=== PATIENT | male | born 1940 | race Caucasian/White ===

== ENCOUNTER → 2017-03-09 | Outpatient (CLI) | payer MEDICARE, BC ==
[2017-03-09 10:20] LABS: Blood Urea Nitrogen 19 mg/dL (9-20); Non-African American GFR(MDRD) >60 (>60 ml/min/1.73 sqM)
== END | disposition home or self-care (01) ==
LOC: LABWHC1 09:04
PROVIDERS: ATTEND Psychiatry & Neurology Neurology
DX: C71.9 Malignant neoplasm of brain, unspecified (principal); G25.81 Restless legs syndrome
CPT/HCPCS: 36415; 82565; 84520

== ENCOUNTER → 2017-03-10 | Outpatient (CLI) | payer MEDICARE, BC ==
--- NOTE | 2017-03-10 10:36 | MR ---
EXAMINATION TYPE: MR brain wo/w con DATE OF EXAM: 03/10/2017 COMPARISON: NONE HISTORY: brain tumor, tia TECHNIQUE: Multiplanar, multisequence images of the brain and brainstem is performed without and with IV contras t, utilizing 20 mL intravenous MultiHance . FINDINGS: Diffusion weighted images demonstrate no evidence of a recent infarct or other diffusion ab normality. Periventricular confluent and scattered hyperintensities on inversion recovery and T2-weig hted sequences are present. There is no extra-axial fluid collection. The ventricular system and cis ternal spaces are normal in size and appearance. The brain volume is age appropriate. Midline structures demonstrate normal morphology. The craniocervical junction appears within normal limits. Post contrast images demonstrate no abnormal enhancement. The dural venous sinuses appear pa tent. The visualized sinuses are remarkable for inflammatory change in the ethmoid air cells, there m ay be a mucous retention cyst, mucosal thickening present in the maxillary sinuses, frontal sinus, an d the globes are intact. IMPRESSION: Cortical atrophy and nonspecific white matter demyelination.
== END | disposition home or self-care (01) ==
LOC: RADMRIMAIN 09:30
PROVIDERS: ATTEND Psychiatry & Neurology Neurology
DX: G31.9 Degenerative disease of nervous system, unspecified (principal); G37.9 Demyelinating disease of central nervous system, unspecified; G45.9 Transient cerebral ischemic attack, unspecified
CPT/HCPCS: 70553; A9577

== ENCOUNTER 2017-12-20 12:42 | Observation (INO) | payer MEDICARE, BC ==
[2017-12-20] MEDS ORDERED: ASPIRIN 81 MG PO STA (13:18)
[2017-12-20] MEDS ORDERED: NITROGLYCERIN OINT 1 INCH/GM PACKET TOPICAL STA (13:18)
--- NOTE | 2017-12-20 13:21 | ED ---
General Adult HPI - General Chief complaint: Shortness of Breath Stated complaint: CHEST PAIN, KATELYN Time Seen by Provider: 12/20/17 12:45 Source: patient, RN notes reviewed Mode of arrival: wheelchair Limitations: no limitations - History of Present Illness Initial comments: This is a 77-year-old male who presents emergency part with past medical history significant for high blood pressure and high cholesterol. Patient comes in today stating that he started having chest pressure in the center versus less likely and it hasn't let up today at all. Patient states she also been mildly short of breath. Patient states she's had a cough with some positive sputum production which is unusual. Patient denies any fever chills. Patient denies any palpitation. Patient denies any abdominal pain patient denies nausea vomiting diarrhea. Patient denies any diaphoretic episodes. Patient denies any lightheadedness dizziness or near-syncopal episode. Patient denies any headache patient denies numbness weakness. - Related Data Home Medications Medication Instructions Recorded Confirmed Atorvastatin [Lipitor] 40 mg PO HS 03/09/16 12/20/17 Carbidopa-Levodopa 25-100 mg 1 tab PO QID 03/09/16 12/20/17 [Sinemet 25-100 mg] Citalopram Hydrobromide [CeleXA] 40 mg PO DAILY 03/09/16 12/20/17 Docusate [Colace] 100 mg PO BID 03/09/16 12/20/17 Fluticasone/Salmeterol [Advair 1 puff INHALATION RT-BID 03/09/16 12/20/17 500-50 Diskus] HYDROcodone/APAP 10-325MG [[place] 1 tab PO Q6H PRN 03/09/16 12/20/17 10-325] Losartan [Cozaar] 50 mg PO DAILY 03/09/16 12/20/17 Pramipexole [Mirapex] 0.25 mg PO TID 03/09/16 12/20/17 Rivaroxaban [Xarelto] 20 mg PO DAILY 03/09/16 12/20/17 Solifenacin Succinate [Vesicare] 10 mg PO DAILY 03/09/16 12/20/17 oxyCODONE HCL [OxyCONTIN] 10 mg PO Q12HR PRN 03/09/16 12/20/17 Allergies Allergy/AdvReac Type Severity Reaction Status Date / Time No Known Allergies Allergy Verified 12/20/17 13:08 Review of Systems ROS Statement: Those systems with pertinent positive or pertinent negative responses have been documented in the HPI. ROS Other: All systems not noted in ROS Statement are negative. Past Medical History Past Medical History: COPD, Hypertension Additional Past Medical History / Comment(s): Parkinson's disease, COPD, obstructive sleep apnea, hypertension, chronic atrial fibrillation, restless leg syndrome, depression, osteoarthritis, chronic neck and back pain Last Myocardial Infarction Date:: 2009 History of Any Multi-Drug Resistant Organisms: None Reported Past Surgical History: Tonsillectomy Additional Past Surgical History / Comment(s): Cervical spine neck fusion, low back surgery, tonsillectomy, adenoidectomy Past Anesthesia/Blood Transfusion Reactions: No Reported Reaction Past Psychological History: No Psychological Hx Reported Smoking Status: Former smoker Past Alcohol Use History: Rare Past Drug Use History: None Reported - Past Family History Father Family Medical History: COPD Mother Family Medical History: Dementia General Exam - General Exam Comments Initial Comments: GENERAL: Patient is well-developed and well-nourished. Patient is nontoxic and well- hydrated and is in mild distress. ENT: Neck is soft and supple. No significant lymphadenopathy is noted. Oropharynx is clear. Moist mucous membranes. Neck has full range of motion without eliciting any pain. EYES: The sclera were anicteric and conjunctiva were pink and moist. Extraocular movements were intact and pupils were equal round and reactive to light. Eyelids were unremarkable. PULMONARY: Diminished breath sounds with an occasional expiratory wheeze CARDIOVASCULAR: There is a regular rate and rhythm without any murmurs gallops or rubs. ABDOMEN: Soft and nontender with normal bowel sounds. No palpable organomegaly was noted. There is no palpable pulsatile mass. SKIN: Skin is clear with no lesions or rashes and otherwise unremarkable. NEUROLOGIC: Patient is alert and oriented x3. Cranial nerves II through XII are grossly intact. Motor and sensory are also intact. Normal speech, volume and content. Symmetrical smile. MUSCULOSKELETAL: Normal extremities with adequate strength and full range of motion. 1+ edema bilaterally LYMPHATICS: No significant lymphadenopathy is noted PSYCHIATRIC: Normal psychiatric evaluation. Normal interpersonal interactions appears functionally intact in deals appropriately with others. No signs of depression. No signs of anxiety. Limitations: no limitations Course Vital Signs 12/20/17 12/20/17 12/20/17 12:45 13:36 13:46 Temperature 98.0 F Pulse Rate 91 84 Respiratory 20 20 20 Rate Blood Pressure 138/60 104/56 O2 Sat by Pulse 92 L 96 Oximetry Medical Decision Making - Medical Decision Making EKG shows atrial fibrillation at a rate of 70 bpm QRS is under 40 QT interval 426 QTC is 485. Patient's EKG shows no ST segment elevation or depression or T wave abnormalities are noted. Patient has a right bundle olivier block. Chest x-ray shows no acute abnormality. Patient's chest pain was indicative of unstable angina/started the patient heparin. I spoke with Dr. Richardson he agreed to admit the patient I admitted the patient I wrote admitting orders I continue the heparin on the floor I continued Nitropaste and aspirin on the floor as well. I consult to cardiology. - Lab Data Result diagrams: 12/20/17 13:30 12/20/17 13:30 Lab Results 12/20/17 12/20/17 12/20/17 Range/Units 13:30 13:30 13:30 WBC 6.6 (3.8-10.6) k/uL RBC 4.40 (4.30-5.90) m/uL Hgb 13.9 (13.0-17.5) gm/dL Hct 41.2 (39.0-53.0) % MCV 93.6 (80.0-100.0) fL MCH 31.6 (25.0-35.0) pg MCHC 33.8 (31.0-37.0) g/dL RDW 13.8 (11.5-15.5) % Plt Count 211 (150-450) k/uL Neutrophils % 63 % Lymphocytes % 24 % Monocytes % 7 % Eosinophils % 4 % Basophils % 0 % Neutrophils # 4.1 (1.3-7.7) k/uL Lymphocytes # 1.6 (1.0-4.8) k/uL Monocytes # 0.5 (0-1.0) k/uL Eosinophils # 0.2 (0-0.7) k/uL Basophils # 0.0 (0-0.2) k/uL PT (9.0-12.0) sec INR (<1.2) APTT (22.0-30.0) sec Sodium 140 (137-145) mmol/L Potassium 4.1 (3.5-5.1) mmol/L Chloride 105 (98-107) mmol/L Carbon Dioxide 23 (22-30) mmol/L Anion Gap 12 mmol/L BUN 24 H (9-20) mg/dL Creatinine 1.02 (0.66-1.25) mg/dL Est GFR (CKD-EPI)AfAm 81 (>60 ml/min/1.73 sqM) Est GFR (CKD-EPI)NonAf 70 (>60 ml/min/1.73 sqM) Glucose 107 H (74-99) mg/dL Calcium 9.2 (8.4-10.2) mg/dL Magnesium 1.8 (1.6-2.3) mg/dL Total Bilirubin 0.4 (0.2-1.3) mg/dL AST 24 (17-59) U/L ALT 12 L (21-72) U/L Alkaline Phosphatase 52 (38-126) U/L Total Creatine Kinase 348 H (55-170) U/L CK-MB (CK-2) 1.9 (0.0-2.4) ng/mL CK-MB (CK-2) Rel Index 0.5 Troponin I <0.012 (0.000-0.034) ng/mL Total Protein 6.1 L (6.3-8.2) g/dL Albumin 3.7 (3.5-5.0) g/dL 12/20/17 Range/Units 13:30 WBC (3.8-10.6) k/uL RBC (4.30-5.90) m/uL Hgb (13.0-17.5) gm/dL Hct (39.0-53.0) % MCV (80.0-100.0) fL MCH (25.0-35.0) pg MCHC (31.0-37.0) g/dL RDW (11.5-15.5) % Plt Count (150-450) k/uL Neutrophils % % Lymphocytes % % Monocytes % % Eosinophils % % Basophils % % Neutrophils # (1.3-7.7) k/uL Lymphocytes # (1.0-4.8) k/uL Monocytes # (0-1.0) k/uL Eosinophils # (0-0.7) k/uL Basophils # (0-0.2) k/uL PT 11.1 (9.0-12.0) sec INR 1.1 (<1.2) APTT 27.0 (22.0-30.0) sec Sodium (137-145) mmol/L Potassium (3.5-5.1) mmol/L Chloride (98-107) mmol/L Carbon Dioxide (22-30) mmol/L Anion Gap mmol/L BUN (9-20) mg/dL Creatinine (0.66-1.25) mg/dL Est GFR (CKD-EPI)AfAm (>60 ml/min/1.73 sqM) Est GFR (CKD-EPI)NonAf (>60 ml/min/1.73 sqM) Glucose (74-99) mg/dL Calcium (8.4-10.2) mg/dL Magnesium (1.6-2.3) mg/dL Total Bilirubin (0.2-1.3) mg/dL AST (17-59) U/L ALT (21-72) U/L Alkaline Phosphatase (38-126) U/L Total Creatine Kinase (55-170) U/L CK-MB (CK-2) (0.0-2.4) ng/mL CK-MB (CK-2) Rel Index Troponin I (0.000-0.034) ng/mL Total Protein (6.3-8.2) g/dL Albumin (3.5-5.0) g/dL Critical Care Time Critical Care Time: Yes Total Critical Care Time: 35 Disposition Clinical Impression: Unstable angina Disposition: ADMITTED IP TO THIS [facility] Referrals: Elda Saenz MD [Primary Care Provider] - 1-2 days Time of Disposition: 14:36
[2017-12-20 13:46] LABS: Basophils % (A) 0 %; Eosinophils # (A) 0.2 k/uL (0-0.7); Eosinophils % (A) 4 %; HCT 41.2 % (39.0-53.0); HGB 13.9 gm/dL (13.0-17.5); Lymphocytes # (A) 1.6 k/uL (1.0-4.8); Lymphocytes % (A) 24 %; MCH 31.6 pg (25.0-35.0); MCHC 33.8 g/dL (31.0-37.0); MCV 93.6 fL (80.0-100.0); Mean Platelet Volume 7.1; Monocytes # (A) 0.5 k/uL (0-1.0); Monocytes % (A) 7 %; Neutrophils # (A) 4.1 k/uL (1.3-7.7); Neutrophils % (A) 63 %; Platelet Count 211 k/uL (150-450); RDW 13.8 % (11.5-15.5); WBC 6.6 k/uL (3.8-10.6)
--- NOTE | 2017-12-20 13:54 | XR ---
EXAMINATION TYPE: XR chest 2V DATE OF EXAM: 12/20/2017 COMPARISON: 04/07/2016 HISTORY: Chest pain with history of COPD, atrial fibrillation and Parkinson's disease. TECHNIQUE: Frontal and lateral views of the chest are obtained. FINDINGS: There is redemonstration of cardiomegaly and diffuse interstitial prominence unchanged fro m the exam of 04/07/2016, chronic. No new focal consolidation, pleural effusion or pneumothorax is gema ntified. There is diffuse osseous demineralization and degenerative changes of the acromioclavicular joints with cervical fusion device. Findings suggestive of chronic right rotator cuff tear are seen a s a high riding right humeral head. IMPRESSION: Chronic changes with no acute cardiopulmonary process.
[2017-12-20 13:55] LABS: INR 1.1 (<1.2); Prothrombin Time 11.1 sec (9.0-12.0)
[2017-12-20 13:58] LABS: Albumin 3.7 g/dL (3.5-5.0); Calcium 9.2 mg/dL (8.4-10.2); Magnesium 1.8 mg/dL (1.6-2.3); Potassium 4.1 mmol/L (3.5-5.1); Total Bilirubin 0.4 mg/dL (0.2-1.3); Total Protein 6.1 g/dL (6.3-8.2)
[2017-12-20 14:10] LABS: Creatine Kinase 348 U/L (55-170)
[2017-12-20 14:24] LABS: Creatine Kinase MB 1.9 ng/mL (0.0-2.4); Troponin I <0.012 ng/mL (0.000-0.034)
[2017-12-20] MEDS ORDERED: HEPARIN SODIUM,PORCINE 5,000 UNIT/ML 1 ML VIAL IV ONE (14:37)
[2017-12-20] MEDS ORDERED: NITROGLYCERIN SL TABS 0.4 MG TAB SUBLINGUAL PRN (14:38)
[2017-12-20] MEDS ORDERED: HEPARIN SODIUM,PORCINE/D5W PMX 25,000 UNIT in DEXTROSE/WATER 1 500ML.BAG IV SCH (15:00)
[2017-12-20] MEDS ORDERED: oxyCODONE ER 10 MG TAB.ER.12H PO PRN (15:07)
[2017-12-20] MEDS ORDERED: HYDROcodone/APAP 10-325MG 1 EACH TAB PO PRN (15:07)
[2017-12-20] MEDS: PRAMIPEXOLE 0.25 MG TAB PO SCH ×2 (16:20→20:06)
[2017-12-20] MEDS: CARBIDOPA-LEVODOPA 25-100 MG 1 EACH TAB PO SCH ×2 (16:20→20:06)
[2017-12-20] MEDS: NITROGLYCERIN OINT 1 INCH/GM PACKET TOPICAL SCH (18:17)
[2017-12-20] MEDS: DOCUSATE 100 MG CAP PO SCH (20:06)
[2017-12-20] MEDS: ATORVASTATIN 40 MG TAB PO SCH (20:06)
[2017-12-20] MEDS: SYMBICORT 160-4.5 MCG INHALER INHALATION SCH (20:57)
[2017-12-20 21:25] LABS: Creatine Kinase 318 U/L (55-170)
[2017-12-20 21:39] LABS: Creatine Kinase MB 1.8 ng/mL (0.0-2.4); Troponin I <0.012 ng/mL (0.000-0.034)
[2017-12-21 01:35] LABS: Creatine Kinase 302 U/L (55-170)
[2017-12-21 01:49] LABS: Creatine Kinase MB 1.6 ng/mL (0.0-2.4); Troponin I <0.012 ng/mL (0.000-0.034)
[2017-12-21] MEDS: NITROGLYCERIN OINT 1 INCH/GM PACKET TOPICAL SCH ×2 (03:45→06:00)
[2017-12-21 05:44] LABS: Cholesterol 84 mg/dL (<200); HDL Cholesterol 43 mg/dL (40-60); LDL Cholesterol,Calculated 26 mg/dL (0-99); Triglycerides 73 mg/dL (<150)
--- NOTE | 2017-12-21 06:17 | HP ---
HISTORY AND PHYSICAL DATE OF SERVICE: 12/20/2017 CHIEF COMPLAINT: Chest pain. HISTORY OF PRESENT ILLNESS: This 77-year-old gentleman with a past medical history of multiple medical problems including atrial fibrillation, COPD, hypertension, hyperlipidemia, history of sleep apnea, Parkinson's, adenoidectomy, tonsillectomy, being followed by Dr. Saenz in the outpatient setting, was complaining of chest pain. The patient had chest pressure in the lower part of the chest and upper part of the abdomen without much radiation. This all day and the patient came to [facility] and admitted for further evaluation and treatment. According to the daughter, speech was also slightly altered. The patient has significant Parkinson's with tremors also mostly affecting the right hand also. There is no history of any fever, rigors. No history of headache, loss of consciousness or seizures at this time. PAST MEDICAL HISTORY: History of atrial ablation, COPD, hypertension, hyperlipidemia, history of Parkinson's, history of COPD. MEDICATIONS: Medications prior to admission include: 1. OxyContin 10 mg b.i.d. p.r.n. 2. VESIcare 10 mg p.o. daily. 3. Xarelto 20 mg p.o. daily. 4. Mirapex 0.25 t.i.d. 5. Cozaar 50 mg p.o. daily. 6. Hydrocodone 1 tablet q.6 p.r.n. 7. Advair 500/50 one puff b.i.d. 8. Colace 100 mg b.i.d. 9. Celexa 40 mg p.o. daily. 10.Sinemet 25/100 one p.o. q.i.d. 11.Lipitor 40 mg at bedtime. ALLERGIES: Allergies are none. FAMILY HISTORY: History of COPD in the family. SOCIAL HISTORY: Occasional alcohol. Previous history of smoking. REVIEW OF SYSTEMS: ENT: Diminished hearing and diminished vision. CARDIOVASCULAR SYSTEM: As mentioned earlier. RESPIRATORY SYSTEM: As mentioned earlier. GI: No nausea, vomiting. : No dysuria. NERVOUS SYSTEM: No numbness, weakness. ALLERGY/IMMUNOLOGY: No asthma or hayfever. MUSCULOSKELETAL: As mentioned earlier. HEMATOLOGY/ONCOLOGY: No history of anemia. ENDOCRINE: No history of diabetes or hypothyroidism. CONSTITUTIONAL: As mentioned earlier. DERMATOLOGY: Negative. RHEUMATOLOGY: Negative. PSYCHIATRY: As mentioned earlier. PHYSICAL EXAM: The patient is alert and oriented x3. Pulse is 70, blood pressure is 115/67, respiration 18, temperature 98.1, pulse ox 94% on room air. HEENT: Conjunctivae normal. Oral mucosa moist. Neck is no jugular venous distention, no carotid bruit. No lymph node enlargement. CARDIOVASCULAR: S1 and S2 muffled. No S3 or S4. RESPIRATORY: Breath sounds diminished at the bases. A few rhonchi, no crackles. ABDOMEN: Soft, obese, nontender. No mass palpable. LEGS: No edema, no swelling. NERVOUS SYSTEM: Higher functions as mentioned earlier otherwise diffuse weakness and increased tones and tremors also present, right more than left otherwise. LYMPHATICS: No lymphadenopathy of the neck, axillae or groin. SKIN: No ulcer, rash or bleeding. JOINTS: No active deforming arthropathy. LABS: Labs are at this time show CBC within normal limits. APTT 27. Glucose 107. Creatine kinase is 348. ASSESSMENT: 1. Chest pain possible unstable angina. 2. Possible dysarthria, rule out transient ischemic attack. 3. Parkinson disease. 4. History atrial fibrillation. 5. Chronic obstructive pulmonary disease. 6. Hypertension. 7. Hyperlipidemia. 8. History of pneumonia. 9. History of sleep apnea. 10.History of depression. 11.History of degenerative joint disease. 12.Gait dysfunction. 13.Remote history of nicotine dependence. RECOMMENDATIONS AND DISCUSSION: This 77-year-old gentleman who presented with multiple complex medical issues, will monitor the patient closely. Continue the current medication and symptomatic treatment. Otherwise at this time I recommend continue the rest of medications, unstable angina protocol. Cardiology and neurology consultation. I would also recommend a CT scan of the head and as well as neurology evaluation. Neuro checks also. We will follow the patient closely. Prognosis guarded because of multiple complex medical issues. Further recommendations to follow. A copy of dictation forwarded to Dr. Saenz who is the primary physician. MMBEBOL / VICTORINON: [id number] / [id number]
[2017-12-21] MEDS: CARBIDOPA-LEVODOPA 25-100 MG 1 EACH TAB PO SCH ×4 (08:51→21:03)
[2017-12-21] MEDS: ASPIRIN 81 MG PO SCH (08:51)
[2017-12-21] MEDS: CITALOPRAM HYDROBROMIDE 20 MG TAB PO SCH (08:51)
[2017-12-21] MEDS: LOSARTAN 50 MG TAB PO SCH (08:53)
[2017-12-21] MEDS: OXYBUTYNIN XL 5 MG TAB.ER.24 PO SCH (08:53)
[2017-12-21] MEDS: PRAMIPEXOLE 0.25 MG TAB PO SCH ×2 (08:54→16:59)
[2017-12-21] MEDS ORDERED: ASPIRIN 325 MG TAB PO SCH (09:00)
--- NOTE | 2017-12-21 09:12 | CT ---
EXAMINATION TYPE: CT brain wo con DATE OF EXAM: 12/21/2017 COMPARISON: NONE INDICATION: Delayed speech DLP: 1060.3 mGycm, Automated exposure control for dose reduction was used. CONTRAST: None CT of the brain is performed utilizing 3 mm thick sections through the posterior fossa and 3 mm thick sections through the remaining calvarium. Study is performed within 24 hours of arrival to the hosp [place]. No abnormal hyperdensity is present to suggest an acute intracranial hemorrhage. No mass lesion is evident. There is some mild increased density in the left thalamus may be some calc ification. No mass effect is evident suggest hemorrhage. Series 9 image 23 No acute infarcts are evident. Periventricular white matter hypodensity is present, likely on the bas is of chronic white matter ischemic changes. Ventricles and sulci are appropriate for the patient age. Paranasal sinuses and mastoid air cells within the [id number] are clear. IMPRESSIONS: 1. Periventricular white matter ischemic changes and atrophy. 2. Suspected small amount of calcification in the left thalamus. Consider follow-up MRI to further ev aluate this area.
[2017-12-21] MEDS: SYMBICORT 160-4.5 MCG INHALER INHALATION SCH ×2 (09:14→19:38)
--- NOTE | 2017-12-21 10:15 | P.CRDCN ---
History of Present Illness Consult date: 12/21/17 History of present illness: Mr. Batista is a pleasant 77-year-old male past medical history significant for atrial fibrillation on mcfp anticoagulation, right bundle branch block, COPD, dyslipidemia, hypertension, obstructive sleep apnea and Parkinson's disease. He denies coronary artery disease. He has followed with a platform supervisor in [place]. He has relocated to [place] and hasn't established with a platform supervisor in [facility]. We have been asked to see the patient in consultation for chest pain. He denies history of coronary artery disease. He states he woke up on Monday night with burning, heavy sensation in the epigastric region. This was associated with shortness of breath, dizziness and nausea. The pain was described as a burning sensation. He took 2 Tums and the pain subsided within about 20 minutes. He has had no further symptoms of chest pain since admission. Telemetry tracings reveal atrial fibrillation with controlled ventricular response and spontaneous transition to sinus last night around midnight. He has been maintaining sinus mechanism since. EKG on admission is atrial fibrillation with controlled ventricular response with right bundle branch block pattern. Repeat this morning is sinus mechanism with right bundle branch block. Chest xray no acute cardiopulmonary process with chronic changes. Laboratory data reviewed, hemoglobin 13.9, platelets 211, potassium 4.1, sodium 140, creatinine 1.02, magnesium 1.8, cardiac enzymes negative 3, LDL 26, HDL 43. Current cardiac medications include Xarelto 20 mg daily, losartan 50 mg daily and atorvastatin 40 mg daily. Review of Systems At the time of exam: CONSTITUTIONAL: Denies fever. Denies chills. EYES: Denies blurred vision. Denies vision changes. Denies eye pain. EARS, NOSE, MOUTH & THROAT: Denies headache. Denies sore throat. Denies ear pain. CARDIOVASCULAR: Denies chest pain. Denies shortness of breath. Denies orthopnea. Denies PND. Denies palpitations. RESPIRATORY: Denies cough. GASTROINTESTINAL: Denies abdominal pain. Denies diarrhea. Denies constipation. Denies nausea. Denies vomiting. MUSCULOSKELETAL: Denies myalgias. INTEGUMENTARY: Denies pruitis. Denies rash. NEUROLOGIC: Denies numbness. Denies tingling. Denies weakness. PSYCHIATRIC: Denies anxiety. Denies depression. ENDOCRINE: Denies fatigue. Denies weight change. Denies polydipsia. Denies polyurina. GENITOURINARY: Denies burning, hematuria or urgency with micturation. HEMATOLOGIC: Denies history of anemia. Denies bleeding. Past Medical History Past Medical History: Atrial Fibrillation, COPD, Hyperlipidemia, Hypertension, Pneumonia, Sleep Apnea/CPAP/BIPAP Additional Past Medical History / Comment(s): Parkinson's disease, COPD, bronchitis obstructive sleep apnea, hypertension, chronic atrial fibrillation, restless leg syndrome, depression, osteoarthritis, chronic neck and back pain, previous charted stated past mi 2009 but pt unaware of this.rt eye cataract, over active bladder Last Myocardial Infarction Date:: 2009 History of Any Multi-Drug Resistant Organisms: None Reported Past Surgical History: Adenoidectomy, Tonsillectomy Additional Past Surgical History / Comment(s): Cervical spine neck fusion, low back surgery, tonsillectomy, adenoidectomy , colonoscopy, nasal sx, blepheroplasty Past Anesthesia/Blood Transfusion Reactions: No Reported Reaction Smoking Status: Former smoker - Past Family History Father Family Medical History: COPD Mother Family Medical History: Dementia Medications and Allergies Home Medications Medication Instructions Recorded Confirmed Type Atorvastatin [Lipitor] 40 mg PO HS 03/09/16 12/20/17 History Carbidopa-Levodopa 25-100 mg 1 tab PO QID 03/09/16 12/20/17 History [Sinemet 25-100 mg] Citalopram Hydrobromide [CeleXA] 40 mg PO DAILY 03/09/16 12/20/17 History Docusate [Colace] 100 mg PO BID 03/09/16 12/20/17 History Fluticasone/Salmeterol [Advair 1 puff INHALATION RT-BID 03/09/16 12/20/17 History 500-50 Diskus] HYDROcodone/APAP 10-325MG [Nardin 1 tab PO Q6H PRN 03/09/16 12/20/17 History 10-325] Losartan [Cozaar] 50 mg PO DAILY 03/09/16 12/20/17 History Pramipexole [Mirapex] 0.25 mg PO TID 03/09/16 12/20/17 History Rivaroxaban [Xarelto] 20 mg PO DAILY 03/09/16 12/20/17 History Solifenacin Succinate [Vesicare] 10 mg PO DAILY 03/09/16 12/20/17 History oxyCODONE HCL [OxyCONTIN] 10 mg PO Q12HR PRN 03/09/16 12/20/17 History Allergies Allergy/AdvReac Type Severity Reaction Status Date / Time No Known Allergies Allergy Verified 12/20/17 13:08 Physical Exam Vitals: Vital Signs Temp Pulse Pulse Resp BP BP Pulse Ox 12/21/17 07:46 98.3 F 57 L 16 136/67 93 L 12/21/17 03:42 97.7 F 62 18 133/68 94 L 12/20/17 23:38 98.4 F 64 18 118/73 95 12/20/17 19:59 98.1 F 70 18 115/67 95 12/20/17 16:00 97.7 F 84 18 100/51 94 L 12/20/17 15:01 67 20 102/64 97 12/20/17 13:46 84 20 104/56 96 12/20/17 13:36 20 12/20/17 12:45 98.0 F 91 20 138/60 92 L Intake and Output 12/20/17 12/21/17 12/21/17 22:59 06:59 14:59 Intake Total 394.333 Output Total 300 Balance 394.333 -300 Intake: Intake, IV Titration 154.333 Amount Heparin Sodium,Porcine/ 154.333 D5w Pmx 25,000 unit In Dextrose/Water 1 500ml. bag @ 9.843 UNITS/KG/HR 20 mls/hr IV .Q24H [facility] Rx #:[id number] Oral 240 Output: Urine 300 Other: Voiding Method Toilet Weight 114.6 kg 109.5 kg Blood pressure 136/67 heart rate 57 afebrile maintaining oxygen saturation on room air GENERAL: This is a 77-year-old male in no apparent distress at the time of my examination. HEENT: Head is atraumatic, normocephalic. Pupils are equal, round. Sclerae anicteric. Conjunctivae are clear. Mucous membranes of the mouth are moist. Neck is supple. There is no jugular venous distention. No carotid bruit is heard. LUNGS: Clear to auscultation no wheezes, rales or rhonchi. No chest wall tenderness is noted on palpation or with deep breathing. HEART: Irregular rate and rhythm without murmurs, rubs or gallops. S1 and S2 heard. ABDOMEN: Soft, nontender. Bowel sounds are heard. No organomegaly noted. EXTREMITIES: No evidence of peripheral edema and no calf tenderness noted. VASCULAR: Radial and dorsalis pedis pulses palpated, no evidence of clubbing. NEUROLOGIC: Patient is awake, alert and oriented x3. Results 12/20/17 13:30 12/20/17 13:30 Cardiac Enzymes 12/20/17 12/20/17 12/20/17 Range/Units 13:30 13:30 20:18 AST 24 (17-59) U/L CK-MB (CK-2) 1.9 1.8 (0.0-2.4) ng/mL Troponin I <0.012 <0.012 (0.000-0.034) ng/mL 12/21/17 Range/Units 00:40 AST (17-59) U/L CK-MB (CK-2) 1.6 (0.0-2.4) ng/mL Troponin I <0.012 (0.000-0.034) ng/mL Coagulation 12/20/17 12/20/17 12/21/17 Range/Units 13:30 20:18 04:50 PT 11.1 (9.0-12.0) sec APTT 27.0 41.5 H 45.9 H (22.0-30.0) sec Lipids 12/21/17 Range/Units 04:50 Triglycerides 73 (<150) mg/dL Cholesterol 84 (<200) mg/dL HDL Cholesterol 43 (40-60) mg/dL CBC 12/20/17 Range/Units 13:30 WBC 6.6 (3.8-10.6) k/uL RBC 4.40 (4.30-5.90) m/uL Hgb 13.9 (13.0-17.5) gm/dL Hct 41.2 (39.0-53.0) % Plt Count 211 (150-450) k/uL Comprehensive Metabolic Panel 12/20/17 Range/Units 13:30 Sodium 140 (137-145) mmol/L Potassium 4.1 (3.5-5.1) mmol/L Chloride 105 (98-107) mmol/L Carbon Dioxide 23 (22-30) mmol/L BUN 24 H (9-20) mg/dL Creatinine 1.02 (0.66-1.25) mg/dL Glucose 107 H (74-99) mg/dL Calcium 9.2 (8.4-10.2) mg/dL AST 24 (17-59) U/L ALT 12 L (21-72) U/L Alkaline Phosphatase 52 (38-126) U/L Total Protein 6.1 L (6.3-8.2) g/dL Albumin 3.7 (3.5-5.0) g/dL Current Medications Generic Name Dose Route Start Last Admin Trade Name Freq PRN Reason Stop Dose Admin Hydrocodone Bitart/Acetaminophen 1 each 12/20/17 15:07 Nardin 10 PO Q6H PRN Moderate Pain Aspirin 325 mg 12/21/17 09:00 Aspirin PO DAILY [facility] Atorvastatin Calcium 40 mg 12/20/17 21:00 12/20/17 20:06 Lipitor PO 40 mg HS [facility] Administration Budesonide/Formoterol Fumarate 2 puff 12/20/17 20:00 12/20/17 20:57 Symbicort 160-4.5 Mcg Inhaler INHALATION 2 puff RT-BID [facility] Administration Carbidopa/Levodopa 1 each 12/20/17 18:00 12/20/17 20:06 Sinemet 25-100 PO 1 each QID [facility] Administration Citalopram Hydrobromide 40 mg 12/21/17 09:00 Celexa PO DAILY [facility] Docusate Sodium 100 mg 12/20/17 21:00 12/20/17 20:06 Colace PO 100 mg BID [facility] Administration Heparin Sodium/Dextrose 25,000 500 mls @ 20 mls/hr 12/20/17 15:00 12/20/17 22 :42 unit/ IV Solution IV 11.84 units/kg/hr .Q24H [facility] 24.06 mls/hr Protocol Titration 9.843 UNITS/KG/HR Losartan Potassium 50 mg 12/21/17 09:00 Cozaar PO DAILY [facility] Nitroglycerin 1 inch 12/20/17 18:00 12/21/17 06:00 Nitro-Bid Oint TOPICAL Not Given Q6HR [facility] Nitroglycerin 0.4 mg 12/20/17 14:38 Nitrostat SUBLINGUAL Q5M PRN Chest Pain Oxybutynin Chloride 10 mg 12/21/17 09:00 Ditropan Xl PO DAILY [facility] Oxycodone HCl 10 mg 12/20/17 15:07 Oxycontin 10mg E.R. PO Q12HR PRN [facility] Pramipexole Dihydrochloride 0.25 mg 12/20/17 16:00 12/20/17 20:06 Mirapex PO 0.25 mg TID [facility] Administration Intake and Output 12/20/17 12/21/17 12/21/17 22:59 06:59 14:59 Intake Total 394.333 Output Total 300 Balance 394.333 -300 Intake: Intake, IV Titration 154.333 Amount Heparin Sodium,Porcine/ 154.333 D5w Pmx 25,000 unit In Dextrose/Water 1 500ml. bag @ 9.843 UNITS/KG/HR 20 mls/hr IV .Q24H [facility] Rx #:[id number] Oral 240 Output: Urine 300 Other: Voiding Method Toilet Weight 114.6 kg 109.5 kg 12/20/17 13:30 12/20/17 13:30 Assessment and Plan Assessment: ASSESSMENT 1. Chest pain, atypical. Relieved by Tums. An acute coronary event has been ruled out. 2. History of atrial fibrillation on mcfp anticoagulation 3. Hypertension 4. Dyslipidemia 5. Obstructive sleep apnea 6. COPD 7. Parkinson's disease PLAN An acute coronary event has been ruled out. Obtain 2D echocardiogram and doppler study to assess cardiac structure and function. We will treat him medically. Continue with aspirin 81 mg daily, atorvastatin 40 mg daily, losartan 50 mg daily and xarelto 20 mg daily. Thank you kindly for this consultation. Follow up with Dr. Serrato in 2-3 weeks. Nurse Practitioner note has been reviewed, I agree with a documented findings and plan of care. Patient was seen and examined.
[2017-12-21] MEDS: DOCUSATE 100 MG CAP PO SCH (11:01)
--- NOTE | 2017-12-21 11:13 | ECHOF ---
Referral Reason:cp MEASUREMENTS -------- HEIGHT: 175.3 cm WEIGHT: 109.3 kg BP: IVSd: 1.2 cm (0.6 - 1.1) LVIDd: 4.1 cm (3.9 - 5.3) LVPWd: 1.5 cm (0.6 - 1.1) IVSs: 1.7 cm LVIDs: 2.2 cm LVPWs: 1.8 cm Ao Diam: 3.7 cm (2.0 - 3.7) AV Cusp: 1.8 cm (1.5 - 2.6) LA Diam: 3.1 cm (2.7 - 3.8) MV EXCURSION: 15.119 mm (> 18.000) MV EF SLOPE: 61 mm/s (70 - 150) EPSS: 1.5 cm MV E Don: 0.64 m/s MV DecT: 217 ms MV A Don: 0.41 m/s MV E/A Ratio: 1.56 RAP: 5.00 mmHg RVSP: 12.99 mmHg FINDINGS -------- Sinus rhythm. This was a technically difficult study with suboptimal views. The left ventricular size is normal. There is mild concentric left ventricular hypertrophy. Overa ll left ventricular systolic function is normal with, an EF between 55 - 60 %. The right ventricle is normal in size and function. The left atrium is normal in size. The right atrium is normal in size. 5.0mg of Lumason was utilized for enhancement of images The aortic valve is trileaflet, and appears structurally normal. No aortic stenosis or regurgitation. There is trace mitral regurgitation. Trace tricuspid regurgitation present. The right ventricular systolic pressure, as measured by Dopp ler, is 12.99mmHg. The pulmonic valve was not well visualized. The pericardium is normal. CONCLUSIONS -------- 1. Sinus rhythm. 2. This was a technically difficult study with suboptimal views. 3. The left ventricular size is normal. 4. There is mild concentric left ventricular hypertrophy. 5. Overall left ventricular systolic function is normal with, an EF between 55 - 60 %. 6. The right ventricle is normal in size and function. 7. The left atrium is normal in size. 8. The right atrium is normal in size. 9. 5.0mg of Lumason was utilized for enhancement of images 10. The aortic valve is trileaflet, and appears structurally normal. No aortic stenosis or regurgitat ion. 11. There is trace mitral regurgitation. 12. Trace tricuspid regurgitation present. 13. The right ventricular systolic pressure, as measured by Doppler, is 12.99mmHg. 14. The pulmonic valve was not well visualized. 15. The pericardium is normal. RESIDENTIAL SALES REP: Danya Mcnamara RDCS
[2017-12-21] MEDS: ATORVASTATIN 40 MG TAB PO SCH (21:03)
[2017-12-21] MEDS: PRAMIPEXOLE 0.5 MG TAB PO SCH (21:03)
--- NOTE | 2017-12-21 22:23 | PN ---
PROGRESS NOTE DATE OF SERVICE: 12/21/2017. INTERVAL HISTORY: This 77-year-old gentleman who was admitted with chest pain also had complaints of dysarthria. Neurology is planning an MRI tomorrow. The 2D echo with Doppler was done by Cardiology. Patient did not have any chest pain anymore. The 2D echo did not show any acute abnormality. No fever and no cough. PHYSICAL EXAM: Alert and oriented times three. Pulse 65, blood pressure 142/67, respirations 16, temperature 97.2, pulse ox 94% on room air. HEENT is conjunctivae. NECK: No jugular venous distention. Cardiovascular: S1, S2 muffled. Respiratory: Breath sounds diminished in the bases. A few scattered rhonchi. No crackles. ABDOMEN: Soft. Legs: No edema. No swelling. Central nervous system: Diffusely weak and increased tone also present. LABS: Noted. ASSESSMENT: 1. Chest pain possible unstable angina possibly musculoskeletal. 2. Possible dysarthria, rule out transient ischemic attack. 3. Parkinson disease. 4. History of atrial fibrillation. 5. Chronic obstructive pulmonary disease. 6. Hypertension. 7. Hyperlipidemia. 8. History of pneumonia. 9. Sleep apnea. 10.History of depression. 11.History of degenerative joint disease. 12.History of gait dysfunction. 13.Remote history of nicotine dependence. RECOMMENDATIONS AND DISCUSSION: Recommend to continue current management. Continue with monitoring, symptomatic treatment. Closely follow with neurology, cardiology, MRI. Further recommendations to follow. MMODL / IJN: [id number] /
[2017-12-22] MEDS: DOCUSATE 100 MG CAP PO SCH ×2 (04:41→08:26)
[2017-12-22] MEDS: SYMBICORT 160-4.5 MCG INHALER INHALATION SCH (07:35)
[2017-12-22 07:55] VITALS: RESP 18
--- NOTE | 2017-12-22 08:06 | CONS ---
CONSULTATION DATE OF CONSULTATION: 12/21/2017. CHIEF COMPLAINT: Parkinson disease. HISTORY OF PRESENT ILLNESS: Mr. Batista is a pleasant 77-year-old male, who is being evaluated today on 12/21/17 by the neurology service per the request of Dr. Richardson for Parkinson disease. The patient was brought into [facility] Emergency Room with the complaints of atypical chest pain. He is being worked up by Cardiology for this. He has been complaining of worsening tremors in his upper extremities. He does have history of Parkinson disease and is currently on Sinemet 25/100 mg 4 times daily and Mirapex 0.25 mg [address] scan of the brain was done, which showed generalized atrophy and small vessel ischemic changes, along with calcifications seen in the left thalamus. His CBC, cardiac enzymes, fasting lipid panel and INR were normal. His comprehensive metabolic profile was normal except for slightly elevated BUN at 24. PAST MEDICAL HISTORY: Parkinson disease, atrial fibrillation, chronic obstructive pulmonary disease, hypertension, dyslipidemia. SOCIAL HISTORY: He occasionally drinks alcohol. He denies any drug use. He is a former smoker. FAMILY HISTORY: Positive for chronic obstructive pulmonary disease. HOME MEDICATIONS: Reviewed in the chart. ALLERGIES: No known drug allergies. REVIEW OF SYSTEM: CONSTITUTIONAL: Negative. EYES: Negative. ENT: Negative. CARDIOVASCULAR: As mentioned above. RESPIRATORY: Positive for occasional shortness of breath. GASTROINTESTINAL: Negative. GENITOURINARY: Negative. ENDOCRINE: Negative. DERMATOLOGICAL: Negative. PSYCHIATRIC: Negative. PHYSICAL EXAM: Vital signs show a temperature of 97.9, pulse 65, respirations 16, blood pressure 142/67. GENERAL APPEARANCE: The patient is a obese elderly male who appears to be in no acute distress. HEENT: Normocephalic, atraumatic. No facial asymmetry is seen. NECK: Supple with no masses felt. CARDIOVASCULAR: Regular rate and rhythm. ABDOMEN: Nontender, nondistended. Extremities show trace edema with no clubbing seen. NEUROLOGICAL EXAM: The patient is awake and oriented x3. Speech is mildly dysarthric. Language testing is normal. Strength is full in all 4 extremities. Sensory exam was normal to light touch in all 4 extremities. Resting tremor is seen in the right upper extremity. Cogwheel rigidity is noticed in the right upper extremity. No facial asymmetry is seen on cranial nerve testing. IMPRESSION: 1. Dysarthria. 2. Parkinson disease. 3. Tremors. 4. Abnormal CT scan of the brain. RECOMMENDATIONS: The patient's speech continues to be slightly dysarthric and this is new for the patient. This could be related to his advanced Parkinson disease. He denied any swallowing difficulties at this time. I will increase his Mirapex to 0.5 mg 3 times daily. Continue Sinemet at his home dose. As for his abnormal CT scan of the brain, I will order an MRI of the brain for further evaluation. Continue with neuro checks. I will continue to follow with you. Further recommendations to follow. Thank you for allowing me to participate in the care of your patient. If you have any questions, please feel free to contact me. CAMMY / REUBEN: [id number] /
[2017-12-22] MEDS: LOSARTAN 50 MG TAB PO SCH (08:25)
[2017-12-22] MEDS: PRAMIPEXOLE 0.5 MG TAB PO SCH (08:25)
[2017-12-22] MEDS: ASPIRIN 81 MG PO SCH (08:27)
[2017-12-22] MEDS: CITALOPRAM HYDROBROMIDE 20 MG TAB PO SCH (08:27)
[2017-12-22] MEDS: CARBIDOPA-LEVODOPA 25-100 MG 1 EACH TAB PO SCH ×2 (08:27→12:53)
[2017-12-22] MEDS: OXYBUTYNIN XL 5 MG TAB.ER.24 PO SCH (08:28)
[2017-12-22] MEDS ORDERED: RIVAROXABAN 20 MG TAB PO SCH (09:15)
--- NOTE | 2017-12-22 11:29 | MR ---
EXAMINATION TYPE: MR brain wo con DATE OF EXAM: 12/22/2017 COMPARISON: CT 12/21/2017 HISTORY: Abnormal CT scan T1-weighted sagittal, T2, FLAIR, and diffusion axial, and T2 coronal coronal views of the brain are s ubmitted. There is no evidence of acute ischemia. There is generalized degenerative change with diffuse and foc al areas of abnormal signal within the white matter most typical remote microvascular ischemia.. The re is no mass effect. Craniocervical junction maintained. Sella turcica has a normal appearance. No cerebellopontine angle mass. Low signal on T2 and FLAIR within the left thalamus likely in the bas is of calcification. Changes of chronic sinusitis and mastoiditis noted. IMPRESSION: 1. No acute intracranial process. Degenerative and nonspecific white matter changes most typical rem ote microvascular ischemia.
[2017-12-22 12:32] VITALS: BP 179/86; PULSE 59; TEMP 97.5
--- NOTE | 2017-12-22 13:23 | P.PN ---
Subjective Progress Note Date: 12/22/17 Principal diagnosis: Parkinson's disease This is a pleasant 77-year-old male continuing be evaluated by the neurology service for Parkinson's disease. For complaints of chest pain. Cardiology has assessed him for this. His been having worsening tremors of his upper extremities. His Sinemet was increased to 4 times daily. And we did increase his Mirapex to 0.5 mg 3 times daily. He is tolerating this well. Recall he did have an abnormal CT of the brain that showed some possible calcification. An MRI was ordered. It showed no acute intracranial abnormalities. There was remote microvascular ischemia. Otherwise, no abnormalities were found on MRI. At the time of my exam He is up and walking around his room just getting back from the bathroom. He is in no acute distress. Objective - Vital Signs Vital signs: Vital Signs Temp 97.5 F L 12/22/17 11:30 Pulse 59 L 12/22/17 11:30 Resp 18 12/22/17 11:30 BP 179/86 12/22/17 11:30 Pulse Ox 94 L 12/22/17 11:30 Intake & Output 12/21/17 12/22/17 12/22/17 18:59 06:59 18:59 Intake Total 472 240 Output Total 300 Balance 472 -300 240 Weight 109.5 kg Intake: Oral 472 240 Output: Urine 300 Other: Voiding Method Toilet Toilet Toilet - Constitutional General appearance: Present: cooperative, no acute distress - EENT Eyes: Present: PERRLA. Absent: abnormal pupil, ptosis ENT: Present: hearing grossly normal - Neck Neck: Present: normal ROM. Absent: rigidity - Respiratory Respiratory: negative: prolonged expiration, prolonged inspiration - Cardiovascular Rhythm: regular - Gastrointestinal General gastrointestinal: Absent: distended, tenderness - Neurologic Neurologic Comment(s): The patient is alert awake and oriented 3. Speech and language are normal. There is no facial asymmetry. Strength is 5 out of 5 in bilateral upper and lower extremities. There is no sensory deficit. Resting tremors are seen but no seizures are seen. Cranial nerves II through XII are intact globally. - Labs CBC & Chem 7: 12/20/17 13:30 12/20/17 13:30 Assessment and Plan (1) Parkinsons disease Current Visit: Yes Status: Chronic Code(s): G20 - PARKINSON'S DISEASE SNOMED Code(s): 51922261 (2) Tremors of nervous system Current Visit: Yes Status: Chronic Code(s): R25.1 - TREMOR, UNSPECIFIED SNOMED Code(s): 94072461 (3) Dysarthria Current Visit: Yes Status: Acute Code(s): R47.1 - DYSARTHRIA AND ANARTHRIA SNOMED Code(s): 7917889 (4) Unstable angina Current Visit: Yes Status: Suspected Code(s): I20.0 - UNSTABLE ANGINA SNOMED Code(s): 4336615 Plan: We did do an MRI to determine if his relatively new finding of mild dysarthria was related to a cerebrovascular event or worsening Parkinson's. His MRI of the brain showed no acute ischemia. He is tolerating his medication adjustment well. No further neurological inpatient testing is needed. He is cleared from a neurological standpoint. I have performed a history and physical on the above patient. I have reviewed the above note, and agree.
--- NOTE | 2017-12-22 19:21 | DS ---
DISCHARGE SUMMARY DATE OF SERVICE: 12/22/2017 FINAL DIAGNOSES: 1. Chest pain, possibly musculoskeletal pain, possible unstable angina. 2. Dysarthria; possible transient ischemic attack. 3. Parkinson's disease. 4. History of atrial fibrillation. 5. Chronic obstructive pulmonary disease. 6. Hypertension. 7. Hyperlipidemia. 8. History of pneumonia. 9. Sleep apnea. 10.History of depression. DISCHARGE DISPOSITION: The patient will be discharged in stable condition with guarded prognosis. HISTORY OF PRESENT ILLNESS: This 77-year-old gentleman admitted with a past medical history of multiple medical problems, as mentioned earlier, being followed by Dr. Saenz in the outpatient setting, was admitted with multiple symptomatology, including chest pain as well as some dysarthria, but myocardial infarction was ruled out. Cardiology recommended medical treatment. Neurology saw the patient and an MRI did not show any acute abnormality. Patient improved significantly. Patient will be discharged home in stable condition with guarded prognosis. DISCHARGE ADVICE AND MEDICATIONS: 1. Diet is cardiac. 2. Activity limited until followup. 3. Follow up with Dr. Seanz in 2 to 3 days. 4. Follow up with Dr. Serrato as advised. 5. Follow up with Dr. Boucher as advised. 6. Ecotrin 81 mg p.o. daily. 7. Lipitor 40 mg at bedtime. 8. Carbidopa/levodopa 25/100 one p.o. q.i.d. 9. Celexa 40 mg p.o. daily. 10.Colace 100 mg p.o. b.i.d. 11.Advair 1 puff b.i.d. 12.Hydrocodone 10 mg q.6 p.r.n. 13.Cozaar 50 mg p.o. daily. 14.Oxycodone 10 mg p.o. b.i.d. 15.Mirapex 0.25 mg p.o. t.i.d. 16.Xarelto 20 mg p.o. daily. 17.VESIcare 10 mg p.o. daily. Once again, the patient will be discharged in stable condition with guarded prognosis. MMODL / IJN: [id number] /
== END 2017-12-22 15:25 | disposition home or self-care (01) ==
LOC: EC 12:42 → 3OBS 14:38
PROVIDERS: ADMIT Hospitalist; ATTEND Hospitalist
DX: R07.89 Other chest pain (principal); R47.1 Dysarthria and anarthria; G20 Parkinson's disease; J44.9 Chronic obstructive pulmonary disease, unspecified; I10 Essential (primary) hypertension; I48.2 Chronic atrial fibrillation; G47.33 Obstructive sleep apnea (adult) (pediatric); Z99.89 Dependence on other enabling machines and devices; G25.81 Restless legs syndrome; G89.29 Other chronic pain; M54.2 Cervicalgia; M54.9 Dorsalgia, unspecified; F32.9 Major depressive disorder, single episode, unspecified; M19.90 Unspecified osteoarthritis, unspecified site; E78.5 Hyperlipidemia, unspecified; R26.9 Unspecified abnormalities of gait and mobility; I45.10 Unspecified right bundle-branch block; N32.81 Overactive bladder; E66.9 Obesity, unspecified; R94.02 Abnormal brain scan; Z79.01 Long term (current) use of anticoagulants; Z79.51 Long term (current) use of inhaled steroids; Z79.899 Other long term (current) drug therapy; Z68.35 Body mass index [BMI] 35.0-35.9, adult; I25.2 Old myocardial infarction; Z98.1 Arthrodesis status; Z87.01 Personal history of pneumonia (recurrent); Z87.891 Personal history of nicotine dependence; Z82.5 Family history of asthma and other chronic lower respiratory diseases; Z81.8 Family history of other mental and behavioral disorders
CPT/HCPCS: 99291 ×2; 96365 ×2; 96376 ×2; 96366 ×2; 36415; 94640 ×4; 94760; 80061; 80053; 82550 ×2; 82553 ×2; 83735; 84484 ×2; 85025; 85610; 85730 ×2; 71046; 70450; 70551; G0378 ×3; C8929; J1644 ×2; Q9950; 93306

== ENCOUNTER 2018-03-22 16:57 | Inpatient (IN) | payer MEDICARE, BC ==
[2018-03-22] MEDS ORDERED: SODIUM CHLORIDE 0.9% 1,000 ML IV STA (17:20)
[2018-03-22 17:27] LABS: Glucose,Whole Blood 88 mg/dL (75-99)
[2018-03-22 17:42] LABS: Basophils % (A) 0 %; Eosinophils # (A) 0.1 k/uL (0-0.7); Eosinophils % (A) 1 %; HCT 42.1 % (39.0-53.0); Lymphocytes # (A) 1.3 k/uL (1.0-4.8); Lymphocytes % (A) 18 %; MCH 31.2 pg (25.0-35.0); MCHC 33.2 g/dL (31.0-37.0); Mean Platelet Volume 7.2; Monocytes # (A) 0.4 k/uL (0-1.0); Monocytes % (A) 6 %; Neutrophils # (A) 5.3 k/uL (1.3-7.7); Neutrophils % (A) 74 %; Platelet Count 227 k/uL (150-450); RBC 4.48 m/uL (4.30-5.90); RDW 13.8 % (11.5-15.5); WBC 7.3 k/uL (3.8-10.6)
[2018-03-22 17:51] LABS: Albumin 4.3 g/dL (3.5-5.0); Calcium 9.5 mg/dL (8.4-10.2); Potassium 4.1 mmol/L (3.5-5.1); Total Bilirubin 1.2 mg/dL (0.2-1.3); Total Protein 7.1 g/dL (6.3-8.2)
--- NOTE | 2018-03-22 17:54 | CT ---
EXAMINATION TYPE: CT brain wo con DATE OF EXAM: 03/22/2018 COMPARISON: 12/21/2017 HISTORY: Left arm tingling and slurred speech. CT DLP: 1155.3 mGycm Automated exposure control for dose reduction was used. FINDINGS: There is cerebral cortical atrophy. There is no mass effect nor midline shift. There is no sign of in tracranial hemorrhage. There is stable left posterior thalamic calcification. There is mild hypodensi ty in the periventricular white matter. There is a 1.7 cm oval-shaped mucus retention cyst in the rig ht side ethmoid sinus. IMPRESSION: CEREBRAL ATROPHY AND CHRONIC SMALL VESSEL ISCHEMIA. NO ACUTE INTRACRANIAL ABNORMALITY. NO CHANGE.
[2018-03-22 17:58] LABS: INR 1.1 (<1.2); Partial Thromboplastin Time 24.5 sec (22.0-30.0); Prothrombin Time 10.5 sec (9.0-12.0)
--- NOTE | 2018-03-22 17:58 | XR ---
EXAMINATION TYPE: XR chest 2V DATE OF EXAM: 03/22/2018 COMPARISON: 12/20/2017 HISTORY: Left arm tingling TECHNIQUE: Frontal and lateral views of the chest are obtained. FINDINGS: There is some coarsening of the interstitial markings at the lung bases. There is no heart failure. There is no pleural effusion. Bony thorax is intact. IMPRESSION: Interstitial fibrotic changes in the lower lobes. No change compared to old exam. No hea rt failure.
[2018-03-22 18:10] LABS: Troponin I 0.012 ng/mL (0.000-0.034)
[2018-03-22 18:22] LABS: Creatine Kinase MB 2.5 ng/mL (0.0-2.4)
[2018-03-22] MEDS ORDERED: ONDANSETRON 4 MG/2 ML VIAL IVP STA (18:52)
--- NOTE | 2018-03-22 19:16 | ED ---
Neuro HPI - General Chief Complaint: Neuro Symptoms/Deficit Stated Complaint: POSS CVA Time Seen by Provider: 03/22/18 17:20 Source: patient Mode of arrival: ambulatory Limitations: no limitations - History of Present Illness Is the patient presenting with stroke symptoms?: No Initial Comments: 77 years old male had a stroke was seen and now [place] in [place] he was discharged from the hospital yesterday and now family noticed that his speech was slow 8 PM yesterday and now this morning they noticed that he could not talk but speech was not fluent also complaining about some tingliness on the left side of his body though there was no weakness chest tingling feelings on the left upper and left lower extremity. Denies any headaches no blurred vision speech is slow no chest pain or shortness of breath no abdominal pain no frequency urgency dysuria - Related Data Home Medications: Home Medications Medication Instructions Recorded Confirmed Atorvastatin [Lipitor] 40 mg PO HS 03/09/16 03/22/18 Carbidopa-Levodopa 25-100 mg 1 tab PO QID 03/09/16 03/22/18 [Sinemet 25-100 mg] Citalopram Hydrobromide [CeleXA] 40 mg PO DAILY 03/09/16 03/22/18 Docusate [Colace] 100 mg PO BID 03/09/16 03/22/18 HYDROcodone/APAP 10-325MG [[place] 1 tab PO Q6H PRN 03/09/16 03/22/18 10-325] Losartan [Cozaar] 50 mg PO DAILY 03/09/16 03/22/18 Rivaroxaban [Xarelto] 20 mg PO DAILY 03/09/16 03/22/18 Solifenacin Succinate [Vesicare] 10 mg PO DAILY 03/09/16 03/22/18 oxyCODONE HCL [OxyCONTIN] 10 mg PO Q12HR PRN 03/09/16 03/22/18 Carbidopa-Levodopa ER 50-200Mg 1 tab PO HS 03/22/18 03/22/18 [Sinemet ER 50-200] Citalopram Hydrobromide [CeleXA] 20 mg PO DAILY 03/22/18 03/22/18 Fluticasone/Salmeterol [Advair 1 inhalation PO RT-BID 03/22/18 03/22/18 500-50 Diskus] Metoclopramide HCl [Reglan] 10 mg PO BID 03/22/18 03/22/18 Omeprazole 20 mg PO DAILY 03/22/18 03/22/18 Pramipexole [Mirapex] 0.25 mg PO TID 03/22/18 03/22/18 Propafenone [Rythmol] 150 mg PO DAILY 03/22/18 03/22/18 Tamsulosin HCl [Flomax] 0.4 mg PO DAILY 03/22/18 03/22/18 guaiFENesin 400 mg PO BID 03/22/18 03/22/18 Allergies/Adverse Reactions: Allergies Allergy/AdvReac Type Severity Reaction Status Date / Time No Known Allergies Allergy Verified 03/22/18 17:34 Review of Systems ROS Statement: Those systems with pertinent positive or pertinent negative responses have been documented in the HPI. ROS Other: All systems not noted in ROS Statement are negative. General Exam - General Exam Comments Initial Comments: General: The patient is awake and alert, in no distress, and does not appear acutely ill. GCS is 15 he talks was slow Skin: Skin is warm and dry and no rashes or lesions are noted. Eye: Pupils are equal, round and reactive to light, extra-ocular movements are intact; there is normal conjunctiva bilaterally. Ears, nose, mouth and throat: There are moist mucous membranes and no oral lesions. Neck: The neck is supple, there is no tenderness or JVD. Cardiovascular: There is a regular rate and rhythm. No murmur, rub or gallop is appreciated. Respiratory: To auscultation bilateral, no wheezing no rhonchi no distress respiratory will noticed Gastrointestinal: Soft, non-distended, non-tender abdomen without masses or organomegaly noted. There is no rebound or guarding present. Bowel sounds are unremarkable. Back: There is no tenderness to palpation in the midline. There is no obvious deformity. Musculoskeletal: Normal ROM, no tenderness, There is no pedal edema. There is no calf tenderness or swelling. No cords were appreciated. Neurological: CN II-XII intact, Cranial nerves III through XII are intact. There are no obvious motor or sensory deficits. Coordination appears grossly intact. Speech is normal. No neuro deficits were noted Psychiatric: Cooperative, appropriate mood & affect, normal judgment. Limitations: no limitations Stroke MDM - Lab Data Result diagrams: 03/22/18 17:25 03/22/18 17:25 Lab Results 03/22/18 03/22/18 03/22/18 Range/Units 17:20 17:25 17:25 WBC 7.3 (3.8-10.6) k/uL RBC 4.48 (4.30-5.90) m/uL Hgb 14.0 (13.0-17.5) gm/dL Hct 42.1 (39.0-53.0) % MCV 94.0 (80.0-100.0) fL MCH 31.2 (25.0-35.0) pg MCHC 33.2 (31.0-37.0) g/dL RDW 13.8 (11.5-15.5) % Plt Count 227 (150-450) k/uL Neutrophils % 74 % Lymphocytes % 18 % Monocytes % 6 % Eosinophils % 1 % Basophils % 0 % Neutrophils # 5.3 (1.3-7.7) k/uL Lymphocytes # 1.3 (1.0-4.8) k/uL Monocytes # 0.4 (0-1.0) k/uL Eosinophils # 0.1 (0-0.7) k/uL Basophils # 0.0 (0-0.2) k/uL PT (9.0-12.0) sec INR (<1.2) APTT (22.0-30.0) sec Sodium (137-145) mmol/L Potassium (3.5-5.1) mmol/L Chloride (98-107) mmol/L Carbon Dioxide (22-30) mmol/L Anion Gap mmol/L BUN (9-20) mg/dL Creatinine (0.66-1.25) mg/dL Est GFR (CKD-EPI)AfAm (>60 ml/min/1.73 sqM) Est GFR (CKD-EPI)NonAf (>60 ml/min/1.73 sqM) Glucose (74-99) mg/dL POC Glucose (mg/dL) 88 (75-99) mg/dL POC Glu Gastroenterology Nurse Practitioner ID Joey Sheets Calcium (8.4-10.2) mg/dL Total Bilirubin (0.2-1.3) mg/dL AST (17-59) U/L ALT (21-72) U/L Alkaline Phosphatase (38-126) U/L Total Creatine Kinase 663 H (55-170) U/L CK-MB (CK-2) 2.5 H* (0.0-2.4) ng/mL CK-MB (CK-2) Rel Index 0.4 Troponin I 0.012 (0.000-0.034) ng/mL Total Protein (6.3-8.2) g/dL Albumin (3.5-5.0) g/dL 03/22/18 03/22/18 Range/Units 17:25 17:25 WBC (3.8-10.6) k/uL RBC (4.30-5.90) m/uL Hgb (13.0-17.5) gm/dL Hct (39.0-53.0) % MCV (80.0-100.0) fL MCH (25.0-35.0) pg MCHC (31.0-37.0) g/dL RDW (11.5-15.5) % Plt Count (150-450) k/uL Neutrophils % % Lymphocytes % % Monocytes % % Eosinophils % % Basophils % % Neutrophils # (1.3-7.7) k/uL Lymphocytes # (1.0-4.8) k/uL Monocytes # (0-1.0) k/uL Eosinophils # (0-0.7) k/uL Basophils # (0-0.2) k/uL PT 10.5 (9.0-12.0) sec INR 1.1 (<1.2) APTT 24.5 (22.0-30.0) sec Sodium 140 (137-145) mmol/L Potassium 4.1 (3.5-5.1) mmol/L Chloride 109 H (98-107) mmol/L Carbon Dioxide 23 (22-30) mmol/L Anion Gap 8 mmol/L BUN 14 (9-20) mg/dL Creatinine 1.10 (0.66-1.25) mg/dL Est GFR (CKD-EPI)AfAm 74 (>60 ml/min/1.73 sqM) Est GFR (CKD-EPI)NonAf 64 (>60 ml/min/1.73 sqM) Glucose 87 (74-99) mg/dL POC Glucose (mg/dL) (75-99) mg/dL POC Glu Gastroenterology Nurse Practitioner ID Calcium 9.5 (8.4-10.2) mg/dL Total Bilirubin 1.2 (0.2-1.3) mg/dL AST 40 (17-59) U/L ALT 33 (21-72) U/L Alkaline Phosphatase 81 (38-126) U/L Total Creatine Kinase (55-170) U/L CK-MB (CK-2) (0.0-2.4) ng/mL CK-MB (CK-2) Rel Index Troponin I (0.000-0.034) ng/mL Total Protein 7.1 (6.3-8.2) g/dL Albumin 4.3 (3.5-5.0) g/dL Past Medical History Past Medical History: Atrial Fibrillation, COPD, Hyperlipidemia, Hypertension, Pneumonia, Sleep Apnea/CPAP/BIPAP Additional Past Medical History / Comment(s): Parkinson's disease, COPD, bronchitis obstructive sleep apnea, hypertension, chronic atrial fibrillation, restless leg syndrome, depression, osteoarthritis, chronic neck and back pain, previous charted stated past mi 2009 but pt unaware of this.rt eye cataract, over active bladder Last Myocardial Infarction Date:: 2009 History of Any Multi-Drug Resistant Organisms: None Reported Past Surgical History: Adenoidectomy, Tonsillectomy Additional Past Surgical History / Comment(s): Cervical spine neck fusion, low back surgery, tonsillectomy, adenoidectomy , colonoscopy, nasal sx, blepheroplasty Past Anesthesia/Blood Transfusion Reactions: No Reported Reaction Past Psychological History: No Psychological Hx Reported Smoking Status: Former smoker - Past Family History Father Family Medical History: COPD Mother Family Medical History: Dementia Course Vital Signs 03/22/18 03/22/18 17:01 18:50 Temperature 97.2 F L Pulse Rate 70 70 Respiratory 20 16 Rate Blood Pressure 177/78 151/87 O2 Sat by Pulse 98 97 Oximetry EKG is normal sinus ventricular rate is 62 AK interval is 166 QRS duration is 128 QT/QTc is 452/458 review of this EKG shows left sec axis deviation right bundle branch block no ST elevation noticed noticed some T-wave flattening in V3 V4 V5 and V6 Family stated he had a brain bleed we did the head CT here but didn't see any brain bleed Exam was unremarkable considering patient has a recent URI event and he has a tingling of the left arm and leg want to put him in the hospital neurology be consulted and patient be admitted to Dr. Richardson's Disposition Clinical Impression: Slurred speech, CVA (cerebral vascular accident) Disposition: ADMITTED IP TO THIS HOSP Condition: Good Is patient prescribed a controlled substance at d/c from ED?: No Referrals: Elda Saenz MD [Primary Care Provider] - 1-2 days
[2018-03-22] MEDS ORDERED: ACETAMINOPHEN TAB 325 MG TAB PO PRN (20:00)
[2018-03-22] MEDS ORDERED: NALOXONE 0.4 MG/ML 1 ML VIAL IV PRN (20:00)
[2018-03-22] MEDS ORDERED: HYDROcodone/APAP 10-325MG 1 EACH TAB PO PRN (20:06)
[2018-03-22] MEDS ORDERED: oxyCODONE ER 10 MG TAB.ER.12H PO PRN (20:06)
--- NOTE | 2018-03-22 21:30 | MR ---
EXAMINATION TYPE: MR brain wo con DATE OF EXAM: 03/22/2018 COMPARISON: 12/22/2017 HISTORY: Left arm tingling and slurred speech Standard multiplanar, multisequence MRI departmental protocol Multiplanar, multisequence images of the brain were acquired. Diffusion weighted imaging was performe d. FINDINGS: There is cerebral cortical atrophy. There is no mass effect nor midline shift. There is no sign of intracranial hemorrhage. There is patchy increased signal in the periventricular white matter . There are numerous foci at the frias-white matter junction that measure up to 1 cm. Total number is approximately 20. There is small mucus retention cyst right maxillary sinus. The calvarium is intact. Brainstem appears intact. Corpus callosum appears normal. Sella turcica is normal. There is 15 x 10 mm mucus retention cyst in the right ethmoid sinus. There is no evidence of cortical infarct. IMPRESSION: Cerebral atrophy. Numerous white matter foci are mostly at the frias-white matter junction of both cer ebral hemispheres and consistent with chronic small vessel ischemia. There is overall no significant change compared to old exam.
[2018-03-22] MEDS: ATORVASTATIN 40 MG TAB PO SCH (21:42)
[2018-03-22] MEDS: CARBIDOPA-LEVODOPA ER 50-200MG 1 EACH TABLET.ER PO SCH (21:42)
[2018-03-22 23:43] VITALS: BMI 34.2
--- NOTE | 2018-03-22 23:48 | P.CNNES ---
History of Present Illness Consult date: 03/22/18 Reason for Consult: Patient admitted with slurred speech and recent ICH. History of Present Illness: This patient is a 77-year-old right-handed white male who is admitted today to the hospital with symptoms of worsening slurred speech and left-sided numbness and weakness. According to the patient on Monday he was in [place] and apparently developed symptoms of hypotension. He was taken to a hospital in [facility] which according to the patient was [facility]. He states he was admitted to the hospital and underwent extensive evaluation for hypotension and stroke. Patient states his blood pressure was very low on initial admission to Hospital. He underwent multiple evaluations and testing including MRI of the brain and computed tomography scan of the brain for suspicion of stroke. Patient also states he underwent echocardiogram and carotid Doppler ultrasound all of which were completed within 2 days. The patient was told that he had developed a small intracerebral hemorrhage in the brain. He has a history of chronic atrial fibrillation for which she had been taking Xarelto on a daily basis. Upon the findings of acute ICH he was taken off of Xarelto by the outside hospital and was discharged home yesterday. Apparently in route back to [place] where he resides in [facility] he develop recurrent symptoms of slurred speech and difficulty with his speech and language. He also complained of numbness on his left side. He was brought back to the emergency room today and was seen in the ER at [facility] by Dr. Rodriguez. The patient was sent for a computed tomography scan of the brain this evening which revealed cerebral atrophy and chronic small vessel ischemia. No acute intracranial abnormality was noted. Patient was recommended to undergo follow-up MRI of the brain due to the recent history of intracerebral hemorrhage. MRI of the brain was completed this evening and revealed cerebral atrophy and numerous white matter ischemic changes. No evidence of acute stroke or hemorrhage. No evidence of acute cortical infarct. MRI was compared to previous study done on 12/22/2017 and it was no significant change. It is unclear at this point as to his initial evaluation at [facility] in [place] and they're finding of acute intracerebral hemorrhage. We have requested all of his recent hospital records to be sent to [place] tomorrow for immediate review. We are recommending a consultation with cardiology to further evaluate the need to restart his Xarelto. The green feed attendant on-call Dr. Theodore will be informed this evening of the impending consultation. We will await further recommendations from cardiology regarding reinitiation of his Xarelto given his history of chronic atrial fibrillation. The patient apparently underwent a extensive stroke evaluation and we will need to obtain all of these recent records from [facility] in [place]. Case was discussed today at length with the patient's daughter Ms. Josy Palomo in case was discussed over the phone with her this evening. She was able to provide some more information of his recent hospitalization in [place]. Apparently the family notices a recurrence of symptoms today including his slow speech and hesitation in his speech. For this reason they decided to bring him back directly to the hospital soon after returning from [place] today. The patient does have history of underlying Parkinson's disease. He is currently on treatment and is been taking Sinemet and Mirapex. He also has a history of obstructive sleep apnea. Patient denies any previous history of stroke. Patient was admitted to selective care floor today. His supervisor graphite does reveal him to have evidence of atrial fibrillation this evening. Once again we are consulted cardiology for their opinion in regards to restarting his Xarelto for further management. He is now been admitted and neurology has been consulted for further evaluation and recommendations. His overall prognosis at this time remains very guarded. We will continue close neurological follow-up with the patient during this admission. Review of Systems Constitutional: Denies chills, Denies fever Eyes: denies blurred vision, denies pain Ears, nose, mouth and throat: Denies headache, Denies sore throat Cardiovascular: Denies chest pain, Denies shortness of breath Respiratory: Denies cough Gastrointestinal: Denies abdominal pain, Denies diarrhea, Denies nausea, Denies vomiting Musculoskeletal: Denies myalgias Integumentary: Denies pruritus, Denies rash Neurological: Reports confusion, Reports memory loss, Reports motor disturbance , Reports paresthesias, Reports tingling, Reports tremors, Denies numbness, Denies weakness Psychiatric: Denies anxiety, Denies depression Endocrine: Denies fatigue, Denies weight change Past Medical History Past Medical History: Atrial Fibrillation, COPD, Hyperlipidemia, Hypertension, Pneumonia, Sleep Apnea/CPAP/BIPAP Additional Past Medical History / Comment(s): Parkinson's disease, COPD, bronchitis obstructive sleep apnea, hypertension, chronic atrial fibrillation, restless leg syndrome, depression, osteoarthritis, chronic neck and back pain, previous charted stated past mi 2009 but pt unaware of this.rt eye cataract, over active bladder Last Myocardial Infarction Date:: 2009 History of Any Multi-Drug Resistant Organisms: None Reported Past Surgical History: Adenoidectomy, Tonsillectomy Additional Past Surgical History / Comment(s): Cervical spine neck fusion, low back surgery, tonsillectomy, adenoidectomy , colonoscopy, nasal sx, blepheroplasty Past Anesthesia/Blood Transfusion Reactions: No Reported Reaction Past Psychological History: No Psychological Hx Reported Smoking Status: Former smoker - Past Family History Father Family Medical History: COPD Mother Family Medical History: Dementia Medications and Allergies Home Medications Medication Instructions Recorded Confirmed Type Atorvastatin [Lipitor] 40 mg PO HS 03/09/16 03/22/18 History Carbidopa-Levodopa 25-100 mg 1 tab PO QID 03/09/16 03/22/18 History [Sinemet 25-100 mg] Citalopram Hydrobromide [CeleXA] 40 mg PO DAILY 03/09/16 03/22/18 History Docusate [Colace] 100 mg PO BID 03/09/16 03/22/18 History HYDROcodone/APAP 10-325MG [[place] 1 tab PO Q6H PRN 03/09/16 03/22/18 History 10-325] Losartan [Cozaar] 50 mg PO DAILY 03/09/16 03/22/18 History Rivaroxaban [Xarelto] 20 mg PO DAILY 03/09/16 03/22/18 History Solifenacin Succinate [Vesicare] 10 mg PO DAILY 03/09/16 03/22/18 History oxyCODONE HCL [OxyCONTIN] 10 mg PO Q12HR PRN 03/09/16 03/22/18 History Carbidopa-Levodopa ER 50-200Mg 1 tab PO HS 03/22/18 03/22/18 History [Sinemet ER 50-200] Fluticasone/Salmeterol [Advair 1 inhalation PO RT-BID 03/22/18 03/22/18 History 500-50 Diskus] Metoclopramide HCl [Reglan] 10 mg PO BID 03/22/18 03/22/18 History Omeprazole 20 mg PO DAILY 03/22/18 03/22/18 History Pramipexole [Mirapex] 0.25 mg PO TID 03/22/18 03/22/18 History Propafenone [Rythmol] 150 mg PO DAILY 03/22/18 03/22/18 History Tamsulosin HCl [Flomax] 0.4 mg PO DAILY 03/22/18 03/22/18 History guaiFENesin 400 mg PO BID 03/22/18 03/22/18 History Allergies Allergy/AdvReac Type Severity Reaction Status Date / Time No Known Allergies Allergy Verified 03/22/18 17:34 Physical Examination - Vital Signs Vital Signs: Vital Signs Temp Pulse Pulse Resp BP BP Pulse Ox 03/22/18 22:14 63 18 162/98 94 L 03/22/18 21:48 97.9 F 68 18 150/76 97 03/22/18 21:11 97.7 F 77 18 107/74 95 03/22/18 18:50 70 16 151/87 97 03/22/18 17:01 97.2 F L 70 20 177/78 98 Intake and Output 03/22/18 03/22/18 03/23/18 14:59 22:59 06:59 Other: Weight 105.233 kg - Constitutional General appearance: average body habitus, cooperative - EENT EENT: PERRL, mucous membranes moist - Respiratory Respiratory: lungs clear, normal breath sounds - Cardiovascular Cardiovascular: regular rate, normal S1, normal S2 Extremities: no peripheral edema bilaterally - Gastrointestinal Gastrointestinal: normoactive bowel sounds - Integumentary Integumentary: normal - Neurologic Cranial nerve examination: PERRL, EOMI, VFF, V1/V2/V3 grossly intact, face symmetric, tongue midline, intact gag reflex, intact corneal reflex, normal palatal elevation Speech examination: intact Sensorimotor examination: intact Detailed motor examination: grossly full strength in all extremities (Patient has no significant cogwheel rigidity in the upper or lower extremities. Patient is noted to have rest tremor involving the right upper extremity.) Motor examination - right side: 4/5: biceps, triceps, wrist flexion, wrist extension, periodontal assistant, hip flexors, knee extensors, dorsiflexion, toe extension (EHL) , plantarflexion Motor examination - left side: 4/5: biceps, triceps, wrist flexion, wrist extension, periodontal assistant, hip flexors, knee extensors, dorsiflexion, toe extension (EHL) , plantarflexion Detailed sensory examination: intact Reflex and gait examination: intact Reflexes: 1+: ankle, bicep, knee, tricep - Musculoskeletal Musculoskeletal: no pain - Psychiatric Psychiatric: mood/affect appropriate, cooperative Results - Laboratory Findings CBC and BMP: 03/22/18 17:25 03/22/18 17:25 Abnormal Lab Findings: Abnormal Labs 03/22/18 03/22/18 17:25 17:25 Chloride 109 H Total Creatine Kinase 663 H CK-MB (CK-2) 2.5 H* Assessment and Plan (1) Transient ischemic attack, acute Current Visit: Yes Status: Acute Code(s): G45.9 - TRANSIENT CEREBRAL ISCHEMIC ATTACK, UNSPECIFIED SNOMED Code(s): 567439335 (2) Intracerebral hemorrhage Current Visit: Yes Status: Acute Code(s): I61.9 - NONTRAUMATIC INTRACEREBRAL HEMORRHAGE, UNSPECIFIED SNOMED Code(s): 081223471 (3) Slurred speech Current Visit: Yes Status: Acute Code(s): R47.81 - SLURRED SPEECH SNOMED Code(s): 973779392 (4) Dysarthria Current Visit: No Status: Acute Code(s): R47.1 - DYSARTHRIA AND ANARTHRIA SNOMED Code(s): 1868452 (5) Parkinsons disease Current Visit: No Status: Chronic Code(s): G20 - PARKINSON'S DISEASE SNOMED Code(s): 01901144 Plan: This patient is a 77-year-old male who apparently was in [place] last week and developed sudden onset of severe hypotension and was taken to [facility] in [facility]. Patient apparently was admitted there on to say of this past week and was told that he had suffered a intracerebral hemorrhage. More details were not available today but records from [facility] have been requested. Patient apparently underwent an extensive stroke evaluation including computed tomography scan and MRI of the brain. Apparently was told that there was a small intracerebral hemorrhage in the brain. He was taken off his Xarelto by the physicians at [facility] in [place]. He does have history of chronic atrial fibrillation. Patient was brought into the emergency room today as he had recurrent clinical findings of slurred speech and left-sided numbness. He underwent his initial computed tomography scan of the brain in the emergency room and was evaluated there by Dr. Rodriguez. His findings appear to be minimal on his examination in the ER. We' ve recommended the patient have a stat MRI of the brain to rule out acute intracerebral hemorrhage or extension of recent ICH. The patient completed MRI of the brain this evening. MRI of the brain revealed cerebral atrophy and numerous white matter ischemic changes. No evidence of acute stroke or hemorrhage. Results of the MRI were discussed today with the patient as well as his daughter Ms. Josy Palomo over the phone. She was updated on the MRI results. We have requested all medical records from his recent hospitalization in [facility] to [facility]. Apparently MRI done there did reveal an area of intracerebral hemorrhage. He remains off of Xarelto at this time due to this bleed. We have requested a cardiology consultation to determine if he should be restarted on his Xarelto today. In the meantime the patient seems to be making some progress. His speech does seem to be slightly dysarthric at times. His Parkinson's appears to be moderate in degree. He should be maintained on his current dose of Sinemet and Mirapex. We will obtain a speech therapy consultation for the patient tomorrow. His overall prognosis at this time remains very guarded. Case was discussed at length with the patient as well as his daughter over the phone Ms. Palomo. All of their questions were answered. His overall prognosis at this time remains very guarded. We will continue close neurological follow-up for this patient during this admission. Time with Patient: Greater than 30
[2018-03-23] MEDS ORDERED: ALPRAZolam 0.25 MG TAB PO PRN (00:31)
[2018-03-23] MEDS: guaiFENesin SYRUP 100MG/5ML 200 MG/10 ML CUP PO SCH ×3 (01:35→20:45)
[2018-03-23] MEDS: SODIUM CHLORIDE 0.9% 1,000 ML IV SCH ×2 (01:36→20:38)
[2018-03-23] MEDS: DOCUSATE 100 MG CAP PO SCH ×3 (01:36→20:43)
[2018-03-23] MEDS: METOCLOPRAMIDE 10 MG TAB PO SCH ×3 (02:47→20:43)
[2018-03-23] MEDS: PRAMIPEXOLE 0.25 MG TAB PO SCH ×4 (02:47→20:42)
--- NOTE | 2018-03-23 06:33 | HP ---
HISTORY AND PHYSICAL DATE OF SERVICE: 03/22/2018 CHIEF COMPLAINTS: Numbness of the left arm and as well as slurring of speech and slow speech. HISTORY OF PRESENT ILLNESS: This 77-year-old gentleman with the past medical history of atrial ablation, COPD, hypertension, hyperlipidemia, pneumonia, history of sleep apnea, history of Parkinson disease being followed by Dr. Saenz in the outpatient setting who was sitting with friends [place]. The patient was admitted in a local hospital and was supposed to have intracranial hemorrhage and Xarelto was stopped. On going back to admission, the patient checked in the ER with complaints of similar symptoms of slow speech and as well as some numbness of the left side. A CT scan and MRI showed multiple findings including sites for chronic small-vessel ischemia; no acute stroke or hemorrhage was noted. Dr. Robel Allan's evaluation in progress at this time. There is no history of any fever, rigors. No history of headache, loss of consciousness, or seizures. PAST MEDICAL HISTORY: Atrial ablation, COPD, hypertension, hyperlipidemia, history of pneumonia, history of Parkinson disease, adenoidectomy. MEDICATIONS: Medications prior to admission include home medications are: 1. Guaifenesin 400 mg p.o. b.i.d. 2. Omeprazole 20 mg daily. 3. Advair 500/50 one puff b.i.d. 4. Mirapex 0.25 mg t.i.d. 5. Sinemet ER 50/200 p.o. at bedtime. 6. Rythmol 150 mg p.o. daily. 7. Reglan 10 mg p.o. b.i.d. 8. Flomax 0.4 daily. 9. VESIcare 10 mg p.o. daily. 10.Xarelto 20 mg p.o. daily. 11.Colace 100 mg p.o. b.i.d. 12.OxyContin 10 mg p.o. b.i.d. p.r.n. 13.Losartan 50 mg p.o. daily. 14.[place] 10 mg q.6 p.r.n. 15.Celexa 40 mg p.o. daily. 16.Sinemet 25/100 one p.o. q.i.d. 17.Lipitor 40 mg at bedtime. ALLERGIES: Allergies are none. FAMILY HISTORY: History of COPD in the family. SOCIAL HISTORY: Previous history of smoking. Occasional alcohol intake. REVIEW OF SYSTEMS: ENT: Diminished hearing and diminished vision. CARDIOVASCULAR SYSTEM: No angina. RESPIRATORY SYSTEM: No cough. GI: No nausea. : No dysuria. NERVOUS SYSTEM: As mentioned earlier. ALLERGY/IMMUNOLOGICAL: No asthma. MUSCULOSKELETAL: As mentioned earlier. HEMATOLOGY/ONCOLOGY: No history of anemia. ENDOCRINE: As mentioned earlier. CONSTITUTIONAL: As mentioned earlier. DERMATOLOGY: Negative. RHEUMATOLOGY: Negative. PSYCHIATRY: As mentioned earlier. PHYSICAL EXAMINATION: The patient is alert and oriented x3. Pulse 68, blood pressure 150/76, respiration 18, temperature 97.9, pulse ox 97% room air. HEENT: Conjunctivae normal. Oral mucosa moist. Neck is no jugular venous distention. No carotid bruit. No lymph node enlargement. CARDIOVASCULAR: S1 and S2 muffled. No S3, no S4. RESPIRATORY: Breath sounds diminished at the bases. A few scattered rhonchi. No crackles. ABDOMEN: Soft, nontender. No mass palpable. LEGS: No edema, no swelling. NERVOUS SYSTEM: Higher functions as mentioned earlier. Moves all 4 limbs. Diffuse tremors and increased tone suggestive of Parkinsonism present. SKIN: No ulcer, rash or bleeding. LYMPHATICS: No lymphadenopathy of the neck, axillae or groin. JOINTS: No active deforming arthropathy. LABS: CBC within normal limits. CK 663. ASSESSMENT: 1. Numbness and slurring of speech, possible acute transient ischemic attack. 2. Parkinson's. 3. No evidence of intracranial bleed on the recent CT scan or MRI. 4. Increased creatine kinase with mild rhabdomyolysis. 5. Atrial fibrillation. 6. Chronic obstructive pulmonary disease. 7. Hypertension. 8. Hyperlipidemia. 9. History of pneumonia. 10.History of sleep apnea. 11.History of chronic obstructive pulmonary disease. 12.History of chronic atrial fibrillation. 13.History of depression. 14.Degenerative joint disease. 15.Adenoidectomy. 16.Tonsillectomy. 17.Gait dysfunction. 18.Remote history of nicotine dependence. RECOMMENDATIONS AND DISCUSSION: This 77-year-old gentleman presented with multiple complex medical issues. Will monitor the patient closely. Continue the current medications and symptomatic treatment. Otherwise at this time I recommend continue with antiplatelet agents. Cardiology is consulted. There is no evidence of any intracranial hemorrhage from the records from [place]. The patient will be restarted on Xarelto. Prognosis guarded because of multiple complex medical issues. Further recommendations to follow. MMODL / IJN: [id number] / JANEEN
[2018-03-23] MEDS: CARBIDOPA-LEVODOPA 25-100 MG 1 EACH TAB PO SCH ×4 (06:47→20:44)
[2018-03-23] MEDS: PANTOPRAZOLE 40 MG TABLET PO SCH (06:49)
[2018-03-23] MEDS: SYMBICORT 160-4.5 MCG INHALER INHALATION SCH ×2 (08:33→20:13)
[2018-03-23] MEDS: TAMSULOSIN 0.4 MG CAP.ER.24H PO SCH (08:39)
[2018-03-23] MEDS: LOSARTAN 50 MG TAB PO SCH (08:39)
[2018-03-23] MEDS: TROSPIUM CHLORIDE 20 MG TABLET PO SCH ×2 (08:39→20:44)
[2018-03-23] MEDS: CITALOPRAM HYDROBROMIDE 20 MG TAB PO SCH (08:39)
[2018-03-23] MEDS ORDERED: PANTOPRAZOLE 40 MG/10 ML VIAL IV SCH (09:00)
[2018-03-23] MEDS ORDERED: CITALOPRAM HYDROBROMIDE 20 MG PO SCH (09:00)
[2018-03-23] MEDS: PROPAFENONE 150 MG TAB PO SCH (11:09)
--- NOTE | 2018-03-23 12:10 | P.CRDCN ---
History of Present Illness Consult date: 03/23/18 Requesting physician: Ronni Richardson Reason for Consult (text): CVA Chief complaint: Slurred speech and left-sided weakness History of present illness: This is a pleasant 77-year-old gentleman with past medical history significant for persistent atrial fibrillation, had been on Xarelto for anticoagulation, COPD, hyperlipidemia, hypertension, obstructive sleep apnea, Parkinson's, was recently in [facility] with a stroke we are still waiting for all of the information to come from there. Apparently the patient had an acute stroke, and was also told to have a deep brain bleed for this reason his Xarelto there was discontinued. Apparently has 2 grandchildren went to pick him up to drive him back to [place], on the drive back to [place] patient started to experience slurring of speech and weakness on the left side of his body. From the information we have collected so far, it does appear that the patient had a left thalamic hemorrhage. The patient's home medications included Lipitor 40 mg daily, carbidopa levodopa, citalopram, Advair , losartan 50 mg daily, omeprazole, Rythmol 225 daily, Flomax 0.4 mg daily, and the Xarelto 20 mg daily which was taken prior to his recent admission at [place]. Chest x-ray performed on arrival here showed interstitial fibrotic changes in the lower lobes, no change as compared with prior. MRI revealed cerebral atrophy, numerous white matter foci mostly at the frias white matter junction of both cerebral hemispheres and consistent with chronic small vessel ischemia. There is overall no significant change as compared with prior exam. Blood pressure 176/78 with a heart rate in the 70s, 98% on room air. Blood pressure this morning 198/80 with a heart rate in the 60s, 93% on room air. Temperature 97.1. Hemoglobin 14.0, white blood cell count 7.3, sodium 140, potassium 4.1, BUN 14, creatinine 1.1. Troponins negative 3. At the time of my examination this morning, patient states that the weakness in the left side of the body has improved, he still has some difficulty with speaking however according to the family at significantly improved from his admission here. Past Medical History Past Medical History: Atrial Fibrillation, COPD, Hyperlipidemia, Hypertension, Pneumonia, Sleep Apnea/CPAP/BIPAP Additional Past Medical History / Comment(s): Parkinson's disease, COPD, bronchitis obstructive sleep apnea, hypertension, chronic atrial fibrillation, restless leg syndrome, depression, osteoarthritis, chronic neck and back pain, previous charted stated past mi 2009 but pt unaware of this.rt eye cataract, over active bladder Last Myocardial Infarction Date:: 2009 History of Any Multi-Drug Resistant Organisms: None Reported Past Surgical History: Adenoidectomy, Tonsillectomy Additional Past Surgical History / Comment(s): Cervical spine neck fusion, low back surgery, tonsillectomy, adenoidectomy , colonoscopy, nasal sx, blepheroplasty Past Anesthesia/Blood Transfusion Reactions: No Reported Reaction Past Psychological History: No Psychological Hx Reported Smoking Status: Former smoker - Past Family History Father Family Medical History: COPD Mother Family Medical History: Dementia Medications and Allergies Home Medications Medication Instructions Recorded Confirmed Type Atorvastatin [Lipitor] 40 mg PO HS 03/09/16 03/22/18 History Carbidopa-Levodopa 25-100 mg 1 tab PO QID 03/09/16 03/22/18 History [Sinemet 25-100 mg] Citalopram Hydrobromide [CeleXA] 40 mg PO DAILY 03/09/16 03/22/18 History Docusate [Colace] 100 mg PO BID 03/09/16 03/22/18 History HYDROcodone/APAP 10-325MG [[place] 1 tab PO Q6H PRN 03/09/16 03/22/18 History 10-325] Losartan [Cozaar] 50 mg PO DAILY 03/09/16 03/22/18 History Rivaroxaban [Xarelto] 20 mg PO DAILY 03/09/16 03/22/18 History Solifenacin Succinate [Vesicare] 10 mg PO DAILY 03/09/16 03/22/18 History oxyCODONE HCL [OxyCONTIN] 10 mg PO Q12HR PRN 03/09/16 03/22/18 History Carbidopa-Levodopa ER 50-200Mg 1 tab PO HS 03/22/18 03/22/18 History [Sinemet ER 50-200] Fluticasone/Salmeterol [Advair 1 inhalation PO RT-BID 03/22/18 03/22/18 History 500-50 Diskus] Metoclopramide HCl [Reglan] 10 mg PO BID 03/22/18 03/22/18 History Omeprazole 20 mg PO DAILY 03/22/18 03/22/18 History Pramipexole [Mirapex] 0.25 mg PO TID 03/22/18 03/22/18 History Propafenone [Rythmol] 150 mg PO DAILY 03/22/18 03/22/18 History Tamsulosin HCl [Flomax] 0.4 mg PO DAILY 03/22/18 03/22/18 History guaiFENesin 400 mg PO BID 03/22/18 03/22/18 History Allergies Allergy/AdvReac Type Severity Reaction Status Date / Time No Known Allergies Allergy Verified 03/22/18 17:34 Physical Exam Vitals: Vital Signs Temp Pulse Pulse Resp BP BP Pulse Ox 03/23/18 08:00 97.1 F L 63 16 198/83 93 L 03/23/18 05:27 150/78 03/23/18 04:00 96.3 F L 67 18 186/82 95 03/23/18 00:00 96.6 F L 68 22 159/72 96 03/22/18 22:14 63 18 162/98 94 L 03/22/18 21:48 97.9 F 68 18 150/76 97 03/22/18 21:11 97.7 F 77 18 107/74 95 03/22/18 18:50 70 16 151/87 97 03/22/18 17:01 97.2 F L 70 20 177/78 98 Intake and Output 03/22/18 03/23/18 03/23/18 22:59 06:59 14:59 Output Total 200 Balance -200 Output: Urine 200 Other: Weight 105.233 kg 102 kg PHYSICAL EXAMINATION: GENERAL: 77-year-old gentleman in no acute distress at the time of my examination HEENT: Head is atraumatic, normocephalic. Pupils equal, round. Sclera anicteric. Conjunctiva are clear. Mucous membranes of the mouth are moist. Neck is supple. There is no elevated jugular venous pressure. No carotid bruit is heard. HEART EXAMINATION: Heart S1 and S2 irregularly irregular a systolic murmur is heard. CHEST EXAMINATION: Lungs are clear to auscultation and precussion. No chest wall tenderness is noted on palpation or with deep breathing. ABDOMEN: Soft, nontender. Bowel sounds are heard. No organomegaly noted. EXTREMITIES: 2+ peripheral pulses with no evidence of peripheral edema and no calf tenderness noted. NEUROLOGIC patient is awake, alert and orientedX3. Good bilateral arm and leg strength, mild expressive aphasia. . Results 03/22/18 17:25 03/22/18 17:25 Cardiac Enzymes 03/22/18 03/22/18 Range/Units 17:25 17:25 AST 40 (17-59) U/L CK-MB (CK-2) 2.5 H* (0.0-2.4) ng/mL Troponin I 0.012 (0.000-0.034) ng/mL Coagulation 03/22/18 Range/Units 17:25 PT 10.5 (9.0-12.0) sec APTT 24.5 (22.0-30.0) sec CBC 03/22/18 Range/Units 17:25 WBC 7.3 (3.8-10.6) k/uL RBC 4.48 (4.30-5.90) m/uL Hgb 14.0 (13.0-17.5) gm/dL Hct 42.1 (39.0-53.0) % Plt Count 227 (150-450) k/uL Comprehensive Metabolic Panel 03/22/18 Range/Units 17:25 Sodium 140 (137-145) mmol/L Potassium 4.1 (3.5-5.1) mmol/L Chloride 109 H (98-107) mmol/L Carbon Dioxide 23 (22-30) mmol/L BUN 14 (9-20) mg/dL Creatinine 1.10 (0.66-1.25) mg/dL Glucose 87 (74-99) mg/dL Calcium 9.5 (8.4-10.2) mg/dL AST 40 (17-59) U/L ALT 33 (21-72) U/L Alkaline Phosphatase 81 (38-126) U/L Total Protein 7.1 (6.3-8.2) g/dL Albumin 4.3 (3.5-5.0) g/dL Current Medications Generic Name Dose Route Start Last Admin Trade Name Freq PRN Reason Stop Dose Admin Acetaminophen 650 mg 03/22/18 20:00 Tylenol Tab PO Q6HR PRN Mild Pain or Fever > 100.5 Hydrocodone Bitart/Acetaminophen 1 each 08/09/18 20:06 [place] 10 PO Q6H PRN Pain Alprazolam 0.25 mg 03/23/18 00:31 Xanax PO TID PRN Anxiety Atorvastatin Calcium 40 mg 03/22/18 21:00 03/22/18 21:42 Lipitor PO Not Given HS DENICE Budesonide/Formoterol Fumarate 2 puff 03/23/18 08:00 03/23/18 08:33 Symbicort 160-4.5 Mcg Inhaler INHALATION 2 puff RT-BID DENICE Administration Carbidopa/Levodopa 1 each 03/23/18 07:30 03/23/18 06:47 Sinemet 25-100 PO 1 each 0730,1230,1730,1930 DENICE Administration Carbidopa/Levodopa 1 each 03/22/18 21:00 03/22/18 21:42 Sinemet Er 50-200 PO Not Given HS DENICE Citalopram Hydrobromide 40 mg 03/23/18 09:00 03/23/18 08:39 Celexa PO 40 mg DAILY DENICE Administration Docusate Sodium 100 mg 03/22/18 21:00 03/23/18 08:39 Colace PO 100 mg BID DENICE Administration Guaifenesin 400 mg 03/22/18 21:00 03/23/18 08:39 Robitussin PO 400 mg BID DENICE Administration Sodium Chloride 1,000 mls @ 50 mls/hr 03/22/18 17:20 03/22/18 18:59 Saline 0.9% IV 03/23/18 13:19 50 mls/hr .Q20H STA Administration Sodium Chloride 1,000 mls @ 20 mls/hr 03/22/18 20:00 03/23/18 01:36 Saline 0.9% IV 20 mls/hr .Q24H DENICE Administration Losartan Potassium 50 mg 03/23/18 09:00 03/23/18 08:39 Cozaar PO 50 mg DAILY DENICE Administration Melatonin 3 mg 03/23/18 21:00 Melatonin PO HS DENICE Metoclopramide HCl 10 mg 03/22/18 21:00 03/23/18 08:39 Reglan PO 10 mg BID DENICE Administration Naloxone HCl 0.2 mg 03/22/18 20:00 Narcan IV Q2M PRN Opioid Reversal Ondansetron HCl 4 mg 03/22/18 20:00 Zofran IVP Q8HR PRN Nausea And Vomiting Oxycodone HCl 10 mg 03/22/18 20:06 Oxycontin 10mg E.R. PO Q12HR PRN Pain Pantoprazole Sodium 40 mg 03/23/18 07:30 03/23/18 06:49 Protonix PO 40 mg [id number] DENICE Administration Pramipexole Dihydrochloride 0.25 mg 03/22/18 22:00 03/23/18 08:39 Mirapex PO 0.25 mg TID DENICE Administration Propafenone HCl 150 mg 03/23/18 09:00 03/23/18 11:09 Rythmol PO 150 mg DAILY DENICE Administration Tamsulosin HCl 0.4 mg 03/23/18 09:00 03/23/18 08:39 Flomax PO 0.4 mg DAILY DENICE Administration Trospium 20 mg 03/23/18 09:00 03/23/18 08:39 [place] PO 20 mg BID DENICE Administration Intake and Output 03/22/18 03/23/18 03/23/18 22:59 06:59 14:59 Output Total 200 Balance -200 Output: Urine 200 Other: Weight 105.233 kg 102 kg 03/22/18 17:25 03/22/18 17:25 EKG Interpretations (text) EKG shows normal sinus rhythm with right bundle branch block pattern. Subsequent EKG shows atrial fibrillation with controlled ventricular response. Assessment and Plan Plan: Assessment and plan #1 symptoms of slurring of speech and left-sided weakness which seemed to have resolved, suggesting possible TIA. No evidence of stroke on current MRI. #2 recent admission to [facility] in [place] with a left thalamic hemorrhage #3 hypertension #4 hyperlipidemia #5 Parkinson's #6 paroxysmal atrial fibrillation, Xarelto recently discontinued because of breathing. #7 interstitial lung disease Plan Patients recent MRI does not show any evidence of new stroke. There is no definite evidence of intracranial hemorrhage at present. We need to review the previous MRI and computed tomography scan to confirm the diagnosis of hemorrhage. Patient is at increased risk to restart anticoagulants if there is possibility of some type of hemorrhage .If patient is considered at high risk for intracranial hemorrhage then we will consider the patient to have a left atrial appendage occlusion device.(Watchman). We will also start the patient on 5 mg of Norvasc daily for more optimal blood pressure control. DNP note has been reviewed, I agree with a documented findings and plan of care. Patient was seen and examined.
[2018-03-23] MEDS: ONDANSETRON 4 MG/2 ML VIAL IVP PRN (12:15)
[2018-03-23] MEDS: amLODIPine 5 MG TAB PO SCH (15:43)
[2018-03-23 16:09] LABS: Cholesterol 89 mg/dL (<200); HDL Cholesterol 36 mg/dL (40-60); LDL Cholesterol,Calculated 35 mg/dL (0-99); Triglycerides 88 mg/dL (<150)
--- NOTE | 2018-03-23 16:45 | P.PN ---
Subjective Progress Note Date: 03/23/18 This patient is a 77 year old male seen yesterday for Neurology consultation in regards to recent intracerebral hemorrhage at [facility] in [facility]. The patient was admitted there on Monday of this week and was discharged home to [place]. Apparently on his return to [place] the patient develop recurrent symptoms of left-sided numbness as well as some slurring of his speech. He was brought back to the emergency room at [facility] yesterday for further evaluation. He was seen in the emergency room by Dr. Rodriguez. He was sent for a computed tomography scan of the brain which was reported negative for any acute changes. Given his history of just recently having suffered an acute intracerebral hemorrhage we did recommend patient undergo an MRI of the brain. MRI of the brain was completed yesterday results of which are been noted previously. Today the actual MRI films and CAT scan films were reviewed with the radiologist Dr. Padilla. Careful review of the CAT scan of the brain done yesterday does reveal evidence of a acute left thalamic intracerebral hemorrhage. Review of the MRI films also reveals a intermediate area of hemorrhage involving the left thalamus. These results were once again reviewed with the radiologist in detail today. We did discuss further treatment options for this patient given the fact that he has history of chronic atrial fibrillation and was taken off his Xarelto. Given the findings today after review of his MRI and CAT scan films of the brain that were performed yesterday we would recommend the patient needs to remain off of Xarelto indefinitely. We will discuss these findings with Dr. VC Sanchez. Once some effacement the side but be there by that time showed Today and inform him of the findings on his MRI and CAT scan from yesterday. The patient clinically continues to do fairly well. He denies any headache or new symptoms of numbness or weakness. The cardiologists are considering whether this patient may be a candidate for the watchman system. This should be discussed between cardiology and the patient. Neurologically he remained stable. His Parkinson' s disease is unchanged from yesterday. We will continue close neurological follow-up for the patient during this admission. His overall prognosis at this time remains extremely guarded given his recent evidence of left thalamic intracerebral hemorrhage. Once again he will need to remain off of Xarelto indefinitely until it is felt safe for him to consider restarting. Case will be discussed with Dr. Mejia who is covering for the cardiology veterinary practitioner. We will leave it up to cardiology to make final decision on further treatment of this patient's history of chronic atrial fibrillation. His overall prognosis at this time remains very guarded. Objective - Vital Signs Vital signs: Vital Signs Temp 97.1 F L 03/23/18 08:00 Pulse 63 03/23/18 08:00 Resp 16 03/23/18 08:00 BP 198/83 03/23/18 08:00 Pulse Ox 93 L 03/23/18 08:00 Intake & Output 03/22/18 03/23/18 03/23/18 18:59 06:59 18:59 Output Total 200 Balance -200 Weight 105.233 kg 102 kg Output: Urine 200 - Exam Physical Examination: PHYSICAL EXAMINATION: Patient is resting comfortably in bed. VITAL SIGNS: Blood pressure is [170/71]. Heart rate is [67]. Respiration is [18] . Temperature is [97.4]. HEENT: Head is atraumatic, neck is supple, there were no carotid bruits. CHEST: Lungs are clear to auscultation and percussion. CARDIAC: S1, S2 normal rate and rhythm. There is no murmur. ABDOMEN: Soft and nontender. Bowel sounds are present. EXTREMITIES: There is no pedal edema. Peripheral pulses are present. Neurological examination: Patient is resting comfortably in bed today. He continues to have mild findings of Parkinson's disease. He denies any headache or focal weakness. He is noted to have slight tremor in the right upper extremity. Muscle tone reveals no significant cogwheel rigidity. Deep tendon reflexes are 1+ and symmetric. Plantar response is flexor bilaterally. - Labs CBC & Chem 7: 03/22/18 17:25 03/22/18 17:25 Labs: Abnormal Lab Results - Last 24 Hours (Table) 03/22/18 03/22/18 03/23/18 Range/Units 17:25 17:25 05:37 Chloride 109 H (98-107) mmol/L Creatine Kinase 623 H (55-170) U/L Total Creatine Kinase 663 H (55-170) U/L CK-MB (CK-2) 2.5 H* (0.0-2.4) ng/mL Assessment and Plan (1) Transient ischemic attack, acute Current Visit: Yes Status: Acute Code(s): G45.9 - TRANSIENT CEREBRAL ISCHEMIC ATTACK, UNSPECIFIED SNOMED Code(s): 634780734 (2) Intracerebral hemorrhage Current Visit: Yes Status: Acute Code(s): I61.9 - NONTRAUMATIC INTRACEREBRAL HEMORRHAGE, UNSPECIFIED SNOMED Code(s): 004660895 (3) Slurred speech Current Visit: Yes Status: Acute Code(s): R47.81 - SLURRED SPEECH SNOMED Code(s): 729623422 (4) Dysarthria Current Visit: No Status: Acute Code(s): R47.1 - DYSARTHRIA AND ANARTHRIA SNOMED Code(s): 5014197 (5) Parkinsons disease Current Visit: No Status: Chronic Code(s): G20 - PARKINSON'S DISEASE SNOMED Code(s): 45045843 Plan: This patient is a 77-year-old right-handed white male who recently was evaluated and treated at [facility] in [facility]. Patient was found during his hospitalization to have suffered an acute left thalamic intracerebral hemorrhage. He was taken off his Xarelto and was discharged home 2 days ago. Patient develops symptoms of recurrent slurred speech and some left-sided numbness. He was brought back to the emergency room yesterday at [facility] for further evaluation. He was just discharged 2 days prior from the hospital in [place]. Patient underwent initially computed tomography scan of the brain at [facility] on 03/22/2018. This CAT scan was interpreted by Dr. Dionte Sow and was reported to show cerebral atrophy and chronic small vessel ischemia. No acute intracranial abnormality was noted. No change. Review the actual CAT scan films today with the radiologist Dr. Padilla does reveal evidence of a subacute versus acute left thalamic intracerebral hemorrhage. The area of intracerebral hemorrhage appears to be intermediate in nature. This would coincide with his chronological history of having suffered this event earlier this week. Review of the MRI of the brain was also done with the radiologist and there is evidence of a intermediate area of intracerebral hemorrhage involving the left thalamus. We have discussed these MRI and CAT scan findings today in detail with Dr. VC Sanchez and he was updated on these results of neuroimaging. The patient is to remain off of Xarelto at this time even his recent intracerebral hemorrhage. Dr. VC Sanchez is going to discuss this case with his colleague at [facility] in [place] in terms of consideration of the watchman device to be used for this patient given his history and current cardiac status. He will be in touch with the specialist that [facility] tomorrow and we will await their further recommendations. In the meantime due to the evidence of intracerebral hemorrhage and patient is not a candidate to restart his Xarelto at this time. Patient neurologically remains intact. As noted his Parkinson's condition has remained relatively stable. We will await further recommendations from cardiology in regards to further management of his condition given the finding of the left thalamic intracerebral hemorrhage at this time. His overall prognosis at this time remains very guarded. We will continue close neurological follow-up for the patient during this admission.
--- NOTE | 2018-03-23 18:28 | P.PN ---
Subjective Progress Note Date: 03/23/18 Progress note being dictated for Dr. Richardson. Interval history: This a 77-year-old gentleman admitted with numbness, slurring of speech, possible acute TIA, Parkinson's disease, atrial fibrillation, mild rhabdomyolysis and multiple other medical issues. Patient had recently been in a [facility], informed radiology studies had reported intracranial bleed and his anticoagulation had been discontinued. [facility] reports being obtained. Evaluated by both neurology and cardiology with recommendations noted. Today, upon further review of CT and MRI films between neurology and radiologist- both reveal evidence of a acute left thalamic intercerebral hemorrhage. Anticoagulation therefore to remain off as per neurology. Patient's daughter at bedside, states slurred speech has nearly subsided, slow speech is nearly at baseline as is his Parkinson's tremors. Patient denies any new numbness. Diet intake fair. Positive nausea. Denies chest pain, palpitations or increasing shortness of breath. Denies any focal deficits lightheadedness or dizziness. Denies headache. Objective - Vital Signs Vital signs: Vital Signs Temp 97.4 F L 03/23/18 12:00 Pulse 66 03/23/18 12:00 Resp 18 03/23/18 12:00 BP 170/71 03/23/18 12:00 Pulse Ox 94 L 03/23/18 12:00 Intake & Output 03/22/18 03/23/18 03/23/18 18:59 06:59 18:59 Intake Total 600 Output Total 200 325 Balance -200 275 Weight 105.233 kg 102 kg Intake: Oral 600 Output: Urine 200 325 Other: # Voids 1 - Exam PHYSICAL EXAM: VITAL SIGNS: As above GENERAL: Sitting up in bed, no acute distress HEENT: Conjunctivae normal. eyes normal. Oral mucosa moist NECK: No JVD. No thyroid enlargement. No LNs CARDIOVASCULAR: S1, S2 muffled. Irregular, Positive systolic murmur RESPIRATION: Breath sounds diminished in the bases. Occasional scattered rhonchi, no crackles. ABDOMEN: Soft, nontender . No guarding. no masses palpable. Bowel sounds heard. LEGS: No edema. no swelling PSYCHIATRY: Alert and oriented -3, mood and affect normal. NERVOUS SYSTEM: Higher functions as mentioned previously. Moves all 4 limbs. Diffuse tremors of right upper extremity, No focal deficits. Skin: no ulcer no rash Joints: No active swelling. No inflammation. Lymphatic system. No LN neck axilla or groin. - Labs CBC & Chem 7: 03/22/18 17:25 03/22/18 17:25 Labs: Abnormal Lab Results - Last 24 Hours (Table) 03/22/18 03/22/18 03/23/18 Range/Units 17:25 17:25 05:37 Chloride 109 H (98-107) mmol/L Creatine Kinase 623 H (55-170) U/L Total Creatine Kinase 663 H (55-170) U/L CK-MB (CK-2) 2.5 H* (0.0-2.4) ng/mL HDL Cholesterol (40-60) mg/dL 03/23/18 Range/Units 05:37 Chloride (98-107) mmol/L Creatine Kinase (55-170) U/L Total Creatine Kinase (55-170) U/L CK-MB (CK-2) (0.0-2.4) ng/mL HDL Cholesterol 36 L (40-60) mg/dL Assessment and Plan Assessment: 1. Numbness, slurring of speech, acute TIA. 2. Left Thalamic intracerebral hemorrhage per CT, MRI film review today 3. Parkinson's disease 4. Mild rhabdomyolysis 5. Chronic Atrial fibrillation, currently off of anticoagulation awaiting [facility] records 6. COPD 7. Hyperlipidemia 8. Gait dysfunction 9. Dysarthria Plan: Continue on current medication regime ,monitoring and symptomatic treatment. Remains off of anticoagulation at this time. Further anticoagulation recommendations pending as per cardiology-discussing potential watchman device with [facility] Specialist. Recent echo reports being obtained. Carotid ultrasound ordered. PT/OT. Prognosis guarded given multiple complex medical issues. Plan a care discussed at bedside with both patient and family. Further recommendations to follow. The impression and plan of care has been dictated as directed. : I performed a history and examination of this patient, discussed the same with the dictator. I agree with the dictator's note ,documented as a scribe. Any additional findings or plans will be noted.
--- NOTE | 2018-03-23 19:33 | EEG ---
ELECTROENCEPHALOGRAM REPORT DATE OF EE03/23/2018 ELECTROENCEPHALOGRAPHIC EXAMINATION REPORT: INDICATION FOR EXAMINATION: This patient is a 77-year-old male who recently suffered an acute left thalamic intracerebral hemorrhage. Patient admitted with worsening strokelike symptoms and history of Parkinson's disease. A[age]: [age]. EEG FINDINGS: A routine 21-channel awake digital EEG recording was accomplished utilizing the 10-20 international system with bipolar and referential montages. The background activity in the most alert resting state consists of a low to medium amplitude, fairly well developed and well sustained 6 Hz activity over the posterior head regions. This posterior rhythm attenuates to eye opening. There is a small amount of low amplitude 18-20 Hz beta activity seen maximally over the anterior head regions. Muscle and movement artifact was observed on several occasions during the tracing. Hyperventilation was not performed. Photic stimulation at flash frequencies of 2-30 Hz produced a minimal occipital driving response. No epileptiform discharges were seen. IMPRESSION: This EEG is moderately abnormal in a diffuse fashion due to slowing of the EEG background. The EEG failed to reveal any focal, lateralized, or epileptiform abnormalities. Clinical correlation is recommended. MMODL / IJN: [id number] /
[2018-03-23] MEDS: MELATONIN 3 MG TABLET PO SCH (20:43)
[2018-03-23] MEDS: CARBIDOPA-LEVODOPA ER 50-200MG 1 EACH TABLET.ER PO SCH (20:43)
[2018-03-23] MEDS: ATORVASTATIN 40 MG TAB PO SCH (20:43)
--- NOTE | 2018-03-23 21:19 | US ---
EXAMINATION TYPE: US carotid duplex BILAT DATE OF EXAM: 03/23/2018 COMPARISON: CT Brain CLINICAL HISTORY: TIA. Patient has slurred speech and left arm weakness EXAM MEASUREMENTS: RIGHT: Peak Systolic Velocity (PSV) cm/sec ----- Right CCA: 40.5 ----- Right ICA: 61.9 ----- Right ECA: 39.1 ICA/CCA ratio: 1.5 RIGHT: End Diastole cm/sec ----- Right CCA: 9.2 ----- Right ICA: 20.6 ----- Right ECA: 7.8 LEFT: Peak Systolic Velocity (PSV) cm/sec ----- Left CCA: 48.3 ----- Left ICA: 65.9 ----- Left ECA: 67.3 ICA/CCA ratio: 1.4 LEFT: End Diastole cm/sec ----- Left CCA: 15.3 ----- Left ICA: 19.7 ----- Left ECA: 7.8 VERTEBRALS (direction of flow): Right Vertebral: Antegrade Left Vertebral: Antegrade Rhythm: Normal Moderate mixed wall changes are noted at bilateral carotid bifurcation, but PSV is wnl bilaterally. IMPRESSION: There is shadowing plaque formation. The images and measurements suggest close to 50% st enosis in both internal carotid arteries. There is antegrade flow in the vertebral arteries. Criteria for Assigning % of Stenosis / Diameter reduction (Estimation based on the indirect measurements of the internal carotid artery velocities (ICA PSV). 1. Normal (no stenosis)=ICA PSV < 125 cm/s: ratio < 2.0: ICA EDV<40 cm/s. 2. Less than 50% stenosis=ICA PSV < 125 cm/s: ratio < 2.0: ICA EDV<40 cm/s. 3. 50 to 69% stenosis=ICA PSV of 125 to 230 cm/s: ration 2.0 ? 4.0: ICA EDV 40-100 cm/s. 4. Greater than 70% stenosis to near occlusion= ICA PSV > 230 cm/s: ratio > 4.0: ICA EDV > 100 cm/s. 5. Near occlusion= ICA PSV velocities may be low or undetectable: variable ratio and ICA EDV. 6. Total occlusion=unable to detect flow.
[2018-03-24 06:10] LABS: Basophils % (A) 0 %; Eosinophils # (A) 0.2 k/uL (0-0.7); Eosinophils % (A) 4 %; HCT 37.9 % (39.0-53.0); HGB 12.4 gm/dL (13.0-17.5); Lymphocytes # (A) 1.4 k/uL (1.0-4.8); Lymphocytes % (A) 21 %; MCHC 32.7 g/dL (31.0-37.0); MCV 94.8 fL (80.0-100.0); Mean Platelet Volume 6.9; Monocytes # (A) 0.5 k/uL (0-1.0); Monocytes % (A) 8 %; Neutrophils # (A) 4.4 k/uL (1.3-7.7); Neutrophils % (A) 66 %; Platelet Count 210 k/uL (150-450); RBC 3.99 m/uL (4.30-5.90); RDW 13.8 % (11.5-15.5); WBC 6.7 k/uL (3.8-10.6)
[2018-03-24 06:20] LABS: Potassium 4.2 mmol/L (3.5-5.1)
[2018-03-24 06:28] LABS: Appearance,Urine Clear (Clear); Bilirubin,Urine Negative (Negative); Blood,Urine Negative (Negative); Color,Urine Yellow; Glucose,Urine (UA) Negative (Negative); Ketones,Urine Negative (Negative); Leukocyte Esterase,Urine Negative (Negative); Nitrite,Urine Negative (Negative); Protein,Urine Negative (Negative); Specific Gravity,Urine 1.015 (1.001-1.035); Urobilinogen,Urine <2.0 mg/dL (<2.0)
[2018-03-24] MEDS: PANTOPRAZOLE 40 MG TABLET PO SCH (06:33)
[2018-03-24] MEDS: CARBIDOPA-LEVODOPA 25-100 MG 1 EACH TAB PO SCH ×4 (06:33→21:22)
[2018-03-24] MEDS: LOSARTAN 50 MG TAB PO SCH (07:59)
[2018-03-24] MEDS: PRAMIPEXOLE 0.25 MG TAB PO SCH ×3 (07:59→21:21)
[2018-03-24] MEDS: CITALOPRAM HYDROBROMIDE 20 MG TAB PO SCH (07:59)
[2018-03-24] MEDS: TAMSULOSIN 0.4 MG CAP.ER.24H PO SCH (07:59)
[2018-03-24] MEDS: ONDANSETRON 4 MG/2 ML VIAL IVP PRN (07:59)
[2018-03-24] MEDS: TROSPIUM CHLORIDE 20 MG TABLET PO SCH ×2 (07:59→21:21)
[2018-03-24] MEDS: METOCLOPRAMIDE 10 MG TAB PO SCH ×2 (07:59→21:21)
[2018-03-24] MEDS: PROPAFENONE 150 MG TAB PO SCH (07:59)
[2018-03-24] MEDS: DOCUSATE 100 MG CAP PO SCH ×2 (08:00→21:20)
[2018-03-24] MEDS: guaiFENesin SYRUP 100MG/5ML 200 MG/10 ML CUP PO SCH ×2 (08:00→21:20)
[2018-03-24] MEDS: SYMBICORT 160-4.5 MCG INHALER INHALATION SCH ×2 (08:53→19:38)
--- NOTE | 2018-03-24 12:06 | P.PN ---
Subjective Progress Note Date: 03/24/18 This patient is a 77 year old male seen yesterday for Neurology consultation in regards to recent intracerebral hemorrhage at [facility] in [facility]. The patient was admitted there on Monday of this week and was discharged home to [place]. Apparently on his return to [place] the patient develop recurrent symptoms of left-sided numbness as well as some slurring of his speech. He was brought back to the emergency room at [facility] yesterday for further evaluation. He was seen in the emergency room by Dr. Rodriguez. He was sent for a computed tomography scan of the brain which was reported negative for any acute changes. Given his history of just recently having suffered an acute intracerebral hemorrhage we did recommend patient undergo an MRI of the brain. MRI of the brain was completed yesterday results of which are been noted previously. Today the actual MRI films and CAT scan films were reviewed with the radiologist Dr. Padilla. Careful review of the CAT scan of the brain done yesterday does reveal evidence of a acute left thalamic intracerebral hemorrhage. Review of the MRI films also reveals a intermediate area of hemorrhage involving the left thalamus. These results were once again reviewed with the radiologist in detail today. We did discuss further treatment options for this patient given the fact that he has history of chronic atrial fibrillation and was taken off his Xarelto. Given the findings today after review of his MRI and CAT scan films of the brain that were performed yesterday we would recommend the patient needs to remain off of Xarelto indefinitely. We will discuss these findings with Dr. VC Sanchez. Once some effacement the side but be there by that time showed Today and inform him of the findings on his MRI and CAT scan from yesterday. The patient clinically continues to do fairly well. He denies any headache or new symptoms of numbness or weakness. The cardiologists are considering whether this patient may be a candidate for the watchman system. This should be discussed between cardiology and the patient. Neurologically he remained stable. His Parkinson' s disease is unchanged from yesterday. We will continue close neurological follow-up for the patient during this admission. His overall prognosis at this time remains extremely guarded given his recent evidence of left thalamic intracerebral hemorrhage. Once again he will need to remain off of Xarelto indefinitely until it is felt safe for him to consider restarting. Case will be discussed with Dr. VC Sanchez who is covering for the cardiology and his case was discussed at length with cardiology yesterday. Cardiology will speak to the patient as well as his daughter in terms of further management of his condition which may require a transferred to [facility] for special procedure to be considered. Dr. VC Sanchez will speak with the daughter tomorrow in detail as to possible treatment options for this patient. Given the finding of the acute left thalamic hemorrhage she is not a candidate to restart Xarelto at this time. The patient continues to do well today. He denies any headache. His speech is about the same with no worsening symptoms. According to the daughter he is noticing more tremors in his right arm and may require adjustment of his Parkinson's medication. We will continue him on his current dose and observe his overall condition. We will continue to follow with cardiology and will await their further recommendations and treatment plans. His overall prognosis at this time remains very guarded. Objective - Vital Signs Vital signs: Vital Signs Temp 97.6 F 03/24/18 07:56 Pulse 67 03/24/18 07:56 Resp 16 03/24/18 07:56 BP 116/68 03/24/18 07:56 Pulse Ox 94 L 03/24/18 07:56 Intake & Output 03/23/18 03/24/18 03/24/18 18:59 06:59 18:59 Intake Total 960 Output Total 325 650 Balance 635 -650 Weight 102.5 kg Intake: Oral 960 Output: Urine 325 650 Other: # Voids 1 1 - Exam Physical Examination: PHYSICAL EXAMINATION: Patient is resting comfortably in bed. VITAL SIGNS: Blood pressure is [116/68]. Heart rate is [67]. Respiration is [16] . Temperature is [97.7]. HEENT: Head is atraumatic, neck is supple, there were no carotid bruits. CHEST: Lungs are clear to auscultation and percussion. CARDIAC: S1, S2 normal rate and rhythm. There is no murmur. ABDOMEN: Soft and nontender. Bowel sounds are present. EXTREMITIES: There is no pedal edema. Peripheral pulses are present. Neurological examination: Patient is resting comfortably in bed today. He continues to have mild findings of Parkinson's disease. He denies any headache or focal weakness. He is noted to have slight tremor in the right upper extremity. Muscle tone reveals no significant cogwheel rigidity. Deep tendon reflexes are 1+ and symmetric. Plantar response is flexor bilaterally. - Labs CBC & Chem 7: 03/24/18 05:36 03/24/18 05:36 Labs: Abnormal Lab Results - Last 24 Hours (Table) 03/23/18 03/24/18 03/24/18 Range/Units 05:37 05:36 05:36 RBC 3.99 L (4.30-5.90) m/uL Hgb 12.4 L (13.0-17.5) gm/dL Hct 37.9 L (39.0-53.0) % Creatine Kinase 752 H (55-170) U/L HDL Cholesterol 36 L (40-60) mg/dL Assessment and Plan (1) Transient ischemic attack, acute Current Visit: Yes Status: Acute Code(s): G45.9 - TRANSIENT CEREBRAL ISCHEMIC ATTACK, UNSPECIFIED SNOMED Code(s): 267655508 (2) Intracerebral hemorrhage Current Visit: Yes Status: Acute Code(s): I61.9 - NONTRAUMATIC INTRACEREBRAL HEMORRHAGE, UNSPECIFIED SNOMED Code(s): 012905409 (3) Slurred speech Current Visit: Yes Status: Acute Code(s): R47.81 - SLURRED SPEECH SNOMED Code(s): 766280071 (4) Dysarthria Current Visit: No Status: Acute Code(s): R47.1 - DYSARTHRIA AND ANARTHRIA SNOMED Code(s): 7913130 (5) Parkinsons disease Current Visit: No Status: Chronic Code(s): G20 - PARKINSON'S DISEASE SNOMED Code(s): 70746992 Plan: This patient is a 77-year-old male who recently suffered an acute left thalamic intracerebral hemorrhage while he was in [place], [place]. Patient was discharged after undergoing evaluation at [facility] in [place]. He was taken off his Xarelto at that time due to the acute bleed. He was discharged from that hospital in 3 days and unfortunately developed worsening symptoms of weakness and slurred speech. He was admitted to [facility] for further evaluation. He underwent an initial computed tomography scan of the brain and subsequently MRI of the brain. There was evidence on his CAT scan of a left thalamic hemorrhage and for this reason he was not to be restarted on Xarelto for treatment of his chronic atrial fibrillation. Case was discussed yesterday at length with cardiology and Dr. VC Sanchez in detail. Cardiology will contact specialists at [facility] for possible watchman device for treatment of his condition. Neurologically the patient continues to have symptoms of his underlying Parkinson's disease. He is continuing to show slight tremor in his right upper extremity which may require adjustment of his Sinemet. At this time we are waiting further recommendations from cardiology in terms of long-term management of his chronic atrial fibrillation since he cannot be restarted on anticoagulation given his recent intracerebral hemorrhage. Case was discussed today at length with the patient's daughter over the phone Ms. Palomo. All of her questions were answered. She is aware of her father's guarded condition. She will be discussing further treatment plans with cardiology later this afternoon. We will continue close neurological follow-up for this patient during this admission. His overall prognosis at this time remains very guarded.
[2018-03-24] MEDS: THIAMINE 100 MG TAB PO SCH (12:13)
[2018-03-24] MEDS: FOLIC ACID 1 MG TAB PO SCH (12:13)
[2018-03-24] MEDS: MULTIVITAMINS, THERA 1 EACH TAB PO SCH (12:13)
[2018-03-24] MEDS: amLODIPine 5 MG TAB PO SCH (12:17)
--- NOTE | 2018-03-24 18:40 | PN ---
PROGRESS NOTE DATE OF SERVICE: 03/24/2018 This 77-year-old gentleman admitted with numbness and tingling, also had left thalamic intestinal hemorrhage. The patient also is not a candidate for anticoagulation at this time. Cardiology has seen the patient and considering the possibility of an occluder placement. Norvasc has been initiated. No chest pain or palpitations. PAST MEDICAL HISTORY: Reviewed. REVIEW OF SYSTEMS: CARDIOVASCULAR: No angina. RESPIRATORY: As mentioned earlier. GI: As mentioned earlier. : No dysuria. NERVOUS: As mentioned earlier. CURRENT MEDICATIONS: Reviewed, include: 1. Tylenol 650 every 6 hours. 2. [place] 10 mg. 3. Xanax. 4. Norvasc 5 mg. 5. Lipitor 40 mg. 6. Symbicort 160/4.5 two puffs b.i.d. 7. Carbidopa/levodopa 50/100 p.o. q.h.s. 8. Celexa 240 mg daily. 9. Colace 100 mg daily. 10.Folic acid 1 mg daily. 11.Cozaar 50 mg daily. 12.Melatonin. 13.Reglan. 14.Zofran. 15.Oxycodone. 16.Protonix. 17.Mirapex. 18.Rythmol. 19.Flomax. 20.Sanctura. PHYSICAL EXAM: Patient is alert, oriented x3. Pulse is 62, blood pressure 139/64, respirations 18, temperature 96.9, pulse ox 93% on room air. HEENT: Conjunctivae normal. Oral mucosa moist. NECK: No jugular venous distention. No carotid bruits. No lymph node enlargement. CARDIOVASCULAR: S1, S2 muffled. RESPIRATORY: Breath sounds diminished in the bases. A few scattered rhonchi. No crackles. ABDOMEN: Soft, nontender. LEGS: No edema. NERVOUS SYSTEM: Diffusely weak. Tremors, increased tone. Gait dysfunction. LABS: Hemoglobin 12.4. Creatine kinase is 752. ASSESSMENT: 1. Numbness and slurring of speech, possible acute transient ischemic attack. 2. Left thalamic intestinal hemorrhage, pelvic CT, MRI from elsewhere. 3. Parkinson disease. 4. Gait dysfunction. 5. Mild rhabdomyolysis. 6. Chronic atrial fibrillation, currently off anticoagulation because of the hemorrhage. 7. Chronic obstructive pulmonary disease. 8. Hyperlipidemia. 9. Gait dysfunction. 10.Dysarthria. 11.Acute mild rhabdomyolysis. 12.FULL CODE. RECOMMENDATIONS AND DISCUSSION: In this 77-year-old gentleman who presented with multiple complex medical issues, will monitor the patient closely. Continue with medications. Hold off antiplatelets and anticoagulants. Otherwise, repeat labs. Cardiology following the patient for possible occluder placement at the [facility]. Prognosis guarded because of multiple complex medical issues. Continue the rest of the medications. Further recommendations to follow. MMODL / IJN: [id number] /
[2018-03-24] MEDS: SODIUM CHLORIDE 0.9% 1,000 ML IV SCH (20:03)
[2018-03-24] MEDS: MELATONIN 3 MG TABLET PO SCH (21:21)
[2018-03-24] MEDS: ATORVASTATIN 40 MG TAB PO SCH (21:21)
[2018-03-24] MEDS: CARBIDOPA-LEVODOPA ER 50-200MG 1 EACH TABLET.ER PO SCH (21:21)
--- NOTE | 2018-03-25 03:54 | PN ---
PROGRESS NOTE This patient and was admitted with symptoms and history of TIA. The patient's CT scan and MRI was reviewed again by Dr. Allan with the radiologist and there is a definite evidence of persistent hemorrhage in the thalamic area. In view of that, at present, we cannot restart the patient on Xarelto. I discussed the patient's condition with the daughter. The patient would benefit from further evaluation for possible placement of Watchman device. However we may have to wait for 4-6 weeks. In view of that, the patient needs to be on anticoagulant for Watchman device placement. We will discuss this condition with Cardiology either at [facility] or [facility]. until Monday morning here. MMODL / IJN: [id number] /
[2018-03-25 06:25] LABS: Basophils % (A) 0 %; Eosinophils # (A) 0.2 k/uL (0-0.7); Eosinophils % (A) 3 %; HCT 38.3 % (39.0-53.0); HGB 12.5 gm/dL (13.0-17.5); Lymphocytes # (A) 1.2 k/uL (1.0-4.8); Lymphocytes % (A) 17 %; MCH 30.9 pg (25.0-35.0); MCHC 32.7 g/dL (31.0-37.0); MCV 94.5 fL (80.0-100.0); Mean Platelet Volume 6.9; Monocytes # (A) 0.5 k/uL (0-1.0); Monocytes % (A) 7 %; Neutrophils % (A) 71 %; Platelet Count 200 k/uL (150-450); RBC 4.06 m/uL (4.30-5.90); RDW 13.9 % (11.5-15.5)
[2018-03-25] MEDS: CARBIDOPA-LEVODOPA 25-100 MG 1 EACH TAB PO SCH ×4 (06:44→19:08)
[2018-03-25] MEDS: PANTOPRAZOLE 40 MG TABLET PO SCH (06:44)
[2018-03-25 06:45] LABS: Calcium 8.9 mg/dL (8.4-10.2); Potassium 4.1 mmol/L (3.5-5.1)
[2018-03-25] MEDS: SYMBICORT 160-4.5 MCG INHALER INHALATION SCH ×2 (08:27→20:29)
[2018-03-25] MEDS: PROPAFENONE 150 MG TAB PO SCH (08:56)
[2018-03-25] MEDS: TROSPIUM CHLORIDE 20 MG TABLET PO SCH ×2 (08:56→22:19)
[2018-03-25] MEDS: TAMSULOSIN 0.4 MG CAP.ER.24H PO SCH (08:56)
[2018-03-25] MEDS: PRAMIPEXOLE 0.25 MG TAB PO SCH ×3 (08:56→22:20)
[2018-03-25] MEDS: amLODIPine 5 MG TAB PO SCH (08:56)
[2018-03-25] MEDS: METOCLOPRAMIDE 10 MG TAB PO SCH ×2 (08:56→22:19)
[2018-03-25] MEDS: CITALOPRAM HYDROBROMIDE 20 MG TAB PO SCH (08:56)
[2018-03-25] MEDS: LOSARTAN 50 MG TAB PO SCH (08:56)
[2018-03-25] MEDS: DOCUSATE 100 MG CAP PO SCH ×2 (08:57→22:19)
[2018-03-25] MEDS: guaiFENesin SYRUP 100MG/5ML 200 MG/10 ML CUP PO SCH ×2 (08:57→22:22)
--- NOTE | 2018-03-25 11:04 | P.PN ---
Subjective Progress Note Date: 03/25/18 This patient is a 77 year old male seen yesterday for Neurology consultation in regards to recent intracerebral hemorrhage at [facility] in [facility]. The patient was admitted there on Monday of this week and was discharged home to [place]. Apparently on his return to [place] the patient develop recurrent symptoms of left-sided numbness as well as some slurring of his speech. He was brought back to the emergency room at [facility] yesterday for further evaluation. He was seen in the emergency room by Dr. Rodriguez. He was sent for a computed tomography scan of the brain which was reported negative for any acute changes. Given his history of just recently having suffered an acute intracerebral hemorrhage we did recommend patient undergo an MRI of the brain. MRI of the brain was completed yesterday results of which are been noted previously. Today the actual MRI films and CAT scan films were reviewed with the radiologist Dr. Padilla. Careful review of the CAT scan of the brain done yesterday does reveal evidence of a acute left thalamic intracerebral hemorrhage. Review of the MRI films also reveals a intermediate area of hemorrhage involving the left thalamus. These results were once again reviewed with the radiologist in detail today. We did discuss further treatment options for this patient given the fact that he has history of chronic atrial fibrillation and was taken off his Xarelto. Given the findings today after review of his MRI and CAT scan films of the brain that were performed yesterday we would recommend the patient needs to remain off of Xarelto indefinitely. We will discuss these findings with Dr. VC Sanchez. Once some effacement the side but be there by that time showed Today and inform him of the findings on his MRI and CAT scan from yesterday. The patient clinically continues to do fairly well. He denies any headache or new symptoms of numbness or weakness. The cardiologists are considering whether this patient may be a candidate for the watchman system. This should be discussed between cardiology and the patient. Neurologically he remained stable. His Parkinson' s disease is unchanged from yesterday. We will continue close neurological follow-up for the patient during this admission. His overall prognosis at this time remains extremely guarded given his recent evidence of left thalamic intracerebral hemorrhage. Once again he will need to remain off of Xarelto indefinitely until it is felt safe for him to consider restarting. Case will be discussed with Dr. VC Sanchez who is covering for the cardiology and his case was discussed at length with cardiology yesterday. Cardiology will speak to the patient as well as his daughter in terms of further management of his condition which may require a transferred to [facility] for special procedure to be considered. Dr. VC Sanchez will speak with the daughter tomorrow in detail as to possible treatment options for this patient. Given the finding of the acute left thalamic hemorrhage she is not a candidate to restart Xarelto at this time. The patient continues to do well today. He denies any headache. His speech is about the same with no worsening symptoms. According to the daughter he is noticing more tremors in his right arm and may require adjustment of his Parkinson's medication. He is to follow up with this regular neurologist Dr. Bustos, after discharge for possible adjustment of his Parkinson medications. We will continue him on his current dose and observe his overall condition. We will continue to follow with cardiology and will await their further recommendations and treatment plans. According to the patient cardiology did discuss all of his findings in detail with his daughter Ms. Palomo yesterday. Plans are for the patient to wait for 4-6 weeks to let the current intracerebral hemorrhage involving the left thalamus slowly resolved before being considered for watchman device. We will continue close neurological monitoring of the patient. His overall prognosis at this time remains very guarded. Objective - Vital Signs Vital signs: Vital Signs Temp 97.2 F L 03/25/18 07:38 Pulse 65 03/25/18 07:38 Resp 16 03/25/18 07:38 BP 135/66 03/25/18 07:38 Pulse Ox 94 L 03/25/18 07:38 Intake & Output 03/24/18 03/25/18 03/25/18 18:59 06:59 18:59 Intake Total 840 180 Output Total 475 350 Balance 365 -350 180 Weight 104.3 kg Intake: Oral 840 180 Output: Urine 475 350 Other: # Voids 1 - Exam Physical Examination: PHYSICAL EXAMINATION: Patient is resting comfortably in bed. VITAL SIGNS: Blood pressure is [135/67]. Heart rate is [65]. Respiration is [16] . Temperature is [97.2]. HEENT: Head is atraumatic, neck is supple, there were no carotid bruits. CHEST: Lungs are clear to auscultation and percussion. CARDIAC: S1, S2 normal rate and rhythm. There is no murmur. ABDOMEN: Soft and nontender. Bowel sounds are present. EXTREMITIES: There is no pedal edema. Peripheral pulses are present. Neurological examination: Patient is resting comfortably in bed today. He continues to have mild findings of Parkinson's disease. He has intention tremor involving his right upper extremity He denies any headache or focal weakness. He is noted to have slight tremor in the right upper extremity. Muscle tone reveals no significant cogwheel rigidity. Deep tendon reflexes are 1+ and symmetric. Plantar response is flexor bilaterally. - Labs CBC & Chem 7: 03/25/18 05:32 03/25/18 05:32 Labs: Abnormal Lab Results - Last 24 Hours (Table) 03/25/18 03/25/18 Range/Units 05:32 05:32 RBC 4.06 L (4.30-5.90) m/uL Hgb 12.5 L (13.0-17.5) gm/dL Hct 38.3 L (39.0-53.0) % Creatine Kinase 712 H (55-170) U/L Assessment and Plan (1) Transient ischemic attack, acute Current Visit: Yes Status: Acute Code(s): G45.9 - TRANSIENT CEREBRAL ISCHEMIC ATTACK, UNSPECIFIED SNOMED Code(s): 579360719 (2) Intracerebral hemorrhage Current Visit: Yes Status: Acute Code(s): I61.9 - NONTRAUMATIC INTRACEREBRAL HEMORRHAGE, UNSPECIFIED SNOMED Code(s): 062520620 (3) Slurred speech Current Visit: Yes Status: Acute Code(s): R47.81 - SLURRED SPEECH SNOMED Code(s): 443526121 (4) Dysarthria Current Visit: No Status: Acute Code(s): R47.1 - DYSARTHRIA AND ANARTHRIA SNOMED Code(s): 2377360 (5) Parkinsons disease Current Visit: No Status: Chronic Code(s): G20 - PARKINSON'S DISEASE SNOMED Code(s): 45801288 Plan: This patient is a 77-year-old male who recently suffered an acute left thalamic intracerebral hemorrhage last week when he was visiting family in [place]. He was seen at the [facility] in [facility] for this acute episode of left thalamic bleed. He was taken off of his Xarelto and was advised to follow up locally with his regular physicians. Patient was readmitted as he had increasing symptoms of speech impairment and weakness. He underwent a repeat computed tomography scan of the brain as well as an MRI which continue to reveal evidence of left thalamic intracerebral hemorrhage. He was not a candidate to restart on any anticoagulation. Patient has been seen by cardiology and they are recommending for him to be evaluated at [facility] for possible watchman device. They're recommending 4-6 weeks of no anticoagulant before he is evaluated and seen at [facility] for further evaluation and treatment. Neurologically his Parkinson's condition remains relatively stable. He does have intention tremor involving the right hand. He should follow-up with his primary neurologist Dr. Bustos soon after discharge. 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 She was updated on their plans and recommendations for him to be evaluated at [facility]. We will continue close neurological follow-up the patient during this admission. His overall prognosis at this time remains very guarded.
[2018-03-25] MEDS: MULTIVITAMINS, THERA 1 EACH TAB PO SCH (11:13)
[2018-03-25] MEDS: THIAMINE 100 MG TAB PO SCH (11:13)
[2018-03-25] MEDS: FOLIC ACID 1 MG TAB PO SCH (11:13)
--- NOTE | 2018-03-25 18:20 | PN ---
PROGRESS NOTE DATE OF SERVICE: 03/25/2018. This 77-year-old gentleman who was admitted with numbness and slurring of speech, also had a left thalamic hemorrhage also. The patient is not a candidate for anticoagulation currently. Cardiology is recommending occluded device insertion in the [facility] as an outpatient, possibly. The carotid ultrasound showed only 50% stenosis on both internal carotid arteries. No chest pain. No palpitations. PAST MEDICAL HISTORY: Reviewed. PHYSICAL EXAM: Patient is alert, oriented x3. Pulse 64, blood pressure 161/70, respiration 16, temperature 98 degrees. HEENT: Conjunctivae normal. Oral mucosa moist. NECK: No jugular venous distention. No carotid bruit. No lymph node enlargement. CARDIOVASCULAR: S1, S2. RESPIRATORY: Breath sounds diminished in the bases. A few scattered rhonchi. ABDOMEN: Soft, nontender. NERVOUS SYSTEM: Diffuse weakness. Diffuse tremors also present. LABS: WBC 7, hemoglobin 12.5. ASSESSMENT: 1. Numbness and slurring of speech, possible acute transient ischemic attack. 2. Left thalamic hemorrhage recently. 3. Parkinson disease. 4. Gait dysfunction. 5. Mild rhabdomyolysis. 6. Chronic atrial fibrillation, currently off anticoagulation because of the hemorrhage. 7. History of chronic obstructive pulmonary disease. 8. Hyperlipidemia. 9. Gait dysfunction. 10.Dysarthria. 11.Increased creatine kinase, possibly secondary to medications. 12.FULL CODE. RECOMMENDATIONS AND DISCUSSION: I recommend to continue current medications, continue symptomatic treatment. Otherwise at this time, I recommend continue the rest of the medications. Otherwise continue to monitor. Prognosis guarded. Further recommendations to follow. MMODL / IJN: [id number] /
[2018-03-25] MEDS: CARBIDOPA-LEVODOPA ER 50-200MG 1 EACH TABLET.ER PO SCH (22:20)
[2018-03-25] MEDS: ATORVASTATIN 40 MG TAB PO SCH (22:20)
[2018-03-25] MEDS: MELATONIN 3 MG TABLET PO SCH (22:20)
[2018-03-26] MEDS: SODIUM CHLORIDE 0.9% 1,000 ML IV SCH (01:58)
--- NOTE | 2018-03-26 04:17 | PN ---
PROGRESS NOTE This patient is in room 678-2. This patient's history is noted in the previous notes. Patient has a history of a recent intracranial hemorrhage and paroxysmal atrial fibrillation. I had discussed in length with the patient's daughter. We will contact either [facility] or [facility] to be evaluated for Watchman device. However we need to wait for another 4-6 weeks before the appropriate device can be placed. The blood pressure is 155/69 mmHg. First and second heart sounds are normal. Lungs are clinically clear to auscultation and percussion. Patient's hemoglobin is 12.5. Electrolytes are normal. Creatinine is 1.13. We will continue the current medications. MMODL / IJN: [id number] /
[2018-03-26] MEDS: CARBIDOPA-LEVODOPA 25-100 MG 1 EACH TAB PO SCH ×2 (06:31→12:02)
[2018-03-26] MEDS: PANTOPRAZOLE 40 MG TABLET PO SCH (06:31)
[2018-03-26 07:08] LABS: Basophils % (A) 0 %; Eosinophils # (A) 0.3 k/uL (0-0.7); Eosinophils % (A) 4 %; HCT 36.9 % (39.0-53.0); HGB 12.2 gm/dL (13.0-17.5); Lymphocytes # (A) 1.3 k/uL (1.0-4.8); Lymphocytes % (A) 20 %; MCH 31.4 pg (25.0-35.0); MCHC 33.1 g/dL (31.0-37.0); MCV 94.6 fL (80.0-100.0); Mean Platelet Volume 7.1; Monocytes # (A) 0.5 k/uL (0-1.0); Monocytes % (A) 8 %; Neutrophils # (A) 4.2 k/uL (1.3-7.7); Neutrophils % (A) 66 %; Platelet Count 189 k/uL (150-450); RDW 13.8 % (11.5-15.5); WBC 6.4 k/uL (3.8-10.6)
[2018-03-26 07:19] LABS: Calcium 8.9 mg/dL (8.4-10.2); Potassium 4.1 mmol/L (3.5-5.1)
[2018-03-26] MEDS: SYMBICORT 160-4.5 MCG INHALER INHALATION SCH (08:05)
[2018-03-26] MEDS: amLODIPine 5 MG TAB PO SCH (08:26)
[2018-03-26] MEDS: LOSARTAN 50 MG TAB PO SCH (08:26)
[2018-03-26] MEDS: PROPAFENONE 150 MG TAB PO SCH (08:26)
[2018-03-26] MEDS: PRAMIPEXOLE 0.25 MG TAB PO SCH (08:26)
[2018-03-26] MEDS: guaiFENesin SYRUP 100MG/5ML 200 MG/10 ML CUP PO SCH (08:26)
[2018-03-26] MEDS: TAMSULOSIN 0.4 MG CAP.ER.24H PO SCH (08:26)
[2018-03-26] MEDS: CITALOPRAM HYDROBROMIDE 20 MG TAB PO SCH (08:26)
[2018-03-26] MEDS: METOCLOPRAMIDE 10 MG TAB PO SCH (08:26)
[2018-03-26] MEDS: DOCUSATE 100 MG CAP PO SCH (08:26)
[2018-03-26] MEDS: TROSPIUM CHLORIDE 20 MG TABLET PO SCH (09:34)
[2018-03-26 11:53] VITALS: BP 148/64; PULSE 63; RESP 16; TEMP 97.5
[2018-03-26] MEDS: THIAMINE 100 MG TAB PO SCH (12:02)
[2018-03-26] MEDS: MULTIVITAMINS, THERA 1 EACH TAB PO SCH (12:02)
[2018-03-26] MEDS: FOLIC ACID 1 MG TAB PO SCH (12:02)
--- NOTE | 2018-03-26 12:34 | P.PN ---
Subjective Progress Note Date: 03/26/18 This is a pleasant 77-year-old gentleman with past medical history significant for persistent atrial fibrillation, he had been on xarelto in the past, this was discontinued because recently patient was diagnosed with a brain bleed. He also has history of COPD, hyperlipidemia, hypertension, sleep apnea, and Parkinson's. Patient today, feels well overall, no complaints. The plan is for the patient to be discharged home today, we will make him a follow-up appointment to see Dr. VC Patel in the office post discharge. Dr. Ragsdale we'll also speak with one of the business objects consultant in the [place] area, to schedule the patient for implantation of a watchman device. This has been explained to the patient and his family in detail, at this time he will be discharged home not on anticoagulation because of the brain bleed. Objective - Vital Signs Vital signs: Vital Signs Temp 97.5 F L 03/26/18 11:51 Pulse 63 03/26/18 11:51 Resp 16 03/26/18 11:51 BP 148/64 03/26/18 11:51 Pulse Ox 94 L 03/26/18 11:51 Intake & Output 03/25/18 03/26/18 03/26/18 18:59 06:59 18:59 Intake Total 900 480 Output Total 550 450 Balance 350 -450 480 Weight 104.3 kg Intake: Oral 900 480 Output: Urine 550 450 Other: # Voids 2 1 - Exam PHYSICAL EXAMINATION: GENERAL: This is a 77-year-old gentleman in no acute distress at the time of my examination HEENT: Head is atraumatic, normocephalic. Pupils equal, round. Sclera anicteric. Conjunctiva are clear. Mucous membranes of the mouth are moist. Neck is supple. There is no elevated jugular venous pressure.] bruit is heard. HEART EXAMINATION: Heart S1, S2 normal. No murmur or gallop heard. CHEST EXAMINATION: Lungs are clear to auscultation and precussion. No chest wall tenderness is noted on palpation or with deep breathing. ABDOMEN: Soft, nontender. Bowel sounds are heard. No organomegaly noted. EXTREMITIES: 2+ peripheral pulses with no evidence of peripheral edema and no calf tenderness noted. NEUROLOGIC patient is awake, alert and oriented ?-3. . - Labs CBC & Chem 7: 03/26/18 06:48 03/26/18 06:48 Labs: Abnormal Lab Results - Last 24 Hours (Table) 03/26/18 03/26/18 Range/Units 06:48 06:48 RBC 3.90 L (4.30-5.90) m/uL Hgb 12.2 L (13.0-17.5) gm/dL Hct 36.9 L (39.0-53.0) % Chloride 108 H (98-107) mmol/L Creatine Kinase 610 H (55-170) U/L Assessment and Plan Plan: Assessment and plan #1 symptoms of slurring of speech and left-sided weakness which seemed to have resolved, suggesting possible TIA. No evidence of stroke on current MRI. Evidence of small bleed. #2 recent admission to [facility] in [place] with a left thalamic hemorrhage #3 hypertension #4 hyperlipidemia #5 Parkinson's #6 paroxysmal atrial fibrillation, Xarelto recently discontinued because of breathing. #7 interstitial lung disease Plan From cardiology's perspective, patient may be able to be discharged home today. Follow-up appointment with Dr. Mejia post discharge. Patient will be scheduled to have a watchman device placed as an outpatient. DNP note has been reviewed, I agree with a documented findings and plan of care. Patient was seen and examined.
--- NOTE | 2018-03-26 14:27 | CONS ---
CONSULTATION This is a 77-year-old gentleman who has been admitted to [facility] with some history of left-sided numbness and slurring of the speech and he has been admitted. The patient was discharged from [place] about intracerebral hemorrhage. The patient had a CT of the brain which showed no evidence of intracranial bleed or mass effect. The patient also has MRI of the brain which showed some small-vessel chronic disease. Ultrasound of the carotid shows the patient has a 50% stenosis bilateral. The patient has history of atrial fibrillation and the patient was on Xarelto which has been stopped. The patient was also found to have a thalamic hemorrhage and not a candidate for Xarelto. PHYSICAL EXAMINATION: Patient was seen in his room. Patient has tremors mostly on the right side. Motor functions are normal for upper and lower extremities. His speech is normal. Vascular examination: Brachial radial and femoral pulses are present. PLAN: The patient has history of atrial fibrillation and Xarelto has been held. He has tremors and also his ultrasound of carotids showed 50% stenosis. At this point, patient is not a candidate for vascular intervention. The patient has 50% stenosis bilateral and CT and MRI is negative. The patient has been seen by Cardiology and we will follow with you. MMODL / IJN: [id number] /
--- NOTE | 2018-03-26 19:33 | DS ---
DISCHARGE SUMMARY DATE OF SERVICE: 03/26/2018 FINAL DIAGNOSES: 1. Numbness and slurring of speech, possible acute transient ischemic attack. 2. Left thalamic hemorrhage recently. 3. Parkinson's disease. 4. Gait dysfunction. 5. Mild rhabdomyolysis. 6. Chronic atrial fibrillation, currently off anticoagulation because of the hemorrhage. 7. History of chronic obstructive pulmonary disease. 8. Hyperlipidemia. 9. Gait dysfunction. 10.Dysarthria. 11.History of creatine kinase possibly secondary to medications. 12.FULL CODE. DISCHARGE DISPOSITION: The patient will be discharged in stable condition with guarded prognosis. Total time taken 35 minutes. HISTORY OF PRESENT ILLNESS: This 77-year-old gentleman with a past medical history of multiple medical problems was admitted with multiple neurological symptoms including slurring of speech, left- sided numbness and weakness. The patient was noted to have left thalamic hemorrhage. The patient was anticoagulation is on hold at this time. The patient be considered for a Watchman device as an outpatient. On exam, vitals are stable. CARDIOVASCULAR: S1, S2. ABDOMEN: Soft. NERVOUS: As mentioned earlier. DISCHARGE ADVICE AND MEDICATIONS: Diet is cardiac. Activity limited until followup. Follow up with Dr. Saenz in 2 to 3 days. Follow up neurologist as advised. Follow up with Dr. Patel as advised. MEDICATIONS: 1. Lipitor 40 mg q.h.s. 2. Carbidopa/levodopa. 3. Sinemet 1 p.o. q.i.d. 4. Carbidopa/levodopa ER 1 tab q.h.s. 5. Celexa 40 mg p.o. daily. 6. Colace 100 mg p.o. b.i.d. 7. Advair 1 puff b.i.d. 8. Guaifenesin 400 mg p.o. b.i.d. 9. Glenwood 10 mg q.6h p.r.n. 10.Cozaar 50 mg p.o. daily. 11.Reglan 10 mg p.o. b.i.d. 12.Omeprazole 20 mg p.o. daily. 13.OxyContin 10 mg p.o. b.i.d. 14.Mirapex 0.25 mg t.i.d. 15.Rythmol 150 mg p.o. daily. 16.VESIcare 10 mg p.o. daily. 17.Flomax 0.4 daily. 18.Norvasc 5 mg p.o. daily. 19.Folic acid 1 mg p.o. daily. 20.Multivitamins 1 p.o. daily. 21.Thiamine 100 mg p.o. daily. Once again, the patient will be discharged in a stable condition with guarded prognosis. MMBEBOL / VICTORINON: [id number] / MTDD
== END 2018-03-26 13:50 | disposition home health service (06) | DRG 69 ==
LOC: EC 16:57 → 6SEL 19:51
PROVIDERS: ADMIT Hospitalist; ATTEND Hospitalist
DX: G45.9 Transient cerebral ischemic attack, unspecified (principal); I61.8 Other nontraumatic intracerebral hemorrhage; M62.82 Rhabdomyolysis; J84.9 Interstitial pulmonary disease, unspecified; J44.9 Chronic obstructive pulmonary disease, unspecified; G20 Parkinson's disease; I48.2 Chronic atrial fibrillation; I65.23 Occlusion and stenosis of bilateral carotid arteries; E78.5 Hyperlipidemia, unspecified; G25.81 Restless legs syndrome; I45.10 Unspecified right bundle-branch block; I10 Essential (primary) hypertension; I25.2 Old myocardial infarction; F41.9 Anxiety disorder, unspecified; G47.33 Obstructive sleep apnea (adult) (pediatric); M19.91 Primary osteoarthritis, unspecified site; R26.9 Unspecified abnormalities of gait and mobility; M54.9 Dorsalgia, unspecified; M54.2 Cervicalgia; G89.29 Other chronic pain; H26.9 Unspecified cataract; Z79.51 Long term (current) use of inhaled steroids; Z79.01 Long term (current) use of anticoagulants; Z79.899 Other long term (current) drug therapy; Z87.891 Personal history of nicotine dependence; Z87.01 Personal history of pneumonia (recurrent); Z98.1 Arthrodesis status; Z86.59 Personal history of other mental and behavioral disorders; Z82.5 Family history of asthma and other chronic lower respiratory diseases; Z81.8 Family history of other mental and behavioral disorders
CPT/HCPCS: 36415; 70450; 70551; 71046; 80048; 80053; 80061; 81003; 82550; 82553; 84484; 85025; 85610; 85730; 93005; 93880; 94640; 95816; 96374; 99285

== ENCOUNTER 2018-10-25 20:47 | Emergency (ER) | payer MEDICARE, BC ==
--- NOTE | 2018-10-25 20:54 | ED ---
General Adult HPI - General Stated complaint: Fall Time Seen by Provider: 10/25/18 20:50 - History of Present Illness Initial comments: Dictation was produced using [employer] dictation software. please excuse any grammatical, word or spelling errors. Chief Complaint: 77-year-old male past medical history of H or febrile age, COPD, this evening, hypertension, pneumonia presents with fall. History of Present Illness: Patient is accompanied by his son. They were at a restaurant. He was allegedly walking on the stairs when he lost his balance causing her to fall backwards. Patient states he struck the back of his head on a step. No loss of consciousness. Patient states that he did not syncopized prior to falling. Patient was brought in by EMS. He has no complete at this time. The ROS documented in this emergency department record has been reviewed and confirmed by me. Those systems with pertinent positive or negative responses have been documented in the HPI. All other systems are other negative and/or noncontributory. PHYSICAL EXAM: General Impression: Alert and oriented x3, not in acute distress HEENT: 2 x 2 centimeter hematoma over the posterior occiput, extra-ocular movements intact, pupils equal and reactive to light bilaterally, mucous membranes moist. Cardiovascular: Heart regular rate and rhythm, S1&S2 audible, no murmurs, rubs or gallops Chest: Lungs clear to auscultation bilaterally, no rhonchi, no wheeze, no rales Abdomen: Bowel sounds present, abdomen soft, non-tender, non-distended, no organomegaly Musculoskeletal: Pulses present and equal in all extremities, no peripheral edema, bilateral elbow wraps that he reports are from chronic elbow symptoms. Motor: no focal deficits noted Neurological: CN II-XII grossly intact, no focal motor or sensory deficits noted Skin: Intact with no visualized rashes Psych: Normal affect and mood ED course: 77yo male presents with mechanical fall. medication is reviewed. Patient is allegedly on Plavix and aspirin.Lab data evaluation obtained. CBC, coag panel, white count is unremarkable. Computed tomography scan of the head shows no acute intracranial processes. Chest x-ray and pelvis x-ray unremarkable. Patient observed in emergency department for couple hours. Patient feels well. No laceration amenable to suture repair at this time. Patient tetanus was updated. Mentations were reviewed. Patient is not on any anticoagulation medications. He does take Plavix. Patient clear for discharge. Patient advised to return to the emergency department if he develops worsening headache, mental status changes or strokelike symptoms. Patient otherwise appears well at this time. Patient has no pain. Patient clear for discharge. - Related Data Home Medications Medication Instructions Recorded Confirmed Atorvastatin [Lipitor] 40 mg PO HS 03/09/16 10/25/18 Carbidopa-Levodopa 25-100 mg 1 tab PO QID 03/09/16 10/25/18 [Sinemet 25-100 mg] Citalopram Hydrobromide [CeleXA] 40 mg PO DAILY 03/09/16 10/25/18 Docusate [Colace] 100 mg PO BID 03/09/16 10/25/18 HYDROcodone/APAP 10-325MG [[place] 1 tab PO Q6H PRN 03/09/16 10/25/18 10-325] Losartan [Cozaar] 50 mg PO DAILY 03/09/16 10/25/18 Solifenacin Succinate [Vesicare] 10 mg PO DAILY 03/09/16 10/25/18 oxyCODONE HCL [OxyCONTIN] 10 mg PO Q12HR PRN 03/09/16 10/25/18 Carbidopa-Levodopa ER 50-200Mg 1 tab PO HS 03/22/18 10/25/18 [Sinemet CR 50-200 mg] Fluticasone/Salmeterol [Advair 1 puff INHALATION RT-BID 03/22/18 10/25/18 500-50 Diskus] Metoclopramide HCl [Reglan] 10 mg PO BID 03/22/18 10/25/18 Omeprazole 20 mg PO DAILY 03/22/18 10/25/18 Propafenone [Rythmol] 150 mg PO DAILY 03/22/18 10/25/18 Tamsulosin HCl [Flomax] 0.4 mg PO DAILY 03/22/18 10/25/18 guaiFENesin 400 mg PO BID 03/22/18 10/25/18 Aspirin EC [Ecotrin Low Dose] 81 mg PO DAILY 10/25/18 10/25/18 Clopidogrel [Plavix] 75 mg PO DAILY 10/25/18 10/25/18 Allergies Allergy/AdvReac Type Severity Reaction Status Date / Time No Known Allergies Allergy Verified 10/25/18 22:01 Review of Systems ROS Statement: Those systems with pertinent positive or pertinent negative responses have been documented in the HPI. ROS Other: All systems not noted in ROS Statement are negative. Past Medical History Past Medical History: Atrial Fibrillation, COPD, Hyperlipidemia, Hypertension, Pneumonia, Sleep Apnea/CPAP/BIPAP Additional Past Medical History / Comment(s): Parkinson's disease, COPD,bronchitis obstructive sleep apnea, hypertension, chronic atrial fibrill ation, restless leg syndrome, depression, osteoarthritis, chronic neck and back pain, previous charted stated past mi 2009 but pt unaware of this.rt eye cataract, over active bladder Last Myocardial Infarction Date:: 2009 History of Any Multi-Drug Resistant Organisms: None Reported Past Surgical History: Adenoidectomy, Tonsillectomy Additional Past Surgical History / Comment(s): Cervical spine neck fusion, low back surgery, tonsillectomy, adenoidectomy , colonoscopy, nasal sx, blepheroplasty Past Anesthesia/Blood Transfusion Reactions: No Reported Reaction Past Psychological History: No Psychological Hx Reported Smoking Status: Former smoker - Past Family History Father Family Medical History: COPD Mother Family Medical History: Dementia Course Vital Signs 10/25/18 20:47 Temperature 98.5 F Pulse Rate 67 Respiratory 18 Rate Blood Pressure 121/51 O2 Sat by Pulse 97 Oximetry Medical Decision Making - Lab Data Result diagrams: 10/25/18 21:02 10/25/18 21:02 Lab Results 10/25/18 10/25/18 10/25/18 Range/Units 21:02 21:02 21:02 WBC 7.3 (3.8-10.6) k/uL RBC 3.81 L (4.30-5.90) m/uL Hgb 12.1 L (13.0-17.5) gm/dL Hct 36.3 L (39.0-53.0) % MCV 95.2 (80.0-100.0) fL MCH 31.7 (25.0-35.0) pg MCHC 33.3 (31.0-37.0) g/dL RDW 14.0 (11.5-15.5) % Plt Count 255 (150-450) k/uL Neutrophils % 72 % Lymphocytes % 16 % Monocytes % 6 % Eosinophils % 4 % Basophils % 0 % Neutrophils # 5.3 (1.3-7.7) k/uL Lymphocytes # 1.2 (1.0-4.8) k/uL Monocytes # 0.5 (0-1.0) k/uL Eosinophils # 0.3 (0-0.7) k/uL Basophils # 0.0 (0-0.2) k/uL PT (9.0-12.0) sec INR (<1.2) APTT (22.0-30.0) sec Sodium 138 (137-145) mmol/L Potassium 4.3 (3.5-5.1) mmol/L Chloride 105 (98-107) mmol/L Carbon Dioxide 24 (22-30) mmol/L Anion Gap 9 mmol/L BUN 22 H (9-20) mg/dL Creatinine 1.00 (0.66-1.25) mg/dL Est GFR (CKD-EPI)AfAm 82 (>60 ml/min/1.73 sqM) Est GFR (CKD-EPI)NonAf 71 (>60 ml/min/1.73 sqM) Glucose 96 (74-99) mg/dL POC Glucose (mg/dL) (75-99) mg/dL POC Glu Agricultural Service Technician ID Plasma Lactic Acid Marc (0.7-2.0) mmol/L Calcium 9.1 (8.4-10.2) mg/dL Total Bilirubin 0.5 (0.2-1.3) mg/dL AST 19 (17-59) U/L ALT 12 L (21-72) U/L Alkaline Phosphatase 75 (38-126) U/L Total Creatine Kinase 199 H (55-170) U/L CK-MB (CK-2) 1.8 (0.0-2.4) ng/mL CK-MB (CK-2) Rel Index 0.9 Troponin I <0.012 (0.000-0.034) ng/mL Total Protein 6.4 (6.3-8.2) g/dL Albumin 3.6 (3.5-5.0) g/dL Amylase 38 (30-110) U/L Lipase 38 (23-300) U/L Serum Alcohol <10 mg/dL Blood Type Blood Type Recheck Antibody Screen Spec Expiration Date 10/25/18 10/25/18 10/25/18 Range/Units 21:02 21:02 21:02 WBC (3.8-10.6) k/uL RBC (4.30-5.90) m/uL Hgb (13.0-17.5) gm/dL Hct (39.0-53.0) % MCV (80.0-100.0) fL MCH (25.0-35.0) pg MCHC (31.0-37.0) g/dL RDW (11.5-15.5) % Plt Count (150-450) k/uL Neutrophils % % Lymphocytes % % Monocytes % % Eosinophils % % Basophils % % Neutrophils # (1.3-7.7) k/uL Lymphocytes # (1.0-4.8) k/uL Monocytes # (0-1.0) k/uL Eosinophils # (0-0.7) k/uL Basophils # (0-0.2) k/uL PT 10.2 (9.0-12.0) sec INR 0.9 (<1.2) APTT 23.3 (22.0-30.0) sec Sodium (137-145) mmol/L Potassium (3.5-5.1) mmol/L Chloride (98-107) mmol/L Carbon Dioxide (22-30) mmol/L Anion Gap mmol/L BUN (9-20) mg/dL Creatinine (0.66-1.25) mg/dL Est GFR (CKD-EPI)AfAm (>60 ml/min/1.73 sqM) Est GFR (CKD-EPI)NonAf (>60 ml/min/1.73 sqM) Glucose (74-99) mg/dL POC Glucose (mg/dL) (75-99) mg/dL POC Glu Agricultural Service Technician ID Plasma Lactic Acid Marc 1.7 (0.7-2.0) mmol/L Calcium (8.4-10.2) mg/dL Total Bilirubin (0.2-1.3) mg/dL AST (17-59) U/L ALT (21-72) U/L Alkaline Phosphatase (38-126) U/L Total Creatine Kinase (55-170) U/L CK-MB (CK-2) (0.0-2.4) ng/mL CK-MB (CK-2) Rel Index Troponin I (0.000-0.034) ng/mL Total Protein (6.3-8.2) g/dL Albumin (3.5-5.0) g/dL Amylase (30-110) U/L Lipase (23-300) U/L Serum Alcohol mg/dL Blood Type A Positive Blood Type Recheck CABO Indicated Antibody Screen NEGATIVE Spec Expiration Date 10/28/2018 - 230110/25/18 Range/Units 21:18 WBC (3.8-10.6) k/uL RBC (4.30-5.90) m/uL Hgb (13.0-17.5) gm/dL Hct (39.0-53.0) % MCV (80.0-100.0) fL MCH (25.0-35.0) pg MCHC (31.0-37.0) g/dL RDW (11.5-15.5) % Plt Count (150-450) k/uL Neutrophils % % Lymphocytes % % Monocytes % % Eosinophils % % Basophils % % Neutrophils # (1.3-7.7) k/uL Lymphocytes # (1.0-4.8) k/uL Monocytes # (0-1.0) k/uL Eosinophils # (0-0.7) k/uL Basophils # (0-0.2) k/uL PT (9.0-12.0) sec INR (<1.2) APTT (22.0-30.0) sec Sodium (137-145) mmol/L Potassium (3.5-5.1) mmol/L Chloride (98-107) mmol/L Carbon Dioxide (22-30) mmol/L Anion Gap mmol/L BUN (9-20) mg/dL Creatinine (0.66-1.25) mg/dL Est GFR (CKD-EPI)AfAm (>60 ml/min/1.73 sqM) Est GFR (CKD-EPI)NonAf (>60 ml/min/1.73 sqM) Glucose (74-99) mg/dL POC Glucose (mg/dL) 98 (75-99) mg/dL POC Glu Agricultural Service Technician ID Joey Sheets Plasma Lactic Acid Marc (0.7-2.0) mmol/L Calcium (8.4-10.2) mg/dL Total Bilirubin (0.2-1.3) mg/dL AST (17-59) U/L ALT (21-72) U/L Alkaline Phosphatase (38-126) U/L Total Creatine Kinase (55-170) U/L CK-MB (CK-2) (0.0-2.4) ng/mL CK-MB (CK-2) Rel Index Troponin I (0.000-0.034) ng/mL Total Protein (6.3-8.2) g/dL Albumin (3.5-5.0) g/dL Amylase (30-110) U/L Lipase (23-300) U/L Serum Alcohol mg/dL Blood Type Blood Type Recheck Antibody Screen Spec Expiration Date Disposition Clinical Impression: Fall, Head contusion Disposition: HOME SELF-CARE Condition: Good Instructions (If sedation given, give patient instructions): Fall Prevention for Older Adults (ED) Is patient prescribed a controlled substance at d/c from ED?: No Referrals: Elda Saenz MD [Primary Care Provider] - 1-2 days Time of Disposition: 22:09
[2018-10-25 21:08] LABS: Basophils % (A) 0 %; Eosinophils # (A) 0.3 k/uL (0-0.7); Eosinophils % (A) 4 %; HCT 36.3 % (39.0-53.0); HGB 12.1 gm/dL (13.0-17.5); Lymphocytes # (A) 1.2 k/uL (1.0-4.8); Lymphocytes % (A) 16 %; MCH 31.7 pg (25.0-35.0); MCHC 33.3 g/dL (31.0-37.0); MCV 95.2 fL (80.0-100.0); Mean Platelet Volume 6.2; Monocytes # (A) 0.5 k/uL (0-1.0); Monocytes % (A) 6 %; Neutrophils # (A) 5.3 k/uL (1.3-7.7); Neutrophils % (A) 72 %; Platelet Count 255 k/uL (150-450); RBC 3.81 m/uL (4.30-5.90); WBC 7.3 k/uL (3.8-10.6)
--- NOTE | 2018-10-25 21:15 | XR ---
EXAMINATION TYPE: XR pelvis AP view DATE OF EXAM: 10/25/2018 COMPARISON: NONE HISTORY: Pain after falling TECHNIQUE: 2 views FINDINGS: Pelvic ring appears intact. Proximal femurs and hip joints are intact. Sacroiliac joints ap pear normal. IMPRESSION: Negative pelvis x-ray exam.
[2018-10-25 21:16] LABS: INR 0.9 (<1.2); Partial Thromboplastin Time 23.3 sec (22.0-30.0); Prothrombin Time 10.2 sec (9.0-12.0)
[2018-10-25 21:18] LABS: Creatine Kinase 199 U/L (55-170)
[2018-10-25 21:19] LABS: Glucose,Whole Blood 98 mg/dL (75-99)
--- NOTE | 2018-10-25 21:20 | XR ---
EXAMINATION TYPE: XR chest 1V DATE OF EXAM: 10/25/2018 COMPARISON: 03/22/2018 HISTORY: Pain TECHNIQUE: Single frontal view of the chest is obtained. FINDINGS: There is coarse interstitial density. Heart size is normal. There is no heart failure. Cos tophrenic angles are clear. IMPRESSION: Pulmonary fibrosis. No acute lung disease. No change.
[2018-10-25 21:21] LABS: ALT 12 U/L (21-72); AST 19 U/L (17-59); Albumin 3.6 g/dL (3.5-5.0); Alcohol <10 mg/dL; Alkaline Phosphatase 75 U/L (38-126); Amylase 38 U/L (30-110); Anion Gap 9 mmol/L; Blood Urea Nitrogen 22 mg/dL (9-20); Calcium 9.1 mg/dL (8.4-10.2); Carbon Dioxide 24 mmol/L (22-30); Chloride 105 mmol/L (98-107); Glucose 96 mg/dL (74-99); Lipase 38 U/L (23-300); Potassium 4.3 mmol/L (3.5-5.1); Sodium 138 mmol/L (137-145); Total Bilirubin 0.5 mg/dL (0.2-1.3); Total Protein 6.4 g/dL (6.3-8.2)
--- NOTE | 2018-10-25 21:28 | CT ---
EXAMINATION TYPE: CT brain ke oswald con DATE OF EXAM: 10/25/2018 COMPARISON: CT scan of the brain 03/22/2018 HISTORY: Fall. Headache. Neck pain. CT DLP: 1479.9 mGycm Automated exposure control for dose reduction was used. TECHNIQUE: CT scan of the head and cervical spine are performed without contrast. FINDINGS: There is cerebral cortical atrophy. There is no mass effect nor midline shift. There is n o sign of intracranial hemorrhage. Calvarium is intact. There is some hypodensity in the periventricu lar white matter. There is some straightening of the cervical spine. There is anterior fusion surgery at C7-T1. Posteri or elements are intact. Facet joints are intact. The skull base is intact. There is mild spurring of the endplates in the lower cervical spine. IMPRESSION: Cerebral atrophy. No acute intracranial abnormality. No change compared to old exam. Chronic small vessel ischemia. Mild spondylotic changes in the cervical spine. No fracture seen.
[2018-10-25 21:32] LABS: Creatine Kinase MB 1.8 ng/mL (0.0-2.4); Troponin I <0.012 ng/mL (0.000-0.034)
[2018-10-25] MEDS ORDERED: DIPH,PERTUS(ACELL)TETVAC-LF 0.5 ML VIAL IM ONE (21:43)
[2018-10-25 22:05] VITALS: BP 121/51; PULSE 67; RESP 18; TEMP 98.5
== END 2018-10-25 22:26 | disposition home or self-care (01) ==
LOC: EC 20:47
DX: S00.03XA Contusion of scalp, initial encounter (principal); I48.2 Chronic atrial fibrillation; J44.9 Chronic obstructive pulmonary disease, unspecified; E78.5 Hyperlipidemia, unspecified; I10 Essential (primary) hypertension; G47.33 Obstructive sleep apnea (adult) (pediatric); Z99.89 Dependence on other enabling machines and devices; G20 Parkinson's disease; F32.9 Major depressive disorder, single episode, unspecified; Z87.891 Personal history of nicotine dependence; Z79.51 Long term (current) use of inhaled steroids; Z79.82 Long term (current) use of aspirin; Z79.02 Long term (current) use of antithrombotics/antiplatelets; Z79.899 Other long term (current) drug therapy; Z53.8 Procedure and treatment not carried out for other reasons; W10.9XXA Fall (on) (from) unspecified stairs and steps, initial encounter; Y93.01 Activity, walking, marching and hiking; Y92.511 Restaurant or cafe as the place of occurrence of the external cause
CPT/HCPCS: 36415; 93005; 86900; 86901; 80053; 82150; 82550; 82553; 83605; 83690; 84484; 85025; 85610; 85730; 86850; 72170; 71045; 72125; 70450; 99284; G0480; 80320

== ENCOUNTER → 2018-10-31 | Outpatient (CLI) | payer MEDICARE, BC ==
--- NOTE | 2018-10-31 22:35 | MR ---
EXAMINATION TYPE: MR brain wo con DATE OF EXAM: 10/31/2018 COMPARISON: MRI brain April 01, 2018. HISTORY: Parkinson's disease/Gait instability/fall injury 5 days ago. TECHNIQUE: Multiplanar, multisequence imaging of the brain and brainstem is performed without IV cont rast. Trauma protocol. FINDINGS: Diffusion weighted images demonstrate no evidence of a recent infarct or other diffusion abnormality. There is no worrisome extra-axial fluid collection. There is ventricular and sulcal prominence redemo nstrated. There are scattered foci of T2 hyperintensity throughout the superficial, deep, and periven tricular white matter. Lesions are nonspecific in appearance and distribution. Midline structures demonstrate normal morphology. The craniocervical junction appears within normal limits. Normal vascular flow voids are present. There is 1.3 cm mucous retention cyst or polyp right ethmoid sinus axial image 10 redemonstrated. Some dependent fluid right maxillary sinus is now presen t. Mild mucosal thickening bilateral ethmoid sinuses is redemonstrated. Left lens is present suggesti ng underlying cataract surgery. IMPRESSION: 1. Redemonstration of moderate diffuse cerebral atrophy and chronic small vessel ischemic change. No significant change from prior MRI. 2. Possible new mild acute right maxillary sinus disease, correlate clinically.
--- NOTE | 2018-10-31 22:55 | MR ---
MRI CERVICAL SPINE: CLINICAL HISTORY: Gait instability per order. Fall injury 5 days ago. TECHNIQUE: Multiplanar, multisequence imaging of the cervical spine is performed without IV contrast. COMPARISON: CT cervical spine 6 days ago. FINDINGS: Sagittal images of the cervical spine show the craniocervical junction to remain within nor mal limits. The cervical and upper thoracic spinal cord is normal in course, caliber, and signal. V ertebral alignment is stable and straightened. There is artifact from anterior fusion plate and disc material C7-T1 level redemonstrated. The vertebral body and intravertebral disk heights are normal ab ove and below surgical levels. Posterior disc herniations are seen effaces the anterior thecal sac a t C5-C6 and to a greater degree C6-C7 level on sagittal images. The bone marrow signal intensity is w ithin normal limits. Mild to moderate anterior spurring superior C6 level is redemonstrated. Axial images show the C2-C3 level to appear within normal limits. Axial images at the C3-C4 level show uncovertebral facet degenerative changes and spurring with centr al disc protrusion, there is some effacement of the anterior thecal sac and mild to moderate right gr eater than left bilateral neural foraminal narrowing. Axial images at the C4-C5 level show right greater than left uncovertebral facet degenerative changes with broad-based posterior disc protrusion effaces the anterior thecal sac, there is moderate to adv anced right greater than left bilateral neural foraminal narrowing. Axial images at the C5-C6 level broad-based posterior disc protrusion effaces the anterior thecal sac nearly up to the ventral surface of spinal cord with some uncovertebral facet spurring causing moder ate to advanced left and moderate right-sided neural foraminal narrowing. Axial images at the C6-C7 level showed broad based posterior disc protrusion with lobulation effacing the anterolateral thecal sac and causing fairly advanced bilateral neural foraminal narrowing as the re is some marginal spurring also present. Axial images at C7-T1 level show artifact from surgical hardware, there is advanced left greater than right bilateral neural foraminal narrowing due to marginal bony projection or spurring. IMPRESSION: Postsurgical change C7-T1 level with straightened alignment. Multilevel degenerative aly ges in cervical spine are seen most prominent mid to lower cervical levels as detailed above.
== END ==
LOC: RADMRIMAIN 19:07
PROVIDERS: ATTEND Neurological Surgery
DX: G31.9 Degenerative disease of nervous system, unspecified (principal); I67.82 Cerebral ischemia; M48.02 Spinal stenosis, cervical region; M50.21 Other cervical disc displacement, high cervical region; M47.812 Spondylosis without myelopathy or radiculopathy, cervical region; Z98.1 Arthrodesis status
CPT/HCPCS: 70551; 72141

== ENCOUNTER 2019-04-27 21:48 | Emergency (ER) | payer MEDICARE, BC ==
[2019-04-27 21:54] VITALS: RESP 18; TEMP 98.1
--- NOTE | 2019-04-27 21:59 | ED ---
Fall HPI - General Chief Complaint: Fall Stated Complaint: Fall Time Seen by Provider: 04/27/19 21:57 Source: patient, family Mode of arrival: ambulatory - History of Present Illness Initial Comments: Benja is a pleasant 78yo male who presents to the ER today for evaluation of left shoulder and right middle finger pain after a mechanical trip and fall at home. Patient reports that he is just old, clumsy and fat and lost his footing causing him to fall forward onto his right hand and left shoulder. Patient reports he noticed his hand was bleeding so he washed it up and put a bandaid on it, he states since that time he has been experiencing worsening pain in his left upper arm and shoulder which prompted him to come to the ER for valuation. Patient did not strike his head, he did not have any loss of consciousness. Patient denies any preceding lightheadedness palpitations or shortness of breath, he describes the fall is completely mechanical in nature. MD Complaint: fall -: hour(s) Fall From: standing When Fall Occurred: 4-[address] Fall Occurred: home Loss of Consciousness: none Prolonged Down Time?: no Symptoms Prior to Fall: none - Related Data Home Medications Medication Instructions Recorded Confirmed Atorvastatin [Lipitor] 40 mg PO HS 03/09/16 04/27/19 Citalopram Hydrobromide [CeleXA] 40 mg PO DAILY 03/09/16 04/27/19 Docusate [Colace] 200 mg PO BID 03/09/16 04/27/19 Losartan [Cozaar] 50 mg PO DAILY 03/09/16 04/27/19 Solifenacin Succinate [Vesicare] 10 mg PO DAILY 03/09/16 04/27/19 Carbidopa-Levodopa ER 50-200Mg 1 tab PO BID 03/22/18 04/27/19 [Sinemet CR 50-200 mg] Fluticasone/Salmeterol [Advair 1 puff INHALATION RT-BID 03/22/18 04/27/19 500-50 Diskus] Omeprazole 20 mg PO DAILY 03/22/18 04/27/19 Propafenone [Rythmol] 150 mg PO DAILY 03/22/18 04/27/19 Tamsulosin HCl [Flomax] 0.4 mg PO DAILY 03/22/18 04/27/19 ALPRAZolam [Xanax] 0.25 mg PO DAILY PRN 04/27/19 04/27/19 Folic Acid 1 mg PO DAILY 04/27/19 04/27/19 Pramipexole [Mirapex] 1 mg PO HS 04/27/19 04/27/19 amLODIPine [Norvasc] 5 mg PO DAILY 04/27/19 04/27/19 Allergies Allergy/AdvReac Type Severity Reaction Status Date / Time No Known Allergies Allergy Verified 04/27/19 22:42 Review of Systems ROS Statement: Those systems with pertinent positive or pertinent negative responses have been documented in the HPI. ROS Other: All systems not noted in ROS Statement are negative. Past Medical History Past Medical History: Atrial Fibrillation, COPD, Hyperlipidemia, Hypertension, Pneumonia, Sleep Apnea/CPAP/BIPAP Additional Past Medical History / Comment(s): Parkinson's disease, COPD,bronchitis obstructive sleep apnea, hypertension, chronic atrial fibrillation, restless leg syndrome, depression, osteoarthritis, chronic neck and back pain, previous charted stated past mi 2009 but pt unaware of this.rt eye cataract, over active bladder Last Myocardial Infarction Date:: 2009 History of Any Multi-Drug Resistant Organisms: None Reported Past Surgical History: Adenoidectomy, Tonsillectomy Additional Past Surgical History / Comment(s): Cervical spine neck fusion, low back surgery, tonsillectomy, adenoidectomy , colonoscopy, nasal sx, blepheroplasty Past Anesthesia/Blood Transfusion Reactions: No Reported Reaction Past Psychological History: No Psychological Hx Reported Smoking Status: Former smoker Past Alcohol Use History: None Reported Past Drug Use History: None Reported - Past Family History Father Family Medical History: COPD Mother Family Medical History: Dementia General Exam - General Exam Comments Initial Comments: Physical Exam GENERAL: Patient is well-developed and well-nourished. Patient is nontoxic and well-hydrated and is in no distress. HENT: Normocephalic, Atraumatic. EYES: PERRL, EOMI PULMONARY: Unlabored respirations. CARDIOVASCULAR: RRR ABDOMEN: Obese, soft and nontender with normal bowel sounds. SKIN: Laceration to right middle finger on the anterior surface over the PIP joint Skin tear to left elbow measuring approximately 3 cm Superficial skin tear to measuring approximately 2 cm, surrounding bruising with no active bleeding Abrasion to the left knee : Deferred NEUROLOGIC: Patient is alert and oriented x3 MUSCULOSKELETAL: Decreased range of motion left upper extremity secondary to pain PSYCHIATRIC: Normal psychiatric evaluation. Limitations: no limitations Course Vital Signs 04/27/19 04/28/19 21:48 01:08 Temperature 98.1 F 98.1 F Pulse Rate 67 69 Respiratory 18 18 Rate Blood Pressure 144/73 138/74 O2 Sat by Pulse 96 95 Oximetry Procedures - Laceration Laceration #1 Consent Obtained: verbal consent Indication: laceration Site: upper extremity Description: flap Depth: simple, single layer Pre-repair: wound explored, irrigated extensively Type of Sutures: other (Steri-Strip) Patient Tolerated Procedure: well, no complications Medical Decision Making - Medical Decision Making Patient was seen and evaluated, history is obtained from the patient and friend at bedside History and physical exam reveal bruising on the anterior right senior with a small skin tear, abrasion to the left knee, abrasion left elbow, pain with range of motion of the left shoulder, abrasion to the right middle finger on the flexor surface X-rays were obtained and revealed no acute bony pathology as were cleansed with Betadine and sterile water and dressed Skin tear on the left elbow was repaired with 3 Steri-Strips She was given a stable dose of intramuscular morphine for pain management in the emergency department. I discussed the dangers of narcotics and fall risk with the patient and advised that he should take Tylenol Motrin and rest due to discomfort from his fall. He is agreeable to this. All questions pertaining care were answered return parameters were discussed patient was discharged home in stable condition. Disposition Clinical Impression: Fall Disposition: HOME SELF-CARE Condition: Stable Instructions (If sedation given, give patient instructions): Fall Prevention for Older Adults (ED) Is patient prescribed a controlled substance at d/c from ED?: No Referrals: Elda Saenz MD [Primary Care Provider] - 1-2 days
[2019-04-27] MEDS ORDERED: DIPH,PERTUS(ACELL)TETVAC-LF 0.5 ML VIAL IM ONE (22:07)
[2019-04-27] MEDS ORDERED: WATER FOR IRRIG, STERILE 1,000 ML BTL IRRIGATION ONE (22:07)
--- NOTE | 2019-04-27 22:57 | XR ---
EXAM: XR Left Shoulder Complete, 2 or More Views CLINICAL HISTORY: ITS.REASON XR Reason: fall TECHNIQUE: Two or more views of the left shoulder. COMPARISON: No relevant prior studies available. FINDINGS: Bones/joints: No acute fracture. No dislocation. Moderate acromioclavicular joint osteoarthrosis. Soft tissues: Unremarkable. IMPRESSION: No acute osseous abnormalities.
--- NOTE | 2019-04-27 23:32 | XR ---
EXAM: XR Left Humerus, 2 or More Views CLINICAL HISTORY: ITS.REASON XR Reason: fall TECHNIQUE: Frontal and lateral views of the left humerus. COMPARISON: No relevant prior studies available. FINDINGS: Bones/joints: No acute fracture. No dislocation. Soft tissues: Unremarkable. IMPRESSION: No acute osseous abnormalities.
--- NOTE | 2019-04-27 23:46 | XR ---
EXAM: XR Right Hand Complete, 3 or More Views CLINICAL HISTORY: ITS.REASON XR Reason: fall TECHNIQUE: Frontal, lateral and oblique views of the right hand. COMPARISON: No relevant prior studies available. FINDINGS: Bones/joints: No acute fracture. No dislocation. Moderate osteoarthrosis of the first carpometacarpal joint. Soft tissues: Unremarkable. No radiopaque foreign body. IMPRESSION: No acute osseous abnormalities.
[2019-04-28] MEDS ORDERED: MORPHINE SULFATE 4 MG/ML SYRINGE IM STA (00:15)
[2019-04-28 01:11] VITALS: BP 138/74; PULSE 69
== END 2019-04-28 01:10 | disposition home or self-care (01) ==
LOC: EC 21:48
DX: S51.012A Laceration without foreign body of left elbow, initial encounter (principal); S61.212A Laceration without foreign body of right middle finger without damage to nail, initial encounter; S50.312A Abrasion of left elbow, initial encounter; S80.811A Abrasion, right lower leg, initial encounter; S80.212A Abrasion, left knee, initial encounter; S60.412A Abrasion of right middle finger, initial encounter; F32.9 Major depressive disorder, single episode, unspecified; E78.5 Hyperlipidemia, unspecified; I10 Essential (primary) hypertension; N32.81 Overactive bladder; G20 Parkinson's disease; J44.9 Chronic obstructive pulmonary disease, unspecified; I48.2 Chronic atrial fibrillation; G47.33 Obstructive sleep apnea (adult) (pediatric); Z79.899 Other long term (current) drug therapy; Z79.51 Long term (current) use of inhaled steroids; Z87.891 Personal history of nicotine dependence; Z23 Encounter for immunization; Z99.89 Dependence on other enabling machines and devices; W01.0XXA Fall on same level from slipping, tripping and stumbling without subsequent striking against object, initial encounter; Y93.89 Activity, other specified; Y92.009 Unspecified place in unspecified non-institutional (private) residence as the place of occurrence of the external cause
CPT/HCPCS: 73020; 73060; 73130; 90715; 99283; 96372; 90471; J2270

== ENCOUNTER 2019-05-24 17:32 | Observation (INO) | payer BC, MEDICARE ==
[2019-05-24 18:22] LABS: Basophils # (A) 0.1 k/uL (0-0.2); Basophils % (A) 1 %; Eosinophils # (A) 0.2 k/uL (0-0.7); Eosinophils % (A) 2 %; HGB 13.4 gm/dL (13.0-17.5); Lymphocytes # (A) 1.3 k/uL (1.0-4.8); Lymphocytes % (A) 13 %; MCH 31.5 pg (25.0-35.0); MCHC 31.8 g/dL (31.0-37.0); MCV 98.8 fL (80.0-100.0); Monocytes # (A) 0.6 k/uL (0-1.0); Monocytes % (A) 6 %; Neutrophils # (A) 7.9 k/uL (1.3-7.7); Neutrophils % (A) 77 %; Platelet Count 236 k/uL (150-450); RBC 4.25 m/uL (4.30-5.90); RDW 14.2 % (11.5-15.5); WBC 10.3 k/uL (3.8-10.6)
--- NOTE | 2019-05-24 18:29 | XR ---
EXAMINATION TYPE: XR chest 2V DATE OF EXAM: 05/24/2019 COMPARISON: 10/25/2018 TECHNIQUE: PA and lateral views submitted. HISTORY: Dizziness FINDINGS: Cardiac device is seen there is cardiomegaly with subsegmental changes at both lung bases. Arthropath y shoulders and degenerative change of the spine. No sizable pneumothorax. Postsurgical change overly ing the cervical spine. IMPRESSION: 1. Limited exam with reduced inspiration. Basilar subsegmental consolidation most likely on the basis of atelectasis secondary to poor inspiration, correlate clinically.
[2019-05-24 18:31] LABS: Albumin 3.8 g/dL (3.5-5.0); Calcium 9.2 mg/dL (8.4-10.2); Potassium 4.8 mmol/L (3.5-5.1); Prothrombin Time 10.3 sec (9.0-12.0); Total Bilirubin 0.7 mg/dL (0.2-1.3); Total Protein 6.8 g/dL (6.3-8.2)
--- NOTE | 2019-05-24 20:31 | ED ---
Dizziness HPI - General Chief Complaint: Dizziness Stated Complaint: Weakness Source: patient Mode of arrival: ambulatory Limitations: no limitations - History of Present Illness Initial Comments: The patient is an 78-year-old male with past medical history of Parkinson's who presents to the emergency department with reported syncopal sensation at home. The patient was at home when he reported that he was having any visual disturbance. States that he lost his peripheral vision. He began getting weak in the knees and ended up slumping down. His family caught him and lowered him into a chair. He was only out for several seconds. Family took his blood pressure and it was noted to be in the 60s systolic. They called EMS who had a difficult time obtaining a blood pressure the patient. They did obtain an IV and gave the patient approximately 700 mL of fluid. He does arrive to us and states that he is symptom-free at this time. Blood pressure has markedly improved into the 110s. There is no seizure-like activity. The patient did not injure himself with the episode. The patient has had good oral intake. Denied any chest pain or shortness of breath prior to the episode. No recent medication changes. Denies any abdominal pain. No changes in his bowel or bladder habits. The patient is at his baseline mentation at this time. There are no other alleviating, precipitating or modifying factors - Related Data Home Medications Medication Instructions Recorded Confirmed Atorvastatin [Lipitor] 40 mg PO HS 03/09/16 05/24/19 Citalopram Hydrobromide [CeleXA] 40 mg PO DAILY 03/09/16 05/24/19 Docusate [Colace] 100 mg PO BID 03/09/16 05/24/19 Solifenacin Succinate [Vesicare] 10 mg PO DAILY 03/09/16 05/24/19 Carbidopa-Levodopa ER 50-200Mg 1 tab PO BID 03/22/18 05/24/19 [Sinemet CR 50-200 mg] Fluticasone/Salmeterol [Advair 1 puff INHALATION RT-BID 03/22/18 05/24/19 500-50 Diskus] Omeprazole 20 mg PO DAILY 03/22/18 05/24/19 Propafenone [Rythmol] 150 mg PO DAILY 03/22/18 05/24/19 Tamsulosin HCl [Flomax] 0.4 mg PO DAILY 03/22/18 05/24/19 Folic Acid 1 mg PO DAILY 04/27/19 05/24/19 Pramipexole [Mirapex] 1 mg PO HS 04/27/19 05/24/19 Aspirin EC [Ecotrin Low Dose] 81 mg PO DAILY 05/24/19 05/24/19 Previous Rx's Medication Instructions Recorded Losartan [Cozaar] 25 mg PO DAILY #0 05/26/19 Allergies Allergy/AdvReac Type Severity Reaction Status Date / Time No Known Allergies Allergy Verified 05/24/19 17:45 Review of Systems ROS Statement: Those systems with pertinent positive or pertinent negative responses have been documented in the HPI. ROS Other: All systems not noted in ROS Statement are negative. Past Medical History Past Medical History: Atrial Fibrillation, COPD, Hyperlipidemia, Hypertension, Pneumonia, Sleep Apnea/CPAP/BIPAP Additional Past Medical History / Comment(s): Parkinson's disease, COPD,bronchitis obstructive sleep apnea, hypertension, chronic atrial fibril lation, restless leg syndrome, depression, osteoarthritis, chronic neck and back pain, previous charted stated past mi 2009 but pt unaware of this.rt eye cataract, over active bladder Last Myocardial Infarction Date:: 2009 History of Any Multi-Drug Resistant Organisms: None Reported Past Surgical History: Adenoidectomy, Tonsillectomy Additional Past Surgical History / Comment(s): Cervical spine neck fusion, low back surgery, tonsillectomy, adenoidectomy , colonoscopy, nasal sx, blepheroplasty Past Anesthesia/Blood Transfusion Reactions: No Reported Reaction Past Psychological History: No Psychological Hx Reported Smoking Status: Former smoker Past Alcohol Use History: None Reported Past Drug Use History: None Reported - Past Family History Father Family Medical History: COPD Mother Family Medical History: Dementia General Exam Limitations: no limitations General appearance: alert, in no apparent distress, other (slow speech - patient's baseline) Head exam: Present: atraumatic, normocephalic, normal inspection Eye exam: Present: normal appearance, PERRL, EOMI. Absent: scleral icterus, conjunctival injection, periorbital swelling ENT exam: Present: normal exam, mucous membranes moist Neck exam: Present: normal inspection. Absent: tenderness, meningismus, lymphadenopathy Respiratory exam: Present: normal lung sounds bilaterally. Absent: respiratory distress, wheezes, rales, rhonchi, stridor Cardiovascular Exam: Present: regular rate, normal rhythm, normal heart sounds. Absent: systolic murmur, diastolic murmur, rubs, gallop, clicks GI/Abdominal exam: Present: soft, normal bowel sounds. Absent: distended, tenderness, guarding, rebound, rigid Extremities exam: Present: normal inspection, full ROM, normal capillary refill. Absent: tenderness, pedal edema, joint swelling, calf tenderness Back exam: Present: normal inspection Neurological exam: Present: alert, oriented X3, CN II-XII intact Psychiatric exam: Present: normal affect, normal mood Skin exam: Present: warm, dry, intact, normal color. Absent: rash Course Vital Signs 05/24/19 05/24/19 05/24/19 17:38 19:00 19:30 Temperature 98 F Pulse Rate 61 64 62 Pulse Rate [ Left Sitting Deputy Chief Sheriff ] Respiratory 18 18 18 Rate Blood Pressure 122/73 129/83 143/69 Blood Pressure [Left Arm Sitting] O2 Sat by Pulse 96 96 96 Oximetry 05/24/19 05/24/19 05/24/19 20:00 20:30 22:14 Temperature 98 F Pulse Rate 61 62 Pulse Rate [ 65 Left Sitting Deputy Chief Sheriff ] Respiratory 18 17 16 Rate Blood Pressure 136/88 128/71 Blood Pressure 129/59 [Left Arm Sitting] O2 Sat by Pulse 95 96 100 Oximetry EKG Findings - EKG Comments: EKG Findings:: EKG demonstrates a sinus bradycardia with a ventricular rate of 58. AR interval 162. QRS of 46. QTC 467. There is a right bundle branch block. EKG is compared to previous and appears similar Medical Decision Making - Medical Decision Making Upon arrival the patient is placed into room 6. A thorough history and physical exam was obtained. Return studies were performed. CBC is unremarkable. CMP shows a creatinine of 1.8. Patient's previous baseline was 1.0. First troponin is negative urine. A lead EKG was performed which demonstrates a sinus bradycardia. Chest x-ray demonstrates bibasilar subsegmental consolidation. I reevaluated the patient he remained at his normal baseline status. Blood pressures have been stable. Because of the patient's syncopal episode I did recommend hospital admission. I called and discussed the case with Claire who accepted admission for the patient. I did order an echo. The patient remained in stable condition was transported to the floor - Lab Data Result diagrams: 05/26/19 05:58 05/26/19 05:58 Lab Results 05/24/19 05/24/19 05/24/19 Range/Units 17:00 17:00 17:00 WBC 10.3 (3.8-10.6) k/uL RBC 4.25 L (4.30-5.90) m/uL Hgb 13.4 (13.0-17.5) gm/dL Hct 42.0 (39.0-53.0) % MCV 98.8 (80.0-100.0) fL MCH 31.5 (25.0-35.0) pg MCHC 31.8 (31.0-37.0) g/dL RDW 14.2 (11.5-15.5) % Plt Count 236 (150-450) k/uL Neutrophils % 77 % Lymphocytes % 13 % Monocytes % 6 % Eosinophils % 2 % Basophils % 1 % Neutrophils # 7.9 H (1.3-7.7) k/uL Lymphocytes # 1.3 (1.0-4.8) k/uL Monocytes # 0.6 (0-1.0) k/uL Eosinophils # 0.2 (0-0.7) k/uL Basophils # 0.1 (0-0.2) k/uL PT 10.3 (9.0-12.0) sec INR 1.0 (<1.2) Sodium 137 (137-145) mmol/L Potassium 4.8 (3.5-5.1) mmol/L Chloride 105 (98-107) mmol/L Carbon Dioxide 20 L (22-30) mmol/L Anion Gap 12 mmol/L BUN 35 H (9-20) mg/dL Creatinine 1.84 H (0.66-1.25) mg/dL Est GFR (CKD-EPI)AfAm 39 (>60 ml/min/1.73 sqM) Est GFR (CKD-EPI)NonAf 34 (>60 ml/min/1.73 sqM) Glucose 96 (74-99) mg/dL Calcium 9.2 (8.4-10.2) mg/dL Total Bilirubin 0.7 (0.2-1.3) mg/dL AST 21 (17-59) U/L ALT 13 L (21-72) U/L Alkaline Phosphatase 63 (38-126) U/L Troponin I (0.000-0.034) ng/mL Total Protein 6.8 (6.3-8.2) g/dL Albumin 3.8 (3.5-5.0) g/dL 05/24/19 Range/Units 17:00 WBC (3.8-10.6) k/uL RBC (4.30-5.90) m/uL Hgb (13.0-17.5) gm/dL Hct (39.0-53.0) % MCV (80.0-100.0) fL MCH (25.0-35.0) pg MCHC (31.0-37.0) g/dL RDW (11.5-15.5) % Plt Count (150-450) k/uL Neutrophils % % Lymphocytes % % Monocytes % % Eosinophils % % Basophils % % Neutrophils # (1.3-7.7) k/uL Lymphocytes # (1.0-4.8) k/uL Monocytes # (0-1.0) k/uL Eosinophils # (0-0.7) k/uL Basophils # (0-0.2) k/uL PT (9.0-12.0) sec INR (<1.2) Sodium (137-145) mmol/L Potassium (3.5-5.1) mmol/L Chloride (98-107) mmol/L Carbon Dioxide (22-30) mmol/L Anion Gap mmol/L BUN (9-20) mg/dL Creatinine (0.66-1.25) mg/dL Est GFR (CKD-EPI)AfAm (>60 ml/min/1.73 sqM) Est GFR (CKD-EPI)NonAf (>60 ml/min/1.73 sqM) Glucose (74-99) mg/dL Calcium (8.4-10.2) mg/dL Total Bilirubin (0.2-1.3) mg/dL AST (17-59) U/L ALT (21-72) U/L Alkaline Phosphatase (38-126) U/L Troponin I <0.012 (0.000-0.034) ng/mL Total Protein (6.3-8.2) g/dL Albumin (3.5-5.0) g/dL Disposition Clinical Impression: Syncope, Hypotension Disposition: ADMITTED IP TO THIS HOSP Condition: Stable Is patient prescribed a controlled substance at d/c from ED?: No Decision to Admit Reason: Admit from EC Decision Date: 05/24/19 Decision Time: 21:00
[2019-05-24] MEDS ORDERED: NALOXONE 0.4 MG/ML 1 ML VIAL IV PRN (21:16)
[2019-05-24 23:37] VITALS: BMI 34.8
[2019-05-25] MEDS: SODIUM CHLORIDE 0.9% 1,000 ML IV SCH ×2 (00:10→11:12)
[2019-05-25 06:23] LABS: Basophils % (A) 0 %; Eosinophils # (A) 0.2 k/uL (0-0.7); Eosinophils % (A) 3 %; HCT 38.3 % (39.0-53.0); HGB 12.7 gm/dL (13.0-17.5); Lymphocytes # (A) 1.2 k/uL (1.0-4.8); Lymphocytes % (A) 15 %; MCH 31.9 pg (25.0-35.0); MCV 96.7 fL (80.0-100.0); Mean Platelet Volume 6.3; Monocytes # (A) 0.7 k/uL (0-1.0); Monocytes % (A) 9 %; Neutrophils % (A) 72 %; Platelet Count 222 k/uL (150-450); RBC 3.96 m/uL (4.30-5.90); WBC 8.3 k/uL (3.8-10.6)
[2019-05-25] MEDS: PANTOPRAZOLE 40 MG TABLET PO SCH (06:28)
[2019-05-25 06:31] LABS: Calcium 8.8 mg/dL (8.4-10.2); Potassium 4.2 mmol/L (3.5-5.1)
[2019-05-25] MEDS: CARBIDOPA-LEVODOPA ER 50-200MG 1 EACH TABLET.ER PO SCH ×2 (09:05→21:28)
[2019-05-25] MEDS: DOCUSATE 100 MG CAP PO SCH ×2 (09:05→21:28)
[2019-05-25] MEDS: CITALOPRAM HYDROBROMIDE 20 MG TAB PO SCH (09:05)
[2019-05-25] MEDS: FOLIC ACID 1 MG TAB PO SCH (09:05)
[2019-05-25] MEDS: PROPAFENONE 150 MG TAB PO SCH (09:05)
[2019-05-25] MEDS: ASPIRIN 81 MG PO SCH (09:05)
[2019-05-25] MEDS: SYMBICORT 160-4.5 MCG INHALER INHALATION SCH ×2 (09:40→21:27)
[2019-05-25] MEDS ORDERED: ACETAMINOPHEN TAB 325 MG TAB PO STA (11:25)
--- NOTE | 2019-05-25 13:51 | ECHOF ---
Referral Reason:syncope, hypotension MEASUREMENTS -------- HEIGHT: 175.3 cm WEIGHT: 115.2 kg BP: 121/64 RVIDd: 4.9 cm (< 3.3) IVSd: 1.5 cm (0.6 - 1.1) LVIDd: 3.6 cm (3.9 - 5.3) LVPWd: 1.6 cm (0.6 - 1.1) IVSs: 1.8 cm LVIDs: 2.5 cm LVPWs: 1.5 cm LAESV Index (A-L): 24.60 ml/m Ao Diam: 3.3 cm (2.0 - 3.7) AV Cusp: 1.5 cm (1.5 - 2.6) LA Diam: 5.1 cm (2.7 - 3.8) MV EXCURSION: 15.618 mm (> 18.000) MV EF SLOPE: 72 mm/s (70 - 150) EPSS: 0.8 cm MV E Don: 0.54 m/s MV DecT: 231 ms MV A Don: 0.75 m/s MV E/A Ratio: 0.72 RAP: 5.00 mmHg RVSP: 33.65 mmHg TAPSE: 28.63 mm FINDINGS -------- Sinus rhythm. This was a technically difficult study with suboptimal views. The left ventricular size is normal. There is moderate concentric left ventricular hypertrophy. O verall left ventricular systolic function is normal with, an EF between 55 - 60 %. The diastolic fi lling pattern is normal for the age of the patient 7.25. Atypical septal wall motion The right ventricle is severely enlarged. The right ventricular systolic function is mildly impaire d. Normal LA size by volume 22+/-6 ml/m2. The right atrium was not well visualized. 5.0mg of Lumason was utilized for enhancement of images Interatrial and interventricular septum intact. The aortic valve was not well visualized. Trace to mild aortic regurgitation. There is no evidenc e of aortic stenosis. There is trace to mild mitral regurgitation. Mild tricuspid regurgitation present. There is borderline pulmonary artery hypertension. The righ t ventricular systolic pressure, as measured by Doppler, is 33.65mmHg. There is no pulmonic regurgitation present. The aortic root size is normal. The inferior vena cava is mildly dilated. There is no pericardial effusion. CONCLUSIONS -------- 1. Sinus rhythm. 2. This was a technically difficult study with suboptimal views. 3. The left ventricular size is normal. 4. There is moderate concentric left ventricular hypertrophy. 5. Overall left ventricular systolic function is normal with, an EF between 55 - 60 %. 6. The diastolic filling pattern is normal for the age of the patient 7.25 7. Atypical septal wall motion 8. The right ventricle is severely enlarged. 9. The right ventricular systolic function is mildly impaired. 10. Normal LA size by volume 22+/-6 ml/m2. 11. The right atrium was not well visualized. 12. 5.0mg of Lumason was utilized for enhancement of images 13. Interatrial and interventricular septum intact. 14. The aortic valve was not well visualized. 15. Trace to mild aortic regurgitation. 16. There is no evidence of aortic stenosis. 17. There is trace to mild mitral regurgitation. 18. Mild tricuspid regurgitation present. 19. There is borderline pulmonary artery hypertension. 20. The right ventricular systolic pressure, as measured by Doppler, is 33.65mmHg. 21. There is no pulmonic regurgitation present. 22. The aortic root size is normal. 23. The inferior vena cava is mildly dilated. 24. There is no pericardial effusion. TEACHER AIDE CLERICAL: Marisa Whitehead RDCS
[2019-05-25] MEDS ORDERED: ATORVASTATIN 40 MG TAB PO SCH (21:00)
[2019-05-25] MEDS ORDERED: PRAMIPEXOLE 1 MG TAB PO SCH (21:00)
--- NOTE | 2019-05-26 00:53 | P.HPIM ---
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 The patient was at home when he reported that he was having any visual disturbance. States that he lost his peripheral vision. He began getting weak in the knees and ended up slumping down. His family caught him and lowered him into a chair. He was only out for several seconds. Family took his blood pressure and it was noted to be in the 60s systolic. They called EMS who had a difficult time obtaining a blood pressure the patient. They did obtain an IV and gave the patient approximately 700 mL of fluid. He does arrive to us and states that he is symptom-free at this time. Blood pressure has markedly improved into the 110s. There is no seizure-like activity. The patient did not injure himself with the episode. The patient has had good oral intake. Denied any chest pain or shortness of breath prior to the episode. No recent medication changes. Denies any abdominal pain. No changes in his bowel or bladder habits. The patient is at his baseline mentation at this time. There are no other alleviating, precipitating or modifying factors. EKG showed sinus bradycardia. Chest x-ray showed limited exam with decreased inspiration. Bibasilar subsegmental consolidation most likely on the basis of atelectasis secondary to poor inspiration. BUN 35 and creatinine 1.84 Troponin 3 negative 2-D echocardiogram showed normal ejection fraction and mild pulmonary hypertension. Dilated right ventricle. Moderate stenosis. No valvular abnormalities noted. Review of Systems Constitutional: Patient denies any fever or chills . No generalized weakness or weight loss. Abdomen: Patient denied nausea vomiting and diarrhea and abdominal pain. Cardiovascular: Patient denies any chest pain or short of breath no palpitations. Respiratory: patient denied any cough is from production. No shortness of breath Neurologic: Patient denied any numbness or tingling headache. Dizziness Musculoskeletal: Patient denies any complaints of joint swelling or deformity. Skin: Negative Psychiatric: Negative Endocrine: No heat or cold intolerance. No recent weight gain. Genitourinary: No dysuria or hematuria. All other 14 point ROS negative except the above Past Medical History Past Medical History: Atrial Fibrillation, COPD, Hyperlipidemia, Hypertension, Pneumonia, Sleep Apnea/CPAP/BIPAP Additional Past Medical History / Comment(s): Parkinson's disease, COPD,bronchitis obstructive sleep apnea, hypertension, chronic atrial fi brillation, restless leg syndrome, depression, osteoarthritis, chronic neck and back pain, previous charted stated past mi 2009 but pt unaware of this.rt eye cataract, over active bladder Last Myocardial Infarction Date:: 2009 History of Any Multi-Drug Resistant Organisms: None Reported Past Surgical History: Adenoidectomy, Tonsillectomy Additional Past Surgical History / Comment(s): Cervical spine neck fusion, low back surgery, tonsillectomy, adenoidectomy , colonoscopy, nasal sx, blepheroplasty Past Anesthesia/Blood Transfusion Reactions: No Reported Reaction Past Psychological History: No Psychological Hx Reported Smoking Status: Former smoker Past Alcohol Use History: None Reported Past Drug Use History: None Reported - Past Family History Father Family Medical History: COPD Mother Family Medical History: Dementia Medications and Allergies Home Medications Medication Instructions Recorded Confirmed Type Atorvastatin [Lipitor] 40 mg PO HS 03/09/16 05/24/19 History Citalopram Hydrobromide [CeleXA] 40 mg PO DAILY 03/09/16 05/24/19 History Docusate [Colace] 100 mg PO BID 03/09/16 05/24/19 History Losartan [Cozaar] 50 mg PO DAILY 03/09/16 05/24/19 History Solifenacin Succinate [Vesicare] 10 mg PO DAILY 03/09/16 05/24/19 History Carbidopa-Levodopa ER 50-200Mg 1 tab PO BID 03/22/18 05/24/19 History [Sinemet CR 50-200 mg] Fluticasone/Salmeterol [Advair 1 puff INHALATION RT-BID 03/22/18 05/24/19 Histor y 500-50 Diskus] Omeprazole 20 mg PO DAILY 03/22/18 05/24/19 History Propafenone [Rythmol] 150 mg PO DAILY 03/22/18 05/24/19 History Tamsulosin HCl [Flomax] 0.4 mg PO DAILY 03/22/18 05/24/19 History Folic Acid 1 mg PO DAILY 04/27/19 05/24/19 History Pramipexole [Mirapex] 1 mg PO HS 04/27/19 05/24/19 History amLODIPine [Norvasc] 5 mg PO HS 04/27/19 05/24/19 History Aspirin EC [Ecotrin Low Dose] 81 mg PO DAILY 05/24/19 05/24/19 History Allergies Allergy/AdvReac Type Severity Reaction Status Date / Time No Known Allergies Allergy Verified 05/24/19 17:45 Physical Exam Vitals: Vital Signs Temp Pulse Pulse Resp BP BP Pulse Ox 05/25/19 11:23 18 05/25/19 11:22 97.9 F 61 18 144/65 96 05/25/19 08:00 98.3 F 57 L 18 168/74 93 L 05/25/19 04:00 97.7 F 66 16 121/64 93 L 05/24/19 22:14 98 F 65 16 129/59 100 05/24/19 20:30 62 17 128/71 96 05/24/19 20:00 61 18 136/88 95 05/24/19 19:30 62 18 143/69 96 05/24/19 19:00 64 18 129/83 96 05/24/19 17:38 98 F 61 18 122/73 96 Intake and Output 05/24/19 05/25/19 05/25/19 22:59 06:59 14:59 Intake Total 200 655 240 Output Total 700 Balance 200 -45 240 Intake: Intake, IV Titration 455 Amount Sodium Chloride 0.9% 1, 455 000 ml @ 75 mls/hr IV . [id number] [facility] Rx#:[id number] Oral 200 200 240 Output: Urine 700 Other: # Voids 1 Weight 115.258 kg PHYSICAL EXAMINATION: Patient is lying in the bed comfortably, no acute distress, awake alert and or iented.. HEENT: Normocephalic. Neck is supple. Pupils reactive. Nostrils clear. Oral cavity is moist. Ears reveal no drainage. Neck reveals no JVD, carotid bruits, or thyromegaly. CHEST EXAMINATION: Trachea is central. Symmetrical expansion. Lung vieira clear to auscultation and percussion. CARDIAC: Normal S1, S2 with no gallops. No murmurs ABDOMEN: Soft. Bowel sounds normal. No organomegaly. No abdominal bruits. Extremities: reveal no edema. No clubbing or cyanosis Neurologically awake, alert, oriented x3 with well-coordinated movements. No focal deficits noted Skin: No rash or skin lesions. Psychiatric: Coperative. Nonsuicidal Musculoskeletal: No joint swelling or deformity. Normal range of motion. Results CBC & Chem 7: 05/25/19 05:28 05/25/19 05:28 Labs: Abnormal Lab Results - Last 24 Hours (Table) 05/24/19 05/24/19 05/25/19 Range/Units 17:00 17:00 05:28 RBC 4.25 L 3.96 L (4.30-5.90) m/uL Hgb 12.7 L (13.0-17.5) gm/dL Hct 38.3 L (39.0-53.0) % Neutrophils # 7.9 H (1.3-7.7) k/uL Sodium (137-145) mmol/L Carbon Dioxide 20 L (22-30) mmol/L BUN 35 H (9-20) mg/dL Creatinine 1.84 H (0.66-1.25) mg/dL Glucose (74-99) mg/dL ALT 13 L (21-72) U/L 05/25/19 Range/Units 05:28 RBC (4.30-5.90) m/uL Hgb (13.0-17.5) gm/dL Hct (39.0-53.0) % Neutrophils # (1.3-7.7) k/uL Sodium 136 L (137-145) mmol/L Carbon Dioxide (22-30) mmol/L BUN 35 H (9-20) mg/dL Creatinine 1.42 H (0.66-1.25) mg/dL Glucose 104 H (74-99) mg/dL ALT (21-72) U/L Thrombosis Risk Factor Assmnt - DVT/VTE Prophylaxis DVT/VTE Prophylaxis: Pharmacologic Prophylaxis ordered - Choose All That Apply Any of the Below Risk Factors Present?: Yes Each Factor Represents 1 point: Obesity (BMI >25) Other Risk Factors: Yes Each Risk Factor Represents 3 Points: Age 75 years or older Other congenital or acquired thrombophilia - If yes, enter type in comment: No Thrombosis Risk Factor Assessment Total Risk Factor Score: 4 Thrombosis Risk Factor Assessment Level: Moderate Risk Assessment and Plan Assessment: Dizziness and near syncope secondary to hypotension and volume depletion. Acute kidney injury with possible underlying CK D stage III Sinus bradycardia on admission Paroxysmal Atrial fibrillation. On Rythmol. Not on anticoagulation at home Obstructive sleep apnea on CPAP Hypertension Parkinson's tremors status post neurostimulator placement Chronic back pain and neck pain Restless leg syndrome Previous history of smoking History of neck surgery and low back surgery DVT prophylaxis Plan: Patient will be continued on IV hydration. Patient did improve symptomatically. Continue to follow renal function. Continue the home medications and blood pressure is currently improved. Further recommendations based on the clinical course. Anticipate discharge in next 24 hours with more clinical improvement. Time with Patient: Greater than 30
[2019-05-26 06:19] LABS: Basophils % (A) 0 %; Eosinophils # (A) 0.2 k/uL (0-0.7); Eosinophils % (A) 4 %; HCT 39.7 % (39.0-53.0); HGB 12.9 gm/dL (13.0-17.5); Lymphocytes # (A) 1.2 k/uL (1.0-4.8); Lymphocytes % (A) 23 %; MCH 32.1 pg (25.0-35.0); MCHC 32.5 g/dL (31.0-37.0); MCV 98.9 fL (80.0-100.0); Mean Platelet Volume 6.9; Monocytes # (A) 0.5 k/uL (0-1.0); Monocytes % (A) 10 %; Neutrophils % (A) 60 %; Platelet Count 188 k/uL (150-450); RBC 4.02 m/uL (4.30-5.90); RDW 14.1 % (11.5-15.5); WBC 5.1 k/uL (3.8-10.6)
[2019-05-26 06:31] LABS: Calcium 8.8 mg/dL (8.4-10.2); Potassium 4.2 mmol/L (3.5-5.1)
[2019-05-26] MEDS: PANTOPRAZOLE 40 MG TABLET PO SCH (06:43)
[2019-05-26] MEDS: SODIUM CHLORIDE 0.9% 1,000 ML IV SCH (07:30)
[2019-05-26] MEDS ORDERED: HEPARIN SODIUM,PORCINE 5,000 UNIT/ML 1 ML VIAL SQ SCH (08:00)
[2019-05-26] MEDS: SYMBICORT 160-4.5 MCG INHALER INHALATION SCH (08:24)
[2019-05-26 08:31] VITALS: BP 150/83; PULSE 62; RESP 18; TEMP 97.5
[2019-05-26] MEDS: PROPAFENONE 150 MG TAB PO SCH (08:33)
[2019-05-26] MEDS: FOLIC ACID 1 MG TAB PO SCH (08:33)
[2019-05-26] MEDS: CARBIDOPA-LEVODOPA ER 50-200MG 1 EACH TABLET.ER PO SCH (08:33)
[2019-05-26] MEDS: CITALOPRAM HYDROBROMIDE 20 MG TAB PO SCH (08:33)
[2019-05-26] MEDS: DOCUSATE 100 MG CAP PO SCH (08:33)
[2019-05-26] MEDS: ASPIRIN 81 MG PO SCH (08:33)
--- NOTE | 2019-06-17 00:22 | P.DS ---
Providers Date of admission: 05/24/19 21:16 Expected date of discharge: 05/26/19 Attending physician: Ronni Richardson Primary care physician: Elda Saenz Hospital Course: ] Discharge diagnosis Dizziness and near syncope secondary to hypotension and volume depletion. Acute kidney injury with possible underlying CK D stage III Sinus bradycardia on admission Paroxysmal Atrial fibrillation. On Rythmol. Not on anticoagulation at home Obstructive sleep apnea on CPAP Hypertension Parkinson's tremors status post neurostimulator placement Chronic back pain and neck pain Restless leg syndrome Previous history of smoking History of neck surgery and low back surgery DVT prophylaxis Hospital course. Patient is a 78-year-old male with a known history of Parkinson's disease, Parkinson's tremor status post brain stimulator placement, history of atrial fibrillation not on anticoagulation currently at home, obstructive sleep apnea, hypertension, hyperlipidemia and COPD with prior history of smoking was brought to the hospital due to dizziness and near syncopal episode at home. The patient was at home when he reported that he was having any visual disturbance. States that he lost his peripheral vision. He began getting weak in the knees and ended up slumping down. His family caught him and lowered him into a chair. He was only out for several seconds. Family took his blood pressure and it was noted to be in the 60s systolic. They called EMS who had a difficult time obtaining a blood pressure the patient. They did obtain an IV and gave the patient approximately 700 mL of fluid. He does arrive to us and states that he is symptom-free at this time. Blood pressure has markedly improved into the 110s. There is no seizure-like activity. The patient did not injure himself with the episode. The patient has had good oral intake. Denied any chest pain or shortness of breath prior to the episode. No recent medication changes. Denies any abdominal pain. No changes in his bowel or bladder habits. The patient is at his baseline mentation at this time. There are no other alleviating, precipitating or modifying factors. EKG showed sinus bradycardia. Chest x-ray showed limited exam with decreased inspiration. Bibasilar subsegmental consolidation most likely on the basis of atelectasis secondary to poor inspiration. BUN 35 and creatinine 1.84 Troponin 3 negative 2-D echocardiogram showed normal ejection fraction and mild pulmonary hypertension. Dilated right ventricle. Moderate stenosis. No valvular abnormalities noted. Plan: Patient was continued on IV hydration. Patient did improve symptomatically. Continued to follow renal function. Continue the home medications and blood pressure is currently improved. Pt. did improve clinically.. Discharge PE was done and vitals reviewed. Patient Condition at Discharge: Stable Plan - Discharge Summary Discharge Rx Participant: No New Discharge Prescriptions: Continue RX: Atorvastatin [Lipitor] 40 mg PO HS RX: Citalopram Hydrobromide [CeleXA] 40 mg PO DAILY RX: Solifenacin Succinate [Vesicare] 10 mg PO DAILY RX: Docusate [Colace] 100 mg PO BID RX: Omeprazole 20 mg PO DAILY RX: Fluticasone/Salmeterol [Advair 500-50 Diskus] 1 puff INHALATION RT-BID RX: Carbidopa-Levodopa ER 50-200Mg [Sinemet CR 50-200 mg] 1 tab PO BID RX: Propafenone [Rythmol] 150 mg PO DAILY RX: Tamsulosin HCl [Flomax] 0.4 mg PO DAILY RX: Pramipexole [Mirapex] 1 mg PO HS RX: Folic Acid 1 mg PO DAILY RX: Aspirin EC [Ecotrin Low Dose] 81 mg PO DAILY Changed RX: Losartan [Cozaar] 25 mg PO DAILY #0 Discontinued RX: amLODIPine [Norvasc] 5 mg PO HS Discharge Medication List RX: Atorvastatin [Lipitor] 40 mg PO HS 03/09/16 [History] RX: Citalopram Hydrobromide [CeleXA] 40 mg PO DAILY 03/09/16 [History] RX: Docusate [Colace] 100 mg PO BID 03/09/16 [History] RX: Solifenacin Succinate [Vesicare] 10 mg PO DAILY 03/09/16 [History] RX: Carbidopa-Levodopa ER 50-200Mg [Sinemet CR 50-200 mg] 1 tab PO BID 03/22/18 [History] RX: Fluticasone/Salmeterol [Advair 500-50 Diskus] 1 puff INHALATION RT-BID 03/22/18 [History] RX: Omeprazole 20 mg PO DAILY 03/22/18 [History] RX: Propafenone [Rythmol] 150 mg PO DAILY 03/22/18 [History] RX: Tamsulosin HCl [Flomax] 0.4 mg PO DAILY 08/09/18 [History] RX: Folic Acid 1 mg PO DAILY 04/27/19 [History] RX: Pramipexole [Mirapex] 1 mg PO HS 04/27/19 [History] RX: Aspirin EC [Ecotrin Low Dose] 81 mg PO DAILY 05/24/19 [History] RX: Losartan [Cozaar] 25 mg PO DAILY #0 05/26/19 [Rx] Follow up Appointment(s)/Referral(s): Edla Saenz MD [Primary Care Provider] - 1-2 days (Please call to make appointment) Patient Instructions/Handouts: Syncope (DC), Hypotension (DC) Discharge Disposition: HOME SELF-CARE
== END 2019-05-26 13:59 | disposition home or self-care (01) ==
LOC: EC 17:32 → 3SCARD 21:16
PROVIDERS: ADMIT Hospitalist; ATTEND Hospitalist
DX: I95.9 Hypotension, unspecified (principal); E86.9 Volume depletion, unspecified; N17.9 Acute kidney failure, unspecified; R00.1 Bradycardia, unspecified; I48.20 Chronic atrial fibrillation, unspecified; I11.9 Hypertensive heart disease without heart failure; G20 Parkinson's disease; J44.9 Chronic obstructive pulmonary disease, unspecified; G25.81 Restless legs syndrome; G47.33 Obstructive sleep apnea (adult) (pediatric); F32.9 Major depressive disorder, single episode, unspecified; H53.9 Unspecified visual disturbance; E78.5 Hyperlipidemia, unspecified; G89.29 Other chronic pain; M54.2 Cervicalgia; M54.9 Dorsalgia, unspecified; N32.81 Overactive bladder; H26.9 Unspecified cataract; I08.3 Combined rheumatic disorders of mitral, aortic and tricuspid valves; E66.9 Obesity, unspecified; Z68.34 Body mass index [BMI] 34.0-34.9, adult; Z99.89 Dependence on other enabling machines and devices; Z79.51 Long term (current) use of inhaled steroids; Z79.82 Long term (current) use of aspirin; Z79.899 Other long term (current) drug therapy; Z96.82 Presence of neurostimulator; Z87.891 Personal history of nicotine dependence; I25.2 Old myocardial infarction; Z98.1 Arthrodesis status; Z86.59 Personal history of other mental and behavioral disorders; Z82.5 Family history of asthma and other chronic lower respiratory diseases; Z81.8 Family history of other mental and behavioral disorders
CPT/HCPCS: 96360; 96361 ×2; 96372; 99285; 36415; 94640 ×3; 94760; 93005; 97162; 80053; 80048 ×2; 84484 ×2; 85025 ×3; 85610; 71046; G0378 ×3; C8929; J1644; Q9950; 93306

== ENCOUNTER → 2020-01-03 | Outpatient (CLI) | payer MEDICARE ==
--- NOTE | 2020-01-03 09:55 | CT ---
EXAMINATION TYPE: CT lumbar spine wo con DATE OF EXAM: 01/03/2020 COMPARISON: None HISTORY: Right shoulder pain weakness lumbar spine CT DLP: 1412.90 mGycm CONTRAST: None TECHNIQUE: CT of the lumbar spine is performed on a spiral scan at 3 mm thick sections. Reconstructed images are performed in the coronal and sagittal planes. FINDINGS: Note is made of vascular calcification within the aorta. T12-L1: Mild disc bulge is present T12-L1 with anterior thecal sac compression. Facet hypertrophy is posterior lateral thecal sac compression. No spinal canal stenosis is present. Neural foramen appear patent. L1-L2: Facet hypertrophy is present with lateral canal narrowing. Endplate spurring with associated d isc material has moderate anterior thecal sac compression. Some spinal canal narrowing is present to this level. Severe right and moderate to severe left foraminal stenosis is present. L2-L3: Vacuum disc phenomenon is present. Mild loss of disc height is present. Endplate spurring is m oderate anterior thecal sac compression. Facet hypertrophy is present contributing to the spinal shamar l narrowing. Very severe right and severe foraminal stenosis is present. L3-L4: Facet hypertrophy is present. Endplate disc bulge is present with moderate anterior thecal sac compression. Spinal canal stenosis is present, especially in the lateral direction. Severe foraminal stenosis is present bilaterally. L4-L5: There is loss of disc height to this level. Endplate spurring is present with mild anterior th ecal sac compression. Facet hypertrophy is present with some lateral canal narrowing. Severe bilatera l foraminal stenosis is present, greater on the right. L5-S1: There is loss of disc height and vacuum disc phenomenon present L5-S1. Endplate disc bulging h as anterior thecal sac compression. Facet hypertrophy is present. Very severe left and right foramina l stenosis is present. This is complicated by both the facets and the disc bulging into the foramen. Vertebral alignment appears normal. Vertebral body heights are preserved. IMPRESSION: 1. Multilevel foraminal stenosis greater in the lateral dimension secondary to facet hypertrophy and endplate changes and disc bulging discussed above. 2. Severe foraminal stenosis throughout the lumbar spine. 3. Multilevel findings of stenosis, foraminal stenosis, disc bulges will require detailed correlation with neurologic findings to localize potential sources of the patient's symptoms.
--- NOTE | 2020-01-03 09:59 | XR ---
EXAMINATION TYPE: XR shoulder complete RT DATE OF EXAM: 01/03/2020 CLINICAL HISTORY: Right shoulder pain TECHNIQUE: Three views of the right shoulder are obtained. COMPARISON: None. FINDINGS: There is no acute fracture/dislocation evident in the right shoulder. The acromioclavicul ar and glenohumeral joint spaces appear within aligned with moderate acromioclavicular arthropathy is seen and mild glenohumeral arthropathy demonstrated as marginal osteophytes, subchondral cystic aly ge and joint space narrowing. The visualized ribs are intact and unremarkable. IMPRESSION: There is no acute fracture or dislocation in the right shoulder. Moderate acromioclavicu lar arthropathy and mild glenohumeral arthropathy.
== END | disposition home or self-care (01) ==
LOC: RADCTMAIN 08:15
PROVIDERS: ATTEND Psychiatry & Neurology Pain Medicine
DX: M12.811 Other specific arthropathies, not elsewhere classified, right shoulder (principal); M48.061 Spinal stenosis, lumbar region without neurogenic claudication; M51.86 Other intervertebral disc disorders, lumbar region
CPT/HCPCS: 72131

== ENCOUNTER → 2020-05-14 | Outpatient (CLI) | payer MEDICARE ==
--- NOTE | 2020-05-14 16:00 | US ---
EXAMINATION TYPE: US carotid duplex BILAT DATE OF EXAM: 05/14/2020 COMPARISON: NONE CLINICAL HISTORY: I69.392 L facial droop R29.6 Falls R42 Dizziness. EXAM MEASUREMENTS: RIGHT: Peak Systolic Velocity (PSV) cm/sec ----- Right CCA: 51.1 ----- Right ICA: 81.2 ----- Right ECA: 130 ICA/CCA ratio: 1.59 RIGHT: End Diastole cm/sec ----- Right CCA: 0.0 ----- Right ICA: 17.7 ----- Right ECA: 0.0 LEFT: Peak Systolic Velocity (PSV) cm/sec ----- Left CCA: 59.7 ----- Left ICA: 70.4 ----- Left ECA: 103 ICA/CCA ratio: 1.24 LEFT: End Diastole cm/sec ----- Left CCA: 4.8 ----- Left ICA: 12.4 ----- Left ECA: 0.0 VERTEBRALS (direction of flow): Right Vertebral: Antegrade Left Vertebral: Antegrade Rhythm: Normal Moderate plaque bilateral bifurcations. No evidence of significant stenosis IMPRESSION: No evidence of significant stenosis Criteria for Assigning % of Stenosis / Diameter reduction (Estimation based on the indirect measurements of the internal carotid artery velocities (ICA PSV). 1. Normal (no stenosis)=ICA PSV < 125 cm/s: ratio < 2.0: ICA EDV<40 cm/s. 2. Less than 50% stenosis=ICA PSV < 125 cm/s: ratio < 2.0: ICA EDV<40 cm/s. 3. 50 to 69% stenosis=ICA PSV of 125 to 230 cm/s: ration 2.0 ? 4.0: ICA EDV 40-100 cm/s. 4. Greater than 70% stenosis to near occlusion= ICA PSV > 230 cm/s: ratio > 4.0: ICA EDV > 100 cm/s. 5. Near occlusion= ICA PSV velocities may be low or undetectable: variable ratio and ICA EDV. 6. Total occlusion=unable to detect flow.
--- NOTE | 2020-05-14 16:55 | CT ---
EXAMINATION TYPE: CT brain wo con DATE OF EXAM: 05/14/2020 COMPARISON: 10/25/2018 INDICATION: dizziness, loss of balance DLP: 1054.2 mGycm, Automated exposure control for dose reduction was used. CONTRAST: None CT of the brain is performed utilizing 3 mm thick sections through the posterior fossa and 3 mm thick sections through the remaining calvarium. Study is performed within 24 hours of arrival to the hosp ital. No abnormal hyperdensity is present to suggest an acute intracranial hemorrhage. No mass lesion is evident. No acute infarcts are evident. Some mild periventricular white matter changes may be present. These a ppear chronic. There is been insertion of a electronic lead from the left frontal region extends into the anterior h orn lateral ventricle and then towards the left thalamus. Ventricles and sulci are somewhat prominent for the patient age. Paranasal sinuses and mastoid air cells within the [id number] are clear. IMPRESSIONS: 1. Interval placement of an electronic wires into the brain. 2. No acute intracranial process. 3. Atrophy with mild periventricular white matter ischemic changes.
== END | disposition home or self-care (01) ==
LOC: RADUSMAIN 14:52
PROVIDERS: ATTEND Internal Medicine
DX: G31.9 Degenerative disease of nervous system, unspecified (principal); I67.82 Cerebral ischemia; R42 Dizziness and giddiness; Z97.8 Presence of other specified devices
CPT/HCPCS: 70450; 93880

== ENCOUNTER 2020-11-16 14:53 | Emergency (ER) | payer MEDICARE ==
--- NOTE | 2020-11-16 15:27 | ED ---
General Adult HPI - General Chief complaint: Shortness of Breath Stated complaint: KATELYN Source: patient, EMS, RN notes reviewed, old records reviewed Mode of arrival: EMS Limitations: no limitations - History of Present Illness Initial comments: This is an 79-year-old male who presents emergency Department that he is mildly short of breath. Patient states he lives with COVID positive patient. Patient denies any fever or chills patient states he is a little weaker than normal. Patient denies chest pain or palpitations. Patient denies abdominal pain patient denies nausea vomiting diarrhea. Patient he has not lost his taste or smell. Patient denies any injury or trauma. Patient denies headache patient denies any numbness weakness. - Related Data Home Medications Medication Instructions Recorded Confirmed Atorvastatin [Lipitor] 40 mg PO HS 03/09/16 11/16/20 Citalopram Hydrobromide [CeleXA] 40 mg PO DAILY 03/09/16 11/16/20 Docusate [Colace] 200 mg PO BID 03/09/16 11/16/20 Solifenacin Succinate [Vesicare] 10 mg PO DAILY 03/09/16 11/16/20 Carbidopa-Levodopa ER 50-200Mg 1 tab PO BID 03/22/18 11/16/20 [Sinemet CR 50-200 mg] Omeprazole 20 mg PO DAILY 03/22/18 11/16/20 Propafenone [Rythmol] 150 mg PO DAILY 03/22/18 11/16/20 Tamsulosin HCl [Flomax] 0.4 mg PO DAILY 03/22/18 11/16/20 Folic Acid 1 mg PO DAILY 04/27/19 11/16/20 Pramipexole [Mirapex] 1 mg PO HS 04/27/19 11/16/20 Aspirin EC [Ecotrin Low Dose] 81 mg PO DAILY 05/24/19 11/16/20 Losartan [Cozaar] 50 mg PO DAILY 11/16/20 11/16/20 amLODIPine [Norvasc] 5 mg PO HS 11/16/20 11/16/20 Allergies Allergy/AdvReac Type Severity Reaction Status Date / Time No Known Allergies Allergy Verified 11/16/20 17:19 Review of Systems ROS Statement: Those systems with pertinent positive or pertinent negative responses have been documented in the HPI. ROS Other: All systems not noted in ROS Statement are negative. Past Medical History Past Medical History: Atrial Fibrillation, COPD, Hyperlipidemia, Hypertension, Pneumonia, Sleep Apnea/CPAP/BIPAP Additional Past Medical History / Comment(s): Parkinson's disease, COPD,bronchitis obstructive sleep apnea, hypertension, chronic atrial fibrillation, restless leg syndrome, depression, osteoarthritis, chronic neck and back pain, previous charted stated past mi 2009 but pt unaware of this.rt eye cataract, over active bladder Last Myocardial Infarction Date:: 2009 History of Any Multi-Drug Resistant Organisms: None Reported Past Surgical History: Adenoidectomy, Tonsillectomy Additional Past Surgical History / Comment(s): Cervical spine neck fusion, low back surgery, tonsillectomy, adenoidectomy , colonoscopy, nasal sx, blepheropla sty Past Anesthesia/Blood Transfusion Reactions: No Reported Reaction Past Psychological History: No Psychological Hx Reported Smoking Status: Never smoker Past Alcohol Use History: None Reported Past Drug Use History: None Reported - Past Family History Father Family Medical History: COPD Mother Family Medical History: Dementia General Exam - General Exam Comments Initial Comments: GENERAL: Patient is well-developed and well-nourished. Patient is nontoxic and well- hydrated and is in mild distress. ENT: Neck is soft and supple. No significant lymphadenopathy is noted. Oropharynx is clear. Moist mucous membranes. Neck has full range of motion without eliciting any pain. EYES: The sclera were anicteric and conjunctiva were pink and moist. Extraocular movements were intact and pupils were equal round and reactive to light. Eyelids were unremarkable. PULMONARY: Unlabored respirations. Good breath sounds bilaterally. Crackles bilateral CARDIOVASCULAR: There is a regular rate and rhythm without any murmurs gallops or rubs. ABDOMEN: Soft and nontender with normal bowel sounds. SKIN: Skin is clear with no lesions or rashes and otherwise unremarkable. NEUROLOGIC: Patient is alert and oriented x3. Cranial nerves II through XII are grossly intact. MUSCULOSKELETAL: Patient is unable to move her extremities normally he has walked in ears. Patient's upper extremities move normally. LYMPHATICS: No significant lymphadenopathy is noted PSYCHIATRIC: Normal psychiatric evaluation. Limitations: no limitations Course Vital Signs 11/16/20 15:09 Temperature 99 F Pulse Rate 59 L Respiratory 24 Rate Blood Pressure 154/71 O2 Sat by Pulse 93 L Oximetry Medical Decision Making - Medical Decision Making EKG shows wide QRS complex no P waves are identified patient also has occasional PVC at a rate of 64 bpm QRS is 124 QT interval 444 QTC is 458. EKG shows some T-wave inversions in V1 through V4 seen on old EKG. This wide QRS complex has been seen in previous EKGs as well. Patient's chest x-ray shows bibasilar infiltrates consistent with COVID pneumonia Patient is intoxicated 90-93% on room air. Patient would like to go home and receive monoclonal antibodies. Patient received monoclonal antibodies new - Lab Data Result diagrams: 11/16/20 15:34 11/16/20 15:34 Lab Results 11/16/20 11/16/20 11/16/20 Range/Units 15:34 15:34 15:34 WBC 3.6 L (3.8-10.6) k/uL RBC 3.91 L (4.30-5.90) m/uL Hgb 12.8 L (13.0-17.5) gm/dL Hct 36.8 L (39.0-53.0) % MCV 94.3 (80.0-100.0) fL MCH 32.8 (25.0-35.0) pg MCHC 34.8 (31.0-37.0) g/dL RDW 13.6 (11.5-15.5) % Plt Count 148 L (150-450) k/uL MPV 7.3 Neutrophils % 66 % Lymphocytes % 17 % Monocytes % 11 % Eosinophils % 3 % Basophils % 2 % Neutrophils # 2.4 (1.3-7.7) k/uL Lymphocytes # 0.6 L (1.0-4.8) k/uL Monocytes # 0.4 (0-1.0) k/uL Eosinophils # 0.1 (0-0.7) k/uL Basophils # 0.1 (0-0.2) k/uL Sodium 132 L (137-145) mmol/L Potassium 4.2 (3.5-5.1) mmol/L Chloride 99 (98-107) mmol/L Carbon Dioxide 28 (22-30) mmol/L Anion Gap 5 mmol/L BUN 19 (9-20) mg/dL Creatinine 1.03 (0.66-1.25) mg/dL Est GFR (CKD-EPI)AfAm 79 (>60 ml/min/1.73 sqM) Est GFR (CKD-EPI)NonAf 68 (>60 ml/min/1.73 sqM) Glucose 86 (74-99) mg/dL Calcium 8.6 (8.4-10.2) mg/dL Total Bilirubin 0.7 (0.2-1.3) mg/dL AST 37 (17-59) U/L ALT 19 (4-49) U/L Alkaline Phosphatase 92 (38-126) U/L Total Protein 6.1 L (6.3-8.2) g/dL Albumin 3.4 L (3.5-5.0) g/dL Coronavirus (PCR) Detected A (Not Detectd) Disposition Clinical Impression: Pneumonia due to COVID-19 virus Disposition: HOME SELF-CARE Instructions (If sedation given, give patient instructions): Coronavirus Disease 2019 (COVID-19) Additional Instructions: Patient is to return if there is any worsening symptoms or difficulty breathing. Is patient prescribed a controlled substance at d/c from ED?: No Referrals: Elda Saenz MD [Primary Care Provider] - 1-2 days Time of Disposition: 18:08
--- NOTE | 2020-11-16 15:55 | XR ---
EXAMINATION TYPE: XR chest 1V portable DATE OF EXAM: 11/16/2020 Comparison: 05/24/2019 Clinical History: 79-year-old male Short of breath Findings: ACF hardware. Left chest wall generator device with a single lead extending up the left side of the n supa beyond the [id number]. Heart borderline enlarged. Interstitial and patchy opacities in the low er lungs without pleural effusion. Impression: Interstitial and patchy bibasilar infiltrates. Correlate for sequela of mild CHF, aspiration, or atyp ical pneumonias.
[2020-11-16 15:57] LABS: Basophils # (A) 0.1 k/uL (0-0.2); Basophils % (A) 2 %; Eosinophils # (A) 0.1 k/uL (0-0.7); Eosinophils % (A) 3 %; HCT 36.8 % (39.0-53.0); HGB 12.8 gm/dL (13.0-17.5); Lymphocytes # (A) 0.6 k/uL (1.0-4.8); Lymphocytes % (A) 17 %; MCH 32.8 pg (25.0-35.0); MCHC 34.8 g/dL (31.0-37.0); MCV 94.3 fL (80.0-100.0); Mean Platelet Volume 7.3; Monocytes # (A) 0.4 k/uL (0-1.0); Monocytes % (A) 11 %; Neutrophils # (A) 2.4 k/uL (1.3-7.7); Neutrophils % (A) 66 %; Platelet Count 148 k/uL (150-450); RBC 3.91 m/uL (4.30-5.90); RDW 13.6 % (11.5-15.5); WBC 3.6 k/uL (3.8-10.6)
[2020-11-16 16:08] LABS: Albumin 3.4 g/dL (3.5-5.0); Calcium 8.6 mg/dL (8.4-10.2); Potassium 4.2 mmol/L (3.5-5.1); Total Bilirubin 0.7 mg/dL (0.2-1.3); Total Protein 6.1 g/dL (6.3-8.2)
[2020-11-16] MEDS ORDERED: BAMLANIVIMAB (EUA) 700 MG, ETESEVIMAB (EUA) 1,400 MG in SODIUM CHLORIDE 0.9% 50 ML IVPB ONE (18:30)
[2020-11-16] MEDS ORDERED: SODIUM CHLORIDE 0.9% 50 ML IVPB ONE (19:00)
[2020-11-16 21:02] VITALS: BP 130/81; PULSE 68; RESP 18; TEMP 98.4
== END 2020-11-16 21:02 | disposition home or self-care (01) ==
LOC: EC 14:53
DX: U07.1 COVID-19 (principal); J12.82 Pneumonia due to coronavirus disease 2019; I48.91 Unspecified atrial fibrillation; I10 Essential (primary) hypertension; E78.5 Hyperlipidemia, unspecified; G47.33 Obstructive sleep apnea (adult) (pediatric); J44.9 Chronic obstructive pulmonary disease, unspecified; F32.9 Major depressive disorder, single episode, unspecified; M19.90 Unspecified osteoarthritis, unspecified site; I25.2 Old myocardial infarction
CPT/HCPCS: 36415; 71045; 80053; 85025; 87635; 93005; 96361; 96365; 99285

== ENCOUNTER 2020-11-17 19:43 | Inpatient (IN) | payer MEDICARE ==
--- NOTE | 2020-11-17 20:56 | ED ---
General Adult HPI <CampbellJorge - Last Filed: 11/17/20 20:54> <Julita Alvarez - Last Filed: 11/18/20 02:40> - General Stated complaint: COVID+ - History of Present Illness Initial comments: 79-year-old male with history of COPD presents to the emergency department with a chief complaint cough and shortness of breath. Patient was evaluated in the emergency department yesterday for Covid and was found to be positive. Patient received the monoclonal antibody and was discharged home. Patient states there has been no significant improvements of his symptoms and he continues to follow short of breath. He is not oxygen dependent at home. Denies any chest pain. (Jorge Hightower) 79yo presenting for left leg swelling, concern for blood clot. patient states he has had some cough and mild sob for past few days, diagnosed and given monoclonal antibodies yesterday. patient denies worsening dyspnea. but states he has had left leg pain/and feels like the left might be swollen. denies chest pain, nausea, vomiting, diarrhea, rashes, jaw pain, arm pain, diaphoresis, abdominal pain, back pain, or chest pressure. pateint on arrival initially 95% on RA. however patient dropped into high 80s and was placed on supplemental oxygen. does not wear oxygen at home. (Julita Alvarez) - Related Data Home Medications Medication Instructions Recorded Confirmed Atorvastatin [Lipitor] 40 mg PO HS 03/09/16 11/16/20 Citalopram Hydrobromide [CeleXA] 40 mg PO DAILY 03/09/16 11/16/20 Docusate [Colace] 200 mg PO BID 03/09/16 11/16/20 Solifenacin Succinate [Vesicare] 10 mg PO DAILY 03/09/16 11/16/20 Carbidopa-Levodopa ER 50-200Mg 1 tab PO BID 03/22/18 11/16/20 [Sinemet CR 50-200 mg] Omeprazole 20 mg PO DAILY 03/22/18 11/16/20 Propafenone [Rythmol] 150 mg PO DAILY 03/22/18 11/16/20 Tamsulosin HCl [Flomax] 0.4 mg PO DAILY 03/22/18 11/16/20 Folic Acid 1 mg PO DAILY 04/27/19 11/16/20 Pramipexole [Mirapex] 1 mg PO HS 04/27/19 11/16/20 Aspirin EC [Ecotrin Low Dose] 81 mg PO DAILY 05/24/19 11/16/20 Losartan [Cozaar] 50 mg PO DAILY 11/16/20 11/16/20 amLODIPine [Norvasc] 5 mg PO HS 11/16/20 11/16/20 Allergies Allergy/AdvReac Type Severity Reaction Status Date / Time No Known Allergies Allergy Verified 11/16/20 17:19 Review of Systems ROS Other: All systems not noted in ROS Statement are negative. <Jorge Hightower - Last Filed: 11/17/20 20:54> ROS Other: All systems not noted in ROS Statement are negative. <Julita Alvarez - Last Filed: 11/18/20 02:40> ROS Statement: Those systems with pertinent positive or pertinent negative responses have been documented in the HPI. Past Medical History Past Medical History: Atrial Fibrillation, COPD, Hyperlipidemia, Hypertension, Pneumonia, Sleep Apnea/CPAP/BIPAP Additional Past Medical History / Comment(s): Parkinson's disease, COPD,bronchitis obstructive sleep apnea, hypertension, chronic atrial fibrillation, restless leg syndrome, depression, osteoarthritis, chronic neck and back pain, previous charted stated past mi 2009 but pt unaware of this.rt eye cataract, over active bladder Last Myocardial Infarction Date:: 2009 History of Any Multi-Drug Resistant Organisms: None Reported Past Surgical History: Adenoidectomy, Tonsillectomy Additional Past Surgical History / Comment(s): Cervical spine neck fusion, low back surgery, tonsillectomy, adenoidectomy , colonoscopy, nasal sx, blepheroplasty Past Anesthesia/Blood Transfusion Reactions: No Reported Reaction Past Psychological History: No Psychological Hx Reported Smoking Status: Never smoker Past Alcohol Use History: None Reported Past Drug Use History: None Reported - Past Family History Father Family Medical History: COPD Mother Family Medical History: Dementia <Jorge Hightower - Last Filed: 11/17/20 20:54> General Exam <Julita Alvarez - Last Filed: 11/18/20 02:40> - General Exam Comments Initial Comments: General: The patient is awake and alert, in no distress Eye: +3 mm pupils are equal, round and reactive to light, extra-ocular movements are intact. No nystagmus. There is normal conjunctiva bilaterally. No signs of icterus. Ears, nose, mouth and throat: There are moist mucous membranes and no oral lesions. Neck: The neck is supple, there is no tenderness or JVD. Cardiovascular: There is a regular rate and rhythm. No murmur, rub or gallop is appreciated. Respiratory: Lungs are clear to auscultation, respirations are non-labored, breath sounds are equal. No wheezes, stridor, rales, or rhonchi. Gastrointestinal: Soft, non-distended, non-tender abdomen without masses or organomegaly noted. There is no rebound or guarding present. Musculoskeletal: Normal ROM, no tenderness. Strength 5/5. Sensation intact. Radial and DP pulses equal bilaterally 2+. Neurological: A&O x 3. CN II-XII intact, There are no obvious motor or sensory deficits. Coordination appears grossly intact. Speech is normal. Skin: Skin is warm and dry and no rashes or lesions are noted. No obvious leg swelling. Psychiatric: Cooperative, appropriate mood & affect, normal judgment. (Julita Alvarez) Course Vital Signs 11/17/20 11/17/20 11/17/20 20:49 22:13 23:44 Temperature 98.3 F Pulse Rate 52 L 54 L Respiratory 20 20 Rate Blood Pressure 119/63 105/69 O2 Sat by Pulse 95 97 98 Oximetry 11/18/20 11/18/20 00:58 02:34 Temperature 98.2 F 97.0 F L Pulse Rate 58 L 55 L Respiratory 20 18 Rate Blood Pressure 108/60 98/52 O2 Sat by Pulse 99 94 L Oximetry Medical Decision Making - Lab Data Result diagrams: 11/17/20 22:08 11/17/20 22:08 <Julita Alvarez - Last Filed: 11/18/20 02:40> - Medical Decision Making US (-) DVT. no PE on CTA. pt throughout visit states breathing worsened pt placed on supplemental oxygen. patient case discussed with dr. alvarado and at this time we will admit patient overnight for monitoring. patient agreeable to care plan and admission. 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 (Julita Alvarez) - Lab Data Lab Results 11/17/20 11/17/2011/17/21 Range/Units 22:08 22:08 22:08 WBC 5.0 (3.8-10.6) k/uL RBC 3.90 L (4.30-5.90) m/uL Hgb 12.7 L (13.0-17.5) gm/dL Hct 36.7 L (39.0-53.0) % MCV 94.1 (80.0-100.0) fL MCH 32.6 (25.0-35.0) pg MCHC 34.7 (31.0-37.0) g/dL RDW 13.7 (11.5-15.5) % Plt Count 173 (150-450) k/uL MPV 7.5 Neutrophils % (Manual) 59 % Band Neuts % (Manual) 7 % Lymphocytes % (Manual) 21 % Monocytes % (Manual) 10 % Eosinophils % (Manual) 3 % Neutrophils # (Manual) 3.30 (1.3-7.7) k/uL Lymphocytes # (Manual) 1.05 (1.0-4.8) k/uL Monocytes # (Manual) 0.50 (0-1.0) k/uL Eosinophils # (Manual) 0.15 (0-0.7) k/uL Nucleated RBCs 0 (0-0) /100 WBC Manual Slide Review Performed PT 10.6 (9.0-12.0) sec INR 1.0 (<1.2) APTT 28.6 (22.0-30.0) sec D-Dimer 0.66 H (<0.60) mg/L FEU Sodium 132 L (137-145) mmol/L Potassium 3.7 (3.5-5.1) mmol/L Chloride 101 (98-107) mmol/L Carbon Dioxide 21 L (22-30) mmol/L Anion Gap 10 mmol/L BUN 23 H (9-20) mg/dL Creatinine 1.26 H (0.66-1.25) mg/dL Est GFR (CKD-EPI)AfAm 61 (>60 ml/min/1.73 sqM) Est GFR (CKD-EPI)NonAf 53 (>60 ml/min/1.73 sqM) Glucose 94 (74-99) mg/dL Lactic Ac Sepsis Rflx Plasma Lactic Acid Marc (0.7-2.0) mmol/L Calcium 8.5 (8.4-10.2) mg/dL Magnesium 1.6 (1.6-2.3) mg/dL Total Bilirubin 0.7 (0.2-1.3) mg/dL AST 71 H (17-59) U/L ALT 9 (4-49) U/L Alkaline Phosphatase 83 (38-126) U/L Lactate Dehydrogenase 684 H (313-618) U/L C-Reactive Protein 59.2 H (<10.0) mg/L Total Protein 6.1 L (6.3-8.2) g/dL Albumin 3.3 L (3.5-5.0) g/dL 11/17/20 11/17/20 Range/Units 22:08 22:36 WBC (3.8-10.6) k/uL RBC (4.30-5.90) m/uL Hgb (13.0-17.5) gm/dL Hct (39.0-53.0) % MCV (80.0-100.0) fL MCH (25.0-35.0) pg MCHC (31.0-37.0) g/dL RDW (11.5-15.5) % Plt Count (150-450) k/uL MPV Neutrophils % (Manual) % Band Neuts % (Manual) % Lymphocytes % (Manual) % Monocytes % (Manual) % Eosinophils % (Manual) % Neutrophils # (Manual) (1.3-7.7) k/uL Lymphocytes # (Manual) (1.0-4.8) k/uL Monocytes # (Manual) (0-1.0) k/uL Eosinophils # (Manual) (0-0.7) k/uL Nucleated RBCs (0-0) /100 WBC Manual Slide Review PT (9.0-12.0) sec INR (<1.2) APTT (22.0-30.0) sec D-Dimer (<0.60) mg/L FEU Sodium (137-145) mmol/L Potassium (3.5-5.1) mmol/L Chloride (98-107) mmol/L Carbon Dioxide (22-30) mmol/L Anion Gap mmol/L BUN (9-20) mg/dL Creatinine (0.66-1.25) mg/dL Est GFR (CKD-EPI)AfAm (>60 ml/min/1.73 sqM) Est GFR (CKD-EPI)NonAf (>60 ml/min/1.73 sqM) Glucose (74-99) mg/dL Lactic Ac Sepsis Rflx Y Plasma Lactic Acid Marc 3.2 H* (0.7-2.0) mmol/L Calcium (8.4-10.2) mg/dL Magnesium (1.6-2.3) mg/dL Total Bilirubin (0.2-1.3) mg/dL AST (17-59) U/L ALT (4-49) U/L Alkaline Phosphatase (38-126) U/L Lactate Dehydrogenase (313-618) U/L C-Reactive Protein (<10.0) mg/L Total Protein (6.3-8.2) g/dL Albumin (3.5-5.0) g/dL Disposition <Jorge Hightower - Last Filed: 11/17/20 20:54> Is patient prescribed a controlled substance at d/c from ED?: No Time of Disposition: 00:56 Decision to Admit Reason: Admit from EC Decision Date: 11/18/20 Decision Time: 00:56 <Julita Alvarez - Last Filed: 11/18/20 02:40> Clinical Impression: COVID-19, Dyspnea, Left leg swelling Disposition: ADMITTED IP TO THIS HOSP Condition: Stable
[2020-11-17 22:16] LABS: HCT 36.7 % (39.0-53.0); HGB 12.7 gm/dL (13.0-17.5); MCH 32.6 pg (25.0-35.0); MCHC 34.7 g/dL (31.0-37.0); MCV 94.1 fL (80.0-100.0); Mean Platelet Volume 7.5; Platelet Count 173 k/uL (150-450); RDW 13.7 % (11.5-15.5)
[2020-11-17 22:39] LABS: Albumin 3.3 g/dL (3.5-5.0); C Reactive Protein 59.2 mg/L (<10.0); Calcium 8.5 mg/dL (8.4-10.2); Magnesium 1.6 mg/dL (1.6-2.3); Partial Thromboplastin Time 28.6 sec (22.0-30.0); Potassium 3.7 mmol/L (3.5-5.1); Prothrombin Time 10.6 sec (9.0-12.0); Total Bilirubin 0.7 mg/dL (0.2-1.3); Total Protein 6.1 g/dL (6.3-8.2)
--- NOTE | 2020-11-17 22:45 | US ---
EXAMINATION TYPE: US venous doppler duplex LE LT DATE OF EXAM: 11/17/2020 10:26 PM COMPARISON: NONE CLINICAL HISTORY: swelling, covid, dyspnea. Swelling. Limited history from patient. SIDE PERFORMED: Left TECHNIQUE: The lower extremity deep venous system is examined utilizing real time linear array sonog carter with graded compression, doppler sonography and color-flow sonography. VESSELS IMAGED: Common Femoral Vein Deep Femoral Vein Greater Saphenous Vein * Femoral Vein Popliteal Vein Small Saphenous Vein * Proximal Calf Veins (* superficial vessels) Left Leg: No evidence of DVT in veins imaged at this time from prox calf veins to CFV/DVT. Rouleaux flow seen throughout veins. Complex area seen left medial popliteal fossa measurin.2 x 1.0 x 1.2 cm. IMPRESSION: No evidence of deep vein thrombosis in the left leg. Small popliteal cyst noted.
[2020-11-17 22:51] LABS: Band Neutrophils % 7 %; Eosinophils # (M) 0.15 k/uL (0-0.7); Lymphocytes # (M) 1.05 k/uL (1.0-4.8); Neutrophils % (M) 59 %; Nucleated Red Blood Cells 0 /100 WBC (0-0); Total Cells Counted 100
--- NOTE | 2020-11-17 22:59 | XR ---
EXAMINATION TYPE: XR chest 2V DATE OF EXAM: 11/17/2020 COMPARISON: 11/16/2020 HISTORY: Short of breath TECHNIQUE: FINDINGS: There is pulmonary bilateral interstitial infiltrates. There is neural stimulator over the left axilla. There are no hilar masses. Thoracic aorta is atheromatous. There is no heart failure. He art size is fairly normal. There is no definite pleural effusion. IMPRESSION: Interstitial pulmonary infiltrates could relate to pulmonary fibrosis or interstitial pne umonia which is not significantly different than yesterday.
[2020-11-17] MEDS ORDERED: SODIUM CHLORIDE 0.9% 500 ML 500 ML IV ONE (23:20)
[2020-11-17] MEDS: SODIUM CHLORIDE 0.9% 1,000 ML IV SCH (23:44)
--- NOTE | 2020-11-17 23:51 | CT ---
EXAMINATION TYPE: CT chest angio for PE DATE OF EXAM: 11/17/2020 COMPARISON: None HISTORY: elevated d-dimer CT DLP: 810.2 mGycm Automated exposure control for dose reduction was used. CONTRAST: Performed with IV Contrast, patient injected with 80 mL of Isovue 370. Images were obtained from the thoracic inlet to the diaphragm with IV contrast. There are 3-D post pr ocessed images. There is extensive patchy reticular and nodular infiltrate in the mid and lower lung vieira. Heart ap pears top normal in size. There is no pericardial effusion. There is no pleural effusion. There are n o hilar masses. There are right bronchial lymph nodes that measure up to 1 cm. There is no mediastina l adenopathy. Thoracic aorta is atheromatous. There is normal contrast opacification of the pulmonary arteries. There are no filling defects. Thora cic vertebra show a slight levoscoliosis in the upper thoracic region.. There is spurring of the endp lates. Sternum is intact. The ribs appear intact. Upper abdominal soft tissues are intact. IMPRESSION: No evidence of pulmonary embolism. Bilateral interstitial and nodular pulmonary infiltrates likely related to pulmonary fibrosis and pne umonia.
[2020-11-18] MEDS ORDERED: MORPHINE SULFATE 4 MG/ML SYRINGE IVP STA (00:45)
[2020-11-18] MEDS ORDERED: NALOXONE 0.4 MG/ML 1 ML VIAL IV PRN (00:54)
[2020-11-18] MEDS ORDERED: AZITHROMYCIN 500 MG in SODIUM CHLORIDE 0.9% 250 ML IVPB STA (00:55)
[2020-11-18] MEDS ORDERED: DEXAMETHASONE SOD PHOSPHATE 4 MG/ML 1 ML VIAL IV STA (00:55)
[2020-11-18] MEDS ORDERED: FAMOTIDINE 20 MG TAB PO SCH (10:00)
[2020-11-18] MEDS: ZINC SULFATE 220 MG CAP PO SCH (10:49)
[2020-11-18] MEDS: ASCORBIC ACID 500 MG TAB PO SCH (10:49)
[2020-11-18 12:05] LABS: Ferritin 510.6 ng/mL (22.0-322.0)
--- NOTE | 2020-11-18 13:06 | P.HPIM ---
History of Present Illness Patient came with cough shortness of breath diarrhea body aches and fever found to have Covid. received the multiple antibodies yesterday, patient was discharged home comes back again with worsening shortness of breath. Patient was subsequently admitted was started on Decadron submental oxygen. Patient is also hyponatremic d-dimer of 0.66 possible lactic acid of 3.2 came down to 2 with IV fluids elevated inflammatory markers. Review of Systems REVIEW OF SYSTEMS: CONSTITUTIONAL: As mentioned in HPI HEENT: No recent visual problems or hearing problems. Denied any sore throat. CARDIOVASCULAR: No chest pain, orthopnea, PND, no palpitations, no syncope. PULMONARY: As mentioned in HPI GASTROINTESTINAL: No diarrhea, no nausea, no vomiting, no abdominal pain. NEUROLOGICAL: No headaches, no weakness, no numbness. HEMATOLOGICAL: Denies any bleeding or petechiae. GENITOURINARY: Denies any burning micturition, frequency, or urgency. MUSCULOSKELETAL/RHEUMATOLOGICAL: Denies any joint pain, swelling, or any muscle pain. ENDOCRINE: Denies any polyuria or polydipsia. The rest of the 14-point review of systems is negative. Past Medical History Past Medical History: Atrial Fibrillation, COPD, CVA/TIA, Hyperlipidemia, Hypertension, Musculoskeletal Disorder, Neurologic Disorder, Osteoarthritis (OA), Pneumonia, Sleep Apnea/CPAP/BIPAP Additional Past Medical History / Comment(s): Pt tested covid + 11/16/20 [facility] ER. Other hx: Bronchitis, KATHYA with Cpap use, pt states he thinks he may have been told he had a small KS many years ago, parkinson's dx, CVA with dysarthria, TIA, RLS, chronic cervical and lumbar back pain, overactive bladder. Last Myocardial Infarction Date:: 2009 History of Any Multi-Drug Resistant Organisms: None Reported Past Surgical History: Adenoidectomy, Back Surgery, Heart Catheterization, Tonsillectomy Additional Past Surgical History / Comment(s): Neurostimulator, cervical fusion, low back surgery, nasal surgery, bilateral blepharoplasty, bilateral cataract removals Past Anesthesia/Blood Transfusion Reactions: No Reported Reaction Smoking Status: Former smoker - Past Family History Father Family Medical History: COPD Mother Family Medical History: Dementia Medications and Allergies Home Medications Medication Instructions Recorded Confirmed Type Atorvastatin [Lipitor] 40 mg PO HS 03/09/16 11/18/20 History Citalopram Hydrobromide [CeleXA] 40 mg PO DAILY 03/09/16 11/18/20 History Solifenacin Succinate [Vesicare] 10 mg PO DAILY 03/09/16 11/18/20 History Carbidopa-Levodopa ER 50-200Mg 1 tab PO BID 03/22/18 11/18/20 History [Sinemet CR 50-200 mg] Omeprazole 20 mg PO DAILY 03/22/18 11/18/20 History Propafenone [Rythmol] 150 mg PO DAILY 03/22/18 11/18/20 History Tamsulosin HCl [Flomax] 0.4 mg PO DAILY 03/22/18 11/18/20 History Folic Acid 1 mg PO DAILY 04/27/19 11/18/20 History Pramipexole [Mirapex] 1 mg PO HS 04/27/19 11/18/20 History Aspirin EC [Ecotrin Low Dose] 81 mg PO DAILY 05/24/19 11/18/20 History Losartan [Cozaar] 50 mg PO DAILY 11/16/20 11/18/20 History amLODIPine [Norvasc] 5 mg PO HS 11/16/20 11/18/20 History Tiotropium [place] [Spiriva] 1 cap INHALATION RT-DAILY 11/18/20 11/18/20 History Allergies Allergy/AdvReac Type Severity Reaction Status Date / Time No Known Allergies Allergy Verified 11/18/20 09:14 Physical Exam Vitals: Vital Signs Temp Pulse Pulse Resp BP BP Pulse Ox 11/18/20 07:40 70 18 11/18/20 07:31 97.6 F 70 169/74 95 11/18/20 06:00 97.3 F L 94 18 131/59 94 L 11/18/20 02:34 97.0 F L 55 L 18 98/52 94 L 11/18/20 00:58 98.2 F 58 L 20 108/60 99 11/17/20 23:44 54 L 20 105/69 98 11/17/20 22:13 97 11/17/20 20:49 98.3 F 52 L 20 119/63 95 Intake and Output 11/17/20 11/18/20 11/18/20 22:59 06:59 14:59 Other: Weight 104.326 kg 104.326 kg PHYSICAL EXAMINATION: GENERAL: The patient is alert and oriented x3, not in any acute distress. Well developed, well nourished. HEENT: Pupils are round and equally reacting to light. EOMI. No scleral icterus. No conjunctival pallor. Normocephalic, atraumatic. No pharyngeal erythema. No thyromegaly. CARDIOVASCULAR: S1 and S2 present. No murmurs, rubs, or gallops. PULMONARY: Chest is clear to auscultation, no wheezing or crackles. ABDOMEN: Soft, nontender, nondistended, normoactive bowel sounds. No palpable organomegaly. MUSCULOSKELETAL: No joint swelling or deformity. EXTREMITIES: No cyanosis, clubbing, or pedal edema. NEUROLOGICAL: Gross neurological examination did not reveal any focal deficits. SKIN: No rashes. Results CBC & Chem 7: 11/17/20 22:08 11/17/20 22:08 Labs: Abnormal Lab Results - Last 24 Hours (Table) 11/17/20 11/17/20 11/17/20 Range/Units 22:08 22:08 22:08 RBC 3.90 L (4.30-5.90) m/uL Hgb 12.7 L (13.0-17.5) gm/dL Hct 36.7 L (39.0-53.0) % D-Dimer 0.66 H (<0.60) mg/L FEU Sodium 132 L (137-145) mmol/L Carbon Dioxide 21 L (22-30) mmol/L BUN 23 H (9-20) mg/dL Creatinine 1.26 H (0.66-1.25) mg/dL Plasma Lactic Acid Marc (0.7-2.0) mmol/L Ferritin 510.6 H (22.0-322.0) ng/mL AST 71 H (17-59) U/L Lactate Dehydrogenase 684 H (313-618) U/L C-Reactive Protein 59.2 H (<10.0) mg/L Total Protein 6.1 L (6.3-8.2) g/dL Albumin 3.3 L (3.5-5.0) g/dL Procalcitonin (0.02-0.09) ng/mL 11/17/20 11/17/20 Range/Units 22:08 22:08 RBC (4.30-5.90) m/uL Hgb (13.0-17.5) gm/dL Hct (39.0-53.0) % D-Dimer (<0.60) mg/L FEU Sodium (137-145) mmol/L Carbon Dioxide (22-30) mmol/L BUN (9-20) mg/dL Creatinine (0.66-1.25) mg/dL Plasma Lactic Acid Marc 3.2 H* (0.7-2.0) mmol/L Ferritin (22.0-322.0) ng/mL AST (17-59) U/L Lactate Dehydrogenase (313-618) U/L C-Reactive Protein (<10.0) mg/L Total Protein (6.3-8.2) g/dL Albumin (3.5-5.0) g/dL Procalcitonin 0.10 H (0.02-0.09) ng/mL Thrombosis Risk Factor Assmnt - Choose All That Apply Any of the Below Risk Factors Present?: Yes Each Factor Represents 1 point: Abnormal pulmonary function (COPD), Obesity (BMI >25), Serious lung disease incl. pneumonia (< 1month) Other Risk Factors: Yes Each Risk Factor Represents 3 Points: Age 75 years or older Other congenital or acquired thrombophilia - If yes, enter type in comment: No Thrombosis Risk Factor Assessment Total Risk Factor Score: 6 Thrombosis Risk Factor Assessment Level: High Risk Assessment and Plan Plan: -Acute hypoxic respiratory: Secondary to covid 19 pneumonia. Patient was started on Decadron pulmonary was consulted. Rule out pulmonary embolism -Acute renal failure secondary to dehydration patient was started on IV fluids hypovolemic hyponatremia -Atrial fibrillation patient is not on any anticoagulation at home maybe because of fall risk. has paroxysmal A. fib patient is presently sinus rhythm -History of CVA T in the past -Hyperlipidemia -Hypertension -Sleep apnea Due to prophylaxis with subcutaneous heparin
[2020-11-18 14:33] VITALS: BMI 34.0
[2020-11-18] MEDS ORDERED: ACETAMINOPHEN TAB 325 MG TAB PO PRN (14:45)
[2020-11-18] MEDS: HEPARIN SODIUM,PORCINE/PF 5,000 UNIT/0.5 ML SYRINGE SQ SCH (15:55)
--- NOTE | 2020-11-18 17:01 | P.CNPUL ---
History of Present Illness Consult date: 11/18/20 Reason for consult: dyspnea, cough, hypoxemia Chief complaint: Progressive shortness of breath and cough History of present illness: Patient is a 79-year-old with prior history of COPD not on home oxygen patient presented into emergency department 2 days ago with developing shortness of breath cough, testing came back positive for coronary 19, patient received monoclonal antibody and subsequently was discharged, due to persistent problem of cough shortness of breath came into the hospital noted to have significant hypoxia oxygen saturation dropped down into 80 status post 4 L nasal cannula, patient has significant history of dyslipidemia mood disorder advanced Parkinson's disease arrhythmia benign prostatic hypertrophy restless leg syndrome hypertension hypertensive cardiovascular disease, patient noted to have a element of acute kidney injury with BUN/creatinine are 23 and 1.26, elevated lactic acid, due to swelling of the left lower extremity patient underwent a duplex ultrasound the lower extremity no DVT seen but a popliteal cyst identified, chest x-ray significant for interstitial pneumonia, the computed tomography scan of the chest negative for pulmonary embolism however continued to show bilateral interstitial and nodular pulmonary infiltrate consistent with covid 19 pneumonia, currently patient is being treated with continuation of his home medicines along with Decadron Review of Systems All systems: negative Past Medical History Past Medical History: Atrial Fibrillation, COPD, CVA/TIA, Hyperlipidemia, Hype rtension, Musculoskeletal Disorder, Neurologic Disorder, Osteoarthritis (OA), Pneumonia, Sleep Apnea/CPAP/BIPAP Additional Past Medical History / Comment(s): Pt tested covid + 11/16/20 [facility] ER. Other hx: Bronchitis, KATHYA with Cpap use, pt states he thinks he may have been told he had a small AR many years ago, parkinson's dx, CVA with dysarthria, TIA, RLS, chronic cervical and lumbar back pain, overactive bladder. Last Myocardial Infarction Date:: 2009 History of Any Multi-Drug Resistant Organisms: None Reported Past Surgical History: Adenoidectomy, Back Surgery, Heart Catheterization, Tonsillectomy Additional Past Surgical History / Comment(s): Neurostimulator, cervical fusion, low back surgery, nasal surgery, bilateral blepharoplasty, bilateral cataract removals Past Anesthesia/Blood Transfusion Reactions: No Reported Reaction Smoking Status: Former smoker - Past Family History Father Family Medical History: COPD Mother Family Medical History: Dementia Medications and Allergies Home Medications Medication Instructions Recorded Confirmed Type Atorvastatin [Lipitor] 40 mg PO HS 03/09/16 11/18/20 History Citalopram Hydrobromide [CeleXA] 40 mg PO DAILY 03/09/16 11/18/20 History Solifenacin Succinate [Vesicare] 10 mg PO DAILY 03/09/16 11/18/20 History Carbidopa-Levodopa ER 50-200Mg 1 tab PO BID 03/22/18 11/18/20 History [Sinemet CR 50-200 mg] Omeprazole 20 mg PO DAILY 03/22/18 11/18/20 History Propafenone [Rythmol] 150 mg PO DAILY 03/22/18 11/18/20 History Tamsulosin HCl [Flomax] 0.4 mg PO DAILY 03/22/18 11/18/20 History Folic Acid 1 mg PO DAILY 04/27/19 11/18/20 History Pramipexole [Mirapex] 1 mg PO HS 04/27/19 11/18/20 History Aspirin EC [Ecotrin Low Dose] 81 mg PO DAILY 05/24/19 11/18/20 History Losartan [Cozaar] 50 mg PO DAILY 11/16/20 11/18/20 History amLODIPine [Norvasc] 5 mg PO HS 11/16/20 11/18/20 History Tiotropium Farley [Spiriva] 1 cap INHALATION RT-DAILY 11/18/20 11/18/20 History Allergies Allergy/AdvReac Type Severity Reaction Status Date / Time No Known Allergies Allergy Verified 11/18/20 09:14 Physical Exam Vitals: Vital Signs Temp Pulse Pulse Resp BP BP Pulse Ox 11/18/20 07:40 70 18 11/18/20 07:31 97.6 F 70 169/74 95 11/18/20 06:00 97.3 F L 94 18 131/59 94 L 11/18/20 02:34 97.0 F L 55 L 18 98/52 94 L 11/18/20 00:58 98.2 F 58 L 20 108/60 99 11/17/20 23:44 54 L 20 105/69 98 11/17/20 22:13 97 11/17/20 20:49 98.3 F 52 L 20 119/63 95 Intake and Output 11/18/20 11/18/20 11/18/20 06:59 14:59 22:59 Other: Weight 104.326 kg - Constitutional General appearance: average body habitus, mild distress, morbidly obese - EENT Eyes: PERRLA Ears: bilateral: normal - Neck Carotids: bilateral: upstroke normal Thyroid: bilateral: normal size - Respiratory Respiratory: bilateral: diminished - Cardiovascular Rhythm: regular Heart sounds: normal: S1, S2 - Gastrointestinal General gastrointestinal: normal bowel sounds, soft - Integumentary Integumentary: normal turgor - Neurologic Neurologic: CNII-XII intact - Musculoskeletal Musculoskeletal: gait normal, generalized weakness, strength equal bilaterally - Psychiatric Psychiatric: A&O x's 3, intact judgment & insight Results - Laboratory Findings CBC and BMP: 11/17/20 22:08 11/17/20 22:08 PT/INR, D-dimer PT 10.6 sec (9.0-12.0) 11/17/20 22:08 INR 1.0 (<1.2) 11/17/20 22:08 D-Dimer 0.66 mg/L FEU (<0.60) H 11/17/20 22:08 Abnormal lab findings: Abnormal Labs 11/17/20 11/17/20 11/17/20 22:08 22:08 22:08 RBC 3.90 L Hgb 12.7 L Hct 36.7 L D-Dimer 0.66 H Sodium 132 L Carbon Dioxide 21 L BUN 23 H Creatinine 1.26 H Plasma Lactic Acid Marc Ferritin 510.6 H AST 71 H Lactate Dehydrogenase 684 H C-Reactive Protein 59.2 H Total Protein 6.1 L Albumin 3.3 L Procalcitonin 11/17/20 11/17/20 22:08 22:08 RBC Hgb Hct D-Dimer Sodium Carbon Dioxide BUN Creatinine Plasma Lactic Acid Marc 3.2 H* Ferritin AST Lactate Dehydrogenase C-Reactive Protein Total Protein Albumin Procalcitonin 0.10 H - Diagnostic Findings Chest x-ray: report reviewed, image reviewed CT scan - chest: report reviewed, image reviewed (Finding as noted above) Assessment and Plan Assessment: Acute hypoxic respiratory failure Covid 19 pneumonia Acute kidney injury Hypertension hypertensive cardiovascular disease Advanced Parkinson's disease Dyslipidemia Hypertension hypertensive cardiovascular disease Obesity Plan: Steroids in the form of Decadron Supplemental oxygen Deep breathing exercises incentive spirometry Supplements like zinc, vitamin C, vitamin D IV REMdesivir Anticoagulation Further recommendations pending plan of care as per clinical response of patient Patient relatively is at a high risk of developing worsening respiratory complication Time with Patient: Greater than 30
[2020-11-18] MEDS ORDERED: REMDESIVIR 200 MG in SODIUM CHLORIDE 0.9% 250 ML IVPB ONE (18:00)
[2020-11-18] MEDS: SODIUM CHLORIDE 0.9% 1,000 ML IV SCH ×2 (19:58→19:59)
[2020-11-18] MEDS ORDERED: amLODIPine 5 MG TAB PO SCH (21:00)
[2020-11-18] MEDS: HYDROmorphone 0.5 MG/0.5 ML SYRINGE IVP PRN (21:19)
[2020-11-19] MEDS: PRAMIPEXOLE 1 MG TAB PO SCH ×2 (01:19→22:53)
[2020-11-19] MEDS: HEPARIN SODIUM,PORCINE/PF 5,000 UNIT/0.5 ML SYRINGE SQ SCH ×4 (01:19→22:54)
[2020-11-19] MEDS: ASCORBIC ACID 500 MG TAB PO SCH ×3 (01:20→21:50)
[2020-11-19] MEDS: HYDROcodone/APAP 5-325MG 1 EACH TAB PO PRN ×2 (01:20→23:14)
[2020-11-19] MEDS: CARBIDOPA-LEVODOPA ER 50-200MG 1 EACH TABLET.ER PO SCH ×3 (01:20→22:53)
[2020-11-19] MEDS: ATORVASTATIN 40 MG TAB PO SCH ×2 (01:20→21:50)
[2020-11-19] MEDS: SODIUM CHLORIDE 0.9% 1,000 ML IV SCH ×3 (01:22→22:54)
[2020-11-19] MEDS: HYDROmorphone 0.5 MG/0.5 ML SYRINGE IVP PRN (05:06)
[2020-11-19] MEDS: TIOTROPIUM 2.5 MCG INHALER INHALATION SCH (07:48)
[2020-11-19] MEDS: PANTOPRAZOLE 40 MG TABLET PO SCH (10:36)
[2020-11-19] MEDS: FAMOTIDINE 20 MG TAB PO SCH (10:36)
[2020-11-19] MEDS: TROSPIUM CHLORIDE 20 MG TABLET PO SCH ×2 (10:36→22:54)
[2020-11-19] MEDS: dexAMETHasone 2 MG TAB PO SCH (10:36)
[2020-11-19] MEDS: PROPAFENONE 150 MG TAB PO SCH (10:37)
[2020-11-19] MEDS: ZINC SULFATE 220 MG CAP PO SCH (10:37)
[2020-11-19] MEDS: CITALOPRAM HYDROBROMIDE 20 MG TAB PO SCH (10:37)
[2020-11-19] MEDS: FOLIC ACID 1 MG TAB PO SCH (10:37)
[2020-11-19] MEDS: TAMSULOSIN 0.4 MG CAP.ER.24H PO SCH (10:37)
[2020-11-19] MEDS: ASPIRIN 81 MG PO SCH (10:38)
--- NOTE | 2020-11-19 11:44 | P.PN ---
Subjective Patient came with cough shortness of breath diarrhea body aches and fever found to have Covid. received the multiple antibodies yesterday, patient was discharged home comes back again with worsening shortness of breath. Patient was subsequently admitted was started on Decadron submental oxygen. Patient is also hyponatremic d-dimer of 0.66 possible lactic acid of 3.2 came down to 2 with IV fluids elevated inflammatory markers. 11/19/2020 Patient is presently in 4 L of oxygen his respiratory status is bit worse patient denied any complaints is bit slow because of his Parkinson's. Patient is also receiving normal saline at 75 mL/h repeat labs are still pending. Objective - Vital Signs Vital signs: Vital Signs Temp 97.9 F 11/19/20 08:00 Pulse 99 11/19/20 08:00 Resp 18 11/19/20 08:00 BP 105/58 11/19/20 08:00 Pulse Ox 93 L 11/19/20 08:00 Intake & Output 11/18/20 11/19/20 11/19/20 18:59 06:59 18:59 Intake Total 1050 Balance 1050 Weight 104.326 kg Intake: Intake, IV Titration 800 Amount Sodium Chloride 0.9% 1, 800 000 ml @ 100 mls/hr IV . Q10H [facility] Rx#:[id number] Oral 250 Other: # Voids 3 0 - Exam PHYSICAL EXAMINATION: GENERAL: The patient is alert and oriented x3, not in any acute distress. Well developed, well nourished. HEENT: Pupils are round and equally reacting to light. EOMI. No scleral icterus. No conjunctival pallor. Normocephalic, atraumatic. No pharyngeal erythema. No thyromegaly. CARDIOVASCULAR: S1 and S2 present. No murmurs, rubs, or gallops. PULMONARY: Chest is clear to auscultation, no wheezing or crackles. ABDOMEN: Soft, nontender, nondistended, normoactive bowel sounds. No palpable organomegaly. MUSCULOSKELETAL: No joint swelling or deformity. EXTREMITIES: No cyanosis, clubbing, or pedal edema. NEUROLOGICAL: Gross neurological examination did not reveal any focal deficits. SKIN: No rashes. - Labs CBC & Chem 7: 11/17/20 22:08 11/17/20 22:08 Labs: Abnormal Lab Results - Last 24 Hours (Table) 11/17/20 Range/Units 22:08 Ferritin 510.6 H (22.0-322.0) ng/mL Assessment and Plan Plan: -Acute hypoxic respiratory: Secondary to covid [address] arted on Decadron pulmonary evaluated the patient. Ruled out pulmonary embolism -Acute renal failure secondary to dehydration patient was started on IV fluids hypovolemic hyponatremia -Atrial fibrillation patient is not on any anticoagulation at home maybe because of fall risk. Should has paroxysmal A. fib patient is presently sinus rhythm -History of CVA T in the past -Hyperlipidemia -Hypertension -Sleep apnea Due to prophylaxis with subcutaneous heparin
--- NOTE | 2020-11-19 14:34 | P.PN ---
Subjective Progress Note Date: 11/19/20 Principal diagnosis: Acute hypoxic respiratory failure Covid 19 pneumonia Acute kidney injury Hypertension hypertensive cardiovascular disease Advanced Parkinson's disease Dyslipidemia Hypertension hypertensive cardiovascular disease Obesity 11/19/2020, patient seen eval reexamined during the rounds labs reviewed medications reviewed overall respiratory status remains stable, patient remains on 3 L oxygen has a nonproductive dry cough intermittently, overall no signif icant change has been noted, Patient is a 79-year-old with prior history of COPD not on home oxygen patient presented into emergency department 2 days ago with developing shortness of breath cough, testing came back positive for coronary 19, patient received monoclonal antibody and subsequently was discharged, due to persistent problem of cough shortness of breath came into the hospital noted to have significant hypoxia oxygen saturation dropped down into 80 status post 4 L nasal cannula, patient has significant history of dyslipidemia mood disorder advanced Parkinson's disease arrhythmia benign prostatic hypertrophy restless leg syndrome hypertension hypertensive cardiovascular disease, patient noted to have a element of acute kidney injury with BUN/creatinine are 23 and 1.26, elevated l actic acid, due to swelling of the left lower extremity patient underwent a duplex ultrasound the lower extremity no DVT seen but a popliteal cyst identified, chest x-ray significant for interstitial pneumonia, the computed tomography scan of the chest negative for pulmonary embolism however continued to show bilateral interstitial and nodular pulmonary infiltrate consistent with covid 19 pneumonia, currently patient is being treated with continuation of his home medicines along with Decadron Objective - Vital Signs Vital signs: Vital Signs Temp 97.9 F 11/19/20 13:08 Pulse 100 11/19/20 13:08 Resp 17 11/19/20 13:08 BP 126/72 11/19/20 13:08 Pulse Ox 96 11/19/20 13:08 Intake & Output 11/18/20 11/19/20 11/19/20 18:59 06:59 18:59 Intake Total 1050 Balance 1050 Weight 104.326 kg Intake: Intake, IV Titration 800 Amount Sodium Chloride 0.9% 1, 800 000 ml @ 100 mls/hr IV . Q10H [facility] Rx#:[id number] Oral 250 Other: Voiding Method Diaper Incontinent # Voids 3 0 - Exam - Constitutional General appearance: average body habitus, mild distress, morbidly obese - EENT Eyes: PERRLA Ears: bilateral: normal - Neck Carotids: bilateral: upstroke normal Thyroid: bilateral: normal size - Respiratory Respiratory: bilateral: diminished - Cardiovascular Rhythm: regular Heart sounds: normal: S1, S2 - Gastrointestinal General gastrointestinal: normal bowel sounds, soft - Integumentary Integumentary: normal turgor - Neurologic Neurologic: CNII-XII intact - Musculoskeletal Musculoskeletal: gait normal, generalized weakness, strength equal bilaterally - Psychiatric Psychiatric: A&O x's 3, intact judgment & insight - Labs CBC & Chem 7: 11/17/20 22:08 11/17/20 22:08 Assessment and Plan Assessment: Acute hypoxic respiratory failure Covid 19 pneumonia Acute kidney injury Hypertension hypertensive cardiovascular disease Advanced Parkinson's disease Dyslipidemia Hypertension hypertensive cardiovascular disease Obesity Plan: Steroids in the form of Decadron Supplemental oxygen Deep breathing exercises incentive spirometry Supplements like zinc, vitamin C, vitamin D IV REMdesivir Anticoagulation Further recommendations pending plan of care as per clinical response of patient Patient relatively is at a high risk of developing worsening respiratory complication Time with Patient: Greater than 30
[2020-11-19] MEDS: REMDESIVIR 100 MG in SODIUM CHLORIDE 0.9% 250 ML IVPB SCH (17:26)
[2020-11-20 07:07] LABS: African American GFR (CKD) >90 (>60 ml/min/1.73 sqM); Anion Gap 5 mmol/L; Blood Urea Nitrogen 18 mg/dL (9-20); Calcium 8.2 mg/dL (8.4-10.2); Carbon Dioxide 27 mmol/L (22-30); Chloride 106 mmol/L (98-107); Glucose 102 mg/dL (74-99); Non-African American GFR(CKD) 90 (>60 ml/min/1.73 sqM); Potassium 4.2 mmol/L (3.5-5.1); Sodium 138 mmol/L (137-145)
[2020-11-20] MEDS: TIOTROPIUM 2.5 MCG INHALER INHALATION SCH (07:57)
[2020-11-20] MEDS: dexAMETHasone 2 MG TAB PO SCH (08:35)
[2020-11-20] MEDS: HEPARIN SODIUM,PORCINE/PF 5,000 UNIT/0.5 ML SYRINGE SQ SCH ×2 (08:35→17:33)
[2020-11-20] MEDS: TROSPIUM CHLORIDE 20 MG TABLET PO SCH (08:35)
[2020-11-20] MEDS: FOLIC ACID 1 MG TAB PO SCH (08:36)
[2020-11-20] MEDS: ZINC SULFATE 220 MG CAP PO SCH (08:36)
[2020-11-20] MEDS: ASCORBIC ACID 500 MG TAB PO SCH (08:36)
[2020-11-20] MEDS: CITALOPRAM HYDROBROMIDE 20 MG TAB PO SCH (08:36)
[2020-11-20] MEDS: TAMSULOSIN 0.4 MG CAP.ER.24H PO SCH (08:36)
[2020-11-20] MEDS: PROPAFENONE 150 MG TAB PO SCH (08:36)
[2020-11-20] MEDS: PANTOPRAZOLE 40 MG TABLET PO SCH (08:36)
[2020-11-20] MEDS: ASPIRIN 81 MG PO SCH (08:36)
[2020-11-20] MEDS: CARBIDOPA-LEVODOPA ER 50-200MG 1 EACH TABLET.ER PO SCH (08:36)
[2020-11-20] MEDS: FAMOTIDINE 20 MG TAB PO SCH (08:36)
[2020-11-20] MEDS: SODIUM CHLORIDE 0.9% 1,000 ML IV SCH ×2 (08:50→18:33)
[2020-11-20] MEDS ORDERED: PREGABALIN 75 MG CAP PO SCH (12:15)
[2020-11-20] MEDS: HYDROcodone/APAP 5-325MG 1 EACH TAB PO PRN (12:35)
--- NOTE | 2020-11-20 13:26 | P.DS ---
Providers Date of admission: 11/18/20 00:40 Attending physician: Ronni Richardson Consults: 11/18/20 10:02 Consult Physician Routine Consulting Provider: Homero Foss Consult Reason/Comments: Hypoxia and covid Do you want consulting provider notified?: Yes Primary care physician: Elda Saenz Hospital Course: Patient came with cough shortness of breath diarrhea body aches and fever found to have Covid. received the multiple antibodies yesterday, patient was discharged home comes back again with worsening shortness of breath. Patient was subsequently admitted was started on Decadron submental oxygen. Patient is also hyponatremic d-dimer of 0.66 possible lactic acid of 3.2 came down to 2 with IV fluids elevated inflammatory markers. 11/19/2020 Patient is presently in 4 L of oxygen his respiratory status is bit worse patient denied any complaints is bit slow because of his Parkinson's. Patient is also receiving normal saline at 75 mL/h repeat labs are still pending. 11/20/2020 Patient is clinically doing well off oxygen patient will be discharged today is complaining of burning sensation in both legs. Patient will be started on Lyrica patient is being discharged to subacute rehabilitation. PHYSICAL EXAMINATION: GENERAL: The patient is alert and oriented x3, not in any acute distress. Well developed, well nourished. HEENT: Pupils are round and equally reacting to light. EOMI. No scleral icterus. No conjunctival pallor. Normocephalic, atraumatic. No pharyngeal erythema. No thyromegaly. CARDIOVASCULAR: S1 and S2 present. No murmurs, rubs, or gallops. PULMONARY: Chest is clear to auscultation, no wheezing or crackles. ABDOMEN: Soft, nontender, nondistended, normoactive bowel sounds. No palpable organomegaly. MUSCULOSKELETAL: No joint swelling or deformity. EXTREMITIES: No cyanosis, clubbing, or pedal edema. NEUROLOGICAL: Gross neurological examination did not reveal any focal deficits. SKIN: No rashes. Assessment and Plan Plan: -Acute hypoxic respiratory: Secondary to covid 19 pneumonia. Patient will be discharged on Decadron pulmonary evaluated the patient. Ruled out pulmonary embolism -Acute renal failure secondary to dehydration improved with IV fluids hypovolemic hyponatremia: Resolved at this time -Atrial fibrillation patient is not on any anticoagulation at home maybe because of fall risk. Patient is presently sinus rhythm -Hyperlipidemia -Hypertension -Sleep apnea -Deconditioning: Secondary to Parkinson's patient will be discharged to subacute rehabilitation DVT prophylaxis with subcutaneous heparin Patient Condition at Discharge: Stable Plan - Discharge Summary Discharge Rx Participant: No New Discharge Prescriptions: New Pregabalin [Lyrica] 75 mg PO BID #20 cap Zinc Sulfate [Orazinc] 220 mg PO DAILY #30 cap Ascorbic Acid [Vitamin C] 500 mg PO BID #30 tab Dexamethasone [Decadron] 6 mg PO DAILY #7 tablet Continue Atorvastatin [Lipitor] 40 mg PO HS Citalopram Hydrobromide [CeleXA] 40 mg PO DAILY Solifenacin Succinate [Vesicare] 10 mg PO DAILY Omeprazole 20 mg PO DAILY Carbidopa-Levodopa ER 50-200Mg [Sinemet CR 50-200 mg] 1 tab PO BID Propafenone [Rythmol] 150 mg PO DAILY Tamsulosin HCl [Flomax] 0.4 mg PO DAILY Pramipexole [Mirapex] 1 mg PO HS Folic Acid 1 mg PO DAILY Aspirin EC [Ecotrin Low Dose] 81 mg PO DAILY Losartan [Cozaar] 50 mg PO DAILY Tiotropium Gilman [Spiriva] 1 cap INHALATION RT-DAILY Discontinued amLODIPine [Norvasc] 5 mg PO HS Discharge Medication List Atorvastatin [Lipitor] 40 mg PO HS 03/09/16 [History] Citalopram Hydrobromide [CeleXA] 40 mg PO DAILY 03/09/16 [History] Solifenacin Succinate [Vesicare] 10 mg PO DAILY 03/09/16 [History] Carbidopa-Levodopa ER 50-200Mg [Sinemet CR 50-200 mg] 1 tab PO BID 03/22/18 [History] Omeprazole 20 mg PO DAILY 03/22/18 [History] Propafenone [Rythmol] 150 mg PO DAILY 03/22/18 [History] Tamsulosin HCl [Flomax] 0.4 mg PO DAILY 03/22/18 [History] Folic Acid 1 mg PO DAILY 04/27/19 [History] Pramipexole [Mirapex] 1 mg PO HS 04/27/19 [History] Aspirin EC [Ecotrin Low Dose] 81 mg PO DAILY 05/24/19 [History] Losartan [Cozaar] 50 mg PO DAILY 11/16/20 [History] Tiotropium [place]man [Spiriva] 1 cap INHALATION RT-DAILY 11/18/20 [History] Ascorbic Acid [Vitamin C] 500 mg PO BID #30 tab 11/20/20 [Rx] Dexamethasone [Decadron] 6 mg PO DAILY #7 tablet 11/20/20 [Rx] Pregabalin [Lyrica] 75 mg PO BID #20 cap 11/20/20 [Rx] Zinc Sulfate [Orazinc] 220 mg PO DAILY #30 cap 11/20/20 [Rx] Follow up Appointment(s)/Referral(s): Zeferino Guzman MD [STAFF PHYSICIAN] - 1 Week [facility], [NON-STAFF] - As Needed Elda Saenz MD [Primary Care Provider] - 1-2 days Discharge Disposition: TRANSFER TO SNF/ECF
[2020-11-20 16:47] VITALS: BP 126/53; PULSE 82; RESP 18; TEMP 98.3
--- NOTE | 2020-11-20 18:03 | P.PN ---
Subjective Progress Note Date: 11/20/20 Principal diagnosis: Acute hypoxic respiratory failure Covid 19 pneumonia Acute kidney injury Hypertension hypertensive cardiovascular disease Advanced Parkinson's disease Dyslipidemia Hypertension hypertensive cardiovascular disease Obesity 11/20/2020, patient has been kept off of oxygen, otherwise he was on 2 L oxygen nasal cannula, hemodynamic status stable, likely will be discharged later on today, last saturation was checked 94% 11/19/2020, patient seen eval reexamined during the rounds labs reviewed medications reviewed overall respiratory status remains stable, patient remains on 3 L oxygen has a nonproductive dry cough intermittently, overall no significant change has been noted, Patient is a 79-year-old with prior history of COPD not on home oxygen patient presented into emergency department 2 days ago with developing shortness of breath cough, testing came back positive for coronary 19, patient received monoclonal antibody and subsequently was discharged, due to persistent problem of cough shortness of breath came into the hospital noted to have significant hypoxia oxygen saturation dropped down into 80 status post 4 L nasal cannula, patient has significant history of dyslipidemia mood disorder advanced Parkinson's disease arrhythmia benign prostatic hypertrophy restless leg syndrome hypertension hypertensive cardiovascular disease, patient noted to have a element of acute kidney injury with BUN/creatinine are 23 and 1.26, elevated lactic acid, due to swelling of the left lower extremity patient underwent a duplex ultrasound the lower extremity no DVT seen but a popliteal cyst identified, chest x-ray significant for interstitial pneumonia, the computed tomography scan of the chest negative for pulmonary embolism however continued t o show bilateral interstitial and nodular pulmonary infiltrate consistent with covid 19 pneumonia, currently patient is being treated with continuation of his home medicines along with Decadron Objective - Vital Signs Vital signs: Vital Signs Temp 98.3 F 11/20/20 16:00 Pulse 82 11/20/20 16:00 Resp 18 11/20/20 16:00 BP 126/53 11/20/20 16:00 Pulse Ox 97 11/20/20 07:50 Intake & Output 11/19/20 11/20/20 11/20/20 18:59 06:59 18:59 Intake Total 1000 Output Total 250 Balance -250 1000 Weight 104.326 kg Intake: Intake, IV Titration 1000 Amount Sodium Chloride 0.9% 1, 1000 000 ml @ 100 mls/hr IV . Q10H [facility] Rx#:[id number] Output: Urine 250 Other: Voiding Method Diaper Diaper Urinal Incontinent Incontinent # Voids 3 0 - Exam - Constitutional General appearance: average body habitus, mild distress, morbidly obese - EENT Eyes: PERRLA Ears: bilateral: normal - Neck Carotids: bilateral: upstroke normal Thyroid: bilateral: normal size - Respiratory Respiratory: bilateral: diminished - Cardiovascular Rhythm: regular Heart sounds: normal: S1, S2 - Gastrointestinal General gastrointestinal: normal bowel sounds, soft - Integumentary Integumentary: normal turgor - Neurologic Neurologic: CNII-XII intact - Musculoskeletal Musculoskeletal: gait normal, generalized weakness, strength equal bilaterally - Psychiatric Psychiatric: A&O x's 3, intact judgment & insight - Labs CBC & Chem 7: 11/17/20 22:08 11/20/20 06:37 Labs: Abnormal Lab Results - Last 24 Hours (Table) 11/20/20 Range/Units 06:37 Glucose 102 H (74-99) mg/dL Calcium 8.2 L (8.4-10.2) mg/dL Assessment and Plan Assessment: Acute hypoxic respiratory failure Covid 19 pneumonia Acute kidney injury Hypertension hypertensive cardiovascular disease Advanced Parkinson's disease Dyslipidemia Hypertension hypertensive cardiovascular disease Obesity Plan: Steroids in the form of Decadron Supplemental oxygen, monitor and observe off of oxygen Deep breathing exercises incentive spirometry Supplements like zinc, vitamin C, vitamin D IV REMdesivir Anticoagulation Further recommendations pending plan of care as per clinical response of patient Patient relatively is at a high risk of developing worsening respiratory complication Time with Patient: Greater than 30
[2020-11-20] MEDS: REMDESIVIR 100 MG in SODIUM CHLORIDE 0.9% 250 ML IVPB SCH (18:33)
== END 2020-11-20 22:09 | DRG 177 ==
LOC: EC 19:43 → 4SSUR 11-18 00:40 → 1SOBS 11-18 07:09
PROVIDERS: ADMIT Hospitalist; ATTEND Hospitalist
PROC: XW033E5 Introduction of Remdesivir Anti-infective into Peripheral Vein, Percutaneous Approach, New Technology Group 5 (ICD-10-PCS; principal; 2020-11-18)
DX: U07.1 COVID-19 (principal); J96.01 Acute respiratory failure with hypoxia; J12.82 Pneumonia due to coronavirus disease 2019; E87.1 Hypo-osmolality and hyponatremia; E87.2 Acidosis; J44.0 Chronic obstructive pulmonary disease with (acute) lower respiratory infection; N17.9 Acute kidney failure, unspecified; I48.20 Chronic atrial fibrillation, unspecified; M79.89 Other specified soft tissue disorders; J44.9 Chronic obstructive pulmonary disease, unspecified; I10 Essential (primary) hypertension; G47.33 Obstructive sleep apnea (adult) (pediatric); M19.90 Unspecified osteoarthritis, unspecified site; E78.5 Hyperlipidemia, unspecified; F32.9 Major depressive disorder, single episode, unspecified; I25.2 Old myocardial infarction; E66.9 Obesity, unspecified; E86.0 Dehydration; E86.1 Hypovolemia; G20 Parkinson's disease; G25.81 Restless legs syndrome; Z99.89 Dependence on other enabling machines and devices; I11.9 Hypertensive heart disease without heart failure; I48.0 Paroxysmal atrial fibrillation; R79.1 Abnormal coagulation profile; Z82.5 Family history of asthma and other chronic lower respiratory diseases; Z82.0 Family history of epilepsy and other diseases of the nervous system; E87.8 Other disorders of electrolyte and fluid balance, not elsewhere classified; N32.81 Overactive bladder; M54.2 Cervicalgia; M54.9 Dorsalgia, unspecified; G89.29 Other chronic pain; N40.0 Benign prostatic hyperplasia without lower urinary tract symptoms; G62.9 Polyneuropathy, unspecified; Z90.89 Acquired absence of other organs; Z87.01 Personal history of pneumonia (recurrent); Z98.42 Cataract extraction status, left eye; Z98.41 Cataract extraction status, right eye; Z68.34 Body mass index [BMI] 34.0-34.9, adult; Z79.82 Long term (current) use of aspirin; Z79.899 Other long term (current) drug therapy; Z86.73 Personal history of transient ischemic attack (TIA), and cerebral infarction without residual deficits; Z87.891 Personal history of nicotine dependence; Z91.81 History of falling; Z98.1 Arthrodesis status
CPT/HCPCS: 36415; 71045; 71046; 71275; 80048; 80053; 82728; 83605; 83615; 83735; 84145; 85025; 85379; 85610; 85730; 86140; 87635; 93005; 96361; 96365; 96374; 96375; 99285

== ENCOUNTER 2020-11-28 21:40 | Inpatient (IN) | payer MEDICARE ==
--- NOTE | 2020-11-28 22:42 | XR ---
EXAMINATION TYPE: XR chest 1V portable DATE OF EXAM: 11/28/2020 COMPARISON: 11/17/2020 HISTORY: Short of breath. Pneumonia. TECHNIQUE: Single view FINDINGS: There is some interstitial infiltrates in the mid and lower lung vieira. There is no gross heart failure. Heart size is fairly normal. There is left axillary neural stimulator noted. Thoracic aorta is atheromatous. There are chest leads. IMPRESSION: Interstitial pulmonary infiltrates not changed compared to recent exam. This could be pul monary interstitial fibrosis or interstitial pneumonia.
[2020-11-28 22:46] LABS: Basophils % (A) 0 %; Eosinophils # (A) 0.1 k/uL (0-0.7); Eosinophils % (A) 0 %; HCT 29.8 % (39.0-53.0); HGB 10.5 gm/dL (13.0-17.5); Lymphocytes # (A) 0.3 k/uL (1.0-4.8); Lymphocytes % (A) 2 %; MCH 32.7 pg (25.0-35.0); MCHC 35.3 g/dL (31.0-37.0); MCV 92.5 fL (80.0-100.0); Mean Platelet Volume 7.8; Monocytes # (A) 0.2 k/uL (0-1.0); Monocytes % (A) 2 %; Neutrophils # (A) 13.1 k/uL (1.3-7.7); Neutrophils % (A) 95 %; Platelet Count 290 k/uL (150-450); RBC 3.22 m/uL (4.30-5.90); RDW 14.2 % (11.5-15.5); WBC 13.8 k/uL (3.8-10.6)
[2020-11-28 23:09] LABS: Partial Thromboplastin Time 22.5 sec (22.0-30.0); Prothrombin Time 10.7 sec (9.0-12.0)
[2020-11-28 23:12] LABS: D-Dimer 28.99 mg/L FEU (<0.60)
[2020-11-28 23:13] LABS: Albumin 2.7 g/dL (3.5-5.0); C Reactive Protein 5.9 mg/dL (<1.0); Calcium 8.3 mg/dL (8.4-10.2); Magnesium 1.7 mg/dL (1.6-2.3); Potassium 4.1 mmol/L (3.5-5.1); Total Bilirubin 1.5 mg/dL (0.2-1.3); Total Protein 5.2 g/dL (6.3-8.2)
--- NOTE | 2020-11-28 23:57 | ED ---
SOB HPI - General Chief Complaint: Shortness of Breath Stated Complaint: KATELYN Time Seen by Provider: 11/28/20 21:45 Source: patient, EMS Mode of arrival: EMS Limitations: no limitations - History of Present Illness Initial Comments: Patient is an 79 male with past history of CVA, COPD, A. fib who presents to the emergency department with worsening shortness of breath. Patient was seen and diagnosed with Covid on the . He was hospitalized through the . Patient then discharged to rehab. He has been home rehab past 2 days. Son states that he has been getting worse at home. EMS found the patient to have Rales at the bases. Saturations were in the 80s. He denies any chest pain. No nausea, vomiting or diarrhea. The HPI is limited because the patient's current mentation - Related Data Home Medications Medication Instructions Recorded Confirmed Citalopram Hydrobromide [CeleXA] 40 mg PO DAILY 03/09/16 12/10/20 Carbidopa-Levodopa ER 50-200Mg 1 tab PO BID@0700,1600 03/22/18 12/10/20 [Sinemet CR 50-200 mg] Omeprazole 20 mg PO HS@199903/22/18 12/10/20 Folic Acid 1 mg PO DAILY 04/27/19 12/10/20 Acetaminophen [Tylenol Arthritis] 650 mg PO Q6H PRN 12/10/20 12/10/20 Aspirin 81 mg PO DAILY 12/10/20 12/10/20 Insulin Aspart [NovoLOG Flexpen] See Protocol SQ ACHS 12/10/20 12/10/20 Oxybutynin Chloride [Oxybutynin 10 mg PO DAILY 12/10/20 12/10/20 Chloride ER] Pramipexole [Mirapex] 1 mg PO HS@199912/10/20 12/10/20 Pregabalin [Lyrica] 75 mg PO BID@0700,1600 12/10/20 12/10/20 Previous Rx's Medication Instructions Recorded Ascorbic Acid [Vitamin C] 500 mg PO BID tab 12/02/20 Atorvastatin [Lipitor] 40 mg PO HS tab 12/02/20 Tamsulosin [Flomax] 0.4 mg PO DAILY cap.er.24h 12/02/20 Tiotropium 2.5 Mcg/Puff [Spiriva 2 puff INHALATION RT-DAILY puff 12/02/20 Respimat 2.5 Mcg] Zinc Sulfate [Orazinc] 220 mg PO DAILY cap 12/02/20 Hydrocortisone [Cortef] 100 mg PO BID #20 tab 12/12/20 Allergies Allergy/AdvReac Type Severity Reaction Status Date / Time No Known Allergies Allergy Verified 12/10/20 15:49 Review of Systems ROS Statement: Those systems with pertinent positive or pertinent negative responses have been documented in the HPI. ROS Other: All systems not noted in ROS Statement are negative. Past Medical History Past Medical History: Atrial Fibrillation, COPD, CVA/TIA, Hyperlipidemia, Hypertension, Musculoskeletal Disorder, Neurologic Disorder, Osteoarthritis (OA) , Pneumonia, Sleep Apnea/CPAP/BIPAP Additional Past Medical History / Comment(s): Pt tested covid + 11/16/20 [facility] ER. Other hx: Bronchitis, KATHYA with Cpap use, pt states he thinks he may have been told he had a small [place] many years ago, parkinson's dx, CVA with dysarthria, TI A, RLS, chronic cervical and lumbar back pain, overactive bladder. Last Myocardial Infarction Date:: 2009 History of Any Multi-Drug Resistant Organisms: None Reported Past Surgical History: Adenoidectomy, Back Surgery, Heart Catheterization, Tonsillectomy Additional Past Surgical History / Comment(s): Neurostimulator, cervical fusion, low back surgery, nasal surgery, bilateral blepharoplasty, bilateral cataract removals Past Anesthesia/Blood Transfusion Reactions: No Reported Reaction Past Psychological History: Depression Smoking Status: Former smoker - Past Family History Father Family Medical History: COPD Mother Family Medical History: Dementia General Exam Limitations: altered mental status General appearance: alert Head exam: Present: atraumatic, normocephalic, normal inspection Eye exam: Present: normal appearance, PERRL, EOMI. Absent: scleral icterus, conjunctival injection, periorbital swelling ENT exam: Present: normal exam, mucous membranes dry Neck exam: Present: normal inspection. Absent: tenderness, meningismus, lymphadenopathy Respiratory exam: Present: rales. Absent: respiratory distress, wheezes, rhonchi, stridor Cardiovascular Exam: Present: regular rate, normal rhythm, normal heart sounds. Absent: systolic murmur, diastolic murmur, rubs, gallop, clicks GI/Abdominal exam: Present: soft, normal bowel sounds. Absent: distended, tenderness, guarding, rebound, rigid Extremities exam: Present: normal inspection, full ROM, normal capillary refill. Absent: tenderness, pedal edema, joint swelling, calf tenderness Back exam: Present: normal inspection Neurological exam: Present: alert, oriented X3, CN II-XII intact Psychiatric exam: Present: normal affect, normal mood Skin exam: Present: warm, dry, intact, normal color. Absent: rash Course Vital Signs 11/28/20 11/28/20 11/29/20 21:46 21:50 00:42 Temperature 99.7 F H 98 F Pulse Rate 79 75 Respiratory 18 18 18 Rate Blood Pressure 106/62 119/68 O2 Sat by Pulse 95 98 Oximetry Medical Decision Making - Medical Decision Making Upon arrival the patient was placed into room 21. History and physical exam is performed. Patient does arrive with a low-grade fever. Saturations are 95% on 3 L. Laboratory studies were conducted. D-dimer elevated at 28.99. Lactic acid 4.2. Troponin is 0.038. Chest x-ray demonstrates interstitial pulmonary infiltrates which are new compared to old exam. Patient sent for CT of his chest which demonstraes no pe. patient will be admitted. - Lab Data Result diagrams: 12/01/20 09:29 12/01/20 09:29 Lab Results 11/28/20 11/28/20 11/28/20 Range/Units 21:57 21:57 21:57 WBC 13.8 H (3.8-10.6) k/uL RBC 3.22 L (4.30-5.90) m/uL Hgb 10.5 L (13.0-17.5) gm/dL Hct 29.8 L (39.0-53.0) % MCV 92.5 (80.0-100.0) fL MCH 32.7 (25.0-35.0) pg MCHC 35.3 (31.0-37.0) g/dL RDW 14.2 (11.5-15.5) % Plt Count 290 (150-450) k/uL MPV 7.8 Neutrophils % 95 % Lymphocytes % 2 % Monocytes % 2 % Eosinophils % 0 % Basophils % 0 % Neutrophils # 13.1 H (1.3-7.7) k/uL Lymphocytes # 0.3 L (1.0-4.8) k/uL Monocytes # 0.2 (0-1.0) k/uL Eosinophils # 0.1 (0-0.7) k/uL Basophils # 0.0 (0-0.2) k/uL PT 10.7 (9.0-12.0) sec INR 1.0 (<1.2) APTT 22.5 (22.0-30.0) sec D-Dimer 28.99 H (<0.60) mg/L FEU Sodium 135 L (137-145) mmol/L Potassium 4.1 (3.5-5.1) mmol/L Chloride 103 (98-107) mmol/L Carbon Dioxide 24 (22-30) mmol/L Anion Gap 8 mmol/L BUN 48 H (9-20) mg/dL Creatinine 1.26 H (0.66-1.25) mg/dL Est GFR (CKD-EPI)AfAm 61 (>60 ml/min/1.73 sqM) Est GFR (CKD-EPI)NonAf 53 (>60 ml/min/1.73 sqM) Glucose 94 (74-99) mg/dL Lactic Ac Sepsis Rflx Plasma Lactic Acid Marc (0.7-2.0) mmol/L Calcium 8.3 L (8.4-10.2) mg/dL Magnesium 1.7 (1.6-2.3) mg/dL Total Bilirubin 1.5 H (0.2-1.3) mg/dL AST 97 H (17-59) U/L ALT 30 (4-49) U/L Alkaline Phosphatase 87 (38-126) U/L Lactate Dehydrogenase 1276 H (313-618) U/L Troponin I (0.000-0.034) ng/mL C-Reactive Protein 5.9 H (<1.0) mg/dL NT-Pro-B Natriuret Pep pg/mL Total Protein 5.2 L (6.3-8.2) g/dL Albumin 2.7 L (3.5-5.0) g/dL Procalcitonin (0.02-0.09) ng/mL 11/28/20 11/28/20 11/28/20 Range/Units 21:57 21:57 21:57 WBC (3.8-10.6) k/uL RBC (4.30-5.90) m/uL Hgb (13.0-17.5) gm/dL Hct (39.0-53.0) % MCV (80.0-100.0) fL MCH (25.0-35.0) pg MCHC (31.0-37.0) g/dL RDW (11.5-15.5) % Plt Count (150-450) k/uL MPV Neutrophils % % Lymphocytes % % Monocytes % % Eosinophils % % Basophils % % Neutrophils # (1.3-7.7) k/uL Lymphocytes # (1.0-4.8) k/uL Monocytes # (0-1.0) k/uL Eosinophils # (0-0.7) k/uL Basophils # (0-0.2) k/uL PT (9.0-12.0) sec INR (<1.2) APTT (22.0-30.0) sec D-Dimer (<0.60) mg/L FEU Sodium (137-145) mmol/L Potassium (3.5-5.1) mmol/L Chloride (98-107) mmol/L Carbon Dioxide (22-30) mmol/L Anion Gap mmol/L BUN (9-20) mg/dL Creatinine (0.66-1.25) mg/dL Est GFR (CKD-EPI)AfAm (>60 ml/min/1.73 sqM) Est GFR (CKD-EPI)NonAf (>60 ml/min/1.73 sqM) Glucose (74-99) mg/dL Lactic Ac Sepsis Rflx Plasma Lactic Acid Marc 4.2 H* (0.7-2.0) mmol/L Calcium (8.4-10.2) mg/dL Magnesium (1.6-2.3) mg/dL Total Bilirubin (0.2-1.3) mg/dL AST (17-59) U/L ALT (4-49) U/L Alkaline Phosphatase (38-126) U/L Lactate Dehydrogenase (313-618) U/L Troponin I 0.038 H* (0.000-0.034) ng/mL C-Reactive Protein (<1.0) mg/dL NT-Pro-B Natriuret Pep pg/mL Total Protein (6.3-8.2) g/dL Albumin (3.5-5.0) g/dL Procalcitonin 1.26 H (0.02-0.09) ng/mL 11/28/20 11/28/20 Range/Units 21:57 23:17 WBC (3.8-10.6) k/uL RBC (4.30-5.90) m/uL Hgb (13.0-17.5) gm/dL Hct (39.0-53.0) % MCV (80.0-100.0) fL MCH (25.0-35.0) pg MCHC (31.0-37.0) g/dL RDW (11.5-15.5) % Plt Count (150-450) k/uL MPV Neutrophils % % Lymphocytes % % Monocytes % % Eosinophils % % Basophils % % Neutrophils # (1.3-7.7) k/uL Lymphocytes # (1.0-4.8) k/uL Monocytes # (0-1.0) k/uL Eosinophils # (0-0.7) k/uL Basophils # (0-0.2) k/uL PT (9.0-12.0) sec INR (<1.2) APTT (22.0-30.0) sec D-Dimer (<0.60) mg/L FEU Sodium (137-145) mmol/L Potassium (3.5-5.1) mmol/L Chloride (98-107) mmol/L Carbon Dioxide (22-30) mmol/L Anion Gap mmol/L BUN (9-20) mg/dL Creatinine (0.66-1.25) mg/dL Est GFR (CKD-EPI)AfAm (>60 ml/min/1.73 sqM) Est GFR (CKD-EPI)NonAf (>60 ml/min/1.73 sqM) Glucose (74-99) mg/dL Lactic Ac Sepsis Rflx Y Plasma Lactic Acid Marc (0.7-2.0) mmol/L Calcium (8.4-10.2) mg/dL Magnesium (1.6-2.3) mg/dL Total Bilirubin (0.2-1.3) mg/dL AST (17-59) U/L ALT (4-49) U/L Alkaline Phosphatase (38-126) U/L Lactate Dehydrogenase (313-618) U/L Troponin I (0.000-0.034) ng/mL C-Reactive Protein (<1.0) mg/dL NT-Pro-B Natriuret Pep 487 pg/mL Total Protein (6.3-8.2) g/dL Albumin (3.5-5.0) g/dL Procalcitonin (0.02-0.09) ng/mL - EKG Data EKG Comments: EKG demonstrates normal sinus rhythm with a ventricular rate of 77. GA interval 70. QRS 144. QTC of 518. Right bundle branch block. No acute ST segment elevations Disposition Clinical Impression: Pneumonia due to COVID-19 virus, COVID-19, Dyspnea, Elevated d-dimer, NSTEMI (non-ST elevated myocardial infarction) Disposition: ADMITTED IP TO THIS HOSP Condition: Stable Is patient prescribed a controlled substance at d/c from ED?: No Decision to Admit Reason: Admit from EC Decision Date: 11/29/20 Decision Time: 00:05
[2020-11-29] MEDS ORDERED: NALOXONE 0.4 MG/ML 1 ML VIAL IV PRN (00:05)
[2020-11-29] MEDS ORDERED: ACETAMINOPHEN TAB 325 MG TAB PO PRN (00:05)
[2020-11-29] MEDS ORDERED: PIPERACILLIN-TAZOBACTAM 3.375 GM in SODIUM CHLORIDE 0.9% 100 ML IVPB ONE (00:15)
--- NOTE | 2020-11-29 00:22 | CT ---
EXAMINATION TYPE: CT chest angio for PE DATE OF EXAM: 11/29/2020 COMPARISON: 11/17/2020 HISTORY: SOB CT DLP: 757.4 mGycm Automated exposure control for dose reduction was used. CONTRAST: Performed with IV Contrast, patient injected with 80 mL of Isovue 370. Images were obtained from the thoracic inlet to the diaphragm with IV contrast. There are 3D post pro cessed images. FINDINGS: There is patchy reticular and nodular infiltrates throughout both lungs. There is some coalescent per ipheral pulmonary densities up to 3 cm. There is no pleural effusion. There is no pericardial effusio n. There are no hilar masses. There is no mediastinal adenopathy. Thoracic aorta shows no aneurysm or dissection. There is no evidence of filling defect in the pulmonary arteries. The thoracic spine is intact. There is no compression fracture. There is degenerative spurring throughout the thoracic spine. Sternum is intact. Upper abdominal soft tissues are intact. IMPRESSION: Bilateral extensive interstitial and nodular pulmonary infiltrates are increased compared to recent e xam and consistent with progression of pneumonia. No evidence of pulmonary embolism. No pleural fluid seen to suggest heart failure.
[2020-11-29 06:21] LABS: Glucose,Whole Blood 152 mg/dL (75-99)
[2020-11-29] MEDS: INSULIN ASPART (NovoLOG) 100 UNIT/ML VIAL SQ SCH ×4 (06:28→21:21)
[2020-11-29] MEDS ORDERED: IPRATROPIUM 0.5 MG/2.5 ML NEBU INHALATION SCH (08:00)
[2020-11-29] MEDS: ASPIRIN 81 MG PO SCH (08:27)
[2020-11-29] MEDS: DEXAMETHASONE SOD PHOSPHATE 10 MG/ML 1 ML VIAL IV SCH (08:27)
[2020-11-29] MEDS: PANTOPRAZOLE 40 MG TABLET PO SCH (08:27)
[2020-11-29] MEDS: TROSPIUM CHLORIDE 20 MG TABLET PO SCH ×2 (08:27→21:20)
[2020-11-29] MEDS: ASCORBIC ACID 500 MG TAB PO SCH ×2 (08:28→21:20)
[2020-11-29] MEDS: PREGABALIN 75 MG CAP PO SCH ×2 (08:28→21:20)
[2020-11-29] MEDS: TAMSULOSIN 0.4 MG CAP.ER.24H PO SCH (08:28)
[2020-11-29] MEDS: FOLIC ACID 1 MG TAB PO SCH (08:28)
[2020-11-29] MEDS: CITALOPRAM HYDROBROMIDE 20 MG TAB PO SCH (08:28)
[2020-11-29] MEDS: LOSARTAN 50 MG TAB PO SCH (08:28)
[2020-11-29] MEDS: CARBIDOPA-LEVODOPA ER 50-200MG 1 EACH TABLET.ER PO SCH ×2 (08:28→21:20)
[2020-11-29] MEDS: ZINC SULFATE 220 MG CAP PO SCH (08:28)
[2020-11-29] MEDS: PIPERACILLIN-TAZOBACTAM 3.375 GM in SODIUM CHLORIDE 0.9% 100 ML IVPB SCH ×3 (08:28→23:12)
[2020-11-29] MEDS ORDERED: PROPAFENONE 150 MG TAB PO SCH (09:00)
[2020-11-29 11:50] LABS: Glucose,Whole Blood 153 mg/dL (75-99)
--- NOTE | 2020-11-29 11:55 | P.CNPUL ---
History of Present Illness Consult date: 11/29/20 Reason for consult: dyspnea History of present illness: 79-year-old male patient presented to the emergency with worsening shortness of breath. The patient was hospitalized for COVID-19 related pneumonia. The patient apparently has been having increased dyspnea and the patient was diagnosed having COVID-19 infection on 11/16/2020. She was hospitalized on 11/20/2020 and during an earlier hospitalization the patient was treated with a combination of steroids and Remdesivir and the patient was discharged to rehabilitation. The patient has been in rehab for around 2 days and the patient got worse and he came back to the hospital. A chest x-ray was done that showed interstitial pulmonary infiltrates bilaterally, not significantly changed compared to the earlier chest x-ray on 11/17/2020. CT angiogram was also done and it showed extensive bilateral interstitial another ulnar infiltrates which have increased compared to the earlier evaluation of the CAT scan from 11/17/2020. No evidence of any pulmonary embolism. No pleural effusion. The patient is currently on 3 L of oxygen by nasal cannula with a pulse ox of 97%. The patient is afebrile. Breathing is nonlabored. The the cause of 13.8 with hemoglobin of 10.5. He continues to have some lymphopenia. D-dimer is at 28.9, creatinine was 1.2, lactic acid level was 4.2 at time of admission is currently down to 1.6, troponins are 0.03 and 0.04 respectively 2, LDH level is at 1276, CRP level is at 5.9, proBNP level is 487. Review of Systems HEENT: No recent visual problems or hearing problems. Denied any sore throat. CARDIOVASCULAR: No chest pain, orthopnea, PND, no palpitations, no syncope. PULMONARY: As mentioned in HPI GASTROINTESTINAL: No diarrhea, no nausea, no vomiting, no abdominal pain. NEUROLOGICAL: No headaches, no weakness, no numbness. HEMATOLOGICAL: Denies any bleeding or petechiae. GENITOURINARY: Denies any burning micturition, frequency, or urgency. MUSCULOSKELETAL/RHEUMATOLOGICAL: Denies any joint pain, swelling, or any muscle pain. ENDOCRINE: Denies any polyuria or polydipsia. The rest of the 14-point review of systems is negative. Past Medical History Past Medical History: Atrial Fibrillation, COPD, CVA/TIA, Hyperlipidemia, Hypertension, Musculoskeletal Disorder, Neurologic Disorder, Osteoarthritis (OA), Pneumonia, Sleep Apnea/CPAP/BIPAP Additional Past Medical History / Comment(s): Pt tested covid + 11/16/20 [facility] ER. Other hx: Bronchitis, KATHYA with Cpap use, pt states he thinks he may have been told he had a small [place] many years ago, parkinson's dx, CVA with dysarthria, TIA, RLS, chronic cervical and lumbar back pain, overactive bladder. Last Myocardial Infarction Date:: 2009 History of Any Multi-Drug Resistant Organisms: None Reported Past Surgical History: Adenoidectomy, Back Surgery, Heart Catheterization, Tonsillectomy Additional Past Surgical History / Comment(s): Neurostimulator, cervical fusion, low back surgery, nasal surgery, bilateral blepharoplasty, bilateral cataract removals Past Anesthesia/Blood Transfusion Reactions: No Reported Reaction Past Psychological History: Depression Additional Psychological History / Comment(s): He uses a walker, cane or hover round. He is independent with his adls. He manages his own medications, they come in little envelopes. Smoking Status: Former smoker Past Alcohol Use History: None Reported Additional Past Alcohol Use History / Comment(s): Pt started smoking at age 13(1954) and quit 1989 was smoking 1.5 ppd Past Drug Use History: None Reported - Past Family History Father Family Medical History: COPD Mother Family Medical History: Dementia Medications and Allergies Home Medications Medication Instructions Recorded Confirmed Type Citalopram Hydrobromide [CeleXA] 40 mg PO DAILY 03/09/16 11/29/20 History Carbidopa-Levodopa ER 50-200Mg 1 tab PO BID 03/22/18 11/29/20 History [Sinemet CR 50-200 mg] Omeprazole 20 mg PO DAILY 03/22/18 11/29/20 History Folic Acid 1 mg PO DAILY 04/27/19 11/29/20 History Aspirin EC [Ecotrin Low Dose] 81 mg PO DAILY 05/24/19 11/29/20 History Losartan [Cozaar] 50 mg PO DAILY 11/16/20 11/29/20 History amLODIPine [Norvasc] 5 mg PO DAILY 11/29/20 11/29/20 History Allergies Allergy/AdvReac Type Severity Reaction Status Date / Time No Known Allergies Allergy Verified 11/29/20 09:04 Physical Exam Vitals: Vital Signs Temp Pulse Pulse Resp BP BP Pulse Ox 11/29/20 08:00 98.7 F 70 18 138/70 97 11/29/20 04:29 97.8 F 76 17 141/68 96 11/29/20 04:00 18 141/68 11/29/20 02:00 76 18 11/29/20 01:47 98.2 F 76 18 122/69 97 11/29/20 00:42 98 F 75 18 119/68 98 11/28/20 21:50 18 11/28/20 21:46 99.7 F H 79 18 106/62 95 Intake and Output 11/28/20 11/29/20 11/29/20 22:59 06:59 14:59 Intake Total 260 Output Total 1000 Balance -1000 260 Intake: Oral 260 Output: Urine 1000 Other: Weight 104.78 kg 101.5 kg GENERAL: The patient is alert and oriented x3, not in any acute distress. Well developed, well nourished. HEENT: Pupils are round and equally reacting to light. EOMI. No scleral icterus. No conjunctival pallor. Normocephalic, atraumatic. No pharyngeal erythema. No thyromegaly. CARDIOVASCULAR: S1 and S2 present. No murmurs, rubs, or gallops. PULMONARY: Chest is clear to auscultation, no wheezing or crackles. ABDOMEN: Soft, nontender, nondistended, normoactive bowel sounds. No palpable organomegaly. MUSCULOSKELETAL: No joint swelling or deformity. EXTREMITIES: No cyanosis, clubbing, or pedal edema. NEUROLOGICAL: Gross neurological examination did not reveal any focal deficits. SKIN: No rashes. Results - Laboratory Findings CBC and BMP: 11/28/20 21:57 11/28/20 21:57 PT/INR, D-dimer PT 10.7 sec (9.0-12.0) 11/28/20 21:57 INR 1.0 (<1.2) 11/28/20 21:57 D-Dimer 28.99 mg/L FEU (<0.60) H 11/28/20 21:57 Abnormal lab findings: Abnormal Labs 11/28/20 11/28/20 11/28/20 21:57 21:57 21:57 WBC 13.8 H RBC 3.22 L Hgb 10.5 L Hct 29.8 L Neutrophils # 13.1 H Lymphocytes # 0.3 L D-Dimer 28.99 H Sodium 135 L BUN 48 H Creatinine 1.26 H POC Glucose (mg/dL) Plasma Lactic Acid Marc Calcium 8.3 L Total Bilirubin 1.5 H AST 97 H Lactate Dehydrogenase 1276 H Troponin I C-Reactive Protein 5.9 H Total Protein 5.2 L Albumin 2.7 L 11/28/20 11/28/20 11/29/20 21:57 21:57 01:24 WBC RBC Hgb Hct Neutrophils # Lymphocytes # D-Dimer Sodium BUN Creatinine POC Glucose (mg/dL) Plasma Lactic Acid Marc 4.2 H* Calcium Total Bilirubin AST Lactate Dehydrogenase Troponin I 0.038 H* 0.053 H* C-Reactive Protein Total Protein Albumin 11/29/20 11/29/20 11/29/20 01:24 03:53 06:19 WBC RBC Hgb Hct Neutrophils # Lymphocytes # D-Dimer Sodium BUN Creatinine POC Glucose (mg/dL) 152 H Plasma Lactic Acid Marc 2.3 H* Calcium Total Bilirubin AST Lactate Dehydrogenase Troponin I 0.044 H* C-Reactive Protein Total Protein Albumin - Diagnostic Findings Chest x-ray: image reviewed CT scan - chest: image reviewed Assessment and Plan Plan: 1 acute hypoxic respiratory secondary to covid 19 pneumonia. The patient was hospitalized back in 11/17/2020 and the patient was treated with a combination of Decadron and Remdesivir was discharged to the [facility] and he claims that he was not given oxygen. His oxygenation changed. His LDH level is slightly higher. Nevertheless, he had a chest x-ray that was stable and based on my review of the CAT scan of the chest, denies any interval worsening of his interstitial pulmonary infiltrates. To my judgment, the COVID-19 related pneumonia is rather stable and this patient. He progressively weaned off the oxygen, currently on 3 L 2 chronic atrial fibrillation, paroxysmal 3 acute kidney injury, likely secondary to intravascular volume depletion/dehydration 4 lactic acidosis, improving 6 troponin leak 7 hypertension 8 hyperlipidemia 9 obstructive sleep apnea 10 COPD 11 Parkinson's disease 12. Depression Plan The patient is breathing is nonlabored. Currently is on 3 by nasal cannula. His pulse ox is 97%. Should be able to wean off The FiO2 to maintain a saturation above 90% Check pro calcitonin level No signs of any acute infection the patient's family taken off the Zosyn We'll give the patient another dose of Decadron 6 mg on a daily basis IV Monitor inflammatory markers Cardiology to comment on her troponin leak Check urinalysis make sure the patient is not infected Lovenox for DVT prophylaxis Provide an incentive spirometer We'll see him on an as-needed basis
[2020-11-29] MEDS: ENOXAPARIN 40 MG/0.4 ML SYRINGE SQ SCH (12:03)
--- NOTE | 2020-11-29 12:30 | CONS ---
CONSULTATION Mr. Batista is an 79-year-old male who was admitted yesterday through the emergency room with symptoms of progressive dyspnea. The patient was diagnosed was Covid 19 pneumonia recently and apparently became more short of breath. He is not quite sure why he is back. Cardiology consultation was requested because of troponin elevation. Patient reviewing the record has a prior history of paroxysmal atrial fibrillation, has been in sinus mechanism. He has not been anticoagulated because of prior history of intracranial bleed. He has been maintained on Propafenone and he is in sinus mechanism at the time of presentation. He has no chest discomfort. He has been short of breath, but feels better according to him. He denies any dizziness or palpitation. He denies any PND, orthopnea. He has no significant peripheral edema. On presentation, his troponin was mildly elevated at 0.053 and 0.044 and 0.038. His coronary risk factors are remarkable for the history of hypertension. He is a nonsmoker, nondiabetic. His lipid profile is not available. MEDICATIONS: His medications include aspirin, amlodipine 5 mg daily, Lipitor 40 mg daily, Sinemet, Propafenone 150 mg daily, tamsulosin, folic acid, Mirapex, Cozaar 50 mg daily, Lyrica. REVIEW OF SYSTEMS: Respiratory system: He has dyspnea on exertion, the cough. GI system: No recent GI bleeding. No peptic ulcer disease. system: No dysuria or hematuria. Nervous system: He has intracranial bleed in the past. PHYSICAL EXAMINATION: He is an 79-year-old male, alert, no apparent distress. Blood pressure 138/70 with a heart rate in the 70s. HEAD: Normocephalic. Eyes: Sclerae anicteric. NECK: Good carotid upstroke. No bruit. LUNGS are a few crackles at the bases. HEART: Regular rate and rhythm. S1, S2. No S3 with a systolic murmur at the base. No diastolic murmur. No rub. ABDOMEN: Soft, nontender. EXTREMITIES: Trace edema. LAB DATA: Lab data revealed a hemoglobin of 10.5, white blood cells 13.8, which is worse than it was when he was here in the hospital. His BUN and creatinine 48 and 1.26, which is up. His troponin 0.038, 0.053 and 0.044. His LDH is 1276. NT proBNP is 487. His EKG revealed a sinus mechanism, rate of 77 with right bundle branch block. His chest CT angiogram revealed bilateral extensive interstitial nodular pulmonary infiltrates increased compared to the prior examination. IMPRESSION: 1. Covid 19 infection with recurrent dyspnea related to the recent infection. 2. Mild troponin elevation related to the Covid 19 infection. There is no evidence to suggest myocardial infarction. 3. History of paroxysmal fibrillation, not anticoagulated because of prior history of intracranial bleed. 4. History of Parkinson's. 5. History of hypertension. RECOMMENDATION: From the cardiac standpoint, we will continue present therapy. The troponin elevation does not represent an acute cardiac event. I will obtain echocardiogram with Doppler to evaluate left ventricular systolic function and depending on his progress, further recommendation will be made. Thank you for this consult. We will follow with you. SENAL / IJN: [id number] /
[2020-11-29] MEDS: TIOTROPIUM 2.5 MCG INHALER INHALATION SCH (12:37)
[2020-11-29] MEDS: PROPAFENONE 150 MG TAB PO SCH ×2 (15:21→23:13)
[2020-11-29 16:33] LABS: Glucose,Whole Blood 133 mg/dL (75-99)
--- NOTE | 2020-11-29 16:42 | P.HPIM ---
History of Present Illness H&P Date: 11/29/20 Chief Complaint: Shortness of breath 79 male with past history of CVA, COPD, A. fib who presents to the emergency department with worsening shortness of breath. Patient was seen and diagnosed with Covid on the fifth. He was hospitalized a the ninth. Patient then discharged to rehab. He has been home rehab past 2 days. Son states that he has been getting worse at home. EMS found the patient to have Rales at the bases. Saturations were in the 80s. He denies any chest pain. No nausea, vomiting or diarrhea. The HPI is limited because the patient's current mentati on Patient does arrive with a low-grade fever. Saturations are 95% on 3 L. Laboratory studies were conducted. D-dimer elevated at 28.99. Lactic acid 4.2. Troponin is 0.038. Chest x-ray demonstrates interstitial pulmonary infiltrates which are compared to old exam. CT chest done in ED which was negative for PE Review of Systems REVIEW OF SYSTEMS: CONSTITUTIONAL: No fever, no malaise, no fatigue. HEENT: No recent visual problems or hearing problems. Denied any sore throat. CARDIOVASCULAR: No chest pain, orthopnea, PND, no palpitations, no syncope. PULMONARY: No shortness of breath, no cough, no hemoptysis. GASTROINTESTINAL: No diarrhea, no nausea, no vomiting, no abdominal pain. NEUROLOGICAL: No headaches, no weakness, no numbness. HEMATOLOGICAL: Denies any bleeding or petechiae. GENITOURINARY: Denies any burning micturition, frequency, or urgency. MUSCULOSKELETAL/RHEUMATOLOGICAL: Denies any joint pain, swelling, or any muscle pain. ENDOCRINE: Denies any polyuria or polydipsia. The rest of the 14-point review of systems is negative. Past Medical History Past Medical History: Atrial Fibrillation, COPD, CVA/TIA, Hyperlipidemia, Hypertension, Musculoskeletal Disorder, Neurologic Disorder, Osteoarthritis (OA), Pneumonia, Sleep Apnea/CPAP/BIPAP Additional Past Medical History / Comment(s): Pt tested covid + 11/16/20 [facility] ER. Other hx: Bronchitis, KATHYA with Cpap use, pt states he thinks he may have been told he had a small NV many years ago, parkinson's dx, CVA with dysarthria, TIA, RLS, chronic cervical and lumbar back pain, overactive bladder. Last Myocardial Infarction Date:: 2009 History of Any Multi-Drug Resistant Organisms: None Reported Past Surgical History: Adenoidectomy, Back Surgery, Heart Catheterization, Tonsillectomy Additional Past Surgical History / Comment(s): Neurostimulator, cervical fusion, low back surgery, nasal surgery, bilateral blepharoplasty, bilateral cataract removals Past Anesthesia/Blood Transfusion Reactions: No Reported Reaction Past Psychological History: Depression Additional Psychological History / Comment(s): He uses a walker, cane or hover round. He is independent with his adls. He manages his own medications, they come in little envelopes. Smoking Status: Former smoker Past Alcohol Use History: None Reported Additional Past Alcohol Use History / Comment(s): Pt started smoking at age 13(1954) and quit 1989 was smoking 1.5 ppd Past Drug Use History: None Reported - Past Family History Father Family Medical History: COPD Mother Family Medical History: Dementia Medications and Allergies Home Medications Medication Instructions Recorded Confirmed Type Citalopram Hydrobromide [CeleXA] 40 mg PO DAILY 03/09/16 11/29/20 History Carbidopa-Levodopa ER 50-200Mg 1 tab PO BID 03/22/18 11/29/20 History [Sinemet CR 50-200 mg] Omeprazole 20 mg PO DAILY 03/22/18 11/29/20 History Folic Acid 1 mg PO DAILY 04/27/19 11/29/20 History Aspirin EC [Ecotrin Low Dose] 81 mg PO DAILY 05/24/19 11/29/20 History Losartan [Cozaar] 50 mg PO DAILY 11/16/20 11/29/20 History amLODIPine [Norvasc] 5 mg PO DAILY 11/29/20 11/29/20 History Allergies Allergy/AdvReac Type Severity Reaction Status Date / Time No Known Allergies Allergy Verified 11/29/20 09:04 Physical Exam Vitals: Vital Signs Temp Pulse Pulse Resp BP BP Pulse Ox 11/29/20 08:00 98.7 F 70 18 138/70 97 11/29/20 04:29 97.8 F 76 17 141/68 96 11/29/20 04:00 18 141/68 11/29/20 02:00 76 18 11/29/20 01:47 98.2 F 76 18 122/69 97 11/29/20 00:42 98 F 75 18 119/68 98 11/28/20 21:50 18 11/28/20 21:46 99.7 F H 79 18 106/62 95 Intake and Output 11/28/20 11/29/20 11/29/20 22:59 06:59 14:59 Intake Total 260 Output Total 1000 Balance -1000 260 Intake: Oral 260 Output: Urine 1000 Other: Weight 104.78 kg 101.5 kg GENERAL: The patient is alert and oriented x3, not in any acute distress. Well developed, well nourished. HEENT: Pupils are round and equally reacting to light. EOMI. No scleral icterus. No conjunctival pallor. Normocephalic, atraumatic. No pharyngeal erythema. No thyromegaly. CARDIOVASCULAR: S1 and S2 present. No murmurs, rubs, or gallops. PULMONARY: Chest is clear to auscultation, no wheezing or crackles. ABDOMEN: Soft, nontender, nondistended, normoactive bowel sounds. No palpable organomegaly. MUSCULOSKELETAL: No joint swelling or deformity. EXTREMITIES: No cyanosis, clubbing, or pedal edema. NEUROLOGICAL: Gross neurological examination did not reveal any focal deficits. Results CBC & Chem 7: 11/28/20 21:57 11/28/20 21:57 Labs: Abnormal Lab Results - Last 24 Hours (Table) 11/28/20 11/28/20 11/28/20 Range/Units 21:57 21:57 21:57 WBC 13.8 H (3.8-10.6) k/uL RBC 3.22 L (4.30-5.90) m/uL Hgb 10.5 L (13.0-17.5) gm/dL Hct 29.8 L (39.0-53.0) % Neutrophils # 13.1 H (1.3-7.7) k/uL Lymphocytes # 0.3 L (1.0-4.8) k/uL D-Dimer 28.99 H (<0.60) mg/L FEU Sodium 135 L (137-145) mmol/L BUN 48 H (9-20) mg/dL Creatinine 1.26 H (0.66-1.25) mg/dL POC Glucose (mg/dL) (75-99) mg/dL Plasma Lactic Acid Marc (0.7-2.0) mmol/L Calcium 8.3 L (8.4-10.2) mg/dL Total Bilirubin 1.5 H (0.2-1.3) mg/dL AST 97 H (17-59) U/L Lactate Dehydrogenase 1276 H (313-618) U/L Troponin I (0.000-0.034) ng/mL C-Reactive Protein 5.9 H (<1.0) mg/dL Total Protein 5.2 L (6.3-8.2) g/dL Albumin 2.7 L (3.5-5.0) g/dL 11/28/20 11/28/20 11/29/20 Range/Units 21:57 21:57 01:24 WBC (3.8-10.6) k/uL RBC (4.30-5.90) m/uL Hgb (13.0-17.5) gm/dL Hct (39.0-53.0) % Neutrophils # (1.3-7.7) k/uL Lymphocytes # (1.0-4.8) k/uL D-Dimer (<0.60) mg/L FEU Sodium (137-145) mmol/L BUN (9-20) mg/dL Creatinine (0.66-1.25) mg/dL POC Glucose (mg/dL) (75-99) mg/dL Plasma Lactic Acid Marc 4.2 H* (0.7-2.0) mmol/L Calcium (8.4-10.2) mg/dL Total Bilirubin (0.2-1.3) mg/dL AST (17-59) U/L Lactate Dehydrogenase (313-618) U/L Troponin I 0.038 H* 0.053 H* (0.000-0.034) ng/mL C-Reactive Protein (<1.0) mg/dL Total Protein (6.3-8.2) g/dL Albumin (3.5-5.0) g/dL 11/29/20 11/29/20 11/29/20 Range/Units 01:24 03:53 06:19 WBC (3.8-10.6) k/uL RBC (4.30-5.90) m/uL Hgb (13.0-17.5) gm/dL Hct (39.0-53.0) % Neutrophils # (1.3-7.7) k/uL Lymphocytes # (1.0-4.8) k/uL D-Dimer (<0.60) mg/L FEU Sodium (137-145) mmol/L BUN (9-20) mg/dL Creatinine (0.66-1.25) mg/dL POC Glucose (mg/dL) 152 H (75-99) mg/dL Plasma Lactic Acid Marc 2.3 H* (0.7-2.0) mmol/L Calcium (8.4-10.2) mg/dL Total Bilirubin (0.2-1.3) mg/dL AST (17-59) U/L Lactate Dehydrogenase (313-618) U/L Troponin I 0.044 H* (0.000-0.034) ng/mL C-Reactive Protein (<1.0) mg/dL Total Protein (6.3-8.2) g/dL Albumin (3.5-5.0) g/dL Thrombosis Risk Factor Assmnt - Choose All That Apply Any of the Below Risk Factors Present?: Yes Each Factor Represents 1 point: Abnormal pulmonary function (COPD), Obesity (BMI >25), Serious lung disease incl. pneumonia (< 1month) Other Risk Factors: Yes Each Risk Factor Represents 3 Points: Age 75 years or older Other congenital or acquired thrombophilia - If yes, enter type in comment: No Thrombosis Risk Factor Assessment Total Risk Factor Score: 6 Thrombosis Risk Factor Assessment Level: High Risk Assessment and Plan Assessment: 1. Acute hypoxic respiratory secondary to covid 19 pneumonia - Patient did receive treatment with a combination of Decadron and Remdesivir was discharged to the half-way; patient reports increased oxygen demand at half-way - Lab review reveals LDH slightly higher than previous admission; chest x-ray/CT chest reveals worsening of interstitial pulmonary infiltrates - Patient has been evaluated by pulmonary service and COVID-19 related pneumonia remained stable - Plan is to gradually feeding oxygen off as able keeping O2 saturation above 92% - Patient was started on IV Zosyn in ED for elevated lactic acid level which has since trended down to normal; pulmonary recommending to discontinue Zosyn and monitor pro-calcitonin levels - Decadron 6 mg IV daily; subcu Lovenox; continue with COVID-19 vitamin cocktail 2. Acute renal injury; possible dehydration secondary to poor oral intake - IV fluid hydration with normal saline at rate of 100 mL an hour; we will monitor strict YARELY's, daily weights, renal function and electrolytes; avoid nephrotoxins and hypotension 3. Mild troponin elevation; we will continue to trend troponin; consult cardiology for further evaluation 4. Hypertension; losartan 50 mg daily 5. Hyperlipidemia; Lipitor 40 mg by mouth daily at bedtime 6. COPD; not in exacerbation; Spiriva respimat, 2.5 MCG 2 puffs daily 7. Parkinson's disease; [place] [id number] twice a day 8. Chronic atrial fibrillation; remains rate controlled on Rythmol 150 mg every 8 hours 9. Depression; Celexa 40 mg daily DVT prophylaxis; SCDs/subcu Lovenox CODE STATUS; full code
[2020-11-29 17:00] LABS: Appearance,Urine Cloudy (Clear); Bacteria,Urine Rare /hpf; Bilirubin,Urine Negative (Negative); Blood,Urine Negative (Negative); Color,Urine Yellow; Glucose,Urine (UA) Negative (Negative); Ketones,Urine Negative (Negative); Leukocyte Esterase,Urine Small (Negative); Mucus,Urine Rare /hpf; Nitrite,Urine Negative (Negative); Protein,Urine Negative (Negative); RBC,Urine 4 /hpf (0-5); Specific Gravity,Urine 1.036 (1.001-1.035); Squamous Epithelial Cell,Urine <1 /hpf (0-4); Uric Acid Crystals,Urine Moderate /hpf; Urobilinogen,Urine <2.0 mg/dL (<2.0); WBC,Urine 27 /hpf (0-5)
[2020-11-29 20:49] LABS: Glucose,Whole Blood 142 mg/dL (75-99)
[2020-11-29] MEDS: PRAMIPEXOLE 1 MG TAB PO SCH (21:20)
[2020-11-29] MEDS: ATORVASTATIN 40 MG TAB PO SCH (21:20)
[2020-11-30 06:34] LABS: Glucose,Whole Blood 105 mg/dL (75-99)
[2020-11-30] MEDS: INSULIN ASPART (NovoLOG) 100 UNIT/ML VIAL SQ SCH ×4 (06:40→20:46)
[2020-11-30] MEDS: TIOTROPIUM 2.5 MCG INHALER INHALATION SCH (08:40)
[2020-11-30 08:55] LABS: Basophils % (A) 0 %; Eosinophils % (A) 0 %; HCT 31.1 % (39.0-53.0); Lymphocytes % (A) 7 %; MCH 30.8 pg (25.0-35.0); MCHC 32.2 g/dL (31.0-37.0); MCV 95.5 fL (80.0-100.0); Mean Platelet Volume 7.4; Monocytes # (A) 0.8 k/uL (0-1.0); Monocytes % (A) 6 %; Neutrophils # (A) 11.7 k/uL (1.3-7.7); Neutrophils % (A) 86 %; Platelet Count 260 k/uL (150-450); RBC 3.26 m/uL (4.30-5.90); RDW 14.8 % (11.5-15.5); WBC 13.6 k/uL (3.8-10.6)
[2020-11-30] MEDS: ENOXAPARIN 40 MG/0.4 ML SYRINGE SQ SCH (09:13)
[2020-11-30] MEDS: TAMSULOSIN 0.4 MG CAP.ER.24H PO SCH (09:13)
[2020-11-30 09:14] LABS: Calcium 8.3 mg/dL (8.4-10.2); Potassium 4.2 mmol/L (3.5-5.1)
[2020-11-30] MEDS: TROSPIUM CHLORIDE 20 MG TABLET PO SCH ×2 (09:14→20:45)
[2020-11-30] MEDS: PREGABALIN 75 MG CAP PO SCH ×2 (09:14→20:46)
[2020-11-30] MEDS: CITALOPRAM HYDROBROMIDE 20 MG TAB PO SCH (09:14)
[2020-11-30] MEDS: PANTOPRAZOLE 40 MG TABLET PO SCH (09:14)
[2020-11-30] MEDS: PROPAFENONE 150 MG TAB PO SCH ×3 (09:14→23:48)
[2020-11-30] MEDS: ZINC SULFATE 220 MG CAP PO SCH (09:14)
[2020-11-30] MEDS: ASPIRIN 81 MG PO SCH (09:14)
[2020-11-30] MEDS: LOSARTAN 50 MG TAB PO SCH (09:14)
[2020-11-30] MEDS: CARBIDOPA-LEVODOPA ER 50-200MG 1 EACH TABLET.ER PO SCH ×2 (09:14→20:46)
[2020-11-30] MEDS: ASCORBIC ACID 500 MG TAB PO SCH ×2 (09:15→20:46)
[2020-11-30] MEDS: FOLIC ACID 1 MG TAB PO SCH (09:15)
[2020-11-30] MEDS: PIPERACILLIN-TAZOBACTAM 3.375 GM in SODIUM CHLORIDE 0.9% 100 ML IVPB SCH ×3 (09:15→23:47)
[2020-11-30] MEDS: DEXAMETHASONE SOD PHOSPHATE 10 MG/ML 1 ML VIAL IV SCH (09:16)
[2020-11-30 11:54] LABS: Glucose,Whole Blood 126 mg/dL (75-99)
--- NOTE | 2020-11-30 12:56 | P.PN ---
Subjective Progress Note Date: 11/30/20 HISTORY OF PRESENT ILLNESS: This is an 79-year-old male with history of paroxysmal atrial fibrillation and intracranial hemorrhage. Patient is currently admitted to the hospital secondary to Covid 19. Patient currently denies chest pain or pressure. He is on room air with oxygen saturations greater than 92%. Vital signs are stable. Blood pressure 125/61. Telemetry reveals sinus mechanism with heart rate in the 60s. He is afebrile. PHYSICAL EXAM: VITAL SIGNS: Reviewed. GENERAL: Well-developed in no acute distress. NECK: Supple. No JVD or thyromegaly LUNGS: Respirations even and unlabored. Lungs diminished with faint bibasilar rales. HEART: Regular rate and rhythm. S1 and S2 heard. Systolic murmur noted. EXTREMITIES: Normal range of motion. No clubbing or cyanosis. Peripheral pulses intact. No lower extremity edema ASSESSMENT: Shortness of breath Covid 19 Abnormal troponins, secondary to above, no evidence of ACS History of paroxysmal atrial fibrillation, not on long-term coagulation secondary to history of intracranial bleed History of intracranial bleed Hypertension History of Parkinson's disease PLAN: Continue current cardiac medications: Aspirin 81 mg daily, atorvastatin 40 mg daily, losartan 50 mg daily, and Rythmol 150 mg every 8 hours Echo ordered. Await results Further recommendations pending patient course Nurse practitioner note has been reviewed by physician. Signing provider agrees with the documented findings, assessment, and plan of care. Objective - Vital Signs Vital signs: Vital Signs Temp 97.3 F L 11/30/20 12:01 Pulse 61 11/30/20 12:01 Resp 18 11/30/20 12:01 BP 125/61 11/30/20 12:01 Pulse Ox 95 11/30/20 12:01 Intake & Output 11/29/20 11/30/20 11/30/20 18:59 06:59 18:59 Intake Total 1210 100 0 Output Total 800 301 Balance 410 100 -301 Weight 101 kg Intake: Intake, IV Titration 100 100 Amount Piperacillin-Tazobactam 3 100 100 .375 gm In Sodium Chloride 0.9% 100 ml @ 25 mls/hr IVPB Q8HR [facility] Rx# :[id number] Oral 1110 0 Output: Urine 800 301 Other: # Voids 1 - Labs CBC & Chem 7: 11/30/20 08:19 11/30/20 08:19 Labs: Abnormal Lab Results - Last 24 Hours (Table) 11/29/20 11/29/20 11/29/20 Range/Units 15:20 16:32 20:32 WBC (3.8-10.6) k/uL RBC (4.30-5.90) m/uL Hgb (13.0-17.5) gm/dL Hct (39.0-53.0) % Neutrophils # (1.3-7.7) k/uL Sodium (137-145) mmol/L BUN (9-20) mg/dL POC Glucose (mg/dL) 133 H 142 H (75-99) mg/dL Calcium (8.4-10.2) mg/dL Ur Specific [place] 1.036 H (1.001-1.035) Ur Leukocyte Esterase Small H (Negative) Urine WBC 27 H (0-5) /hpf Uric Acid Crystals Moderate H (None) /hpf Urine Bacteria Rare H (None) /hpf Urine Mucus Rare H (None) /hpf 11/30/20 11/30/20 11/30/20 Range/Units 06:06 08:19 08:19 WBC 13.6 H (3.8-10.6) k/uL RBC 3.26 L (4.30-5.90) m/uL Hgb 10.0 L (13.0-17.5) gm/dL Hct 31.1 L (39.0-53.0) % Neutrophils # 11.7 H (1.3-7.7) k/uL Sodium 136 L (137-145) mmol/L BUN 29 H (9-20) mg/dL POC Glucose (mg/dL) 105 H (75-99) mg/dL Calcium 8.3 L (8.4-10.2) mg/dL Ur Specific [place] (1.001-1.035) Ur Leukocyte Esterase (Negative) Urine WBC (0-5) /hpf Uric Acid Crystals (None) /hpf Urine Bacteria (None) /hpf Urine Mucus (None) /hpf 11/30/20 Range/Units 11:50 WBC (3.8-10.6) k/uL RBC (4.30-5.90) m/uL Hgb (13.0-17.5) gm/dL Hct (39.0-53.0) % Neutrophils # (1.3-7.7) k/uL Sodium (137-145) mmol/L BUN (9-20) mg/dL POC Glucose (mg/dL) 126 H (75-99) mg/dL Calcium (8.4-10.2) mg/dL Ur Specific [place] (1.001-1.035) Ur Leukocyte Esterase (Negative) Urine WBC (0-5) /hpf Uric Acid Crystals (None) /hpf Urine Bacteria (None) /hpf Urine Mucus (None) /hpf Microbiology - Last 24 Hours (Table) 11/29/20 00:41 Blood Culture - Preliminary Blood No Growth after 24 hours
[2020-11-30 16:37] LABS: Glucose,Whole Blood 142 mg/dL (75-99)
[2020-11-30] MEDS: amLODIPine 5 MG TAB PO SCH (18:22)
--- NOTE | 2020-11-30 19:50 | PN ---
PROGRESS NOTE DATE OF SERVICE: 11/30/2020 This 79-year-old gentleman who was admitted with shortness of breath and acute hypoxic respiratory failure also had pneumonia secondary to COVID-19. Chest CTA, which was reviewed personally by me, showed extensive bilateral disease suggestive of COVID-19 pneumonia. Lab values are showing some hyponatremia as well as elevated inflammatory markers of COVID-19. Lactic acid has normalized. Troponin has been indeterminate. Urine shows some evidence of UTI. Past medical history reviewed. REVIEW OF SYSTEMS: CARDIOVASCULAR SYSTEM: No angina, palpitations. RESPIRATORY SYSTEM: As mentioned earlier. GI: As mentioned earlier. : No dysuria or retention. NERVOUS SYSTEM: No numbness, weakness. CURRENT MEDICATIONS: Reviewed. They include Tylenol, vitamin C, aspirin, Lipitor, Sinemet, Celexa, Decadron, Lovenox, folic acid, Cozaar, Narcan, Protonix, Zosyn IV. Doses are reviewed. PHYSICAL EXAMINATION: Patient is alert, oriented x2. Pulse is 65, blood pressure 153/77, respiration 18, temperature 98.3, pulse ox 94% on room air. HEENT: Conjunctivae normal. NECK: No jugular venous distention. CARDIOVASCULAR SYSTEM: S1, S2 muffled. RESPIRATORY SYSTEM: Breath sounds diminished at the bases. Bilateral scattered rhonchi and crackles. ABDOMEN: Soft, non-tender. LEGS: No edema. No swelling. NERVOUS SYSTEM: No focal deficit. LABS: WBC 13.6, hemoglobin is 10. Sodium 136. ASSESSMENT: 1. Acute COVID-19 infection as well as acute COVID-19 bilateral interstitial pneumonia with acute hypoxic respiratory failure. 2. Acute urinary tract infection with sepsis, present on admission. 3. Increased creatinine with acute renal failure with prerenal acute tubular necrosis, present on admission. 4. Elevated plasma lactic acid secondary to sepsis. 5. Elevated serum bilirubin. 6. Elevated inflammatory markers of COVID-19. 7. Troponin 0.044, indeterminate range. 8. Elevated procalcitonin. 9. Hypoalbuminemia with mild protein-calorie malnutrition. 10.Increased white count. 11.Anemia, normocytic anemia of chronic disease. 12.Obesity with body mass index of 32.9. 13.Atrial fibrillation. 14.History of chronic obstructive pulmonary disease. 15.Cerebrovascular accident, transient ischemic attack. 16.Hypertension. 17.Hyperlipidemia. 18.History of degenerative joint disease. 19.History of pneumonia. 20.Sleep apnea. 21.History of adenoidectomy. 22.History of back surgery. 23.History of depression. 24.FULL CODE. RECOMMENDATIONS AND DISCUSSION: In this 79-year-old gentleman who presented with multiple complex medical issues, we will monitor the patient closely, continue the current medications, continue with symptomatic treatment. Otherwise, at this time I would recommend continuing with IV antibiotics. Continue with the rest of the medications, including COVID-19 measures, including Lovenox and dexamethasone as well as zinc sulfate. Closely follow with Pulmonary and Cardiology. Prognosis is guarded because of multiple complex medical issues. Further recommendations to follow. I would also recommend a 2D echo with Doppler if it is not done during this admission. The D-dimer is elevated and there is no evidence of any pulmonary embolism. I would also recommend ultrasound of the legs to rule out the possibility of DVTs. CAMMY / REUBEN: [id number] /
[2020-11-30 20:26] LABS: Glucose,Whole Blood 137 mg/dL (75-99)
[2020-11-30] MEDS: PRAMIPEXOLE 1 MG TAB PO SCH (20:46)
[2020-11-30] MEDS: ATORVASTATIN 40 MG TAB PO SCH (20:46)
--- NOTE | 2020-11-30 21:57 | US ---
EXAMINATION TYPE: US venous doppler duplex LE DATE OF EXAM: 11/30/2020 6:26 PM COMPARISON: US CLINICAL HISTORY: DVT. R/O DVT. Limited history. Patient takes baby aspirin. SIDE PERFORMED: Bilateral TECHNIQUE: The lower extremity deep venous system is examined utilizing real time linear array sonog carter with graded compression, doppler sonography and color-flow sonography. VESSELS IMAGED: Common Femoral Vein Deep Femoral Vein Greater Saphenous Vein * Femoral Vein Popliteal Vein Small Saphenous Vein * Proximal Calf Veins (* superficial vessels) Limited due to patient body habitus. Right Leg: No evidence of DVT in veins imaged at this time from prox calf veins to CFV/GSV. Veins ar e patent and compressible. Left Leg: No evidence of DVT in veins imaged at this time from prox calf veins to CFV/GSV. Veins are patent and compressible. IMPRESSION: No evidence of bilateral lower extremity DVT.
[2020-12-01 06:13] LABS: Glucose,Whole Blood 110 mg/dL (75-99)
[2020-12-01] MEDS: INSULIN ASPART (NovoLOG) 100 UNIT/ML VIAL SQ SCH ×4 (06:22→21:13)
[2020-12-01] MEDS: TIOTROPIUM 2.5 MCG INHALER INHALATION SCH (07:38)
[2020-12-01] MEDS: TROSPIUM CHLORIDE 20 MG TABLET PO SCH ×2 (09:21→21:13)
[2020-12-01] MEDS: amLODIPine 5 MG TAB PO SCH (09:23)
[2020-12-01] MEDS: PANTOPRAZOLE 40 MG TABLET PO SCH (09:23)
[2020-12-01] MEDS: ASPIRIN 81 MG PO SCH (09:23)
[2020-12-01] MEDS: TAMSULOSIN 0.4 MG CAP.ER.24H PO SCH (09:23)
[2020-12-01] MEDS: ASCORBIC ACID 500 MG TAB PO SCH ×2 (09:23→21:13)
[2020-12-01] MEDS: ZINC SULFATE 220 MG CAP PO SCH (09:23)
[2020-12-01] MEDS: LOSARTAN 50 MG TAB PO SCH (09:23)
[2020-12-01] MEDS: CARBIDOPA-LEVODOPA ER 50-200MG 1 EACH TABLET.ER PO SCH ×2 (09:23→21:13)
[2020-12-01] MEDS: PROPAFENONE 150 MG TAB PO SCH ×3 (09:23→23:50)
[2020-12-01] MEDS: FOLIC ACID 1 MG TAB PO SCH (09:23)
[2020-12-01] MEDS: PREGABALIN 75 MG CAP PO SCH ×2 (09:23→21:13)
[2020-12-01] MEDS: DEXAMETHASONE SOD PHOSPHATE 10 MG/ML 1 ML VIAL IV SCH (09:24)
[2020-12-01] MEDS: CITALOPRAM HYDROBROMIDE 20 MG TAB PO SCH (09:24)
[2020-12-01] MEDS: PIPERACILLIN-TAZOBACTAM 3.375 GM in SODIUM CHLORIDE 0.9% 100 ML IVPB SCH ×3 (09:24→23:50)
[2020-12-01] MEDS: ENOXAPARIN 40 MG/0.4 ML SYRINGE SQ SCH (09:25)
[2020-12-01 10:27] LABS: Basophils % (A) 0 %; Eosinophils % (A) 0 %; HCT 30.5 % (39.0-53.0); HGB 10.4 gm/dL (13.0-17.5); Lymphocytes % (A) 10 %; MCH 32.1 pg (25.0-35.0); MCHC 34.1 g/dL (31.0-37.0); MCV 94.1 fL (80.0-100.0); Mean Platelet Volume 7.4; Monocytes # (A) 0.8 k/uL (0-1.0); Monocytes % (A) 7 %; Neutrophils # (A) 8.8 k/uL (1.3-7.7); Neutrophils % (A) 82 %; Platelet Count 260 k/uL (150-450); RBC 3.24 m/uL (4.30-5.90); RDW 14.1 % (11.5-15.5); WBC 10.7 k/uL (3.8-10.6)
[2020-12-01 11:04] LABS: Albumin 2.7 g/dL (3.5-5.0); Calcium 8.5 mg/dL (8.4-10.2); Potassium 4.5 mmol/L (3.5-5.1); Total Bilirubin 0.8 mg/dL (0.2-1.3); Total Protein 5.4 g/dL (6.3-8.2)
--- NOTE | 2020-12-01 11:50 | ECHOF ---
Referral Reason:dyspnea MEASUREMENTS -------- HEIGHT: 175.3 cm WEIGHT: 100.7 kg BP: 142/65 RVIDd: 3.9 cm (< 3.3) IVSd: 1.2 cm (0.6 - 1.1) LVIDd: 4.8 cm (3.9 - 5.3) LVPWd: 1.2 cm (0.6 - 1.1) IVSs: 1.9 cm LVIDs: 3.7 cm LVPWs: 1.8 cm LA Diam: 4.1 cm (2.7 - 3.8) Ao Diam: 4.0 cm (2.0 - 3.7) AV Cusp: 2.1 cm (1.5 - 2.6) MV EXCURSION: 14.837 mm (> 18.000) MV EF SLOPE: 69 mm/s (70 - 150) EPSS: 1.5 cm MV E Don: 1.01 m/s MV DecT: 194 ms MV A Don: 0.62 m/s MV E/A Ratio: 1.64 AR PHT: 851 ms RAP: 15.00 mmHg RVSP: 49.65 mmHg FINDINGS -------- Sinus rhythm. This was a technically difficult study with suboptimal views. The left ventricular size is normal. There is borderline concentric left ventricular hypertrophy. Overall left ventricular systolic function is mildly impaired with, an EF between 45 - 50 %. The right ventricle is moderately enlarged. The left atrium is mildly dilated. The right atrium is normal in size. 5 ml of Lumason was utilized for enhancement of images. There is mild aortic valve sclerosis. There is mild aortic regurgitation. Mild mitral annular calcification present. Mild tricuspid regurgitation present. There is moderate pulmonary hypertension. The right ventric ular systolic pressure, as measured by Doppler, is 49.65mmHg. The pulmonic valve was not well visualized. The aortic root is dilated measuring 4.0cm. The inferior vena cava is dilated with no significant inspiratory collapse which is consistent estima lex right atrial pressure of >15 mmHg. There is no pericardial effusion. CONCLUSIONS -------- 1. This was a technically difficult study with suboptimal views. 2. The left ventricular size is normal. 3. There is borderline concentric left ventricular hypertrophy. 4. Overall left ventricular systolic function is mildly impaired with, an EF between 45 - 50 %. 5. The right ventricle is moderately enlarged. 6. The left atrium is mildly dilated. 7. 5 ml of Lumason was utilized for enhancement of images. 8. There is mild aortic valve sclerosis. 9. There is mild aortic regurgitation. 10. Mild mitral annular calcification present. 11. Mild tricuspid regurgitation present. 12. There is moderate pulmonary hypertension. 13. The right ventricular systolic pressure, as measured by Doppler, is 49.65mmHg. 14. The aortic root is dilated measuring 4.0cm. 15. The inferior vena cava is dilated with no significant inspiratory collapse which is consistent es timated right atrial pressure of >15 mmHg. 16. There is no pericardial effusion. PAPER PLATE MACHINE TENDER: Cookie Priest RDCS
[2020-12-01 12:05] LABS: Glucose,Whole Blood 127 mg/dL (75-99)
--- NOTE | 2020-12-01 13:17 | P.PN ---
Subjective Progress Note Date: 12/01/20 HISTORY OF PRESENT ILLNESS: This is an 79-year-old male with history of paroxysmal atrial fibrillation and intracranial hemorrhage. Patient is currently admitted to the hospital secondary to Covid 19. Patient currently denies chest pain or pressure. He is on room air with oxygen saturations greater than 92%. Vital signs are stable. Blood pressure 128/72. Telemetry reveals sinus mechanism with heart rate in the 60s. He is afebrile. Echocardiogram completed revealed ejection fraction 45-50%, mild aortic regurgitation, mild tricuspid regurgitation, and moderate pulmonary hypertension. PHYSICAL EXAM: VITAL SIGNS: Reviewed. GENERAL: Well-developed in no acute distress. NECK: Supple. No JVD or thyromegaly LUNGS: Respirations even and unlabored. Lungs diminished. HEART: Regular rate and rhythm. S1 and S2 heard. Systolic murmur noted. EXTREMITIES: Normal range of motion. No clubbing or cyanosis. Peripheral pulses intact. No lower extremity edema ASSESSMENT: Shortness of breath Covid 19 Abnormal troponins, secondary to above, no evidence of ACS History of paroxysmal atrial fibrillation, not on long-term coagulation sec ondary to history of intracranial bleed History of intracranial bleed Hypertension History of Parkinson's disease PLAN: Continue current cardiac medications: Aspirin 81 mg daily, atorvastatin 40 mg daily, losartan 50 mg daily, and Rythmol 150 mg every 8 hours Patient is stable for discharge from a cardiac standpoint We will sign off. Please re-consult if needed Patient to follow up on an outpatient basis Nurse practitioner note has been reviewed by physician. Signing provider agrees with the documented findings, assessment, and plan of care. Objective - Vital Signs Vital signs: Vital Signs Temp 97.3 F L 12/01/20 08:00 Pulse 55 L 12/01/20 08:00 Resp 18 12/01/20 08:00 BP 128/72 12/01/20 08:00 Pulse Ox 95 12/01/20 08:00 Intake & Output 11/30/20 12/01/20 12/01/20 18:59 06:59 18:59 Intake Total 820 100 Output Total 901 1100 Balance -81 -1000 Weight 101.5 kg Intake: Intake, IV Titration 100 100 Amount Piperacillin-Tazobactam 3 100 100 .375 gm In Sodium Chloride 0.9% 100 ml @ 25 mls/hr IVPB Q8HR [facility] Rx# :[id number] Oral 720 Output: Urine 901 1100 Other: # Voids 1 2 - Labs CBC & Chem 7: 12/01/20 09:29 12/01/20 09:29 Labs: Abnormal Lab Results - Last 24 Hours (Table) 11/28/20 11/30/20 11/30/20 Range/Units 21:57 16:36 20:24 WBC (3.8-10.6) k/uL RBC (4.30-5.90) m/uL Hgb (13.0-17.5) gm/dL Hct (39.0-53.0) % Neutrophils # (1.3-7.7) k/uL Sodium (137-145) mmol/L BUN (9-20) mg/dL POC Glucose (mg/dL) 142 H 137 H (75-99) mg/dL Total Protein (6.3-8.2) g/dL Albumin (3.5-5.0) g/dL Procalcitonin 1.26 H (0.02-0.09) ng/mL 12/01/20 12/01/20 12/01/20 Range/Units 06:02 09:29 09:29 WBC 10.7 H (3.8-10.6) k/uL RBC 3.24 L (4.30-5.90) m/uL Hgb 10.4 L (13.0-17.5) gm/dL Hct 30.5 L (39.0-53.0) % Neutrophils # 8.8 H (1.3-7.7) k/uL Sodium 134 L (137-145) mmol/L BUN 23 H (9-20) mg/dL POC Glucose (mg/dL) 110 H (75-99) mg/dL Total Protein 5.4 L (6.3-8.2) g/dL Albumin 2.7 L (3.5-5.0) g/dL Procalcitonin (0.02-0.09) ng/mL 12/01/20 Range/Units 12:05 WBC (3.8-10.6) k/uL RBC (4.30-5.90) m/uL Hgb (13.0-17.5) gm/dL Hct (39.0-53.0) % Neutrophils # (1.3-7.7) k/uL Sodium (137-145) mmol/L BUN (9-20) mg/dL POC Glucose (mg/dL) 127 H (75-99) mg/dL Total Protein (6.3-8.2) g/dL Albumin (3.5-5.0) g/dL Procalcitonin (0.02-0.09) ng/mL Microbiology - Last 24 Hours (Table) 11/29/20 00:41 Blood Culture - Preliminary Blood No Growth after 48 hours
--- NOTE | 2020-12-01 16:37 | P.PN ---
Subjective Progress Note Date: 12/01/20 This is an 79-year-old male who was recently admitted with shortness of breath and acute hypoxic respiratory failure also had pneumonia secondary to COVID-19 and is being closely monitored. She was maintained on IV antibiotics in the form of Zosyn and will continue at this time. Cardiology also following. Patient underwent venous Doppler of bilateral lower extremities which were negative for DVT and patient is maintained on Lovenox and will continue at this time. Patient also continues on dexamethasone along with vitamin and zinc supplements and bronchodilators. Case management and social work following this patient will need to go to rehab for continued weakness as patient was seen and evaluated by physical therapy recommending subacute rehab. Review of systems: Constitutional: No reports of fatigue, fever, or chills Cardiovascular: No reports of chest pain or palpitations Respiratory: No reports of shortness of breath, reports occasional cough GI: No reports of nausea, vomiting, or diarrhea : No reports of dysuria or retention Neurovascular: Reports generalized weakness All medications have been reviewed Active Medications Acetaminophen (Acetaminophen Tab 325 Mg Tab) 650 mg PO Q6HR PRN PRN Reason: Mild Pain or Fever > 100.5 Amlodipine Besylate (Amlodipine 5 Mg Tab) 5 mg PO DAILY [facility] Last Admin: 12/01/20 09:23 Dose: 5 mg Documented by: Ascorbic Acid (Ascorbic Acid 500 Mg Tab) 500 mg PO BID [facility] Last Admin: 12/01/20 09:23 Dose: 500 mg Documented by: Aspirin (Aspirin 81 Mg) 81 mg PO DAILY [facility] Last Admin: 12/01/20 09:23 Dose: 81 mg Documented by: Atorvastatin Calcium (Atorvastatin 40 Mg Tab) 40 mg PO HS [facility] Last Admin: 11/30/20 20:46 Dose: 40 mg Documented by: Carbidopa/Levodopa (Carbidopa-Levodopa Er 50-200mg 1 Each Tablet.Er) 1 each PO BID [facility] Last Admin: 12/01/20 09:23 Dose: 1 each Documented by: Citalopram Hydrobromide (Citalopram Hydrobromide 20 Mg Tab) 40 mg PO DAILY [facility] Last Admin: 12/01/20 09:24 Dose: 40 mg Documented by: Dexamethasone Sodium Phosphate (Dexamethasone Sod Phosphate 10 Mg/Ml 1 Ml Vial) 6 mg IV DAILY [facility] Last Admin: 12/01/20 09:24 Dose: 6 mg Documented by: Enoxaparin Sodium (Enoxaparin 40 Mg/0.4 Ml Syringe) 40 mg SQ DAILY [facility] Last Admin: 12/01/20 09:25 Dose: 40 mg Documented by: Folic Acid (Folic Acid 1 Mg Tab) 1 mg PO DAILY [facility] Last Admin: 12/01/20 09:23 Dose: 1 mg Documented by: Piperacillin Sod/Tazobactam (Sod 3.375 gm/ Sodium Chloride) 100 mls @ 25 mls/hr IVPB Q8HR [facility] Last Admin: 12/01/20 09:24 Dose: 25 mls/hr Documented by: Insulin Aspart (Insulin Aspart (Novolog) 100 Unit/Ml Vial) 0 unit SQ ACHS [facility]; Protocol Last Admin: 12/01/20 12:36 Dose: Not Given Documented by: Losartan Potassium (Losartan 50 Mg Tab) 50 mg PO DAILY [facility] Last Admin: 12/01/20 09:23 Dose: 50 mg Documented by: Naloxone HCl (Naloxone 0.4 Mg/Ml 1 Ml Vial) 0.2 mg IV Q2M PRN PRN Reason: Opioid Reversal Pantoprazole Sodium (Pantoprazole 40 Mg Tablet) 40 mg PO DAILY [facility] Last Admin: 12/01/20 09:23 Dose: 40 mg Documented by: Pramipexole Dihydrochloride (Pramipexole 1 Mg Tab) 1 mg PO HS [facility] Last Admin: 11/30/20 20:46 Dose: 1 mg Documented by: Pregabalin (Pregabalin 75 Mg Cap) 75 mg PO BID [facility] Last Admin: 12/01/20 09:23 Dose: 75 mg Documented by: Propafenone HCl (Propafenone 150 Mg Tab) 150 mg PO Q8HR [facility] Last Admin: 12/01/20 09:23 Dose: 150 mg Documented by: Tamsulosin HCl (Tamsulosin 0.4 Mg Cap.Er.24h) 0.4 mg PO DAILY [facility] Last Admin: 12/01/20 09:23 Dose: 0.4 mg Documented by: Tiotropium [place] (Tiotropium 2.5 Mcg Inhaler) 2 puff INHALATION RT-DAILY [facility] Last Admin: 12/01/20 07:38 Dose: 2 puff Documented by: Trospium (Trospium Chloride 20 Mg Tablet) 20 mg PO BID [facility] Last Admin: 12/01/20 09:21 Dose: 20 mg Documented by: Zinc Sulfate (Zinc Sulfate 220 Mg Cap) 220 mg PO DAILY [facility] Last Admin: 12/01/20 09:23 Dose: 220 mg Documented by: Objective - Vital Signs Vital signs: Vital Signs Temp 97.3 F L 12/01/20 08:00 Pulse 55 L 12/01/20 08:00 Resp 18 12/01/20 08:00 BP 128/72 12/01/20 08:00 Pulse Ox 95 12/01/20 08:00 Intake & Output 11/30/20 12/01/20 12/01/20 18:59 06:59 18:59 Intake Total 820 100 Output Total 901 1100 Balance -81 -1000 Weight 101.5 kg Intake: Intake, IV Titration 100 100 Amount Piperacillin-Tazobactam 3 100 100 .375 gm In Sodium Chloride 0.9% 100 ml @ 25 mls/hr IVPB Q8HR [facility] Rx# :[id number] Oral 720 Output: Urine 901 1100 Other: # Voids 1 2 - Exam Gen: This is a 79 year old male awake, alert and oriented 2, well-developed, well-nourished. Temp is 97.1F, pulse is 63, respirations are 18, blood pressure is 141/73, oxygen saturation is 96% on room air. HEENT: Head is atraumatic, normocephalic. Pupils equal, round. Sclerae is anicteric. NECK: Supple. No JVD. No lymphadenopathy. No thyromegaly. LUNGS: Diminished breath sounds bilaterally with a few scattered rhonchi and crackles noted. No intercostal retractions. HEART: S1, S2 are muffled ABDOMEN: Soft. Bowel sounds are present. No masses. No tenderness. EXTREMITIES: No pedal edema. No calf tenderness. NEUROLOGICAL: Patient is awake, alert and oriented x2. Diffusely weak. - Labs CBC & Chem 7: 12/01/20 09:29 12/01/20 09:29 Labs: Abnormal Lab Results - Last 24 Hours (Table) 11/28/20 11/30/20 11/30/20 Range/Units 21:57 16:36 20:24 WBC (3.8-10.6) k/uL RBC (4.30-5.90) m/uL Hgb (13.0-17.5) gm/dL Hct (39.0-53.0) % Neutrophils # (1.3-7.7) k/uL Sodium (137-145) mmol/L BUN (9-20) mg/dL POC Glucose (mg/dL) 142 H 137 H (75-99) mg/dL Total Protein (6.3-8.2) g/dL Albumin (3.5-5.0) g/dL Procalcitonin 1.26 H (0.02-0.09) ng/mL 12/01/20 12/01/20 12/01/20 Range/Units 06:02 09:29 09:29 WBC 10.7 H (3.8-10.6) k/uL RBC 3.24 L (4.30-5.90) m/uL Hgb 10.4 L (13.0-17.5) gm/dL Hct 30.5 L (39.0-53.0) % Neutrophils # 8.8 H (1.3-7.7) k/uL Sodium 134 L (137-145) mmol/L BUN 23 H (9-20) mg/dL POC Glucose (mg/dL) 110 H (75-99) mg/dL Total Protein 5.4 L (6.3-8.2) g/dL Albumin 2.7 L (3.5-5.0) g/dL Procalcitonin (0.02-0.09) ng/mL 12/01/20 Range/Units 12:05 WBC (3.8-10.6) k/uL RBC (4.30-5.90) m/uL Hgb (13.0-17.5) gm/dL Hct (39.0-53.0) % Neutrophils # (1.3-7.7) k/uL Sodium (137-145) mmol/L BUN (9-20) mg/dL POC Glucose (mg/dL) 127 H (75-99) mg/dL Total Protein (6.3-8.2) g/dL Albumin (3.5-5.0) g/dL Procalcitonin (0.02-0.09) ng/mL Microbiology - Last 24 Hours (Table) 11/29/20 00:41 Blood Culture - Preliminary Blood No Growth after 48 hours Assessment and Plan Assessment: Acute COVID-19 infection as well as acute COVID-19 bilateral interstitial pneumonia with acute hypoxic respiratory failure Acute urinary tract infection with sepsis, present on admission Increased creatinine with acute renal failure with prerenal acute tubular necrosis, present on admission Elevated plasma lactic acid secondary to sepsis Elevated serum bilirubin elevated inflammatory markers of COVID-19 Troponin 0.044, indeterminate range Elevated pro calcitonin Hypoalbuminemia with mild protein calorie malnutrition Increased white count Anemia, normocytic anemia of chronic disease obesity with body mass index of 33 Atrial fibrillation history of chronic obstructive pulmonary disease CVA, TIA Hypertension Hyperlipidemia history of degenerative joint disease history of pneumonia Sleep apnea History of adenoidectomy History back surgery history of depression Full code Recommendations and discussion: Commended continue with current medications, management, and symptomatic treatment. PT/OT evaluated the patient recommending subacute rehab and patient and family are agreeable. cardiology has evaluated the patient. Patient is maintained on IV antibiotics in the form of Zosyn and will continue at this time. Patient is maintained on vitamin and zinc supplements along with Lovenox and dexamethasone and will continue. Pulmonary also following. Further recommendations to follow. Venous Doppler bilateral lower extremities were done and negative for DVTs and patient also underwent 2-D echo showing some borderline concentric left ventricular hypertrophy with overall left ventricular systolic function is mildly impaired with an EF between 45 and 50% with some mild aortic valve sclerosis and regurgitation along with mild tricuspid re gurgitation and moderate pulmonary hypertension noted. White blood count is trending down at 10.7 and hemoglobin is stable at 10.4, sodium is 134 with a potassium of 4.5 and creatinine has improved at 0.95. Due to multiple complex medical issues, prognosis is guarded. Possible discharge to ECF in 24 hours.
[2020-12-01 17:07] LABS: Glucose,Whole Blood 125 mg/dL (75-99)
[2020-12-01 20:17] LABS: Glucose,Whole Blood 111 mg/dL (75-99)
[2020-12-01] MEDS: ATORVASTATIN 40 MG TAB PO SCH (21:12)
[2020-12-01] MEDS: PRAMIPEXOLE 1 MG TAB PO SCH (21:13)
[2020-12-02 04:37] VITALS: RESP 18
[2020-12-02 06:18] LABS: Glucose,Whole Blood 107 mg/dL (75-99)
[2020-12-02] MEDS: INSULIN ASPART (NovoLOG) 100 UNIT/ML VIAL SQ SCH (06:47)
[2020-12-02] MEDS: FOLIC ACID 1 MG TAB PO SCH (08:44)
[2020-12-02] MEDS: DEXAMETHASONE SOD PHOSPHATE 10 MG/ML 1 ML VIAL IV SCH (08:44)
[2020-12-02] MEDS: ZINC SULFATE 220 MG CAP PO SCH (08:44)
[2020-12-02] MEDS: ASCORBIC ACID 500 MG TAB PO SCH (08:44)
[2020-12-02] MEDS: PROPAFENONE 150 MG TAB PO SCH (08:44)
[2020-12-02] MEDS: CITALOPRAM HYDROBROMIDE 20 MG TAB PO SCH (08:44)
[2020-12-02] MEDS: TAMSULOSIN 0.4 MG CAP.ER.24H PO SCH (08:45)
[2020-12-02] MEDS: ASPIRIN 81 MG PO SCH (08:45)
[2020-12-02] MEDS: TROSPIUM CHLORIDE 20 MG TABLET PO SCH (08:45)
[2020-12-02] MEDS: PANTOPRAZOLE 40 MG TABLET PO SCH (08:45)
[2020-12-02] MEDS: LOSARTAN 50 MG TAB PO SCH (08:45)
[2020-12-02] MEDS: PREGABALIN 75 MG CAP PO SCH (08:45)
[2020-12-02] MEDS: PIPERACILLIN-TAZOBACTAM 3.375 GM in SODIUM CHLORIDE 0.9% 100 ML IVPB SCH (08:46)
[2020-12-02] MEDS: CARBIDOPA-LEVODOPA ER 50-200MG 1 EACH TABLET.ER PO SCH (08:46)
[2020-12-02] MEDS: amLODIPine 5 MG TAB PO SCH (08:46)
[2020-12-02] MEDS: ENOXAPARIN 40 MG/0.4 ML SYRINGE SQ SCH (08:46)
--- NOTE | 2020-12-02 09:37 | P.DS ---
Providers Date of admission: 11/29/20 00:06 Expected date of discharge: 12/02/20 Attending physician: Ronni Richardson Consults: 11/29/20 00:06 Consult Physician Urgent Consulting Provider: Rachael Polanco Consult Reason/Comments: acute respiratory insuff, acute covid pna Do you want consulting provider notified?: Yes Primary care physician: Elda Saenz Hospital Course: Final diagnosis Acute COVID-19 infection as well as acute COVID-19 bilateral interstitial pneumonia with acute hypoxic respiratory failure Acute urinary tract infection with sepsis, present on admission Increased creatinine with acute renal failure with prerenal acute tubular necrosis, present on admission Elevated plasma lactic acid secondary to sepsis Elevated serum bilirubin elevated inflammatory markers of COVID-19 Troponin 0.044, indeterminate range Elevated pro calcitonin Hypoalbuminemia with mild protein calorie malnutrition Increased white count Anemia, normocytic anemia of chronic disease obesity with body mass index of 33 Atrial fibrillation history of chronic obstructive pulmonary disease CVA, TIA Hypertension Hyperlipidemia history of degenerative joint disease history of pneumonia Sleep apnea History of adenoidectomy History back surgery history of depression Full code Discharge disposition Patient is being discharged in a stable condition with guarded prognosis to [facility] for continued PT/OT therapy. Patient will follow-up with Dr. Saenz in the outpatient setting upon discharge. Patient is to continue with short course of oral antibiotics in the form of Augmentin twice daily for the next 4 days to complete the course along with dexamethasone 6 mg daily for the next 6 days and then may discontinue. Total time taken is greater than 35 minutes. Hospital course This is an 79-year-old male who was recently admitted with shortness of breath and acute hypoxic respiratory failure also with pneumonia secondary to COVID-19 and was being closely monitored. Pulmonary and cardiology following and patient will follow-up in the outpatient setting as discussed. Patient was initiated on IV antibiotics in the form of Zosyn and will continue with oral Augmentin twice daily for the next 4 days to complete the course. Patient was also started on dexamethasone, Lovenox, vitamin and zinc supplements and will continue upon discharge. Patient continues to have weakness and was evaluated by PT/OT therapy recommending subacute rehab and patient and family are agreeable. Going to [facility] for continued PT/OT therapy for strengthening mobility. Recommend continue monitoring blood sugars before meals and at bedtime as patient is on steroids and treat accordingly with sliding scale. Currently no reports of chest pain, shortness of breath, or palpitations. Patient is afebrile. No reports of nausea or vomiting and patient is tolerating diet. Patient will be going to [facility] today. On exam vital signs are stable. Cardio S1, S2 are muffled. Respiratory system shows diminished breath sounds at the bases with no wheezing or rhonchi noted. Abdomen is soft and obese, and nontender. Nervous system shows diffuse weakness. Please refer to medication reconciliation sheet for a list of medications. Patient Condition at Discharge: Stable Plan - Discharge Summary Discharge Rx Participant: No New Discharge Prescriptions: New Amoxic-Pot Clav 875-125Mg [Augmentin 875-125] 1 tab PO Q12HR 4 Days #8 tab Tamsulosin [Flomax] 0.4 mg PO DAILY cap.er.24h Enoxaparin [Lovenox] 40 mg SQ DAILY 7 Days #7 syringe Pramipexole [Mirapex] 1 mg PO HS tab Propafenone [Rythmol] 150 mg PO Q8HR tab Trospium Chloride [Sanctura] 20 mg PO BID tablet Dexamethasone 6 mg PO DAILY 6 Days #6 tablet Atorvastatin [Lipitor] 40 mg PO HS tab Pregabalin [Lyrica] 75 mg PO BID #6 cap INSULIN ASPART (NovoLOG) [NovoLOG (formulary)] 0 unit SQ ACHS vial Zinc Sulfate [Orazinc] 220 mg PO DAILY cap Tiotropium 2.5 Mcg/Puff [Spiriva Respimat 2.5 Mcg] 2 puff INHALATION RT-DAILY puff Acetaminophen Tab [Tylenol] 650 mg PO Q6HR PRN tab PRN Reason: Mild Pain Or Fever > 100.5 Ascorbic Acid [Vitamin C] 500 mg PO BID tab Continue Citalopram Hydrobromide [CeleXA] 40 mg PO DAILY Omeprazole 20 mg PO DAILY Carbidopa-Levodopa ER 50-200Mg [Sinemet CR 50-200 mg] 1 tab PO BID Folic Acid 1 mg PO DAILY Aspirin EC [Ecotrin Low Dose] 81 mg PO DAILY amLODIPine [Norvasc] 5 mg PO DAILY Losartan [Cozaar] 50 mg PO DAILY Discharge Medication List Citalopram Hydrobromide [CeleXA] 40 mg PO DAILY 03/09/16 [History] Carbidopa-Levodopa ER 50-200Mg [Sinemet CR 50-200 mg] 1 tab PO BID 03/22/18 [History] Omeprazole 20 mg PO DAILY 03/22/18 [History] Folic Acid 1 mg PO DAILY 04/27/19 [History] Aspirin EC [Ecotrin Low Dose] 81 mg PO DAILY 05/24/19 [History] Losartan [Cozaar] 50 mg PO DAILY 11/16/20 [History] amLODIPine [Norvasc] 5 mg PO DAILY 11/29/20 [History] Acetaminophen Tab [Tylenol] 650 mg PO Q6HR PRN tab 12/02/20 [Rx] Amoxic-Pot Clav 875-125Mg [Augmentin 875-125] 1 tab PO Q12HR 4 Days #8 tab 12/02/20 [Rx] Ascorbic Acid [Vitamin C] 500 mg PO BID tab 12/02/20 [Rx] Atorvastatin [Lipitor] 40 mg PO HS tab 12/02/20 [Rx] Dexamethasone 6 mg PO DAILY 6 Days #6 tablet 12/02/20 [Rx] Enoxaparin [Lovenox] 40 mg SQ DAILY 7 Days #7 syringe 12/02/20 [Rx] INSULIN ASPART (NovoLOG) [NovoLOG (formulary)] 0 unit SQ ACHS vial 12/02/20 [Rx] Pramipexole [Mirapex] 1 mg PO HS tab 12/02/20 [Rx] Pregabalin [Lyrica] 75 mg PO BID #6 cap 12/02/20 [Rx] Propafenone [Rythmol] 150 mg PO Q8HR tab 12/02/20 [Rx] Tamsulosin [Flomax] 0.4 mg PO DAILY cap.er.24h 12/02/20 [Rx] Tiotropium 2.5 Mcg/Puff [Spiriva Respimat 2.5 Mcg] 2 puff INHALATION RT-DAILY puff 12/02/20 [Rx] Trospium Chloride [Sanctura] 20 mg PO BID tablet 12/02/20 [Rx] Zinc Sulfate [Orazinc] 220 mg PO DAILY cap 12/02/20 [Rx] Follow up Appointment(s)/Referral(s): [facility] [Provider Group] - 1 Week Elda Saenz MD [Primary Care Provider] - 1-2 days Ambulatory/Diagnostic Orders: Complete Blood Count w/diff [LAB.AMB] Time Frame: 3 Days, Location: None Selected Activity/Diet/Wound Care/Special Instructions: Patient is going to [facility] Activity as tolerated Continue with antibiotics for the next 4 days and then may discontinue Continue with dexamethasone for the next 6 days and then may discontinue Continue with daily Lovenox subcutaneous injection for the next 1 week and then may discontinue Follow-up with primary care provider upon discharge Follow-up with cardiology outpatient in 1-2 weeks Continue with heart healthy diet Repeat labs in 2-3 days to monitor CBC and BMP Continue to monitor blood sugars before meals and at bedtime and treat accordingly with sliding scale NovoLog sliding scale 0-150 equals 0 units 151-200 equals 2 units 201-250 equals 4 units 251-300 equals 6 units 301-350 equals 8 units 351-400 equals 10 units Please notify provider if blood sugar is 400 or above Discharge Disposition: TRANSFER TO SNF/ECF
[2020-12-02 10:30] VITALS: BP 132/57; PULSE 111; TEMP 97.7
== END 2020-12-02 12:18 | DRG 871 ==
LOC: EC 21:40 → 3SCARD 11-29 00:06
PROVIDERS: ADMIT Hospitalist; ATTEND Hospitalist
DX: A41.9 Sepsis, unspecified organism (principal); U07.1 COVID-19; J12.82 Pneumonia due to coronavirus disease 2019; J96.01 Acute respiratory failure with hypoxia; N17.0 Acute kidney failure with tubular necrosis; I48.20 Chronic atrial fibrillation, unspecified; J44.0 Chronic obstructive pulmonary disease with (acute) lower respiratory infection; N39.0 Urinary tract infection, site not specified; E44.1 Mild protein-calorie malnutrition; E87.1 Hypo-osmolality and hyponatremia; D63.8 Anemia in other chronic diseases classified elsewhere; G20 Parkinson's disease; I27.20 Pulmonary hypertension, unspecified; I08.2 Rheumatic disorders of both aortic and tricuspid valves; I69.322 Dysarthria following cerebral infarction; G47.33 Obstructive sleep apnea (adult) (pediatric); G25.81 Restless legs syndrome; E78.5 Hyperlipidemia, unspecified; I10 Essential (primary) hypertension; E86.0 Dehydration; I45.10 Unspecified right bundle-branch block; D72.810 Lymphocytopenia; G89.29 Other chronic pain; M54.5 Low back pain; M54.2 Cervicalgia; N32.81 Overactive bladder; R77.8 Other specified abnormalities of plasma proteins; I25.2 Old myocardial infarction; M19.90 Unspecified osteoarthritis, unspecified site; E66.9 Obesity, unspecified; Z68.33 Body mass index [BMI] 33.0-33.9, adult; Z79.82 Long term (current) use of aspirin; Z79.899 Other long term (current) drug therapy; Z87.891 Personal history of nicotine dependence; Z87.01 Personal history of pneumonia (recurrent); Z90.89 Acquired absence of other organs; Z87.39 Personal history of other diseases of the musculoskeletal system and connective tissue; Z98.1 Arthrodesis status; Z96.82 Presence of neurostimulator; Z98.42 Cataract extraction status, left eye; Z98.41 Cataract extraction status, right eye; Z86.69 Personal history of other diseases of the nervous system and sense organs; Z98.890 Other specified postprocedural states; Z82.5 Family history of asthma and other chronic lower respiratory diseases; Z81.8 Family history of other mental and behavioral disorders
CPT/HCPCS: 36415; 71045; 71275; 80048; 80053; 81001; 83605; 83615; 83735; 83880; 84145; 84484; 85025; 85379; 85610; 85730; 86140; 87040; 93005; 93306; 93970; 94640; 99285

== ENCOUNTER 2020-12-10 15:21 | Inpatient (IN) | payer MEDICARE ==
[2020-12-10] MEDS ORDERED: ATROPINE SULFATE 0.1 MG/ML 10ML SYRINGE IV STA ×2 (15:36→15:37)
[2020-12-10] MEDS ORDERED: SODIUM CHLORIDE 0.9% 1,000 ML IV STA (15:39)
--- NOTE | 2020-12-10 15:44 | ED ---
General Adult HPI - General Chief complaint: Recheck/Abnormal Lab/Rx Stated complaint: Low BP and HR Time Seen by Provider: 12/10/20 15:25 Source: patient, EMS, RN notes reviewed Mode of arrival: EMS Limitations: no limitations - History of Present Illness Initial comments: Patient is a pleasant 79-year-old male presenting to the emergency department wi th dizziness episode. Patient was at therapy and was does have low blood pressure. Patient states he feels fine and has no complaints. No history of similar symptoms. She. Patient was recently in the hospital with COVID-19. Patient denies any new weakness. Patient denies confusion. Patient denies chest pain or palpitations or dyspnea. No history of similar symptoms previously. - Related Data Home Medications Medication Instructions Recorded Confirmed Citalopram Hydrobromide [CeleXA] 40 mg PO DAILY 03/09/16 12/10/20 Carbidopa-Levodopa ER 50-200Mg 1 tab PO BID@0700,1600 03/22/18 12/10/20 [Sinemet CR 50-200 mg] Omeprazole 20 mg PO HS@199903/22/18 12/10/20 Folic Acid 1 mg PO DAILY 04/27/19 12/10/20 Losartan [Cozaar] 50 mg PO DAILY 11/16/20 12/10/20 amLODIPine [Norvasc] 5 mg PO DAILY 11/29/20 12/10/20 Acetaminophen [Tylenol Arthritis] 650 mg PO Q6H PRN 12/10/20 12/10/20 Aspirin 81 mg PO DAILY 12/10/20 12/10/20 Insulin Aspart [NovoLOG Flexpen] See Protocol SQ ACHS 12/10/20 12/10/20 Oxybutynin Chloride [Oxybutynin 10 mg PO DAILY 12/10/20 12/10/20 Chloride ER] Pramipexole [Mirapex] 1 mg PO HS@199912/10/20 12/10/20 Pregabalin [Lyrica] 75 mg PO BID@0700,1600 12/10/20 12/10/20 Previous Rx's Medication Instructions Recorded Ascorbic Acid [Vitamin C] 500 mg PO BID tab 12/02/20 Atorvastatin [Lipitor] 40 mg PO HS tab 12/02/20 Propafenone [Rythmol] 150 mg PO Q8HR tab 12/02/20 Tamsulosin [Flomax] 0.4 mg PO DAILY cap.er.24h 12/02/20 Tiotropium 2.5 Mcg/Puff [Spiriva 2 puff INHALATION RT-DAILY puff 12/02/20 Respimat 2.5 Mcg] Zinc Sulfate [Orazinc] 220 mg PO DAILY cap 12/02/20 Allergies Allergy/AdvReac Type Severity Reaction Status Date / Time No Known Allergies Allergy Verified 12/10/20 15:49 Review of Systems ROS Statement: Those systems with pertinent positive or pertinent negative responses have been documented in the HPI. ROS Other: All systems not noted in ROS Statement are negative. Constitutional: Denies: fever Eyes: Denies: eye pain ENT: Denies: ear pain Respiratory: Denies: dyspnea Cardiovascular: Denies: chest pain Endocrine: Reports: fatigue Gastrointestinal: Denies: abdominal pain Genitourinary: Denies: dysuria Musculoskeletal: Denies: back pain Skin: Denies: rash Neurological: Denies: headache Past Medical History Past Medical History: Atrial Fibrillation, COPD, CVA/TIA, Hyperlipidemia, Hypertension, Musculoskeletal Disorder, Neurologic Disorder, Osteoarthritis (OA), Pneumonia, Sleep Apnea/CPAP/BIPAP Additional Past Medical History / Comment(s): Pt tested covid + 11/16/20 [facility] ER. Other hx: Bronchitis, KATHYA with Cpap use, pt states he thinks he may have been told he had a small GA many years ago, parkinson's dx, CVA with dysarthria, TIA, RLS, chronic cervical and lumbar back pain, overactive bladder. Last Myocardial Infarction Date:: 2009 History of Any Multi-Drug Resistant Organisms: None Reported Past Surgical History: Adenoidectomy, Back Surgery, Heart Catheterization, Tonsillectomy Additional Past Surgical History / Comment(s): Neurostimulator, cervical fusion, low back surgery, nasal surgery, bilateral blepharoplasty, bilateral cataract removals Past Anesthesia/Blood Transfusion Reactions: No Reported Reaction Past Psychological History: Depression Smoking Status: Former smoker Past Alcohol Use History: None Reported Past Drug Use History: None Reported - Past Family History Father Family Medical History: COPD Mother Family Medical History: Dementia General Exam Limitations: no limitations General appearance: alert, in no apparent distress Head exam: Present: atraumatic Eye exam: Present: normal appearance, PERRL ENT exam: Present: normal oropharynx Neck exam: Present: normal inspection Respiratory exam: Present: normal lung sounds bilaterally Cardiovascular Exam: Present: bradycardia Expanded Peripheral pulses: 2+: Radial (R), Radial (L) GI/Abdominal exam: Present: soft. Absent: tenderness Extremities exam: Present: normal inspection, other (Right lower leg brace) Neurological exam: Present: alert, motor sensory deficit (Some weakness right leg which patient states is chronic. Patient states this is unchanged.) Psychiatric exam: Present: normal affect, normal mood Skin exam: Present: normal color Course Vital Signs 12/10/20 12/10/20 12/10/20 15:24 15:32 16:00 Temperature 97.9 F Pulse Rate 37 L 38 L 39 L Respiratory 16 16 16 Rate Blood Pressure 89/43 68/42 95/48 O2 Sat by Pulse 100 99 100 Oximetry 12/10/20 12/10/20 16:47 16:56 Temperature Pulse Rate 87 93 Respiratory 16 16 Rate Blood Pressure 155/71 137/64 O2 Sat by Pulse 100 100 Oximetry - Reevaluation(s) Reevaluation #1: 12/10/20 15:52 Case was discussed with Dr. Gong who does agree with starting opening and request echo. He will consult. EKG Findings - EKG Comments: EKG Findings:: Sinus bradycardia at 38. AR 190. QRS 132. QT 562. QTC 4:30. Left axis. Right bundle branch block. No acute ST change. Medical Decision Making - Medical Decision Making Patient reevaluated and updated. Significant improvement of heart rate and blood pressure with dopamine. Case was also discussed with Dr. Hernandez, who will admit for Dr. Saenz. - Lab Data Result diagrams: 12/10/20 15:48 12/10/20 15:48 Lab Results 12/10/20 12/10/20 12/10/20 Range/Units 15:48 15:48 15:48 WBC 9.2 (3.8-10.6) k/uL RBC 3.20 L (4.30-5.90) m/uL Hgb 10.5 L (13.0-17.5) gm/dL Hct 30.3 L (39.0-53.0) % MCV 94.7 (80.0-100.0) fL MCH 32.8 (25.0-35.0) pg MCHC 34.6 (31.0-37.0) g/dL RDW 15.6 H (11.5-15.5) % Plt Count 200 (150-450) k/uL MPV 7.1 Neutrophils % 75 % Lymphocytes % 15 % Monocytes % 6 % Eosinophils % 3 % Basophils % 0 % Neutrophils # 7.0 (1.3-7.7) k/uL Lymphocytes # 1.4 (1.0-4.8) k/uL Monocytes # 0.6 (0-1.0) k/uL Eosinophils # 0.2 (0-0.7) k/uL Basophils # 0.0 (0-0.2) k/uL PT 10.9 (9.0-12.0) sec INR 1.0 (<1.2) APTT 23.3 (22.0-30.0) sec Sodium 133 L (137-145) mmol/L Potassium 4.0 (3.5-5.1) mmol/L Chloride 102 (98-107) mmol/L Carbon Dioxide 26 (22-30) mmol/L Anion Gap 5 mmol/L BUN 26 H (9-20) mg/dL Creatinine 1.11 (0.66-1.25) mg/dL Est GFR (CKD-EPI)AfAm 72 (>60 ml/min/1.73 sqM) Est GFR (CKD-EPI)NonAf 62 (>60 ml/min/1.73 sqM) Glucose 84 (74-99) mg/dL Calcium 8.0 L (8.4-10.2) mg/dL Magnesium 1.9 (1.6-2.3) mg/dL Total Bilirubin 0.6 (0.2-1.3) mg/dL AST 19 (17-59) U/L ALT 8 (4-49) U/L Alkaline Phosphatase 54 (38-126) U/L Troponin I (0.000-0.034) ng/mL Total Protein 4.7 L (6.3-8.2) g/dL Albumin 2.5 L (3.5-5.0) g/dL TSH 2.250 (0.465-4.680) mIU/L Free T4 0.85 (0.78-2.19) ng/dL Free T3 pg/mL 2.7 L (2.8-5.3) pg/ml 12/10/20 Range/Units 15:48 WBC (3.8-10.6) k/uL RBC (4.30-5.90) m/uL Hgb (13.0-17.5) gm/dL Hct (39.0-53.0) % MCV (80.0-100.0) fL MCH (25.0-35.0) pg MCHC (31.0-37.0) g/dL RDW (11.5-15.5) % Plt Count (150-450) k/uL MPV Neutrophils % % Lymphocytes % % Monocytes % % Eosinophils % % Basophils % % Neutrophils # (1.3-7.7) k/uL Lymphocytes # (1.0-4.8) k/uL Monocytes # (0-1.0) k/uL Eosinophils # (0-0.7) k/uL Basophils # (0-0.2) k/uL PT (9.0-12.0) sec INR (<1.2) APTT (22.0-30.0) sec Sodium (137-145) mmol/L Potassium (3.5-5.1) mmol/L Chloride (98-107) mmol/L Carbon Dioxide (22-30) mmol/L Anion Gap mmol/L BUN (9-20) mg/dL Creatinine (0.66-1.25) mg/dL Est GFR (CKD-EPI)AfAm (>60 ml/min/1.73 sqM) Est GFR (CKD-EPI)NonAf (>60 ml/min/1.73 sqM) Glucose (74-99) mg/dL Calcium (8.4-10.2) mg/dL Magnesium (1.6-2.3) mg/dL Total Bilirubin (0.2-1.3) mg/dL AST (17-59) U/L ALT (4-49) U/L Alkaline Phosphatase (38-126) U/L Troponin I <0.012 (0.000-0.034) ng/mL Total Protein (6.3-8.2) g/dL Albumin (3.5-5.0) g/dL TSH (0.465-4.680) mIU/L Free T4 (0.78-2.19) ng/dL Free T3 pg/mL (2.8-5.3) pg/ml - Radiology Data Radiology results: image reviewed (Chest x-ray shows cardiomegaly and some residual infiltrates) Critical Care Time Critical Care Time: Yes Total Critical Care Time: 33 Disposition Clinical Impression: Hypotension, Bradycardia Disposition: ADMITTED IP TO THIS [facility] Condition: Serious Is patient prescribed a controlled substance at d/c from ED?: No Referrals: Elda Saenz MD [Primary Care Provider] - 1-2 days Decision Time: 17:14
[2020-12-10] MEDS ORDERED: DOPamine DRIP 800 MG in DEXTROSE/WATER 1 250ML.BAG IV ONE ×2 (15:50→17:14)
[2020-12-10 16:00] LABS: Basophils % (A) 0 %; Eosinophils # (A) 0.2 k/uL (0-0.7); Eosinophils % (A) 3 %; HCT 30.3 % (39.0-53.0); HGB 10.5 gm/dL (13.0-17.5); Lymphocytes # (A) 1.4 k/uL (1.0-4.8); Lymphocytes % (A) 15 %; MCH 32.8 pg (25.0-35.0); MCHC 34.6 g/dL (31.0-37.0); MCV 94.7 fL (80.0-100.0); Mean Platelet Volume 7.1; Monocytes # (A) 0.6 k/uL (0-1.0); Monocytes % (A) 6 %; Neutrophils % (A) 75 %; Platelet Count 200 k/uL (150-450); RDW 15.6 % (11.5-15.5); WBC 9.2 k/uL (3.8-10.6)
[2020-12-10 16:12] LABS: Albumin 2.5 g/dL (3.5-5.0); Magnesium 1.9 mg/dL (1.6-2.3); Total Bilirubin 0.6 mg/dL (0.2-1.3); Total Protein 4.7 g/dL (6.3-8.2)
[2020-12-10 16:13] LABS: Partial Thromboplastin Time 23.3 sec (22.0-30.0); Prothrombin Time 10.9 sec (9.0-12.0)
--- NOTE | 2020-12-10 16:15 | XR ---
EXAMINATION TYPE: XR chest 1V DATE OF EXAM: 12/10/2020 COMPARISON: Chest x-ray 12 days ago. HISTORY: Dysrhythmia. TECHNIQUE: Single AP portable frontal upright view of the chest is obtained. FINDINGS: There are chronic parenchymal changes. With areas of increased opacity in the lung bases r edemonstrated. The cardiac silhouette size is stable and enlarged. Stimulator device in the left up per chest extending to neck redemonstrated. Fusion plate cervicothoracic junction redemonstrated. IMPRESSION: Cardiomegaly and chronic changes with areas of residual and/or acute infiltrate difficul t to exclude in the lower lungs. No significant change from most recent x-ray.
[2020-12-10 16:29] LABS: T4, Free (Free Thyroxine) 0.85 ng/dL (0.78-2.19)
[2020-12-10] MEDS ORDERED: NALOXONE 0.4 MG/ML 1 ML VIAL IV PRN (17:14)
[2020-12-10] MEDS: SODIUM CHLORIDE 0.9% 1,000 ML IV SCH (17:58)
[2020-12-10] MEDS ORDERED: ACETAMINOPHEN TAB 325 MG TAB PO PRN (18:15)
[2020-12-10] MEDS ORDERED: HYDROCORTISONE SUCCINATE 100 MG/2 ML VIAL IV SCH (18:15)
--- NOTE | 2020-12-10 18:28 | P.HPIM ---
History of Present Illness 79-year-old male came in with compensative dizziness patient is found to be bradycardic hypotensive patient the is also hyponatremic. Patient appears to be on Decadron for long time since the ninth of this month patient was discharged on of this month for with 6 days of Decadron so usually may have run out of Decadron either yesterday or day day before. Patient may have adrenal insufficiency. Patient was started on dobutamine drip. Patient blood pressure and heart rate did not improve with atropine. Patient is also on propafenone along with lisinopril and amlodipine. Patient blood sugars are okay now but low normal at this time. Patient is on sliding scale insulin for blood sugars. Patient was discharged after he was treated for Covid 19. TSH is within normal limits. Patient is saturating at 100% on 4 L of oxygen. Review of Systems REVIEW OF SYSTEMS: CONSTITUTIONAL: No fever, no malaise, no fatigue. HEENT: No recent visual problems or hearing problems. Denied any sore throat. CARDIOVASCULAR: No chest pain, orthopnea, PND, no palpitations, no syncope. PULMONARY: No shortness of breath, no cough, no hemoptysis. GASTROINTESTINAL: No diarrhea, no nausea, no vomiting, no abdominal pain. NEUROLOGICAL: No headaches, no weakness, no numbness. HEMATOLOGICAL: Denies any bleeding or petechiae. GENITOURINARY: Denies any burning micturition, frequency, or urgency. MUSCULOSKELETAL/RHEUMATOLOGICAL: Denies any joint pain, swelling, or any muscle pain. ENDOCRINE: Denies any polyuria or polydipsia. The rest of the 14-point review of systems is negative. Past Medical History Past Medical History: Atrial Fibrillation, COPD, CVA/TIA, Hyperlipidemia, Hypertension, Musculoskeletal Disorder, Neurologic Disorder, Osteoarthritis ( OA), Pneumonia, Sleep Apnea/CPAP/BIPAP Additional Past Medical History / Comment(s): Pt tested covid + 4// [facility] ER. Other hx: Bronchitis, KATHYA with Cpap use, pt states he thinks he may have been told he had a small UT many years ago, parkinson's dx, CVA with dysarthria, TIA, RLS, chronic cervical and lumbar back pain, overactive bladder. Last Myocardial Infarction Date:: 2009 History of Any Multi-Drug Resistant Organisms: None Reported Past Surgical History: Adenoidectomy, Back Surgery, Heart Catheterization, Tonsillectomy Additional Past Surgical History / Comment(s): Neurostimulator, cervical fusion, low back surgery, nasal surgery, bilateral blepharoplasty, bilateral cataract removals Past Anesthesia/Blood Transfusion Reactions: No Reported Reaction Past Psychological History: Depression Smoking Status: Former smoker Past Alcohol Use History: None Reported Past Drug Use History: None Reported - Past Family History Father Family Medical History: COPD Mother Family Medical History: Dementia Medications and Allergies Home Medications Medication Instructions Recorded Confirmed Type Citalopram Hydrobromide [CeleXA] 40 mg PO DAILY 03/09/16 12/10/20 History Carbidopa-Levodopa ER 50-200Mg 1 tab PO BID@0700,1600 03/22/18 12/10/20 History [Sinemet CR 50-200 mg] Omeprazole 20 mg PO HS@199903/22/18 12/10/20 History Folic Acid 1 mg PO DAILY 04/27/19 12/10/20 History Losartan [Cozaar] 50 mg PO DAILY 11/16/20 12/10/20 History amLODIPine [Norvasc] 5 mg PO DAILY 11/29/20 12/10/20 History Ascorbic Acid [Vitamin C] 500 mg PO BID tab 12/02/20 12/10/20 Rx Atorvastatin [Lipitor] 40 mg PO HS tab 12/02/20 12/10/20 Rx Propafenone [Rythmol] 150 mg PO Q8HR tab 12/02/20 12/10/20 Rx Tamsulosin [Flomax] 0.4 mg PO DAILY cap.er.24h 12/02/20 12/10/20 Rx Tiotropium 2.5 Mcg/Puff [Spiriva 2 puff INHALATION RT-DAILY puff 12/02/20 12/10/20 Rx Respimat 2.5 Mcg] Zinc Sulfate [Orazinc] 220 mg PO DAILY cap 12/02/20 12/10/20 Rx Acetaminophen [Tylenol Arthritis] 650 mg PO Q6H PRN 12/10/20 12/10/20 History Aspirin 81 mg PO DAILY 12/10/20 12/10/20 History Insulin Aspart [NovoLOG Flexpen] See Protocol SQ ACHS 12/10/20 12/10/20 History Oxybutynin Chloride [Oxybutynin 10 mg PO DAILY 12/10/20 12/10/20 History Chloride ER] Pramipexole [Mirapex] 1 mg PO HS@2000 12/10/20 12/10/20 History Pregabalin [Lyrica] 75 mg PO BID@0700,1600 12/10/20 12/10/20 History Allergies Allergy/AdvReac Type Severity Reaction Status Date / Time No Known Allergies Allergy Verified 12/10/20 15:49 Physical Exam Vitals: Vital Signs Temp Pulse Resp BP Pulse Ox 12/10/20 17:56 74 16 115/55 100 12/10/20 16:56 93 16 137/64 100 12/10/20 16:47 87 16 155/71 100 12/10/20 16:00 39 L 16 95/48 100 12/10/20 15:32 38 L 16 68/42 99 12/10/20 15:24 97.9 F 37 L 16 89/43 100 Intake and Output 12/10/20 12/10/20 12/10/20 06:59 14:59 22:59 Intake Total 4.833 Balance 4.833 Intake: Intake, IV Titration 4.833 Amount DOPamine DRIP 800 mg In 4.833 Dextrose/Water 1 250ml. bag @ 5 MCG/KG/MIN 9.355 mls/hr IV .Q24H ONE Rx#: [id number] Other: Weight 104.78 kg PHYSICAL EXAMINATION: GENERAL: The patient is alert and oriented x3, not in any acute distress. Well developed, well nourished. HEENT: Pupils are round and equally reacting to light. EOMI. No scleral icterus. No conjunctival pallor. Normocephalic, atraumatic. No pharyngeal erythema. No thyromegaly. CARDIOVASCULAR: S1 and S2 present. No murmurs, rubs, or gallops. PULMONARY: Diffuse scattered bilateral rhonchi ABDOMEN: Soft, nontender, nondistended, normoactive bowel sounds. No palpable or ganomegaly. MUSCULOSKELETAL: No joint swelling or deformity. EXTREMITIES: No cyanosis, clubbing, or pedal edema. NEUROLOGICAL: Gross neurological examination did not reveal any focal deficits. SKIN: No rashes. Results CBC & Chem 7: 12/10/20 15:48 12/10/20 15:48 Labs: Abnormal Lab Results - Last 24 Hours (Table) 12/10/20 12/10/20 Range/Units 15:48 15:48 RBC 3.20 L (4.30-5.90) m/uL Hgb 10.5 L (13.0-17.5) gm/dL Hct 30.3 L (39.0-53.0) % RDW 15.6 H (11.5-15.5) % Sodium 133 L (137-145) mmol/L BUN 26 H (9-20) mg/dL Calcium 8.0 L (8.4-10.2) mg/dL Total Protein 4.7 L (6.3-8.2) g/dL Albumin 2.5 L (3.5-5.0) g/dL Free T3 pg/mL 2.7 L (2.8-5.3) pg/ml Assessment and Plan Plan: Hypotension, hyponatremia and bradycardia: Possibility of adrenal insufficiency. Will obtain random cortisol level although random cortisol level will not be up much diagnostic value as his cortisol is probably suppressed because of Deca dron he was taking until yesterday or day before. Patient will be started on hydrocortisone was the blood pressure improves patient can be discharged on tapering dose of hydrocortisone, prolonged taper. Cardiology was consulted patient is also an antiarrhythmic medications which will be held and patient is on propafenone which is also being discontinued. -Hyponatremia: Euvolemic hyponatremia probably secondary to hypercortisolism adrenal insufficiency. -Atrial fibrillation: Patient is presently bradycardic management as mentioned above patient is presently on dobutamine. Patient is presently not on any anticoagulation. Patient will be started on DVT prophylaxis -Hyperlipidemia next and heparin hypertension -Sleep apnea -Recently treated COVID-19
[2020-12-10] MEDS: PANTOPRAZOLE 40 MG TABLET PO SCH (20:16)
[2020-12-10] MEDS: ASCORBIC ACID 500 MG TAB PO SCH (20:16)
[2020-12-10] MEDS: ATORVASTATIN 40 MG TAB PO SCH (20:16)
[2020-12-10] MEDS: PRAMIPEXOLE 1 MG TAB PO SCH (20:16)
[2020-12-11] MEDS: SODIUM CHLORIDE 0.9% 1,000 ML IV SCH ×3 (00:29→17:07)
[2020-12-11] MEDS: PREGABALIN 75 MG CAP PO SCH ×2 (06:08→17:01)
[2020-12-11] MEDS: CARBIDOPA-LEVODOPA ER 50-200MG 1 EACH TABLET.ER PO SCH ×2 (06:08→17:06)
--- NOTE | 2020-12-11 07:33 | ECHOF ---
Referral Reason:bradycardia MEASUREMENTS -------- HEIGHT: 175.3 cm WEIGHT: 99.8 kg BP: IVSd: 1.1 cm (0.6 - 1.1) LVIDd: 5.2 cm (3.9 - 5.3) LVPWd: 1.2 cm (0.6 - 1.1) IVSs: 1.5 cm LVIDs: 2.4 cm LVPWs: 1.7 cm Ao Diam: 3.5 cm (2.0 - 3.7) AV Cusp: 2.2 cm (1.5 - 2.6) LA Diam: 3.5 cm (2.7 - 3.8) MV EXCURSION: 15.662 mm (> 18.000) MV EF SLOPE: 73 mm/s (70 - 150) EPSS: 1.3 cm MV E Don: 0.71 m/s MV DecT: 255 ms MV A Don: 0.39 m/s MV E/A Ratio: 1.84 AR PHT: 1376 ms RAP: 5.00 mmHg RVSP: 29.84 mmHg FINDINGS -------- Resting bradycardia (HR<60bpm). This was a technically difficult study with suboptimal views. The left ventricular size is normal. There is mild concentric left ventricular hypertrophy. Overa ll left ventricular systolic function is low-normal with, an EF between 50 - 55 %. The RV was not well visualized. The left atrial size is normal. The right atrium was not well visualized. 5.0mg OF Lumason UTLIZED: 2 OR MORE WALL SEGMENTS NOT VISUALIZED. The aortic valve was not well visualized. There is mild aortic regurgitation. The mitral valve was not well visualized. There is trace mitral regurgitation. The tricuspid valve was not well visualized. Trace tricuspid regurgitation present. Right ventric ular systolic pressure is normal at < 35 mmHg. The pulmonic valve was not well visualized. There is no pulmonic regurgitation present. The aortic root size is normal. IVC Not well visulized. There is no pericardial effusion. CONCLUSIONS -------- 1. Resting bradycardia (HR<60bpm). 2. This was a technically difficult study with suboptimal views. 3. There is mild concentric left ventricular hypertrophy. 4. Overall left ventricular systolic function is low-normal with, an EF between 50 - 55 %. 5. There is mild aortic regurgitation. 6. There is trace mitral regurgitation. 7. Trace tricuspid regurgitation present. 8. There is no pericardial effusion. [employer] MANAGER: Danya Mcnamara RDCS
[2020-12-11] MEDS: IPRATROPIUM 0.5 MG/2.5 ML NEBU INHALATION SCH ×4 (07:54→20:16)
[2020-12-11] MEDS ORDERED: HYDROCORTISONE SUCCINATE 100 MG/2 ML VIAL IV SCH ×2 (08:00)
[2020-12-11] MEDS: ZINC SULFATE 220 MG CAP PO SCH (08:57)
[2020-12-11] MEDS: TAMSULOSIN 0.4 MG CAP.ER.24H PO SCH (08:58)
[2020-12-11] MEDS: FOLIC ACID 1 MG TAB PO SCH (08:58)
[2020-12-11] MEDS: ASPIRIN 81 MG PO SCH (08:58)
[2020-12-11] MEDS: ENOXAPARIN 40 MG/0.4 ML SYRINGE SQ SCH (08:58)
[2020-12-11] MEDS: CITALOPRAM HYDROBROMIDE 20 MG TAB PO SCH (08:58)
[2020-12-11] MEDS: OXYBUTYNIN 10 MG TAB.ER.24 PO SCH (08:59)
[2020-12-11 12:31] LABS: African American GFR (CKD) >90 (>60 ml/min/1.73 sqM); Anion Gap 3 mmol/L; Blood Urea Nitrogen 20 mg/dL (9-20); Calcium 8.2 mg/dL (8.4-10.2); Carbon Dioxide 26 mmol/L (22-30); Chloride 104 mmol/L (98-107); Glucose 94 mg/dL (74-99); Non-African American GFR(CKD) 89 (>60 ml/min/1.73 sqM); Potassium 4.1 mmol/L (3.5-5.1); Sodium 133 mmol/L (137-145)
--- NOTE | 2020-12-11 13:45 | P.CRDCN ---
History of Present Illness History of present illness: HISTORY OF PRESENTING ILLNESS This is a pleasant 79-year-old male past medical history significant for paroxysmal atrial fibrillation (not on anticoagulation due to prior history of intracranial bleed), hypertension, dyslipidemia, watchman device (no known details of this), Parkinson's disease. He used to follow in the office with Dr. Patel. We have been asked to see in consultation for bradycardia and hypotension. Patient presents to the emergency department with complaints of Dizziness. He was found to be bradycardic and hypotensive. Patient given atropine and started on dobutamine drip. Patient recently admitted for covid-19 pneumonia. He is from a nursing facility. He denies history of diabetes or smoking. He does have occasional confusion. He does have a productive cough. Chris usllivan is seen and examined at bedside, pleasantly confused. Unable to get full HPI on patient, he does not remember what brought him to the emergency department but he remembers being dizzy. At the time of exam, patient denies chest pain, dizziness, palpitations, shortness of breath, lightheadedness. DIAGNOSTICS Echocardiogram 11/30/20: revealed ejection fraction 45-50%, mild aortic regurgitation, mild tricuspid regurgitation, and moderate pulmonary hypertension. EKG reveals sinus bradycardia heart rate of 38 Telemetry tracings indicate sinus bradycardia heart rate 50-70s Chest xray cardiomegaly and chronic changes with areas of residual infiltrates. Laboratory data reviewed, sodium 133, potassium 4.1, serum creatinine 0.70, troponins negative 3 Current cardiac medications include Propafenone 150mg q8hr, amlodipine 5 mg daily, losartan 50 mg daily, atorvastatin 40 mg nightly, aspirin 81 mg. REVIEW OF SYSTEMS At the time of my exam: CONSTITUTIONAL: Denies fever or chills. CARDIOVASCULAR: Positive shortness of breath Denies chest pain, orthopnea, PND or palpitations. RESPIRATORY: Denies cough. GASTROINTESTINAL: Denies abdominal pain, diarrhea, constipation, nausea or vomiting. MUSCULOSKELETAL: Denies myalgias. NEUROLOGIC: Positive dizziness Denies numbness, tingling, headacbe or weakness. ENDOCRINE: Denies fatigue, weight change, polydipsia or polyurina. GENITOURINARY: Denies burning, hematuria or urgency with micturation. HEMATOLOGIC: Denies history of anemia or bleeding. PHYSICAL EXAMINATION Blood pressure 115/59 heart rate 70 afebrile and maintaining oxygen saturation 95% on room air CONSTITUTIONAL: No apparent distress. HEENT: Head is normocephalic. Pupils are equal, round. Sclerae anicteric. Mucous membranes of the mouth are moist. No JVD. No carotid bruit. CHEST EXAMINATION: Lungs are clear to auscultation. No chest wall tenderness is noted on palpation or with deep breathing. HEART EXAMINATION: Regular rate and rhythm. S1, S2 heard. No murmurs, gallops or rub. ABDOMEN: Soft, nontender. Positive bowel sounds. EXTREMITIES: 2+ peripheral pulses, no lower extremity edema and no calf tenderness. NEUROLOGIC EXAMINATION: Patient is awake, alert and oriented x3. ASSESSMENT Bradycardia History of paroxysmal atrial fibrillation, not on long-term coagulation secondary to history of intracranial bleed History of intracranial bleed History of Hypertension - hypotensive on admission History of Parkinson's disease Recent Covid-19 infection PLAN 2D echocardiogram ordered- revealed EF 50-55%, mild AR, mild MR trace TR Patient with improvement of bradycardia Will hold patient's Rhytmol Will stop dopamine drip Continue cardiac telemetry Further recommendations to follow Nurse Practitioner note has been reviewed, I agree with a documented findings and plan of care. Patient was seen and examined. Past Medical History Past Medical History: Atrial Fibrillation, COPD, CVA/TIA, Hyperlipidemia, Hypertension, Musculoskeletal Disorder, Neurologic Disorder, Osteoarthritis (OA), Pneumonia, Sleep Apnea/CPAP/BIPAP Additional Past Medical History / Comment(s): Pt tested covid + 4// [facility] ER. Other hx: Bronchitis, KATHYA with Cpap use, pt states he thinks he may have been told he had a small NC many years ago, parkinson's dx, CVA with dysarthria, TIA, RLS, chronic cervical and lumbar back pain, overactive bladder. Last Myocardial Infarction Date:: 2009 History of Any Multi-Drug Resistant Organisms: None Reported Past Surgical History: Adenoidectomy, Back Surgery, Heart Catheterization, Tonsillectomy Additional Past Surgical History / Comment(s): Neurostimulator, cervical fusion, low back surgery, nasal surgery, bilateral blepharoplasty, bilateral cataract removals Past Anesthesia/Blood Transfusion Reactions: No Reported Reaction Past Psychological History: Depression Additional Psychological History / Comment(s): He uses a walker, cane or hover round. He is independent with his adls. He manages his own medications, they come in little envelopes. Smoking Status: Former smoker Past Alcohol Use History: None Reported Additional Past Alcohol Use History / Comment(s): Pt started smoking at age 13(1954) and quit 1989 was smoking 1.5 ppd Past Drug Use History: None Reported - Past Family History Father Family Medical History: COPD Mother Family Medical History: Dementia Medications and Allergies Home Medications Medication Instructions Recorded Confirmed Type Citalopram Hydrobromide [CeleXA] 40 mg PO DAILY 03/09/16 12/10/20 History Carbidopa-Levodopa ER 50-200Mg 1 tab PO BID@0700,1600 03/22/18 12/10/20 History [Sinemet CR 50-200 mg] Omeprazole 20 mg PO HS@199903/22/18 12/10/20 History Folic Acid 1 mg PO DAILY 04/27/19 12/10/20 History Losartan [Cozaar] 50 mg PO DAILY 11/16/20 12/10/20 History amLODIPine [Norvasc] 5 mg PO DAILY 11/29/20 12/10/20 History Ascorbic Acid [Vitamin C] 500 mg PO BID tab 12/02/20 12/10/20 Rx Atorvastatin [Lipitor] 40 mg PO HS tab 12/02/20 12/10/20 Rx Propafenone [Rythmol] 150 mg PO Q8HR tab 12/02/20 12/10/20 Rx Tamsulosin [Flomax] 0.4 mg PO DAILY cap.er.24h 12/02/20 12/10/20 Rx Tiotropium 2.5 Mcg/Puff [Spiriva 2 puff INHALATION RT-DAILY puff 12/02/20 12/10/20 Rx Respimat 2.5 Mcg] Zinc Sulfate [Orazinc] 220 mg PO DAILY cap 12/02/20 12/10/20 Rx Acetaminophen [Tylenol Arthritis] 650 mg PO Q6H PRN 12/10/20 12/10/20 History Aspirin 81 mg PO DAILY 12/10/20 12/10/20 History Insulin Aspart [NovoLOG Flexpen] See Protocol SQ ACHS 12/10/20 12/10/20 History Oxybutynin Chloride [Oxybutynin 10 mg PO DAILY 12/10/20 12/10/20 History Chloride ER] Pramipexole [Mirapex] 1 mg PO HS@199912/10/20 12/10/20 History Pregabalin [Lyrica] 75 mg PO BID@0700,1600 12/10/20 12/10/20 History Allergies Allergy/AdvReac Type Severity Reaction Status Date / Time No Known Allergies Allergy Verified 12/10/20 15:49 Physical Exam Vitals: Vital Signs Temp Pulse Pulse Resp BP BP Pulse Ox 12/11/20 03:31 98 F 67 16 143/73 97 12/11/20 02:00 18 12/11/20 00:49 18 12/11/20 00:30 98.2 F 69 18 121/61 100 12/10/20 23:00 97.9 F 74 19 128/55 96 12/10/20 22:00 73 18 115/80 97 12/10/20 21:00 97 19 126/86 97 12/10/20 20:42 73 19 153/81 12/10/20 20:21 69 17 106/60 98 12/10/20 19:30 70 17 104/56 98 12/10/20 18:48 78 16 134/61 100 12/10/20 17:56 74 16 115/55 100 12/10/20 16:56 93 16 137/64 100 12/10/20 16:47 87 16 155/71 100 12/10/20 16:00 39 L 16 95/48 100 12/10/20 15:32 38 L 16 68/42 99 12/10/20 15:24 97.9 F 37 L 16 89/43 100 Intake and Output 12/10/20 12/10/20 12/11/20 14:59 22:59 06:59 Intake Total 4.833 Output Total 450 Balance 4.833 -450 Intake: Intake, IV Titration 4.833 Amount DOPamine DRIP 800 mg In 4.833 Dextrose/Water 1 250ml. bag @ 5 MCG/KG/MIN 9.355 mls/hr IV .Q24H ONE Rx#: [id number] Output: Urine 450 Other: # Voids 2 Weight 104.78 kg 93.5 kg Results 12/10/20 15:48 12/11/20 11:55 Cardiac Enzymes 12/10/20 12/10/20 12/10/20 Range/Units 15:48 15:48 18:31 AST 19 (17-59) U/L Troponin I <0.012 <0.012 (0.000-0.034) ng/mL 12/10/20 Range/Units 22:26 AST (17-59) U/L Troponin I <0.012 (0.000-0.034) ng/mL Coagulation 12/10/20 Range/Units 15:48 PT 10.9 (9.0-12.0) sec APTT 23.3 (22.0-30.0) sec CBC 12/10/20 Range/Units 15:48 WBC 9.2 (3.8-10.6) k/uL RBC 3.20 L (4.30-5.90) m/uL Hgb 10.5 L (13.0-17.5) gm/dL Hct 30.3 L (39.0-53.0) % Plt Count 200 (150-450) k/uL Comprehensive Metabolic Panel 12/10/20 Range/Units 15:48 Sodium 133 L (137-145) mmol/L Potassium 4.0 (3.5-5.1) mmol/L Chloride 102 (98-107) mmol/L Carbon Dioxide 26 (22-30) mmol/L BUN 26 H (9-20) mg/dL Creatinine 1.11 (0.66-1.25) mg/dL Glucose 84 (74-99) mg/dL Calcium 8.0 L (8.4-10.2) mg/dL AST 19 (17-59) U/L ALT 8 (4-49) U/L Alkaline Phosphatase 54 (38-126) U/L Total Protein 4.7 L (6.3-8.2) g/dL Albumin 2.5 L (3.5-5.0) g/dL Current Medications Generic Name Dose Route Start Last Admin Trade Name Freq PRN Reason Stop Dose Admin Acetaminophen 650 mg 12/10/20 18:15 Acetaminophen Tab 325 Mg Tab PO Q6H PRN Pain Ascorbic Acid 500 mg 12/10/20 21:00 12/10/20 20:16 Ascorbic Acid 500 Mg Tab PO 500 mg BID DENICE Administration Aspirin 81 mg 12/11/20 09:00 Aspirin 81 Mg PO DAILY [facility]ICE Atorvastatin Calcium 40 mg 12/10/20 21:00 12/10/20 20:16 Atorvastatin 40 Mg Tab PO 40 mg HS DENICE Administration Carbidopa/Levodopa 1 each 12/11/20 07:00 12/11/20 06:08 Carbidopa-Levodopa Er 50-200mg 1 Each Tablet.Er PO 1 each BID@0700,1600 [facility] Administration Citalopram Hydrobromide 40 mg 12/11/20 09:00 Citalopram Hydrobromide 20 Mg Tab PO DAILY [facility] Enoxaparin Sodium 40 mg 12/11/20 09:00 Enoxaparin 40 Mg/0.4 Ml Syringe SQ DAILY [facility] Folic Acid 1 mg 12/11/20 09:00 Folic Acid 1 Mg Tab PO DAILY [facility] Hydrocortisone Sodium Succinate 100 mg 12/11/20 08:00 Hydrocortisone Succinate 100 Mg/2 Ml Vial IV Q8HR [facility] Dopamine HCl/Dextrose 800 mg/ 250 mls @ 5.613 mls/hr 12/10/20 17:14 12/10/20 17:14 IV Solution IV 12/11/20 15:49 3 mcg/kg/min .Q24H ONE 5.613 mls/hr Administration 3 MCG/KG/MIN Sodium Chloride 1,000 mls @ 20 mls/hr 12/10/20 17:15 12/10/20 17:58 Saline 0.9% IV Not Given .Q24H [facility]ICE Sodium Chloride 1,000 mls @ 75 mls/hr 12/10/20 18:30 12/11/20 00:29 Saline 0.9% IV 75 mls/hr .[id number] [facility] Administration Ipratropium [place] 0.5 mg 12/11/20 08:00 Ipratropium 0.5 Mg/2.5 Ml Nebu INHALATION RT-QID [facility] Naloxone HCl 0.2 mg 12/10/20 17:14 Naloxone 0.4 Mg/Ml 1 Ml Vial IV Q2M PRN Opioid Reversal Oxybutynin Chloride 10 mg 12/11/20 09:00 Oxybutynin 10 Mg Tab.Er.24 PO DAILY [facility] Pantoprazole Sodium 40 mg 12/10/20 20:00 12/10/20 20:16 Pantoprazole 40 Mg Tablet PO 40 mg HS@1999 [facility] Administration Pramipexole Dihydrochloride 1 mg 12/10/20 20:00 12/10/20 20:16 Pramipexole 1 Mg Tab PO 1 mg HS@2000 [facility] Administration Pregabalin 75 mg 12/11/20 07:00 12/11/20 06:08 Pregabalin 75 Mg Cap PO 75 mg BID@0700,1600 [facility] Administration Tamsulosin HCl 0.4 mg 12/11/20 09:00 Tamsulosin 0.4 Mg Cap.Er.24h PO DAILY [facility] Zinc Sulfate 220 mg 12/11/20 09:00 Zinc Sulfate 220 Mg Cap PO DAILY [facility] Intake and Output 12/10/20 12/10/20 12/11/20 14:59 22:59 06:59 Intake Total 4.833 Output Total 450 Balance 4.833 -450 Intake: Intake, IV Titration 4.833 Amount DOPamine DRIP 800 mg In 4.833 Dextrose/Water 1 250ml. bag @ 5 MCG/KG/MIN 9.355 mls/hr IV .Q24H ONE Rx#: [id number] Output: Urine 450 Other: # Voids 2 Weight 104.78 kg 93.5 kg Patient Weight 12/11/20 06:59 Weight 93.5 kg 12/10/20 15:48 12/10/20 15:48
[2020-12-11] MEDS: PANTOPRAZOLE 40 MG TABLET PO SCH (20:12)
[2020-12-11] MEDS: PRAMIPEXOLE 1 MG TAB PO SCH (20:12)
[2020-12-11] MEDS: ATORVASTATIN 40 MG TAB PO SCH (20:12)
[2020-12-11] MEDS: HYDROCORTISONE 20 MG TAB PO SCH (20:13)
[2020-12-11] MEDS: ASCORBIC ACID 500 MG TAB PO SCH (20:14)
[2020-12-12 04:10] VITALS: RESP 18
[2020-12-12] MEDS: SODIUM CHLORIDE 0.9% 1,000 ML IV SCH ×2 (05:16→10:48)
[2020-12-12] MEDS: PREGABALIN 75 MG CAP PO SCH ×2 (05:16→17:04)
[2020-12-12] MEDS: CARBIDOPA-LEVODOPA ER 50-200MG 1 EACH TABLET.ER PO SCH ×2 (06:29→17:05)
[2020-12-12 08:34] LABS: African American GFR (CKD) >90 (>60 ml/min/1.73 sqM); Anion Gap 3 mmol/L; Blood Urea Nitrogen 18 mg/dL (9-20); Calcium 8.4 mg/dL (8.4-10.2); Carbon Dioxide 26 mmol/L (22-30); Chloride 106 mmol/L (98-107); Glucose 105 mg/dL (74-99); Non-African American GFR(CKD) 87 (>60 ml/min/1.73 sqM); Potassium 3.9 mmol/L (3.5-5.1); Sodium 135 mmol/L (137-145)
[2020-12-12] MEDS: IPRATROPIUM 0.5 MG/2.5 ML NEBU INHALATION SCH ×3 (08:39→15:42)
--- NOTE | 2020-12-12 09:51 | P.PN ---
Subjective Progress Note Date: 12/11/20 Principal diagnosis: Bradycardia Hypotension/hyponatremia- possibility of adrenal insufficiency 79-year-old male came in with compensative dizziness patient is found to be bradycardic hypotensive patient the is also hyponatremic. Patient appears to be on Decadron for long time since the ninth of this month patient was discharged on of this month for with 6 days of Decadron so usually may have run out of Decadron either yesterday or day day before. Patient may have adrenal insufficiency. Patient was started on dobutamine drip. Patient blood pressure and heart rate did not improve with atropine. Patient is also on propafenone along with lisinopril and amlodipine. Patient blood sugars are okay now but low normal at this time. Patient is on sliding scale insulin for blood sugars. Patient was discharged after he was treated for Covid 19. TSH is within normal limits. Patient is saturating at 100% on 4 L of oxygen. 12/11/2020 Patient is seen and evaluated in room at bedside; no specific complaints; vital signs are reviewed and blood pressure has improved to 115/59 with heart rate in 70s Patient has been evaluated by cardiology; 2-D echocardiogram completed and reveals EF of 50-55%, mild AR, mild MR, trace TR Bradycardia has improved significantly; cardiology recommending to continue to hold Rythmol and discontinue dopamine infusion Patient to be monitored on telemetry for another 24-48 hours Objective - Vital Signs Vital signs: Vital Signs Temp 98 F 12/11/20 03:31 Pulse 68 12/11/20 11:41 Resp 24 12/11/20 11:32 BP 115/59 12/11/20 07:26 Pulse Ox 96 12/11/20 09:20 Intake & Output 12/10/20 12/11/20 12/11/20 18:59 06:59 18:59 Intake Total 4.833 118 Output Total 450 Balance 4.833 -450 118 Weight 104.78 kg 93.5 kg Intake: Intake, IV Titration 4.833 Amount DOPamine DRIP 800 mg In 4.833 Dextrose/Water 1 250ml. bag @ 5 MCG/KG/MIN 9.355 mls/hr IV .Q24H ONE Rx#: [id number] Oral 118 Output: Urine 450 Other: Voiding Method Incontinent # Voids 2 - Exam GENERAL: The patient is alert and oriented x3, not in any acute distress. Well developed, well nourished. HEENT: Pupils are round and equally reacting to light. EOMI. No scleral icterus. No conjunctival pallor. Normocephalic, atraumatic. No pharyngeal erythema. No thyromegaly. CARDIOVASCULAR: S1 and S2 present. No murmurs, rubs, or gallops. PULMONARY: Diffuse scattered bilateral rhonchi ABDOMEN: Soft, nontender, nondistended, normoactive bowel sounds. No palpable organomegaly. MUSCULOSKELETAL: No joint swelling or deformity. EXTREMITIES: No cyanosis, clubbing, or pedal edema. NEUROLOGICAL: Gross neurological examination did not reveal any focal deficits. SKIN: No rashes. - Labs CBC & Chem 7: 12/10/20 15:48 12/12/20 07:37 Labs: Abnormal Lab Results - Last 24 Hours (Table) 12/10/20 12/10/20 Range/Units 15:48 15:48 RBC 3.20 L (4.30-5.90) m/uL Hgb 10.5 L (13.0-17.5) gm/dL Hct 30.3 L (39.0-53.0) % RDW 15.6 H (11.5-15.5) % Sodium 133 L (137-145) mmol/L BUN 26 H (9-20) mg/dL Calcium 8.0 L (8.4-10.2) mg/dL Total Protein 4.7 L (6.3-8.2) g/dL Albumin 2.5 L (3.5-5.0) g/dL Free T3 pg/mL 2.7 L (2.8-5.3) pg/ml Assessment and Plan Assessment: Hypotension, hyponatremia and bradycardia: Possibility of adrenal insufficiency. Will obtain random cortisol level although random cortisol level will not be up much diagnostic value as his cortisol is probably suppressed because of Decadron he was taking until yesterday or day before. Patient will be started on hydrocortisone was the blood pressure improves patient can be discharged on tapering dose of hydrocortisone, prolonged taper. Cardiology was consulted patient is also an antiarrhythmic medications which will be held and patient is on propafenone which is also being discontinued. -Hyponatremia: Euvolemic hyponatremia probably secondary to hypercortisolism adrenal insufficiency. -Atrial fibrillation: Patient is presently bradycardic management as mentioned above patient is presently on dobutamine. Patient is presently not on any anticoagulation. Patient will be started on DVT prophylaxis -Hyperlipidemia next and heparin hypertension -Sleep apnea -Recently treated COVID-19
[2020-12-12] MEDS: ZINC SULFATE 220 MG CAP PO SCH (10:35)
[2020-12-12] MEDS: ASCORBIC ACID 500 MG TAB PO SCH (10:35)
[2020-12-12] MEDS: ASPIRIN 81 MG PO SCH (10:35)
[2020-12-12] MEDS: FOLIC ACID 1 MG TAB PO SCH (10:35)
[2020-12-12] MEDS: TAMSULOSIN 0.4 MG CAP.ER.24H PO SCH (10:35)
[2020-12-12] MEDS: CITALOPRAM HYDROBROMIDE 20 MG TAB PO SCH (10:47)
[2020-12-12] MEDS: HYDROCORTISONE 20 MG TAB PO SCH (10:47)
[2020-12-12] MEDS: ENOXAPARIN 40 MG/0.4 ML SYRINGE SQ SCH (10:47)
[2020-12-12] MEDS: OXYBUTYNIN 10 MG TAB.ER.24 PO SCH (10:48)
[2020-12-12 11:44] VITALS: BP 130/72; TEMP 98.2
[2020-12-12 12:00] VITALS: PULSE 72
--- NOTE | 2020-12-12 12:42 | P.PN ---
Subjective Progress Note Date: 12/12/20 HISTORY OF PRESENTING ILLNESS This is a pleasant 79-year-old male past medical history significant for par oxysmal atrial fibrillation (not on anticoagulation due to prior history of intracranial bleed), hypertension, dyslipidemia, watchman device (no known details of this), Parkinson's disease. He used to follow in the office with Dr. Patel. We have been asked to see in consultation for bradycardia and hypotension. Patient presents to the emergency department with complaints of Dizziness. He was found to be bradycardic and hypotensive. Patient given atropine and started on dobutamine drip. Patient recently admitted for covid-19 pneumonia. He is from a nursing facility. He denies history of diabetes or smoking. He does have occasional confusion. He does have a productive cough. Patient is seen and examined at bedside, pleasantly confused. Unable to get full HPI on patient, he does not remember what brought him to the emergency department but he remembers being dizzy. At the time of exam, patient denies chest pain, dizziness, palpitations, shortness of breath, lightheadedness. DIAGNOSTICS Echocardiogram 11/30/20: revealed ejection fraction 45-50%, mild aortic regurgitation, mild tricuspid regurgitation, and moderate pulmonary hypertension. EKG reveals sinus bradycardia heart rate of 38 Telemetry tracings indicate sinus bradycardia heart rate 50-70s Chest xray cardiomegaly and chronic changes with areas of residual infiltrates. Laboratory data reviewed, sodium 133, potassium 4.1, serum creatinine 0.70, troponins negative 3 Current cardiac medications include Propafenone 150mg q8hr, amlodipine 5 mg daily, losartan 50 mg daily, atorvastatin 40 mg nightly, aspirin 81 mg. 12/12: No new complaints. Heart rate is running in the 60s and 70s with blood pressure 130/72. PHYSICAL EXAMINATION Blood pressure 115/59 heart rate 70 afebrile and maintaining oxygen saturation 95% on room air CONSTITUTIONAL: No apparent distress. HEENT: Head is normocephalic. Pupils are equal, round. Sclerae anicteric. Mucous membranes of the mouth are moist. No JVD. No carotid bruit. CHEST EXAMINATION: Lungs are clear to auscultation. No chest wall tenderness is noted on palpation or with deep breathing. HEART EXAMINATION: Regular rate and rhythm. S1, S2 heard. No murmurs, gallops or rub. ABDOMEN: Soft, nontender. Positive bowel sounds. EXTREMITIES: 2+ peripheral pulses, no lower extremity edema and no calf tenderness. NEUROLOGIC EXAMINATION: Patient is awake, alert and oriented x3. ASSESSMENT Bradycardia History of paroxysmal atrial fibrillation, not on long-term coagulation secondar y to history of intracranial bleed History of intracranial bleed History of Hypertension - hypotensive on admission History of Parkinson's disease Recent Covid-19 infection PLAN 2D echocardiogram ordered- revealed EF 50-55%, mild AR, mild MR trace TR Bradycardia and hypotension resolved Continue to hold Rythmol, amlodipine and losartan. Resume blood pressure medications slowly if blood pressure warrants. Cardiology will sign off and follow on an as-needed basis. Please reconsult for any new concerns. Nurse Practitioner note has been reviewed, I agree with a documented findings and plan of care. Patient was seen and examined. Objective - Vital Signs Vital signs: Vital Signs Temp 98.2 F 12/12/20 08:52 Pulse 72 12/12/20 12:06 Resp 18 12/12/20 08:52 BP 130/72 12/12/20 08:52 Pulse Ox 97 12/12/20 08:52 Intake & Output 12/11/20 12/12/20 12/12/20 18:59 06:59 18:59 Intake Total 1078 225 240 Output Total 1163 Balance -85 225 240 Weight 96 kg Intake: IV 600 Sodium Chloride 0.9% 1, 600 000 ml @ 75 mls/hr IV . [id number] [facility]ICE Rx#:[id number] Intake, IV Titration 225 Amount Sodium Chloride 0.9% 1, 225 000 ml @ 20 mls/hr IV . Q24H [facility] Rx#:[id number] Oral 478 240 Output: Urine 600 Straight 600 Post Void Residual 563 Other: Voiding Method Incontinent Incontinent Urinal Diaper # Voids 1 - Labs CBC & Chem 7: 12/10/20 15:48 12/12/20 07:37 Labs: Abnormal Lab Results - Last 24 Hours (Table) 12/12/20 Range/Units 07:37 Sodium 135 L (137-145) mmol/L Glucose 105 H (74-99) mg/dL
--- NOTE | 2020-12-25 14:00 | P.DS ---
Providers Date of admission: 12/10/20 17:14 Expected date of discharge: 12/12/20 Attending physician: Polina Hernandez Consults: 12/10/20 15:55 Consult Physician Stat Consulting Provider: Eliezer Gong Consult Reason/Comments: bradycardia, hypotension Do you want consulting provider notified?: Already Contacted Primary care physician: Elda Saenz [facility] Course: 79-year-old male came in with compensative dizziness patient is found to be bradycardic hypotensive patient the is also hyponatremic. Patient appears to be on Decadron for long time since the of this month patient was discharged on of this month for with 6 days of Decadron so usually may have run out of Decadron either yesterday or day day before. Patient may have adrenal insufficiency. Patient was started on dobutamine drip. Patient blood pressure and heart rate did not improve with atropine. Patient is also on propafenone along with lisinopril and amlodipine. Patient blood sugars are okay now but low normal at this time. Patient is on sliding scale insulin for blood sugars. Patient was discharged after he was treated for Covid 19. TSH is within normal limits. Patient is saturating at 100% on 4 L of oxygen. 12/11/2020 Patient is seen and evaluated in room at bedside; no specific complaints; vital signs are reviewed and blood pressure has improved to 115/59 with heart rate in 70s Patient has been evaluated by cardiology; 2-D echocardiogram completed and reveals EF of 50-55%, mild AR, mild MR, trace TR Bradycardia has improved significantly; cardiology recommending to continue to hold Rythmol and discontinue dopamine infusion Patient to be monitored on telemetry for another 24-48 hours 12/12/2020 2D echocardiogram ordered- revealed EF 50-55%, mild AR, mild MR trace TR Bradycardia and hypotension resolved Continue to hold Rythmol, amlodipine and losartan. Resume blood pressure medications slowly if blood pressure warrants. Patient was dc'ed in a stable condition Patient Condition at Discharge: Serious Plan - Discharge Summary Discharge Rx Participant: No New Discharge Prescriptions: New Hydrocortisone [Cortef] 100 mg PO BID #20 tab Continue Citalopram Hydrobromide [CeleXA] 40 mg PO DAILY Omeprazole 20 mg PO HS@2000 Carbidopa-Levodopa ER 50-200Mg [Sinemet CR 50-200 mg] 1 tab PO BID@0700,1600 Folic Acid 1 mg PO DAILY Tamsulosin [Flomax] 0.4 mg PO DAILY cap.er.24h Insulin Aspart [NovoLOG Flexpen] See Protocol SQ ACHS Oxybutynin Chloride [Oxybutynin Chloride ER] 10 mg PO DAILY Aspirin 81 mg PO DAILY Pregabalin [Lyrica] 75 mg PO BID@0700,1600 Pramipexole [Mirapex] 1 mg PO HS@1999 Atorvastatin [Lipitor] 40 mg PO HS tab Zinc Sulfate [Orazinc] 220 mg PO DAILY cap Tiotropium 2.5 Mcg/Puff [Spiriva Respimat 2.5 Mcg] 2 puff INHALATION RT-DAILY puff Ascorbic Acid [Vitamin C] 500 mg PO BID tab Acetaminophen [Tylenol Arthritis] 650 mg PO Q6H PRN PRN Reason: Pain Discontinued amLODIPine [Norvasc] 5 mg PO DAILY Propafenone [Rythmol] 150 mg PO Q8HR tab Losartan [Cozaar] 50 mg PO DAILY Discharge Medication List Citalopram Hydrobromide [CeleXA] 40 mg PO DAILY 03/09/16 [History] Carbidopa-Levodopa ER 50-200Mg [Sinemet CR 50-200 mg] 1 tab PO BID@0700,1600 03/22/18 [History] Omeprazole 20 mg PO HS@2000 03/22/18 [History] Folic Acid 1 mg PO DAILY 04/27/19 [History] Ascorbic Acid [Vitamin C] 500 mg PO BID tab 12/02/20 [Rx] Atorvastatin [Lipitor] 40 mg PO HS tab 12/02/20 [Rx] Tamsulosin [Flomax] 0.4 mg PO DAILY cap.er.24h 12/02/20 [Rx] Tiotropium 2.5 Mcg/Puff [Spiriva Respimat 2.5 Mcg] 2 puff INHALATION RT-DAILY puff 12/02/20 [Rx] Zinc Sulfate [Orazinc] 220 mg PO DAILY cap 12/02/20 [Rx] Acetaminophen [Tylenol Arthritis] 650 mg PO Q6H PRN 12/10/20 [History] Aspirin 81 mg PO DAILY 12/10/20 [History] Insulin Aspart [NovoLOG Flexpen] See Protocol SQ ACHS 12/10/20 [History] Oxybutynin Chloride [Oxybutynin Chloride ER] 10 mg PO DAILY 12/10/20 [History] Pramipexole [Mirapex] 1 mg PO HS@199912/10/20 [History] Pregabalin [Lyrica] 75 mg PO BID@0700,1600 12/10/20 [History] Hydrocortisone [Cortef] 100 mg PO BID #20 tab 12/12/20 [Rx] Follow up Appointment(s)/Referral(s): Elda Saenz MD [Primary Care Provider] - 1-2 days Sly Tomlinson MD [Medical Doctor] - 1 Week Discharge [facility]
== END 2020-12-12 17:28 | DRG 644 ==
LOC: EC 15:21 → 3SCARD 17:14
PROVIDERS: ADMIT Internal Medicine; ATTEND Internal Medicine
DX: E27.40 Unspecified adrenocortical insufficiency (principal); E87.1 Hypo-osmolality and hyponatremia; R00.1 Bradycardia, unspecified; I95.9 Hypotension, unspecified; R42 Dizziness and giddiness; E78.5 Hyperlipidemia, unspecified; J44.9 Chronic obstructive pulmonary disease, unspecified; M19.90 Unspecified osteoarthritis, unspecified site; G47.33 Obstructive sleep apnea (adult) (pediatric); I48.0 Paroxysmal atrial fibrillation; J40 Bronchitis, not specified as acute or chronic; H26.9 Unspecified cataract; F32.9 Major depressive disorder, single episode, unspecified; Z87.891 Personal history of nicotine dependence; Z79.899 Other long term (current) drug therapy; Z79.82 Long term (current) use of aspirin; Z86.16 Personal history of COVID-19; I10 Essential (primary) hypertension; I25.2 Old myocardial infarction; Z82.5 Family history of asthma and other chronic lower respiratory diseases; I69.322 Dysarthria following cerebral infarction; G25.81 Restless legs syndrome; G20 Parkinson's disease; Z87.01 Personal history of pneumonia (recurrent); I27.20 Pulmonary hypertension, unspecified; R00.2 Palpitations
CPT/HCPCS: 36415; 71045; 80048; 80053; 82533; 83735; 84439; 84443; 84481; 84484; 85025; 85610; 85730; 93005; 93306; 94640; 96361; 96365; 96375; 99291

== ENCOUNTER 2021-01-07 15:29 | Emergency (ER) | payer MEDICARE ==
--- NOTE | 2021-01-07 16:16 | ED ---
CPR HPI - General Chief Complaint: Cardiac Arrest/CPR Stated Complaint: cardiac arrest Source: EMS Mode of arrival: EMS Limitations: altered mental status - History of Present Illness Initial Comments: Benja is an 80-year-old male who is brought to the ER today via ambulance with CPR in progress. History is provided by EMS. Apparently the patient was found unresponsive in the restroom at his senior care. Patient was pulseless and apneic at that time and CPR was initiated. EMS arrived, CPR was continued, airways established, IV was established she was given epinephrine. He did have a brief return of spontaneous circulation however in route to the hospital again lost pulses and CPR medications were resumed. Patient received 5 epinephrine and continuous CPR prior to arrival in the ER. - Related Data Home Medications Medication Instructions Recorded Confirmed Citalopram Hydrobromide [CeleXA] 40 mg PO DAILY 03/09/16 12/10/20 Carbidopa-Levodopa ER 50-200Mg 1 tab PO BID@0700,1600 03/22/18 12/10/20 [Sinemet CR 50-200 mg] Omeprazole 20 mg PO HS@199903/22/18 12/10/20 Folic Acid 1 mg PO DAILY 04/27/19 12/10/20 Acetaminophen [Tylenol Arthritis] 650 mg PO Q6H PRN 12/10/20 12/10/20 Aspirin 81 mg PO DAILY 12/10/20 12/10/20 Insulin Aspart [NovoLOG Flexpen] See Protocol SQ ACHS 12/10/20 12/10/20 Oxybutynin Chloride [Oxybutynin 10 mg PO DAILY 12/10/20 12/10/20 Chloride ER] Pramipexole [Mirapex] 1 mg PO HS@199912/10/20 12/10/20 Pregabalin [Lyrica] 75 mg PO BID@0700,1600 12/10/20 12/10/20 Previous Rx's Medication Instructions Recorded Ascorbic Acid [Vitamin C] 500 mg PO BID tab 12/02/20 Atorvastatin [Lipitor] 40 mg PO HS tab 12/02/20 Tamsulosin [Flomax] 0.4 mg PO DAILY cap.er.24h 12/02/20 Tiotropium 2.5 Mcg/Puff [Spiriva 2 puff INHALATION RT-DAILY puff 12/02/20 Respimat 2.5 Mcg] Zinc Sulfate [Orazinc] 220 mg PO DAILY cap 12/02/20 Hydrocortisone [Cortef] 100 mg PO BID #20 tab 12/12/20 Allergies Allergy/AdvReac Type Severity Reaction Status Date / Time No Known Allergies Allergy Verified 12/10/20 15:49 Review of Systems ROS Statement: Those systems with pertinent positive or pertinent negative responses have been documented in the HPI. ROS Other: All systems not noted in ROS Statement are negative. Past Medical History Past Medical History: Atrial Fibrillation, COPD, CVA/TIA, Hyperlipidemia, Hypertension, Musculoskeletal Disorder, Neurologic Disorder, Osteoarthritis (OA), Pneumonia, Sleep Apnea/CPAP/BIPAP Additional Past Medical History / Comment(s): Pt tested covid + 11/16/20 [facility] ER. Other hx: Bronchitis, KATHYA with Cpap use, pt states he thinks he may have been told he had a small WA many years ago, parkinson's dx, CVA with dysarthria, TIA, RLS, chronic cervical and lumbar back pain, overactive bladder. Last Myocardial Infarction Date:: 2009 History of Any Multi-Drug Resistant Organisms: None Reported Past Surgical History: Adenoidectomy, Back Surgery, Heart Catheterization, Tonsillectomy Additional Past Surgical History / Comment(s): Neurostimulator, cervical fusion, low back surgery, nasal surgery, bilateral blepharoplasty, bilateral cataract removals Past Anesthesia/Blood Transfusion Reactions: No Reported Reaction Past Psychological History: Depression Smoking Status: Former smoker - Past Family History Father Family Medical History: COPD Mother Family Medical History: Dementia General Exam - General Exam Comments Initial Comments: Physical Exam GENERAL: Unresponsive HENT: Atraumatic. EYES: Pupils 4mm not reactive PULMONARY: No spontaneous respirations Coarse breath sounds bilaterally CARDIOVASCULAR: Weak thready pulses between CPR ABDOMEN: Distended SKIN: Bruise on LLQ of abdomen Skin tear and bruising to sternum from CPR fam devise Skin tear left hip : Normal external genitalia NEUROLOGIC: Unresponsive No spontaneous movements MUSCULOSKELETAL: No obvious injury PSYCHIATRIC: Unresponsive Limitations: altered mental status Medical Decision Making - Medical Decision Making Patient was seen and evaluated immediately upon arrival to the emergency department CPR was in progress and was continued per ACLS protocol Given the duration of CPR bicarb, calcium and epinephrine were given Patient a brief return of spontaneous circulation, bedside ultrasound reveals a heart with very minimal movement I suspect the ejection fraction is less than 10% Patient again have loss of pulses and CPR was resumed with additional dose of epinephrine, again patient had return of spontaneous situation with very weak thready pulses Attempted to contact patient's son Felice via cell phone, went to voicemail At this time the patient's downtime is over 40 minutes he has received 8 epinephrine, he has had no meaningful neurologic activity, he has no spontaneous respirations, bedside ultrasound reveals minimal movement of the heart, at this time I do not feel patient can have any meaningful recovery and after prolonged resuscitation attempts CPR was discontinued. Patient was pronounced at 3:47 PM No family present, family friends in waiting room were notified ME notified, patient released Jeanne HYDE for Dr. Miranda confirms they will sign certificate Patients son-in-law and grandson notified of patient Disposition Clinical Impression: Cardiac arrest Disposition: Referrals: Jaime Miranda MD [Primary Care Provider] - 1-2 days Time of Disposition: 15:47 Preliminary Cause of : cardiac arrest
== END 2021-01-07 17:58 | disposition expired ==
LOC: EC 15:29
DX: I46.9 Cardiac arrest, cause unspecified (principal); E78.5 Hyperlipidemia, unspecified; G47.33 Obstructive sleep apnea (adult) (pediatric); I10 Essential (primary) hypertension; I25.2 Old myocardial infarction; I48.91 Unspecified atrial fibrillation; J44.9 Chronic obstructive pulmonary disease, unspecified; M19.90 Unspecified osteoarthritis, unspecified site; Z79.82 Long term (current) use of aspirin; Z86.16 Personal history of COVID-19; Z86.73 Personal history of transient ischemic attack (TIA), and cerebral infarction without residual deficits; Z87.891 Personal history of nicotine dependence
CPT/HCPCS: 92950; 93005; 99285